=== PATIENT | male | born 1940 | race Caucasian/White ===

== ENCOUNTER 2017-08-05 11:45 | Outpatient (RCR) | payer OTHER, SELFPAY ==
[2017-08-05 13:05] LABS: International Normalized Ratio 2.6; Prothrombin Time (Protime)PT. 26.8 SECONDS (11.7-14.9)
== END 2017-08-05 12:00 | disposition home or self-care (01) ==
LOC: LAB 11:45
PROVIDERS: Family Provider Family Medicine; PCP Family Medicine; Visit Provider Internal Medicine Cardiovascular Disease
DX: I48.0 Paroxysmal atrial fibrillation (principal)
CPT/HCPCS: 36415; 85610

== ENCOUNTER → 2017-09-08 12:02 | Outpatient (CLI) | payer OTHER, SELFPAY ==
[2017-09-08 10:31] VITALS: BP 124/70; BMI 26.9
--- NOTE | 2017-09-08 12:26 | RAD_ITS ---
STUDY: X-RAY CHEST REASON FOR EXAM: Male, 76 years old. Shortness of breath. TECHNIQUE: PA and lateral views of the chest. COMPARISON: Comparison is made with prior examination dated February 10, 2013. FINDINGS: Hyperinflation. Blunting of both costophrenic angles. Increased linear markings at the lung bases suggest some bibasilar scarring. There is no demonstrated pleural abnormality. There is mild cardiac enlargement. Normal mediastinum and braden. Normal visualized pulmonary arteries. There is atherosclerotic tortuosity of the aortic arch and descending thoracic aorta. There are diffuse degenerative changes of the visualized thoracic spine. Normal visualized ribs, clavicles, and shoulders. There is no demonstrated abnormality of the visualized soft tissue structures of the upper abdomen. RAD/Chest PA and Lateral IMPRESSION: Hyperinflation. Blunting both cosmetic angles. Findings suggest a mild bibasilar scarring. Electronically Signed: Smith Grimm MD at 16:04 EST Tel [phone], Service support ,
[2017-09-08 12:40] LABS: Absolute Lymphocyte Count 2.76 X10^3/ul (0.83-4.51); Absolute Neutrophil Count 4.4 X10^3/uL (2.0-7.7); Basophil% 1.2 % (0-1); Eosinophil# 0.39 X10^3/uL; Eosinophils% 4.5 % (0-5); Hematocrit 44.5 % (40-54); Hemoglobin 14.5 g/dl (13.0-16.5); Lymphocyte # 2.76 X10^3/ul (4.0); Lymphocyte % 31.9 % (19-41); Mean Corp Hgb Conc 32.6 g/gl (32-36); Mean Corpuscular Hgb 29.5 pg (27.0-32.0); Mean Corpuscular Volume 90.6 fL (80-94); Mean Platelet Vol. 10.9 fl (6.2-12.0); Monocyte# 0.97 X10^3/uL; Monocyte% 11.2 % (0-10); Neutrophil # 4.42 X10^3/uL (2.7-7.7); Platelet Count 398 K/mm3 (150-450); RBC Distribution Width SD 51.9 fl (35.1-43.9); Red Blood Count 4.91 M/mm3 (4.6-6.2); White Blood Count 8.7 K/mm3 (4.4-11.0)
[2017-09-08 12:44] LABS: POSITIVE COUNT NO; POSITIVE DIFFERENTIAL NO; POSITIVE MORPHOLOGY NO
[2017-09-08 12:49] LABS: International Normalized Ratio 2.4; Prothrombin Time (Protime)PT. 25.2 SECONDS (11.7-14.9)
[2017-09-08 13:02] LABS: Anion Gap 6 (5-15); BUN 14 mg/dL (7-18); BUN/Creat Ratio 13.6 RATIO (10-20); Calcium,Total 8.5 mg/dL (8.5-10.1); Chloride 104 mmol/L (98-107); Creatinine, Serum 1.03 mg/dL (0.70-1.30); EST Glomerular Filtration Rate 74 mL/min (>60); Est Glom Filt Rate - Afr Amer 90 mL/min (>60); Glucose 105 mg/dL (74-106); Potassium 3.3 mmol/L (3.5-5.1); Sodium Level 140 mmol/L (136-145)
== END ==
PROVIDERS: Family Provider Family Medicine; PCP Family Medicine; Visit Provider Internal Medicine Cardiovascular Disease
DX: I48.0 Paroxysmal atrial fibrillation (principal); R06.02 Shortness of breath
CPT/HCPCS: 36415; 71046; 80048; 83880; 85025; 85610

== ENCOUNTER → 2017-09-09 08:41 | Outpatient (CLI) | payer OTHER, SELFPAY ==
[2017-09-08 10:31] VITALS: BP 124/70; BMI 26.9
--- NOTE | 2017-09-09 08:43 | ECHOD_ITS ---
Reason For Study: AFIB/FLUTTER Procedure This was a 2D Doppler, Color Flow transthoracic echocardiogram. The exam was of adequate technical quality. Exam performed in department. Left Ventricle Normal LV size. Moderate to severe concentric left ventricular hypertrophy. Mild global left ventricular systolic dysfunction. The estimated ejection fraction is 45 %. Right Ventricle Normal RV size. Normal systolic function. Atria The left atrium is severely enlarged. The right atrium is severely enlarged. No doppler evidence for ASD. Mitral Valve There is mild mitral annular calcification. The mitral valve chordae are thickened and/or calcified. Mild mitral valve prolapse. Moderate (2+) mitral valve insufficiency. Tricuspid Valve Normal tricuspid valve. Mild tricuspid valve insufficiency. Right ventricular systolic pressure estimated to be 36 mmHg. Aortic Valve Trisinus/trileaflet aortic valve. Mild focal aortic valve thickening. Moderate focal aortic valve calcification. Aortic sclerosis / mild aortic valve stenosis. Mild (1+) aortic valve insufficiency. Pulmonic Valve The pulmonic valve is not well visualized. Great Vessels Normal sized aortic root. Pericardium/Pleural No pericardial effusion. MMode/2D Measurements & Calculations LVIDd: 4.5 cm IVSd: 1.9 cm LVOT diam: 1.9 cm LVIDs: 3.6 cm LVPWd: 1.5 cm LVOT area: 2.7 cm2 RVDd: 2.9 cm FS: 21.0 % LA dimension: 5.6 cm LAV(MOD-bp): 110.7 ml LA A4 area: 31.9 cm2 LAV(MOD-bp) Indexed: 55.4 ml/m2 LAV(MOD-sp2): 95.0 ml LAV(MOD-sp4): 117.5 ml RA A4 area: 26.0 cm2 Doppler Measurements & Calculations MV E max gigi: 62.0 cm/sec Ao V2 max: 106.1 cm/sec AI max gigi: 282.3 cm/sec Ao max P.5 mmHg AI max P.9 mmHg ERICKA(V,D): 2.2 cm2 AI dec slope: 113.1 cm/sec2 AI P1/2t: 731.1 msec LV V1 max: 86.6 cm/sec MR max gigi: 449.5 cm/sec PA V2 max: 67.8 cm/sec LV V1 max P.0 mmHg MR max P.0 mmHg TR max gigi: 263.6 cm/sec TR max P.9 mmHg Interpretation Summary Mild global left ventricular systolic dysfunction. The estimated ejection fraction is 45 %. Moderate to severe concentric left ventricular hypertrophy. The left atrium is severely enlarged. The right atrium is severely enlarged. There is mild mitral annular calcification. The mitral valve chordae are thickened and/or calcified. Mild mitral valve prolapse. Moderate (2+) mitral valve insufficiency. Mild tricuspid valve insufficiency. Aortic sclerosis / mild aortic valve stenosis. Mild (1+) aortic valve insufficiency. Right ventricular systolic pressure estimated to be 36 mmHg. Ordering Physician: Sen Suazo Referring Physician: Dirk Castelan Performed By: Emelina Goodman, JESSE, RVT
== END ==
PROVIDERS: Family Provider Family Medicine; PCP Family Medicine; Visit Provider Internal Medicine Cardiovascular Disease
DX: I48.0 Paroxysmal atrial fibrillation (principal)
CPT/HCPCS: 93306

== ENCOUNTER → 2017-09-10 10:46 | Day surgery (SDC) | payer OTHER, SELFPAY ==
[2017-09-08 10:31] VITALS: BP 124/70; BMI 26.9
[2017-09-09 11:26] VITALS: BMI 26.9
[2017-09-10 11:06] LABS: Potassium 4.5 mmol/L (3.5-5.1)
[2017-09-10 11:08] LABS: International Normalized Ratio 2.2; Prothrombin Time (Protime)PT. 23.3 SECONDS (11.7-14.9)
--- NOTE | 2017-09-10 12:58 | PCM.OP.BLANK ---
Problem List (1) Atrial fibrillation Status: Acute Operative Report Date of Procedure: 09/10/17 Date: 09/10/2017 Procedure: Synchronized biphasic DC cardioversion Agents: Atrial fibrillation Consent: Per the patient Premedications: Per Dr. Edmond Soria pulmonology/critical care medicine with propofol 40 mg IV push ?1 Procedure: Synchronized biphasic DC cardioversion: 200 J ?1: Result: Sinus rhythm; PACs Complications: No apparent complications This note was generated with [facility] dictation software. It may contain incorrect words, spelling, and punctuation that were not noted in checking the note before signing.
--- NOTE | 2017-09-10 15:36 | PCM.OP.BLANK ---
Problem List (1) Atrial fibrillation Status: Acute (2) Cardiomyopathy Status: Acute Qualifiers: Cardiomyopathy type: unspecified Qualified Code(s): I42.9 - Cardiomyopathy, unspecified (3) Chronic systolic congestive heart failure Status: Chronic (4) snf current use of anticoagulant Status: Chronic Operative Report Date of Procedure: 09/10/17 - Conscious sedation CONSCIOUS SEDATION REPORT BRIEF HISTORY OF PRESENT ILLNESS: The patient is a 76-year-old Shadi male who presented to [facility] for an elective cardioversion secondary to atrial fibrillation. Patient is known to have systolic congestive heart failure with an EF of 45%. Patient does report having a previous cardioversion approximately 4 years ago without complication. The patient reports no prior anesthetic complications. Patient's INR was not therapeutic range. Patient does not report audible snoring in their home environment. Patient denies ever smoking. Patient has been n.p.o. since midnight. PHYSICAL EXAMINATION: VITAL SIGNS: Reviewed and were acceptable. GENERAL: The patient is a male, in no apparent distress, speaking in full sentences. HEENT: Normocephalic, atraumatic. Mucous membranes are moist and pink. Good mouth opening noted. Trachea is midline. Good neck mobility. CHEST: S1, S2 irregularly irregular. No murmurs, rubs or gallops were noted. LUNGS: Clear to auscultation bilaterally without appreciable wheezes, rales or rhonchi. ABDOMEN: Soft, nontender, nondistended. Positive bowel sounds. EXTREMITIES: There is no clubbing or cyanosis. Lower extremity edema present ASA Class: II DESCRIPTION OF PROCEDURE: After confirmation of informed consent, the patient's anesthesia plan was reviewed in detail. Propofol was chosen. Risks and benefits were reviewed and the patient agreed to proceed. At 12:42 PM, the patient was given 40 mg of propofol. The patient achieved an appropriate level of sedation and was given a 200 joule synchronized cardioversion by Dr. Suazo at the bedside. This was successful in achieving normal sinus rhythm. The patient was monitored until 12:51 PM, at which time he reached her baseline mental status and function. The patient tolerated the procedure well. COMPLICATIONS: None ESTIMATED BLOOD LOSS: None RECOMMENDATIONS: Okay to recover in usual fashion. Code Visit 9xxxx: Other Procedure See Report - [id number]
--- NOTE | 2017-09-10 15:41 | OP.PCM_ITS ---
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 Patient is known to have systolic congestive heart failure with an EF of 45%. Patient does report having a previous cardioversion approximately 4 years ago without complication. The patient reports no prior anesthetic complications. Patient's INR was not therapeutic range. Patient does not report audible snoring in their home environment. Patient denies ever smoking. Patient has been n.p.o. since midnight. PHYSICAL EXAMINATION: VITAL SIGNS: Reviewed and were acceptable. GENERAL: The patient is a male, in no apparent distress, speaking in full sentences. HEENT: Normocephalic, atraumatic. Mucous membranes are moist and pink. Good mouth opening noted. Trachea is midline. Good neck mobility. CHEST: S1, S2 irregularly irregular. No murmurs, rubs or gallops were noted. LUNGS: Clear to auscultation bilaterally without appreciable wheezes, rales or rhonchi. ABDOMEN: Soft, nontender, nondistended. Positive bowel sounds. EXTREMITIES: There is no clubbing or cyanosis. Lower extremity edema present ASA Class: II DESCRIPTION OF PROCEDURE: After confirmation of informed consent, the patient's anesthesia plan was reviewed in detail. Propofol was chosen. Risks and benefits were reviewed and the patient agreed to proceed. At 12:42 PM, the patient was given 40 mg of propofol. The patient achieved an appropriate level of sedation and was given a 200 joule synchronized cardioversion by Dr. Suazo at the bedside. This was successful in achieving normal sinus rhythm. The patient was monitored until 12:51 PM, at which time he reached her baseline mental status and function. The patient tolerated the procedure well. COMPLICATIONS: None ESTIMATED BLOOD LOSS: None RECOMMENDATIONS: Okay to recover in usual fashion. Code Visit 9xxxx: Other Procedure See Report - [id number]
== END ==
PROVIDERS: Family Provider Family Medicine; PCP Family Medicine; Visit Provider Internal Medicine Cardiovascular Disease
DX: I48.0 Paroxysmal atrial fibrillation (principal); I42.9 Cardiomyopathy, unspecified; I50.22 Chronic systolic (congestive) heart failure; R06.02 Shortness of breath; Z79.01 Long term (current) use of anticoagulants; Z79.899 Other long term (current) drug therapy
CPT/HCPCS: 36415; 84132; 85610; 92960; 93005; J7040

== ENCOUNTER 2017-09-12 05:02 | Inpatient (IN) | payer OTHER, SELFPAY ==
[2017-09-12] VITALS (22 sets, daily range): BP systolic 114–162; BP diastolic 67–111; PULSE 75–102; RESP 12–27; TEMP 35.7–37.4; O2SAT 80–97; BMI 26.6; BMI 25.9; BMI 26.0
--- NOTE | 2017-09-12 05:08 | EKG12_ITS ---
Test Reason : SOB Blood Pressure : / mmHG Vent. Rate : 097 BPM Atrial Rate : 097 BPM P-R Int : 238 ms QRS Dur : 098 ms QT Int : 364 ms P-R-T Axes : 047 -28 248 degrees QTc Int : 462 ms Sinus rhythm with 1st degree A-V block with occasional Premature ventricular complexes and Premature atrial complexes T wave abnormality, consider inferolateral ischemia Abnormal ECG Confirmed by ILIR MCDONALD, JAYY ([id number]), social media editor GLENN TURNER ([id number]) on 09/14/2017 1:02:52 PM Referred By: FER Confirmed By:JAYY HAZEL MD
--- NOTE | 2017-09-12 05:25 | RAD_ITS ---
STUDY: X-RAY CHEST REASON FOR EXAM: Male, 76 years old. Chest pain with shortness of breath TECHNIQUE: Single AP portable view of the chest. COMPARISON: 09/08/2017. FINDINGS: There are superimposed monitor leads. There is new opacification at both lung bases, small bilateral pleural effusion, continued areas of hyperinflation. There is no demonstrated pleural abnormality. Cardiomegaly has worsened. Normal mediastinum and braden. Normal visualized pulmonary arteries. There is atherosclerotic calcification of the aortic arch with tortuosity. Normal visualized thoracic spine. Normal visualized ribs, clavicles, and shoulders. There is no demonstrated abnormality of the visualized soft tissue structures of the upper abdomen. RAD/Chest 1 View (Portable) IMPRESSION: New bibasilar airspace disease with pleural effusion and increased cardiac enlargement likely superimposed on COPD. Suspect an inflammatory/infectious process rather than congestive heart failure. Electronically Signed: Nicky Hemphill MD at 5:54 EST , Service support ,
[2017-09-12] MEDS: Aspirin 81 MG TAB.CHEW 324 MG PO (05:27)
[2017-09-12 05:31] LABS: Absolute Lymphocyte Count 2.64 X10^3/ul (0.83-4.51); Absolute Neutrophil Count 6.7 X10^3/uL (2.0-7.7); Basophil# 0.06 X10^3/uL; Basophil% 0.6 % (0-1); Eosinophil# 0.25 X10^3/uL; Eosinophils% 2.3 % (0-5); Hematocrit 44.9 % (40-54); Hemoglobin 15.1 g/dl (13.0-16.5); Lymphocyte # 2.64 X10^3/ul (4.0); Lymphocyte % 24.7 % (19-41); Mean Corp Hgb Conc 33.6 g/gl (32-36); Mean Corpuscular Volume 89.3 fL (80-94); Mean Platelet Vol. 10.8 fl (6.2-12.0); Monocyte# 1.03 X10^3/uL; Monocyte% 9.7 % (0-10); Neutrophil # 6.66 X10^3/uL (2.7-7.7); Neutrophil % 62.4 % (47-70); Platelet Count 463 K/mm3 (150-450); RBC Distribution Width CV 15.8 % (11.6-14.6); RBC Distribution Width SD 51.4 fl (35.1-43.9); Red Blood Count 5.03 M/mm3 (4.6-6.2); White Blood Count 10.7 K/mm3 (4.4-11.0)
[2017-09-12] MEDS: Furosemide 40 MG/4 ML Vial IV ×3 (05:31→16:30)
[2017-09-12 05:32] LABS: POSITIVE COUNT NO; POSITIVE DIFFERENTIAL NO; POSITIVE MORPHOLOGY NO
[2017-09-12 05:44] LABS: Anion Gap 9 (5-15); BUN 18 mg/dL (7-18); BUN/Creat Ratio 17.6 RATIO (10-20); Calcium,Total 8.9 mg/dL (8.5-10.1); Chloride 103 mmol/L (98-107); Creatinine, Serum 1.02 mg/dL (0.70-1.30); EST Glomerular Filtration Rate 75 mL/min (>60); Est Glom Filt Rate - Afr Amer 91 mL/min (>60); Estimated Creatinine Clearance 62.62 ml/min; Glucose 100 mg/dL (74-106); Sodium Level 139 mmol/L (136-145)
[2017-09-12 05:45] LABS: International Normalized Ratio 2.3; Prothrombin Time (Protime)PT. 24.5 SECONDS (11.7-14.9)
[2017-09-12 06:09] LABS: BNP,B-Type NATRIURETIC PEPTIDE 620.4 pg/mL (0-100)
--- NOTE | 2017-09-12 06:14 | ED.VISSUMM ---
- ER Visit Summary Date of Service: 09/12/17 Chief Complaint: Shortness of breath History of Present Illness: The patient is a [address] Suazo and Dr. Castelan. He reports he has shortness of breath began 2 days ago and is gradually been worsening. States this is since being cardioverted from atrial fibrillation on September 10. States it is much worse if he walks around or lays flat. He reports that he has a cough sometimes. This is chronic and unchanged. It is nonproductive. No fever, chills, chest pain, or other complaints. He does have a history of CHF. He does not do daily weights. Physical Examination: Vitals: Stable. Afebrile. General: Well-nourished and well-developed. Head: Normocephalic atraumatic. Neck: Supple, no lymphadenopathy. No JVD. Nontender. Cardiovascular: Regular rate and rhythm. 2 out of 6 systolic murmur. Respiratory: Mild respiratory distress with crackles at the bases bilaterally. Abdominal: Soft, nontender, nondistended, normal bowel sounds. No guarding, rebound, or peritoneal signs. Back: Nontender. Extremities: Nontender, 2+ pitting edema of his lower extremity bilaterally. Skin: Normal color, no rash. Neurologic: Alert and oriented ?3. Cranial nerves II through XII are intact. Normal strength and sensation. Psych: Normal affect. Test Results: EKG is sinus with first-degree AV block rate of 97. He does have PVCs. CBC is marked for platelets of 463. Chem-7 is normal. INR is 2.3. Troponin 0 0.03. 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 Chest x-ray is read by me shows cardiomegaly and CHF. Emergency Department Course and Treatment: Patient was placed on BiPAP. His pulse ox is 91% on 4 L nasal cannula. His heart rate is decreased into the 80s. He feels much improved. He is given Lasix IV. Treatment Plan: Patient was discussed with Dr. Herrera. He will be admitted to the hospital for further evaluation and treatment. Disposition: Admitted in improved condition Impression: 1. CHF. 2. Coumadin coagulopathy. This note was generated with [employer] dictation software. It may contain incorrect words, spelling, and punctuation that were not noted in review of the chart prior to signing ED Disposition - Plan for ED Patient: Chief Complaint: Shortness of Breath Referrals: Dirk Castelan [Primary Care Provider] -
--- NOTE | 2017-09-12 06:16 | ED.RN ---
VOIDING CLEAR YELLOW URINE IN URINAL AND HAS DIURESED 600 CC
--- NOTE | 2017-09-12 06:49 | PCM.HP.STD ---
Problem List (1) Acute on chronic systolic heart failure Status: Acute (2) Cardiomyopathy Status: Acute Qualifiers: (3) Dyspnea Status: Acute Qualifiers: (4) Hypokalemia Status: Acute (5) Palpitations Status: Acute (6) Paroxysmal atrial tachycardia Status: Acute (7) Chronic systolic congestive heart failure Status: Chronic History of Present Illness Date of Admission: 09/12/17 Chief Complaint: Acute on chronic systolic heart failure The patient is a 76 year old male w/ h/o parosymal afib, HTN and chronic systolic heart failure admitted for acute on chronic systolic heart failure. He recently had an ablation and has worsening SOB after the ablation. Nothing appeared to make it better or worse. His SOB has been worsening over the past few weeks but in the past few days, SOB has gotten much worse. He has orthopnea. His SOB affected all part of the day and is so severe that it interfered with his ADLs. No change in diet or meds. No chest pain. He has minimal cough. No fever or chill. Past Medical History Past Medical History (Chronic Problems): Chronic Problems (Last Reviewed 09/08/17 @ 10:32 by Stella Mishra) [facility] current use of anticoagulant (Chronic) Paroxysmal atrial fibrillation (Chronic) Chronic systolic congestive heart failure (Chronic) Allergies No Known Allergies Allergy (Verified 09/12/17 05:10) Home Medications: Ambulatory Orders Medication Instructions Recorded metoprolol tartrate 100 mg tablet 100 mg PO BID #180 tab 07/12/17 lisinopril 10 mg tablet 10 mg PO QDAY 09/08/17 furosemide 20 mg tablet 20 mg PO BID #60 tab 09/09/17 Warfarin [Coumadin ([facility])] 2 mg PO 09/12/17 Warfarin [Coumadin ([facility])] 3 mg PO DAILY 09/12/17 Surgical History: no surgical history Smoking Status: Never smoker - *Family History Maternal History Items: No pertinent history Review of Systems Constitutional: Denies: Chills, Fever, Weight Change HEENT: Denies: Head Aches, Sinus Congestion, Sinus Drainage Cardiovascular: Denies: Chest Pain, Palpitations Respiratory: Reports: Cough, Wheezing. Denies: Shortness of breath at rest, Sputum production Gastrointestinal: Denies: Abdominal Pain, Nausea, Vomiting Genitourinary: Denies: Dysuria Musculoskeletal: Denies: Joint Pain, Joint Tenderness Skin: Denies: Rash, Wounds Neurological: Denies: Numbness, Tingling, Focal weakness Psychiatric: Denies: Anxiety, Depression, Homicidal Ideations, Suicidal Ideations Hematologic/ Lymphatic: Denies: Easy Bruising, Easy Bleeding VTE Information - Inpt Only VTE Present on Admission: No VTE Mechan Device Prophylaxis: SCD's VTE Pharm Prophylaxis ordered?: Yes Patient Problems: Active and Suspected Problems (Last Reviewed 09/08/17 @ 10:32 by Stella Mishra) Atrial fibrillation (Acute) Acute on chronic systolic heart failure (Acute) - Physical Exam General: Alert, Oriented x3, Cooperative HEENT: Atraumatic, PERRLA, EOMI, Normocephalic Neck: Supple, No JVD, Negative Carotid Bruits Lungs: Diminished, Rales, Wheezes Cardiovascular: Regular rate, No murmurs Abdomen: Bowel Sounds Present, Soft, Non Tender Extremities: Capillary Refill Less than 3 Seconds, Edema - 3+ edema Skin: No rashes, No breakdown Musculoskeletal: No Tenderness to Palpation of Joints or Extremities Neurological: Cranial nerves II-XII grossly intact Psych/Mental Status: Normal Affect, Appropriate Vital Signs Temp Pulse Resp BP Pulse Ox 99.4 F H 92 21 H 140/91 H 95 09/12/17 05:03 09/12/17 06:38 09/12/17 06:38 09/12/17 06:38 09/12/17 06:38 Oxygen Flow Rate 4 Oxygen Delivery Method Bi-pap Weight: 84.1 kg Body Mass Index (BMI) 26.6 Laboratory Tests Past 24 Hrs 09/12/17 09/12/17 09/12/17 05:15 05:15 05:15 WBC 10.7 RBC 5.03 Hgb 15.1 Hct 44.9 MCV 89.3 MCH 30.0 MCHC 33.6 RDW 15.8 H RDW Differential 51.4 H Plt Count 463 H MPV 10.8 Immature Gran % (Auto) 0.300 Neut % (Auto) 62.4 Lymph % (Auto) 24.7 [place] % (Auto) 9.7 Eos % (Auto) 2.3 Baso % (Auto) 0.6 Absolute Neuts (auto) 6.7 Absolute Lymphs (auto) 2.64 Total Counted Not Reportable PT 24.5 H INR 2.3 Sodium 139 Potassium 4.0 Chloride 103 Carbon Dioxide 27.0 Anion Gap 9 BUN 18 Creatinine 1.02 Estim Creat Clear Calc 62.62 Est GFR (MDRD) Af Amer 91 Est GFR (MDRD) Non-Af 75 BUN/Creatinine Ratio 17.6 Glucose 100 Calcium 8.9 Troponin I 0.03 B-Natriuretic Peptide 09/12/17 05:15 WBC RBC Hgb Hct MCV MCH MCHC RDW RDW Differential Plt Count MPV Immature Gran % (Auto) Neut % (Auto) Lymph % (Auto) [place] % (Auto) Eos % (Auto) Baso % (Auto) Absolute Neuts (auto) Absolute Lymphs (auto) Total Counted PT INR Sodium Potassium Chloride Carbon Dioxide Anion Gap BUN Creatinine Estim Creat Clear Calc Est GFR (MDRD) Af Amer Est GFR (MDRD) Non-Af BUN/Creatinine Ratio Glucose Calcium Troponin I B-Natriuretic Peptide 620.4 H Assessment/Plan Active and Suspected Problems (Last Reviewed 09/08/17 @ 10:32 by Stella Mishra) Atrial fibrillation (Acute) Acute on chronic systolic heart failure (Acute) 76 year old male w/ h/o parosymal afib, HTN and chronic systolic heart failure admitted for acute on chronic systolic heart failure. 1) Acute on chronic systolic heart failure: Clinical history c/w heart failure. Chest xray is not so convincing of heart failure. Will start lasix 40mg IV Q12H. Will get trops. Will also get ECHO. Monitor. 2) Acute respiratory failure: Will c/w bipap. Likely heart failure. However, will r/o infectious causes. Cultures pending. Will get D-dimer, although PE is unlikely given on anticoagulation. SOB appears to be out of proportion to chest xray. Monitor. 3) Afib: Resume home meds. Monitor. 4) Prophylaxis: Coumadin.
[2017-09-12 08:05] LABS: D-Dimer Quantitative (DVT/PE) 0.44 FEU/ug/m (0.27-0.49)
[2017-09-12 08:17] LABS: Magnesium 1.9 mg/dL (1.6-2.6); Thyroid Stim Hormone (TSH) 2.79 uIU/mL (0.358-3.74)
[2017-09-12 08:30] LABS: Color, Urine Straw (Yellow); Glucose, Dipstick Normal (Normal); Ketone-Dipstick Negative (Negative); Leukocyte Esterase-Dipstick 25 /ul (Negative); Nitrite-Dipstick Negative (Negative); Occult Blood-Urine Negative /ul (Negative); Protein-Dipstick Negative (Negative); Urine Bilirubin Dipstick Negative (Negative); Urine Clarity Clear (Clear); Urine Urobilinogen Normal (Normal)
[2017-09-12 08:52] LABS: BNP,B-Type NATRIURETIC PEPTIDE 705.5 pg/mL (0-100)
[2017-09-12] MEDS: Lisinopril 10 MG Tablet PO ×2 (09:23→21:33)
[2017-09-12] MEDS: Metoprolol Tartrate 100 MG Tablet PO ×2 (09:23→21:34)
--- NOTE | 2017-09-12 11:47 | PN_ITS ---
<Guille Duran - Last Filed: 09/12/17 11:37> Patient Problems: Active and Suspected Problems (Last Reviewed 09/08/17 @ 10:32 by Stella Mishra) Atrial fibrillation (Acute) Acute on chronic systolic heart failure (Acute) Subjective: Pt came in last night with increased SOB, PND, and orthopnea. He has a hx of AF and underwent a succesful cardioversion with Dr. Suazo 2 days ago and had an echo with EF 45% 3 days ago. He reports palpitations. He has had increased swelling of his BLE and was admitted for CHF and started on BiPAP and IV lasix. He does not use O2 at home. He feels that he is improving. He still has some BLE edema and abdominal distention. - Physical Exam General: Alert, Oriented x3, Cooperative HEENT: Atraumatic, PERRLA, EOMI, Normocephalic Neck: Supple, No JVD, Negative Carotid Bruits Lungs: Normal air movement, Rales - BL lower elaine posteriodly. Cardiovascular: Regular rate, No murmurs Abdomen: Bowel Sounds Present, Soft, Non Tender, - - mildly distended Extremities: No edema, Capillary Refill Less than 3 Seconds, Edema - 2+ pitting edema BLE mostly in ankles. Skin: No rashes, No breakdown Musculoskeletal: No Tenderness to Palpation of Joints or Extremities Neurological: Cranial nerves II-XII grossly intact Psych/Mental Status: Normal Affect, Appropriate, Alert and oriented to time, place, person, mood and affect Vital Signs Temp Pulse Resp BP Pulse Ox 96.2 F L 80 20 H 133/72 H 95 09/12/17 07:37 09/12/17 09:23 09/12/17 07:45 09/12/17 07:37 09/12/17 11:26 Oxygen Flow Rate 4.5 Oxygen Delivery Method Nasal Cannula Weight: 82.1 kg Body Mass Index (BMI) 25.9 Intake and Output for Last 24 Hours 09/10/17 09/11/17 09/12/17 23:59 23:59 23:59 Output Total 250 / 250 Balance -250 / -250 Microbiology Past 72 Hours 09/12/17 08:00 Streptococcus pneumoniae Antigen (M - Final Urine, Clean Catch 09/12/17 08:00 Legionella Antigen - Final Urine, Clean Catch 09/12/17 07:43 Influenza Types A,B Direct FA (CONNIE) - Final Mucosa - Nasopharyngeal Laboratory Tests Past 24 Hrs 09/12/17 09/12/17 09/12/17 07:30 07:30 07:30 D-Dimer Quant (PE/DVT) 0.44 Magnesium 1.9 Troponin I B-Natriuretic Peptide 705.5 H TSH 2.79 Urine Color Urine Clarity Urine pH Ur Specific [place] Urine Protein Urine Glucose (UA) Urine Ketones Urine Occult Blood Urine Nitrite Urine Bilirubin Urine Urobilinogen Ur Leukocyte Esterase 09/12/17 09/12/17 08:00 09:20 D-Dimer Quant (PE/DVT) Magnesium Troponin I 0.04 B-Natriuretic Peptide TSH Urine Color Straw Urine Clarity Clear Urine pH 7.0 Ur Specific [place] 1.010 Urine Protein Negative Urine Glucose (UA) Normal Urine Ketones Negative Urine Occult Blood Negative Urine Nitrite Negative Urine Bilirubin Negative Urine Urobilinogen Normal Ur Leukocyte Esterase 25 H Assessment/Plan Active and Suspected Problems (Last Reviewed 09/08/17 @ 10:32 by Stella Mishra) Atrial fibrillation (Acute) Acute on chronic systolic heart failure (Acute) 1. Acute hypoxic respiratory failure 2/2 acute systolic CHF exacerbation - pt tolerated BiPAP last night. Now stable on 4.5 lpm O2 - no home O2 at baseline. He is diuresing with IV lasix. BNP was elevated however CXR was read as more COPD vs CHF. His symptoms of BLE, abdominal distention, PND, and orthopnea are consistent with CHF. Will consult Dr. Suazo as the patient had a cardioversion 2 days ago. Defer Echo as echo done 3 days ago - EF 45 %. Troponin negative. 1 EKG and tele showing AFib, however on closer inspection I' m not convinced there was actually Afib, but sinus arrhythmia with a 1st degree AV block. Will wait for Dr. Suazo to eval. He is already on a beta rubin and STEPHANE inhibitor. 2. Afib - s/p cardioversion, as above. + palpitations. Rate controlled and warfarin - therapeutic. K and mag are normal. 3. HTN - improving DVT ppx: warfarin DC planning: pending cardiology evaluation, currently requiring significant amounts of O2. Does not have O2 at home. This patient was seen by Guille Duran PA-C under the supervision of Doctor Santos. <Paintsil,Rickreall - Last Filed: 09/12/17 12:12> - Physical Exam Vital Signs Temp Pulse Resp BP Pulse Ox 96.2 F L 80 20 H 133/72 H 95 09/12/17 07:37 09/12/17 09:23 09/12/17 07:45 09/12/17 07:37 09/12/17 11:26 Oxygen Flow Rate 4.5 Oxygen Delivery Method Nasal Cannula Weight: 82.1 kg Body Mass Index (BMI) 25.9 Intake and Output for Last 24 Hours 09/10/17 09/11/17 09/12/17 23:59 23:59 23:59 Intake Total 240 / 240 Output Total 1875 / 1875 Balance -1635 / -1635 Microbiology Past 72 Hours 09/12/17 08:00 Streptococcus pneumoniae Antigen (M - Final Urine, Clean Catch 09/12/17 08:00 Legionella Antigen - Final Urine, Clean Catch 09/12/17 07:43 Influenza Types A,B Direct FA (CONNIE) - Final Mucosa - Nasopharyngeal Laboratory Tests Past 24 Hrs 09/12/17 09/12/17 09/12/17 07:30 07:30 07:30 D-Dimer Quant (PE/DVT) 0.44 Magnesium 1.9 Troponin I B-Natriuretic Peptide 705.5 H TSH 2.79 Urine Color Urine Clarity Urine pH Ur Specific [place] Urine Protein Urine Glucose (UA) Urine Ketones Urine Occult Blood Urine Nitrite Urine Bilirubin Urine Urobilinogen Ur Leukocyte Esterase 09/12/17 09/12/17 08:00 09:20 D-Dimer Quant (PE/DVT) Magnesium Troponin I 0.04 B-Natriuretic Peptide TSH Urine Color Straw Urine Clarity Clear Urine pH 7.0 Ur Specific [place] 1.010 Urine Protein Negative Urine Glucose (UA) Normal Urine Ketones Negative Urine Occult Blood Negative Urine Nitrite Negative Urine Bilirubin Negative Urine Urobilinogen Normal Ur Leukocyte Esterase 25 H Assessment/Plan Patient was seen and examined independently. Managed on Bipap overnight, admitted with SOB and being managed as acute CHF. He denies chest pain, palpitations or SOB. On Lasix 40mg IV BID, normal renal function, telemetry is sinus rhythmn, will increase lasix to 40mg q8hrly, continue on home potassium, look out for electrolyte imbalances. Daily weights, strict I & Os
--- NOTE | 2017-09-12 13:39 | CON.PCM_ITS ---
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 The patient has been undergoing recent outpatient cardiovascular evaluation for recurrent shortness of breath/dyspnea recurrent atrial fibrillation. He has undergone noninvasive studies including a recent (09/09/2017) follow-up transthoracic echocardiogram. Has demonstrated mild global left ventricular systolic dysfunction with an estimated LVEF of 45%; moderate to severe concentric LVH; severe biatrial enlargement; mild mitral annular calcification; mild mitral valve prolapse; moderate MR; mild TR; aortic valve sclerosis/mild aortic valve stenosis; mild AI; and an estimated RV systolic pressure of 36 mmHg. Based upon his ongoing issues and concerns he underwent medication adjustment with increase in his outpatient diuretic therapy regimen. He also underwent subsequent synchronized biphasic DC cardioversion on 09/10/2017 with 200 J ?1 at which time he returned to sinus rhythm with PACs. He states that yesterday evening he had progressive shortness of breath and dyspnea and describes symptoms compatible with orthopnea and PND. He denied any chest discomfort. There was no obvious palpitations. There was no loss of consciousness. He was brought to the hospital for further evaluation and care. He was thought to be in acute on chronic systolic CHF. He required medical management with IV diuretics and temporary oxygen support with BiPAP. As he began to diurese his oxygenation improved and his BiPAP was able to be discontinued. He was then placed on O2 nasal cannula. He states at the present time he is doing better. However he still feels tired. He has had laboratory studies performed. His BNP was elevated which is not a new finding for him. His ECG demonstrated sinus rhythm with a first-degree AV block with occasional PACs and PVCs; leftward axis; poor R-wave progression; nonspecific T-wave abnormality. Of note, he has undergone previous diagnostic cardiac catheterization on 2010. This demonstrated his left ventricle to have borderline low LV systolic function with an estimated LVEF of 50% and angiographically normal-appearing coronary arteries and mild to moderate MR. [] Past Medical History Allergies/Adverse Reactions: Allergies No Known Allergies Allergy (Verified 09/12/17 05:10) Home Medications: Ambulatory Orders Medication Instructions Recorded metoprolol tartrate 100 mg tablet 100 mg PO BID #180 tab 07/12/17 lisinopril 10 mg tablet 10 mg PO QDAY 09/08/17 furosemide 20 mg tablet 20 mg PO BID #60 tab 09/09/17 Potassium Chloride [K-Dur] 20 meq PO DAILY 09/12/17 Warfarin [Coumadin ([facility])] 2 mg PO 09/12/17 Warfarin [Coumadin ([facility])] 3 mg PO DAILY 09/12/17 Past Medical History (Chronic Problems): Chronic Problems (Last Reviewed 09/08/17 @ 10:32 by Stella Mishra) Mitral valve regurgitation (Chronic) Aortic valve stenosis (Chronic) 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 Denies: Fever, Night Sweats Cardiovascular: Reports: Shortness of Breath, Shortness of Breath at Rest, Shortness of Breath with Exertion, Orthopnea, PND, Peripheral Edema. Denies: Chest Discomfort, Palpitations, Lightheadedness, Dizziness, Near Syncope, Syncope Respiratory: Reports: Shortness of Breath. Denies: Cough, Sputum Production, Hemoptysis Gastrointestinal: Denies: Hematemesis, Hematochezia, Melena Genitourinary: Denies: Dysuria, Hematuria Skin: Denies: Rash Subjectve: This is a 76-year-old white male who appears to be resting reasonably comfortably with O2 nasal cannula at this time in no acute distress. Objective: Vital Signs Temp Pulse Resp BP Pulse Ox 96.2 F L 80 20 H 133/72 H 95 09/12/17 07:37 09/12/17 09:23 09/12/17 07:45 09/12/17 07:37 09/12/17 11:26 Oxygen Flow Rate 4.5 Oxygen Delivery Method Nasal Cannula Weight: 180 lb 15.992 oz Body Mass Index (BMI) 25.9 Intake and Output for Last 24 Hours 09/10/17 09/11/17 09/12/17 23:59 23:59 23:59 Intake Total 240 / 240 Output Total 1875 / 1875 Balance -1635 / -1635 General: Awake, Alert, Oriented x 3, Cooperative, No Acute Distress Neck: No JVD Lungs: Diminished Ayaz Bases Cardiovascular: Regular Rhythm, Premature Ectopic Beats, Normal S1, Normal S2 Murmur Murmur: Grade 2/6, Mid Systolic, [place], Axilla, - - Grade 2/6: Soft: Diastolic murmur: Lower left sternal border Vascular: No Carotid Bruits Abdomen: Bowel Sounds Present, Soft, Non Tender Extremities: Mild RLE Edema, Mild LLE Edema 09/12/17 07:30: D-Dimer Quant (PE/DVT) 0.44 09/12/17 07:30: B-Natriuretic Peptide 705.5 H 09/12/17 07:30: Magnesium 1.9 09/12/17 08:00: Urine Color Straw, Urine Clarity Clear, Urine pH 7.0, Ur Specific [place] 1.010, Urine Protein Negative, Urine Glucose (UA) Normal, Urine Ketones Negative, Urine Occult Blood Negative, Urine Nitrite Negative, Urine Bilirubin Negative, Urine Urobilinogen Normal, Ur Leukocyte Esterase 25 H 09/12/17 09:20: Troponin I 0.04 Rhythm: As noted above EKG: As noted above ECHO: As noted above Cardiac Cath: As noted above CXR: Preliminary evaluation: Blunting of the costophrenic angles; please see official report Assessment/Plan 1. Acute on chronic systolic CHF The patient appears to have had recurrent acute on chronic systolic CHF. This may be compatible with the patient's history of underlying atrial dysrhythmia, valvular heart disease, and non-CAD related cardiomyopathy. At the present time he is being monitored. His laboratory studies will be followed. His cardiac rate and rhythm will be followed. He has undergone recent evaluation with a transthoracic echocardiogram. He will continue medical management. This does include IV diuresis. He appears to be responding appropriately thus far. Upon his clinical course he may eventually need additional noninvasive or invasive studies to assist with diagnosis and or care. 2. Cardiomyopathy The patient has a history of a non-CAD related cardiomyopathy. He has been treated medically in the past. He had been doing well until recently. There is concern that his recent return to atrial fibrillation prompted recurrent acute on chronic symptoms. This may also have impacted his overall LV systolic function/LVEF. At the present time he is being followed. He continues medical management. He has undergone recent noninvasive evaluation. He is also undergone recent DC cardioversion to regain sinus rhythm. The hope is that in sinus rhythm he will regain his atrial kick which may help his overall cardiovascular efficiency and subsequently help his overall cardiovascular status. 3. Atrial fibrillation The moment he remains in sinus rhythm with PACs and PVCs. His rate and rhythm will be followed. He continues on rate control therapy as well as anticoagulant therapy. Ideally it would be reasonable not to interrupt his anticoagulant therapy for any additional invasive evaluation and/or care for approximately 4-6 weeks to as the risk of post DC cardioversion thromboembolic events. In the interim depending upon his rate and rhythm he may need additional medical therapy. This could include antiarrhythmic therapy to help maintain his sinus rhythm. 4. MR She does have a history of mitral valve prolapse and mitral valve regurgitation. His prolapse appears mild and his MR appears to be moderate based on his recent echocardiographic studies. He will need to be followed. Depending on his future clinical course, if his mitral valve disease is thought to be more prominent and/or contributing to his ongoing cardiovascular issues he may need to be considered for a tertiary care center evaluation as to whether or not he is a candidate for any form of mitral valve repair/replacement. 5. Aortic valve sclerosis/stenosis His aortic valve appears to be sclerotic and/or mildly stenotic. It was not felt this was the culprit for his ongoing acute on chronic cardiovascular issues. This will need to be followed over time. 6. Long-term oral anticoagulant therapy At the present time, he should remain on anticoagulant therapy, especially noting he is undergone recent synchronized biphasic DC cardioversion, to minimize the risk of thromboembolic event secondary to his history of atrial dysrhythmias, etc. Comment: The above was discussed with the patient, his spouse, and multiple other family members present as well as the [facility] hospitalist team. This note was generated with [employer] Dictation software. Every effort was made to ensure accuracy, however, computerized office director mistakes may persist.
[2017-09-13] VITALS (32 sets, daily range): BP systolic 93–133; BP diastolic 57–97; PULSE 61–135; RESP 16–20; TEMP 36.6–37.4; O2SAT 93–97
[2017-09-13] MEDS: Furosemide 40 MG/4 ML Vial IV ×2 (05:48→17:07)
--- NOTE | 2017-09-13 06:01 | EKG12_ITS ---
Test Reason : ARRYTHMIA Blood Pressure : / mmHG Vent. Rate : 135 BPM Atrial Rate : 182 BPM P-R Int : 000 ms QRS Dur : 094 ms QT Int : 354 ms P-R-T Axes : 000 -72 174 degrees QTc Int : 531 ms Atrial fibrillation Left anterior fascicular block ST & T wave abnormality, consider lateral ischemia Abnormal ECG When compared with ECG of 12-SEP-2017 05:09, MANUAL COMPARISON REQUIRED, DATA IS UNCONFIRMED Confirmed by ILIR MCDONALD, JAYY ([id number]), medical editor GLENN TURNER ([id number]) on 09/14/2017 2:00:39 PM Referred By: RONEY Confirmed By:JAYY HAZEL MD
[2017-09-13] MEDS: Metoprolol Tartrate 100 MG Tablet PO ×2 (06:07→21:02)
[2017-09-13 06:18] LABS: International Normalized Ratio 2.6
[2017-09-13 06:22] LABS: Anion Gap 8 (5-15); BUN 21 mg/dL (7-18); BUN/Creat Ratio 17.6 RATIO (10-20); Calcium,Total 8.7 mg/dL (8.5-10.1); Chloride 102 mmol/L (98-107); Creatinine, Serum 1.19 mg/dL (0.70-1.30); EST Glomerular Filtration Rate 63 mL/min (>60); Est Glom Filt Rate - Afr Amer 76 mL/min (>60); Estimated Creatinine Clearance 53.68 ml/min; Glucose 90 mg/dL (74-106); Sodium Level 142 mmol/L (136-145)
[2017-09-13 06:41] LABS: Absolute Lymphocyte Count 2.64 X10^3/ul (0.83-4.51); Absolute Neutrophil Count 5.5 X10^3/uL (2.0-7.7); Basophil# 0.05 X10^3/uL; Basophil% 0.5 % (0-1); Eosinophil# 0.34 X10^3/uL; Eosinophils% 3.6 % (0-5); Hematocrit 46.4 % (40-54); Hemoglobin 15.1 g/dl (13.0-16.5); Lymphocyte # 2.64 X10^3/ul (4.0); Lymphocyte % 27.6 % (19-41); Mean Corp Hgb Conc 32.5 g/gl (32-36); Mean Corpuscular Hgb 29.5 pg (27.0-32.0); Mean Corpuscular Volume 90.6 fL (80-94); Mean Platelet Vol. 10.6 fl (6.2-12.0); Monocyte# 1.04 X10^3/uL; Monocyte% 10.9 % (0-10); Neutrophil # 5.48 X10^3/uL (2.7-7.7); Neutrophil % 57.3 % (47-70); Platelet Count 394 K/mm3 (150-450); RBC Distribution Width CV 15.6 % (11.6-14.6); RBC Distribution Width SD 51.6 fl (35.1-43.9); Red Blood Count 5.12 M/mm3 (4.6-6.2); White Blood Count 9.6 K/mm3 (4.4-11.0)
[2017-09-13 06:42] LABS: POSITIVE COUNT NO; POSITIVE DIFFERENTIAL NO; POSITIVE MORPHOLOGY NO
[2017-09-13] MEDS: 0.9% NaCl Peripheral Flush Adult/Peds IV ×2 (07:45→17:07)
--- NOTE | 2017-09-13 10:20 | CASEMGMT ---
This RN CM to bedside to complete assessment and pt is sleeping at this time. Will attempt again later. SStaten RN CM
--- NOTE | 2017-09-13 10:24 | PCM.PN.CARD ---
Subjectve: The patient is awake and alert. He states his breathing has improved. He notes his lower extremity edema has improved. He has had no complaints of chest discomfort or palpitations. He was noted to reenter atrial fibrillation with RVR earlier this day, however, he did not note the change himself. Objective: Vital Signs Temp Pulse Resp BP Pulse Ox 98.2 F 100 17 109/89 H 95 09/13/17 10:00 09/13/17 10:00 09/13/17 10:00 09/13/17 10:00 09/13/17 10:00 Oxygen Flow Rate 1 Oxygen Delivery Method Nasal Cannula Weight: 175 lb 4.28 oz Body Mass Index (BMI) 25.9 Intake and Output for Last 24 Hours 09/11/17 09/12/17 09/13/17 23:59 23:59 23:59 Intake Total 480 / 480 Output Total 4075 / 4075 250 / 250 Balance -3595 / -3595 -250 / -250 General: Awake, Alert, Oriented x 3, Cooperative, No Acute Distress Neck: No JVD Lungs: Diminished Ayaz Bases - Improved compared to the previous evaluation Cardiovascular: Irregular Rhythm, Normal S1, Normal S2 Murmur Murmur: Grade 2/6, Mid Systolic, [place], Axilla, - - Grade 2/6: Soft: Diastolic murmur: Lower left sternal border Abdomen: Bowel Sounds Present, Soft, Non Tender Extremities: Trace RLE Edema, Trace LLE Edema 09/12/17 09:20: Troponin I 0.04 09/12/17 13:20: Troponin I 0.04 09/12/17 19:15: Troponin I 0.03 09/13/17 05:20: WBC 9.6, RBC 5.12, Hgb 15.1, Hct 46.4, MCV 90.6, MCH 29.5, MCHC 32.5, RDW 15.6 H, RDW Differential 51.6 H, Plt Count 394, MPV 10.6, Immature Gran % (Auto) 0.100, Neut % (Auto) 57.3, Lymph % (Auto) 27.6, [place] % (Auto) 10.9 H, Eos % (Auto) 3.6, Baso % (Auto) 0.5, Absolute Neuts (auto) 5.5, Total Counted Not Reportable 09/13/17 05:20: Sodium 142, Potassium 4.0, Chloride 102, Carbon Dioxide 32.0, Anion Gap 8, BUN 21 H, Creatinine 1.19, Est GFR (MDRD) Af Amer 76, Est GFR (MDRD) Non-Af 63, BUN/Creatinine Ratio 17.6, Glucose 90, Calcium 8.7 09/13/17 05:20: PT 27.0 H, INR 2.6 Rhythm: Atrial fibrillation EKG: Atrial fibrillation; left axis deviation; poor R-wave progression; T-wave abnormality potentially compatible with myocardial ischemia; no acute ECG changes other than notation of the change to atrial fibrillation Assessment/Plan 1. Acute on chronic systolic CHF The patient appears to have had recurrent acute on chronic systolic CHF. This may be compatible with the patient's history of underlying atrial dysrhythmia, valvular heart disease, and non-CAD related cardiomyopathy. At the present time he is being monitored. His laboratory studies will be followed. He has undergone recent evaluation with a transthoracic echocardiogram. He will continue medical management. This does include IV diuresis. He appears to be responding appropriately thus far. Upon his clinical course he may eventually need additional noninvasive or invasive studies to assist with diagnosis and or care. 2. Cardiomyopathy The patient has a history of a non-CAD related cardiomyopathy. He has been treated medically in the past. He had been doing well until recently. There is concern that his recent return to atrial fibrillation prompted recurrent acute on chronic symptoms. This may also have impacted his overall LV systolic function/LVEF. At the present time he is being followed. He continues medical management. He has undergone recent noninvasive evaluation. He is also undergone recent DC cardioversion to regain sinus rhythm. However, now he has returned to atrial fibrillation. 3. Atrial fibrillation He has returned to atrial fibrillation. He will continue rate control therapy. He will initiate antiarrhythmic therapy with IV amiodarone and attempt to regain better rate control and hopefully sinus rhythm. He will continue anticoagulant therapy. 4. MR She does have a history of mitral valve prolapse and mitral valve regurgitation. His prolapse appears mild and his MR appears to be moderate based on his recent echocardiographic studies. He will need to be followed. Depending on his future clinical course, if his mitral valve disease is thought to be more prominent and/or contributing to his ongoing cardiovascular issues he may need to be considered for a tertiary care center evaluation as to whether or not he is a candidate for any form of mitral valve repair/replacement. 5. Aortic valve sclerosis/stenosis His aortic valve appears to be sclerotic and/or mildly stenotic. It was not felt this was the culprit for his ongoing acute on chronic cardiovascular issues. This will need to be followed over time. 6. Long-term oral anticoagulant therapy At the present time, he should remain on anticoagulant therapy, especially noting he is undergone recent synchronized biphasic DC cardioversion, to minimize the risk of thromboembolic event secondary to his history of atrial dysrhythmias, etc. Comment: The above was discussed with the patient, his spouse, and multiple other family members present. This note was generated with [employer] software. Every effort was made to ensure accuracy, however, computerized phlebotomist medical lab assistant mistakes may persist.
--- NOTE | 2017-09-13 11:07 | PCM.PROGNOTE ---
<Guille Duran - Last Filed: 09/13/17 11:07> Patient Problems: Active and Suspected Problems (Last Reviewed 09/08/17 @ 10:32 by Stella Mishra) Acute on chronic systolic heart failure (Acute) Subjective: Pt went into AFib with RVR last night and was started on Amio drip. He continues to feel better however, with improvement in SOB, less O2 requirement, no CP or palp, improvement in BLE edema and abdominal distention. He is resting comfortably in bed on 2 lpm O2. Rare dry cough. - Physical Exam General: Alert, Oriented x3, Cooperative HEENT: Atraumatic, PERRLA, EOMI, Normocephalic Neck: Supple, No JVD, Negative Carotid Bruits Lungs: Clear to auscultation, Normal air movement Cardiovascular: No murmurs, Irregular Rate, Tachycardic Abdomen: Bowel Sounds Present, Soft, Non Tender Extremities: No edema, Capillary Refill Less than 3 Seconds Skin: No rashes, No breakdown Musculoskeletal: No Tenderness to Palpation of Joints or Extremities Neurological: Cranial nerves II-XII grossly intact Psych/Mental Status: Normal Affect, Appropriate, Alert and oriented to time, place, person, mood and affect Vital Signs Temp Pulse Resp BP Pulse Ox 98.2 F 116 H 17 98/77 94 09/13/17 10:00 09/13/17 11:01 09/13/17 11:00 09/13/17 11:00 09/13/17 11:00 Oxygen Flow Rate 1 Oxygen Delivery Method Nasal Cannula Weight: 79.5 kg Body Mass Index (BMI) 25.9 Intake and Output for Last 24 Hours 09/11/17 09/12/17 09/13/17 23:59 23:59 23:59 Intake Total 480 / 480 Output Total 4075 / 4075 250 / 250 Balance -3595 / -3595 -250 / -250 Microbiology Past 72 Hours 09/12/17 08:00 Streptococcus pneumoniae Antigen (M - Final Urine, Clean Catch 09/12/17 08:00 Legionella Antigen - Final Urine, Clean Catch 09/12/17 07:43 Influenza Types A,B Direct FA (CONNIE) - Final Mucosa - Nasopharyngeal Laboratory Tests Past 24 Hrs 09/12/17 09/12/17 09/13/17 13:20 19:15 05:20 WBC 9.6 RBC 5.12 Hgb 15.1 Hct 46.4 MCV 90.6 MCH 29.5 MCHC 32.5 RDW 15.6 H RDW Differential 51.6 H Plt Count 394 MPV 10.6 Immature Gran % (Auto) 0.100 Neut % (Auto) 57.3 Lymph % (Auto) 27.6 [place] % (Auto) 10.9 H Eos % (Auto) 3.6 Baso % (Auto) 0.5 Absolute Neuts (auto) 5.5 Absolute Lymphs (auto) 2.64 Total Counted Not Reportable PT INR Sodium Potassium Chloride Carbon Dioxide Anion Gap BUN Creatinine Estim Creat Clear Calc Est GFR (MDRD) Af Amer Est GFR (MDRD) Non-Af BUN/Creatinine Ratio Glucose Calcium Troponin I 0.04 0.03 09/13/17 09/13/17 05:20 05:20 WBC RBC Hgb Hct MCV MCH MCHC RDW RDW Differential Plt Count MPV Immature Gran % (Auto) Neut % (Auto) Lymph % (Auto) [place] % (Auto) Eos % (Auto) Baso % (Auto) Absolute Neuts (auto) Absolute Lymphs (auto) Total Counted PT 27.0 H INR 2.6 Sodium 142 Potassium 4.0 Chloride 102 Carbon Dioxide 32.0 Anion Gap 8 BUN 21 H Creatinine 1.19 Estim Creat Clear Calc 53.68 Est GFR (MDRD) Af Amer 76 Est GFR (MDRD) Non-Af 63 BUN/Creatinine Ratio 17.6 Glucose 90 Calcium 8.7 Troponin I Assessment/Plan Active and Suspected Problems (Last Reviewed 09/08/17 @ 10:32 by Stella Mishra) Acute on chronic systolic heart failure (Acute) 1. Acute hypoxic respiratory failure 2/2 acute systolic CHF exacerbation and underlying cardiomyopathy - He continues to improve on Lasix q8 with good diuresis. STEPHANE will be held today 2/2 low BP. He is on a beta rubin as well. Last echo EF 45%, Mod/sev LVH, Mild gloabl LV sys dys, Severely enlarged LA/RA, 2+ MVI, RVSP 36 mmHg 2. Afib with RVR - s/p cardioversion last week. Started on Amio drip this AM. Continue warfarin. Cardiology is following. Continue BB. 3. HTN - now low, stephane held x 1 DVT ppx: warfarin DC planning: pt is improving, still requiring O2. This patient was seen by Guille Duran PA-C under the supervision of Doctor Hardeep <Kenny Meier - Last Filed: 09/13/17 14:34> Subjective: Seen and examined. Patient is on amiodarone drip. Heart rate is controlled. Patient had improvement in lower extremity swelling and breathing. - Physical Exam General: Alert, Oriented x3, Cooperative Neck: No JVD, Negative Carotid Bruits Lungs: No rhonchi, No wheeze, No rales, Diminished Cardiovascular: No murmurs, Irregular Rate Abdomen: Bowel Sounds Present, Non Tender Vital Signs Temp Pulse Resp BP Pulse Ox 98.2 F 103 H 16 104/85 H 94 09/13/17 10:00 09/13/17 14:00 09/13/17 14:00 09/13/17 14:00 09/13/17 14:00 Oxygen Flow Rate 1 Oxygen Delivery Method Room Air Weight: 175 lb 4.28 oz Body Mass Index (BMI) 25.9 Intake and Output for Last 24 Hours 09/11/17 09/12/17 09/13/17 23:59 23:59 23:59 Intake Total 480 / 480 671 / 671 Output Total 4075 / 4075 1470 / 1470 Balance -3595 / -3595 -799 / -799 Microbiology Past 72 Hours 09/12/17 08:00 Streptococcus pneumoniae Antigen (M - Final Urine, Clean Catch 09/12/17 08:00 Legionella Antigen - Final Urine, Clean Catch 09/12/17 07:43 Influenza Types A,B Direct FA (CONNEI) - Final Mucosa - Nasopharyngeal Laboratory Tests Past 24 Hrs 09/12/17 09/13/17 09/13/17 19:15 05:20 05:20 WBC 9.6 RBC 5.12 Hgb 15.1 Hct 46.4 MCV 90.6 MCH 29.5 MCHC 32.5 RDW 15.6 H RDW Differential 51.6 H Plt Count 394 MPV 10.6 Immature Gran % (Auto) 0.100 Neut % (Auto) 57.3 Lymph % (Auto) 27.6 [place] % (Auto) 10.9 H Eos % (Auto) 3.6 Baso % (Auto) 0.5 Absolute Neuts (auto) 5.5 Absolute Lymphs (auto) 2.64 Total Counted Not Reportable PT INR Sodium 142 Potassium 4.0 Chloride 102 Carbon Dioxide 32.0 Anion Gap 8 BUN 21 H Creatinine 1.19 Estim Creat Clear Calc 53.68 Est GFR (MDRD) Af Amer 76 Est GFR (MDRD) Non-Af 63 BUN/Creatinine Ratio 17.6 Glucose 90 Calcium 8.7 Troponin I 0.03 09/13/17 05:20 WBC RBC Hgb Hct MCV MCH MCHC RDW RDW Differential Plt Count MPV Immature Gran % (Auto) Neut % (Auto) Lymph % (Auto) [place] % (Auto) Eos % (Auto) Baso % (Auto) Absolute Neuts (auto) Absolute Lymphs (auto) Total Counted PT 27.0 H INR 2.6 Sodium Potassium Chloride Carbon Dioxide Anion Gap BUN Creatinine Estim Creat Clear Calc Est GFR (MDRD) Af Amer Est GFR (MDRD) Non-Af BUN/Creatinine Ratio Glucose Calcium Troponin I Assessment/Plan This patient was seen in conjunction with Guille ADKINS. I have independently interviewed and examined the patient and reviewed pertinent history, examination findings, laboratory and plan of management. I have reviewed the note and agree with the documented findings with the few additional points. In brief, patient is admitted for acute hypoxic respiratory failure secondary to acute systolic exacerbation and A. fib with RVR. I have discussed my assessment with Guille ADKINS and orders have been reviewed. Code Visit Inpatient E&M: 00813 Subs Hosp L3
[2017-09-13] MEDS: Doxycycline 100 MG CAPSULE PO ×2 (11:48→21:02)
--- NOTE | 2017-09-13 13:23 | CASEMGMT ---
Face to Face with patient for initial transition planning/care coordination assessment. RN DAKOTA introduced self and role at [facility], pt voices understanding and consents to assessment at this time. Pt sitting up in bed in no distress at this time. Pt A/O x4 at this time and answers all questions appropriately at this time. Care providers, pharmacy, and demographics verified. See attached link. Pt/ voice no further concerns/needs at this time. Advised pt/ to ask for CM if any further questions/concerns/needs arise, voice understanding. CM to follow for any further discharge planning/needs. PLAN: [place] [facility] [place]
[2017-09-13] MEDS: Lisinopril 10 MG Tablet PO (21:03)
[2017-09-14] VITALS (24 sets, daily range): BP systolic 91–130; BP diastolic 67–91; PULSE 93–132; RESP 12–23; TEMP 36.5–37.1; O2SAT 92–98
--- NOTE | 2017-09-14 05:55 | EKG12_ITS ---
Test Reason : AM Blood Pressure : / mmHG Vent. Rate : 097 BPM Atrial Rate : 340 BPM P-R Int : 000 ms QRS Dur : 096 ms QT Int : 416 ms P-R-T Axes : 000 -57 172 degrees QTc Int : 528 ms Atrial fibrillation /flutter Left anterior fascicular block Poor R wave progression ST & T wave abnormality, consider lateral ischemia Prolonged QT Abnormal ECG Confirmed by TAM MCDONALD, SHANI ([id number]), news editor GLENN TURNER ([id number]) on 09/15/2017 1:27:54 PM Referred By: ALETA Confirmed By:SHANI TURCIOS MD
[2017-09-14 05:58] LABS: International Normalized Ratio 2.8; Prothrombin Time (Protime)PT. 28.7 SECONDS (11.7-14.9)
[2017-09-14 06:09] LABS: Anion Gap 5 (5-15); BUN 23 mg/dL (7-18); Calcium,Total 8.8 mg/dL (8.5-10.1); Chloride 100 mmol/L (98-107); Creatinine, Serum 1.28 mg/dL (0.70-1.30); EST Glomerular Filtration Rate 58 mL/min (>60); Est Glom Filt Rate - Afr Amer 70 mL/min (>60); Glucose 109 mg/dL (74-106); Potassium 4.1 mmol/L (3.5-5.1); Sodium Level 139 mmol/L (136-145)
[2017-09-14 06:36] LABS: Magnesium 2.1 mg/dL (1.6-2.6)
[2017-09-14] MEDS: Doxycycline 100 MG CAPSULE PO ×2 (09:53→21:38)
[2017-09-14] MEDS: Metoprolol Tartrate 100 MG Tablet PO ×2 (09:55→21:38)
[2017-09-14] MEDS: Lisinopril 10 MG Tablet PO ×2 (09:56→21:38)
[2017-09-14] MEDS: Furosemide 40 MG/4 ML Vial IV ×2 (09:58→16:58)
[2017-09-14] MEDS: 0.9% NaCl Peripheral Flush Adult/Peds IV ×2 (09:58→16:57)
--- NOTE | 2017-09-14 09:59 | PN.CARD_ITS ---
Subjectve: The patient is awake and alert. He states his breathing continues to improve. He denies any ongoing chest discomfort or the sensation of palpitations or rapid heart rate. He has not been up out of bed to the chair or to ambulate. Objective: Vital Signs Temp Pulse Resp BP Pulse Ox 98.6 F 111 H 20 H 113/90 H 98 09/14/17 09:00 09/14/17 09:00 09/14/17 09:00 09/14/17 09:00 09/14/17 09:00 Oxygen Flow Rate 2 Oxygen Delivery Method Nasal Cannula Weight: 174 lb 9.698 oz Body Mass Index (BMI) 25.9 Intake and Output for Last 24 Hours 09/12/17 09/13/17 09/14/17 23:59 23:59 23:59 Intake Total 480 / 480 1254 / 1254 94.9 / 94.9 Output Total 4075 / 4075 1895 / 1895 Balance -3595 / -3595 -641 / -641 94.9 / 94.9 General: Awake, Alert, Oriented x 3, Cooperative Lungs: Rales - Ayaz Bases - Improved compared to previous evaluation Cardiovascular: Irregular Rhythm, Normal S1, Normal S2 Murmur Murmur: Grade 2/6, Mid Systolic, [place], Axilla, - - Grade 2/6: Soft: Diastolic murmur: Lower left sternal border Abdomen: Bowel Sounds Present, Soft, Non Tender Extremities: No edema 09/14/17 05:28: PT 28.7 H, INR 2.8 09/14/17 05:28: Sodium 139, Potassium 4.1, Chloride 100, Carbon Dioxide 34.0 H, Anion Gap 5, BUN 23 H, Creatinine 1.28, Est GFR (MDRD) Af Amer 70, Est GFR (MDRD ) Non-Af 58 L, BUN/Creatinine Ratio 18.0, Glucose 109 H, Calcium 8.8 09/14/17 05:28: Magnesium 2.1 Rhythm: Atrial fibrillation Assessment/Plan 1. Acute on chronic systolic CHF The patient appears to have had recurrent acute on chronic systolic CHF. This may be compatible with the patient's history of underlying atrial dysrhythmia, valvular heart disease, and non-CAD related cardiomyopathy. He will continue medical management. This does include IV diuresis. He appears to be responding appropriately thus far. Upon his clinical course he may eventually need additional noninvasive or invasive studies to assist with diagnosis and or care. 2. Cardiomyopathy The patient has a history of a non-CAD related cardiomyopathy. He has been treated medically in the past. He had been doing well until recently. There is concern that his recent return to atrial fibrillation prompted recurrent acute on chronic symptoms. This may also have impacted his overall LV systolic function/LVEF. At the present time he is being followed. He continues medical management. He has undergone recent noninvasive evaluation. He is also undergone recent DC cardioversion to regain sinus rhythm. However, now he has returned to atrial fibrillation. 3. Atrial fibrillation He has returned to atrial fibrillation. He will continue rate control therapy. He has been on IV amiodarone. He has remained in atrial fibrillation. He will be transitioned to oral amiodarone therapy. He will continue anticoagulant therapy. He will continue to be followed. If his overall clinical course improves with respect to concerns of his underlying CHF superimposed upon his cardiomyopathy that it may be reasonable to allow him to remain on rate control and antiarrhythmic therapy and anticoagulant therapy for period of time prior to attempting repeat synchronized biphasic DC cardioversion. The patient does know that he may need to be evaluated in the future by EP for consideration for nonmedical management with respect to the possibility of EPS/ RFA. 4. MR She does have a history of mitral valve prolapse and mitral valve regurgitation. His prolapse appears mild and his MR appears to be moderate based on his recent echocardiographic studies. He will need to be followed. Depending on his future clinical course, if his mitral valve disease is thought to be more prominent and/or contributing to his ongoing cardiovascular issues he may need to be considered for a tertiary care center evaluation as to whether or not he is a candidate for any form of mitral valve repair/replacement. 5. Aortic valve sclerosis/stenosis His aortic valve appears to be sclerotic and/or mildly stenotic. It was not felt this was the culprit for his ongoing acute on chronic cardiovascular issues. This will need to be followed over time. 6. Long-term oral anticoagulant therapy At the present time, he should remain on anticoagulant therapy, especially noting he is undergone recent synchronized biphasic DC cardioversion, to minimize the risk of thromboembolic event secondary to his history of atrial dysrhythmias, etc. Comment: The above was discussed with the patient, his spouse, and multiple other family members present. This note was generated with Dragon Dictation software. Every effort was made to ensure accuracy, however, computerized customer relations advisor mistakes may persist.
[2017-09-14] MEDS: Amiodarone 200 MG Tablet PO ×2 (10:43→21:38)
--- NOTE | 2017-09-14 13:12 | PCM.PROGNOTE ---
<Guille Duran - Last Filed: 09/14/17 13:12> Patient Problems: Active and Suspected Problems (Last Reviewed 09/08/17 @ 10:32 by Stella Mishra) Acute on chronic systolic heart failure (Acute) Subjective: Pts heart rate still in 90s and hundreds today. Transitioned from amio drip to PO amiodarone. Initially made NPO for possible cardioversion but this was not proceeded with. He has improvement in SOB and was successfully weaned off O2. His cough is rare and nonproductive. Swelling in his legs and abdomen much improved. - Physical Exam General: Alert, Oriented x3, Cooperative HEENT: Atraumatic, PERRLA, EOMI, Normocephalic Neck: Supple, No JVD, Negative Carotid Bruits Lungs: Clear to auscultation, Normal air movement Cardiovascular: Regular rate, No murmurs Abdomen: Bowel Sounds Present, Soft, Non Tender Extremities: No edema, Capillary Refill Less than 3 Seconds Skin: No rashes, No breakdown Musculoskeletal: No Tenderness to Palpation of Joints or Extremities Neurological: Cranial nerves II-XII grossly intact Psych/Mental Status: Normal Affect, Appropriate, Alert and oriented to time, place, person, mood and affect Vital Signs Temp Pulse Resp BP Pulse Ox 98.6 F 96 20 H 106/91 H 98 09/14/17 11:00 09/14/17 11:05 09/14/17 11:00 09/14/17 11:00 09/14/17 12:06 Oxygen Flow Rate 2 Oxygen Delivery Method Room Air Weight: 79.2 kg Body Mass Index (BMI) 25.9 Intake and Output for Last 24 Hours 09/12/17 09/13/17 09/14/17 23:59 23:59 23:59 Intake Total 480 / 480 1254 / 1254 569.9 / 569.9 Output Total 4075 / 4075 1895 / 1895 1700 / 1700 Balance -3595 / -3595 -641 / -641 -1130.1 / -1130.1 Microbiology Past 72 Hours 09/12/17 07:30 Blood Culture - Preliminary Blood Culture (Wb) - Left Hand No growth in 48 hours. 09/12/17 08:00 Streptococcus pneumoniae Antigen (M - Final Urine, Clean Catch 09/12/17 08:00 Legionella Antigen - Final Urine, Clean Catch 09/12/17 07:43 Influenza Types A,B Direct FA (CONNIE) - Final Mucosa - Nasopharyngeal Laboratory Tests Past 24 Hrs 09/14/17 09/14/17 09/14/17 05:28 05:28 05:28 PT 28.7 H INR 2.8 Sodium 139 Potassium 4.1 Chloride 100 Carbon Dioxide 34.0 H Anion Gap 5 BUN 23 H Creatinine 1.28 Estim Creat Clear Calc 49.90 Est GFR (MDRD) Af Amer 70 Est GFR (MDRD) Non-Af 58 L BUN/Creatinine Ratio 18.0 Glucose 109 H Calcium 8.8 Magnesium 2.1 Assessment/Plan Active and Suspected Problems (Last Reviewed 09/08/17 @ 10:32 by Stella Mishra) Acute on chronic systolic heart failure (Acute) 1. Acute hypoxic respiratory failure 2/2 acute systolic CHF exacerbation and underlying cardiomyopathy - He continues to improve on Lasix with good diuresis, lasix dose has been decreased to BID. STEPHANE inhibitor resumed. He is on a beta rubin as well. Last echo EF 45%, Mod/sev LVH, Mild gloabl LV sys dys, Severely enlarged LA/RA, 2+ MVI, RVSP 36 mmHg -Now off O2 -On Doxy empirically. No fever or leukocytosis. Occasional nonproductive cough. urine antigens negative. Flu negative. Blood cultures negative. -encourage activity/incentive spirometer 2. Afib with RVR - s/p cardioversion last week. Amio drip to PO amio today. Still in RVR. 3. HTN - STEPHANE/BB DVT ppx: warfarin DC planning: pt is improving, still requiring O2. This patient was seen by Guille Duran PA-C under the supervision of Doctor Hardeep <Kenny Meier - Last Filed: 09/14/17 15:18> Subjective: seen and examined. Patient respiratory status is much improved. Currently off oxygen. On oral amiodarone - Physical Exam General: Alert, Oriented x3, Cooperative HEENT: Atraumatic, PERRLA, EOMI, Normocephalic Neck: Supple, No JVD, Negative Carotid Bruits Lungs: Clear to auscultation, Normal air movement Cardiovascular: Regular rate, No murmurs, Irregular Rate Abdomen: Bowel Sounds Present, Soft, Non Tender, Non-Distended Extremities: No edema, Capillary Refill Less than 3 Seconds Skin: No rashes, No breakdown Musculoskeletal: No Tenderness to Palpation of Joints or Extremities Neurological: Cranial nerves II-XII grossly intact Psych/Mental Status: Normal Affect, Appropriate Vital Signs Temp Pulse Resp BP Pulse Ox 98.6 F 96 20 H 106/91 H 98 09/14/17 11:00 09/14/17 11:05 09/14/17 11:00 09/14/17 11:00 09/14/17 12:06 Oxygen Flow Rate 2 Oxygen Delivery Method Room Air Weight: 174 lb 9.698 oz Body Mass Index (BMI) 25.9 Intake and Output for Last 24 Hours 09/12/17 09/13/17 09/14/17 23:59 23:59 23:59 Intake Total 480 / 480 1254 / 1254 569.9 / 569.9 Output Total 4075 / 4075 1895 / 1895 1700 / 1700 Balance -3595 / -3595 -641 / -641 -1130.1 / -1130.1 Microbiology Past 72 Hours 09/12/17 07:30 Blood Culture - Preliminary Blood Culture (Wb) - Left Hand No growth in 48 hours. 09/12/17 08:00 Streptococcus pneumoniae Antigen (M - Final Urine, Clean Catch 09/12/17 08:00 Legionella Antigen - Final Urine, Clean Catch 09/12/17 07:43 Influenza Types A,B Direct FA (CONNIE) - Final Mucosa - Nasopharyngeal Laboratory Tests Past 24 Hrs 09/14/17 09/14/17 09/14/17 05:28 05:28 05:28 PT 28.7 H INR 2.8 Sodium 139 Potassium 4.1 Chloride 100 Carbon Dioxide 34.0 H Anion Gap 5 BUN 23 H Creatinine 1.28 Estim Creat Clear Calc 49.90 Est GFR (MDRD) Af Amer 70 Est GFR (MDRD) Non-Af 58 L BUN/Creatinine Ratio 18.0 Glucose 109 H Calcium 8.8 Magnesium 2.1 Assessment/Plan This patient was seen in conjunction with Guille ADKINS. I have independently interviewed and examined the patient and reviewed pertinent history, examination findings, laboratory and plan of management. I have reviewed the note and agree with the documented findings with the few additional points. In brief, patient is admitted for acute hypoxic respiratory failure secondary to acute systolic exacerbation and A. fib with RVR. IV amiodarone was transitioned to oral amiodarone. overall plan is continue anticoagulation for 3 weeks and then trial of outpatient cardioversion if patient stays in A. fib. Discussed with the consumer insights specialist. I have discussed my assessment with Guille ADKINS and orders have been reviewed. Code Visit Inpatient E&M: 78890 Subs Hosp L3
[2017-09-15 03:00] VITALS: PULSE 104
[2017-09-15 03:40] VITALS: BP 108/75; PULSE 99; RESP 18; TEMP 36.5; O2SAT 93
[2017-09-15] MEDS: Amiodarone 200 MG Tablet PO ×2 (05:44→13:09)
[2017-09-15 05:57] LABS: International Normalized Ratio 3.1; Prothrombin Time (Protime)PT. 30.5 SECONDS (11.7-14.9)
[2017-09-15 06:19] LABS: Anion Gap 11 (5-15); BUN 26 mg/dL (7-18); BUN/Creat Ratio 21.5 RATIO (10-20); Calcium,Total 9.1 mg/dL (8.5-10.1); Chloride 102 mmol/L (98-107); Creatinine, Serum 1.21 mg/dL (0.70-1.30); EST Glomerular Filtration Rate 62 mL/min (>60); Est Glom Filt Rate - Afr Amer 75 mL/min (>60); Estimated Creatinine Clearance 52.79 ml/min; Glucose 97 mg/dL (74-106); Potassium 3.9 mmol/L (3.5-5.1); Sodium Level 141 mmol/L (136-145)
[2017-09-15 07:17] VITALS: PULSE 102
--- NOTE | 2017-09-15 08:46 | PCM.PN.CARD ---
Subjectve: The patient looks better and feels better today. He has been up and ambulating without his oxygen without obvious worsening symptoms. He has been sleeping supine without his oxygen without any acute symptoms. Objective: Vital Signs Temp Pulse Resp BP Pulse Ox 97.7 F L 102 H 18 108/75 93 09/15/17 03:40 09/15/17 07:17 09/15/17 03:40 09/15/17 03:40 09/15/17 03:40 Oxygen Flow Rate 2 Oxygen Delivery Method Room Air Weight: 172 lb 6.424 oz Body Mass Index (BMI) 25.9 Intake and Output for Last 24 Hours 09/13/17 09/14/17 09/15/17 23:59 23:59 23:59 Intake Total 1254 / 1254 1109.9 / 1109.9 120 / 120 Output Total 1895 / 1895 2049 / 2049 Balance -641 / -641 -940.1 / -940.1 120 / 120 General: Awake, Alert, Oriented x 3, Cooperative, No Acute Distress Neck: No JVD Lungs: Clear to auscultation Cardiovascular: Irregular Rhythm, Normal S1, Normal S2 Murmur Murmur: Grade 2/6, Mid Systolic, [place], Axilla, - - Grade 2/6: Soft: Diastolic murmur: Lower left sternal border Abdomen: Bowel Sounds Present, Soft, Non Tender Extremities: No edema 09/15/17 05:35: Sodium 141, Potassium 3.9, Chloride 102, Carbon Dioxide 28.0, Anion Gap 11, BUN 26 H, Creatinine 1.21, Est GFR (MDRD) Af Amer 75, Est GFR (MDRD) Non-Af 62, BUN/Creatinine Ratio 21.5 H, Glucose 97, Calcium 9.1 09/15/17 05:35: PT 30.5 H, INR 3.1 Rhythm: Atrial fibrillation Assessment/Plan 1. Acute on chronic systolic CHF The patient appears to have had recurrent acute on chronic systolic CHF. This may be compatible with the patient's history of underlying atrial dysrhythmia, valvular heart disease, and non-CAD related cardiomyopathy. He will continue medical management. His IV diuretics will be discontinued. He will be started on oral diuretic therapy. 2. Cardiomyopathy The patient has a history of a non-CAD related cardiomyopathy. He has been treated medically in the past. He had been doing well until recently. There is concern that his recent return to atrial fibrillation prompted recurrent acute on chronic symptoms. This may also have impacted his overall LV systolic function/LVEF. At the present time he is being followed. He continues medical management. He has undergone recent noninvasive evaluation. He is also undergone recent DC cardioversion to regain sinus rhythm. However, now he has returned to atrial fibrillation. He will continue medical management. Depending upon his course on medical management consideration want to be given as to whether or not he requires additional evaluation care at a tertiary care center for his atrial dysrhythmia and/or his mitral valve regurgitation which may be contributing to his cardiovascular conditions with respect to his cardiomyopathy and his congestive heart failure. 3. Atrial fibrillation He has returned to atrial fibrillation. He will continue rate control therapy. He has been transitioned from IV amiodarone to oral amiodarone. He will continue anticoagulant therapy. He will continue to be followed. If his overall clinical course improves with respect to concerns of his underlying CHF superimposed upon his cardiomyopathy that it may be reasonable to allow him to remain on rate control and antiarrhythmic therapy and anticoagulant therapy for period of time prior to attempting repeat synchronized biphasic DC cardioversion. The patient does know that he may need to be evaluated in the future by EP for consideration for nonmedical management with respect to the possibility of EPS/RFA. 4. MR He does have a history of mitral valve prolapse and mitral valve regurgitation. His prolapse appears mild and his MR appears to be moderate based on his recent echocardiographic studies. He will need to be followed. Depending on his future clinical course, if his mitral valve disease is thought to be more prominent and/or contributing to his ongoing cardiovascular issues he may need to be considered for a tertiary care center evaluation as to whether or not he is a candidate for any form of mitral valve repair/replacement. 5. Aortic valve sclerosis/stenosis His aortic valve appears to be sclerotic and/or mildly stenotic. It was not felt this was the culprit for his ongoing acute on chronic cardiovascular issues. This will need to be followed over time. 6. Long-term oral anticoagulant therapy At the present time, he should remain on anticoagulant therapy, especially noting he is undergone recent synchronized biphasic DC cardioversion, to minimize the risk of thromboembolic event secondary to his history of atrial dysrhythmias, etc. Comment: The above was discussed with the patient, his spouse, and other family members present. This note was generated with [employer] Dictation software. Every effort was made to ensure accuracy, however, computerized honing machine operator semiautomatic mistakes may persist.
[2017-09-15 08:53] VITALS: BP 110/64; PULSE 88; RESP 18; TEMP 37.1; O2SAT 92
[2017-09-15 08:55] VITALS: PULSE 88
[2017-09-15] MEDS: Furosemide 40 MG Tablet PO (08:55)
[2017-09-15] MEDS: Metoprolol Tartrate 100 MG Tablet PO (08:55)
[2017-09-15] MEDS: Doxycycline 100 MG CAPSULE PO (08:55)
[2017-09-15] MEDS: Lisinopril 10 MG Tablet PO (08:56)
[2017-09-15 10:54] VITALS: PULSE 89
--- NOTE | 2017-09-15 11:26 | PCM.DC ---
- Discharge Diagnoses Current Active Problems: Current Active and Chronic Problems (Last Reviewed 09/08/17 @ 10:32 by Stella Mishra) Acute on chronic systolic heart failure (Acute) Mitral valve regurgitation (Chronic) Aortic valve stenosis (Chronic) You will use the following diet at home:: Cardiac Your food should be the consistency of: Regular Discharge Activity: May not drive while taking narcotic pain medications. Allergies/Adverse Reactions: Allergies No Known Allergies Allergy (Verified 09/12/17 05:10) Medications to take at Discharge metoprolol tartrate 100 mg tablet 100 mg PO BID #180 tab 07/12/17 lisinopril 10 mg tablet 10 mg PO QDAY 09/08/17 Potassium Chloride [K-Dur] 20 meq PO DAILY 09/12/17 Amiodarone HCl [Cordarone] 200 mg PO BID #90 tab 09/15/17 Amiodarone HCl [Cordarone] 200 mg PO DAILY tablet 09/15/17 Amiodarone HCl [Cordarone] 200 mg PO TID #0 tablet 09/15/17 Dextran 70/He-Cell [Tears Naturale, Artificial Tears] 2 drop EACH EYE Q6H PRN bottle 09/15/17 Doxycycline 100 mg PO BID #10 cap 09/15/17 Furosemide [Lasix] 40 mg PO BID@1000,1800 #60 tab 09/15/17 Warfarin [Coumadin] 2 mg PO DAILY #0 09/15/17 The following prescriptions were given: Furosemide [Lasix] 40 mg PO BID@1000,1800 #60 tab Amiodarone HCl [Cordarone] 200 mg PO BID #90 tab Doxycycline 100 mg PO BID #10 cap Primary Care Physician: Dirk Castelan [Primary Care Provider] - Please follow up with your Primary Care Physician in: in 1-2 weeks Please Follow Up With: Sen Suazo MD When: in 2-3 weeks for Afib to schedule for DC cardioversion
[2017-09-15] MEDS: Acetaminophen 325 MG Tablet 650 MG PO (11:55)
--- NOTE | 2017-09-15 14:24 | PCM.DC.SUM ---
<Guille Duran - Last Filed: 09/15/17 14:24> Discharge Date and Diagnosis Date of Admission: 09/12/17 Date of Discharge: 09/15/17 - Primary Discharge Diagnosis Active and Suspected Problems (Last Reviewed 09/08/17 @ 10:32 by Stella Mishra) Acute hypoxic respiratory failure 2/2 Acute on chronic systolic heart failure cardiomyopathy, subtype unspecified Afib with RVR HTN - Secondary Discharge Diagnosis Chronic Problems (Last Reviewed 09/08/17 @ 10:32 by Stella Mishra) Mitral valve regurgitation (Chronic) Aortic valve stenosis (Chronic) [employer] current use of anticoagulant (Chronic) Paroxysmal atrial fibrillation (Chronic) Chronic systolic congestive heart failure (Chronic) Hospital Course and Treatment Imaging Results: RAD/Chest 1 View (Portable) IMPRESSION: New bibasilar airspace disease with pleural effusion and increased cardiac enlargement likely superimposed on COPD. Suspect an inflammatory/infectious process rather than congestive heart failure. [facility] - cardiology Operations: None Procedures: None Summary of Care Provided: Physical exam on day of discharge: General: Resting comfortably NAD Psych: A/Ox3 normal affect HEENT: PEARRLA AT NC Neck: Supple NT CV: RRR no m/t/r/g/h Resp: CTA Abd: [id number] Soft NT no guarding or rigidity Ext: DP2+= no edema Skin: W/D normal turgor Lymph/Heme: No active bleeding or adenopathy Neuro: CN2-12 intact The patient is a 76year old M with a hx of CHF and Afib and an underlying cardiomyopathy who had undergone a cardioversion for afib 2 days prior to presentation who presented to the ER with increased SOB and hypoxia. He required up to 4 lpm O2 via NC and had an elevated BNP, a CXR with pleural effusions, increased cardiomegaly, and BLE edema and abdominal distention. Initially he was in sinus rhythm. He was admitted to PCU for acute on chronic CHF exacerbation and hypoxic respiratory failure. He was given IV Lasix. He was also started on doxycycline to cover for any possible underlying respiratory infection. He did not have a fever or white count. Cardiology was consulted. The following day he went into atrial fibrillation with rapid ventricular response. He was started on amiodarone. He had an echo several days prior to presentation so a repeat was deferred, his echo demonstrated an EF of 45%, 2+ MVI, and several other abnormalities. He was transitioned to p.o. amiodarone. His warfarin dose was adjusted. He was able to be weaned completely off oxygen at rest and with exertion. His edema and abdominal distention improved significantly. He was discharged home in stable condition on adjusted doses of amiodarone, warfarin, and Lasix. He will need to follow-up as an outpatient and is being considered for outpatient cardioversion again. Please follow-up with cardiology in 1-2 weeks and with your PCP in 1-2 weeks. This patient was seen by Guille Duran PA-C under the supervision of Doctor Meier. [] Discharge Diet: Low fat/ Low Cholesterol, 2000 mg Sodium Diet Discharge Activity: Return to Normal Activity Home Medications: Medications to take at Discharge metoprolol tartrate 100 mg tablet 100 mg PO BID #180 tab 07/12/17 lisinopril 10 mg tablet 10 mg PO QDAY 09/08/17 Potassium Chloride [K-Dur] 20 meq PO DAILY 09/12/17 Amiodarone HCl [Cordarone] 200 mg PO BID #90 tab 09/15/17 Amiodarone HCl [Cordarone] 200 mg PO DAILY tablet 09/15/17 Amiodarone HCl [Cordarone] 200 mg PO TID #0 tablet 09/15/17 Dextran 70/He-Cell [Tears Naturale, Artificial Tears] 2 drop EACH EYE Q6H PRN bottle 09/15/17 Doxycycline 100 mg PO BID #10 cap 09/15/17 Furosemide [Lasix] 40 mg PO BID@1000,1800 #60 tab 09/15/17 Warfarin [Coumadin] 2 mg PO DAILY #0 09/15/17 Following Prescrptions Were Given to Patient: Amiodarone HCl [Cordarone] 200 mg PO BID #90 tab Doxycycline 100 mg PO BID #10 cap Furosemide [Lasix] 40 mg PO BID@1000,1800 #60 tab Primary Care Physician: Dirk Castelan [Primary Care Provider] - Please follow up with your Primary Care Physician in: in 1-2 weeks Please Follow Up With: Sen Suazo MD When: in 2-3 weeks for Afib to schedule for DC cardioversion Please Follow Up With: Sen Suazo MD Please Follow Up With: Dirk Castelan When: within 1-2 weeks Disposition: Home Minutes spent on discharge:: 35 Patient Condition:: Stable Meaningful Use Info Meaningful Use Diagnoses (Choose all that apply): CHF - CHF STEPHANE/ARB ordered at discharge?: Yes Documented LVEF (%): 45 <Kenny Meier - Last Filed: 09/15/17 16:43> Discharge Date and Diagnosis - Primary Discharge Diagnosis Pulmonary edema - Secondary Discharge Diagnosis Chronic Problems (Last Reviewed 09/08/17 @ 10:32 by Stella Mishra) Mitral valve regurgitation (Chronic) Aortic valve stenosis (Chronic) [employer] current use of anticoagulant (Chronic) Paroxysmal atrial fibrillation (Chronic) Chronic systolic congestive heart failure (Chronic) Hospital Course and Treatment Summary of Care Provided: []This patient was seen in conjunction with Guille ADKINS. I have independently interviewed and examined the patient and reviewed pertinent history, examination findings, laboratory and plan of management. I have reviewed the note and agree with the documented findings with the few additional points. In brief, patient is admitted for acute hypoxic respiratory failure secondary to acute systolic exacerbation and A. fib with RVR. IV amiodarone was transitioned to oral amiodarone. The patient is on a scheduled taper off amiodarone. overall plan is continue anticoagulation for 3 weeks and then trial of outpatient cardioversion if patient stays in A. fib. Discussed with the thread reeler. Discharge medication reconciliation done. Follow-up discharge instructions completed. Discharge plan and medication discussed with the patient and his son present in the room. I have discussed my assessment with Guille ADKINS and orders have been reviewed. Code Visit Inpatient E&M: 31734 Disch Hosp
--- NOTE | 2017-09-15 14:34 | DS.PCM_ITS ---
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 Suspect an inflammatory/infectious process rather than congestive heart failure. [facility] - cardiology Operations: None Procedures: None Summary of Care Provided: Physical exam on day of discharge: General: Resting comfortably NAD Psych: A/Ox3 normal affect HEENT: PEARRLA AT NC Neck: Supple NT CV: RRR no m/t/r/g/h Resp: CTA Abd: [id number] Soft NT no guarding or rigidity Ext: DP2+= no edema Skin: W/D normal turgor Lymph/Heme: No active bleeding or adenopathy Neuro: CN2-12 intact The patient is a 76year old M with a hx of CHF and Afib and an underlying cardiomyopathy who had undergone a cardioversion for afib 2 days prior to presentation who presented to the ER with increased SOB and hypoxia. He required up to 4 lpm O2 via NC and had an elevated BNP, a CXR with pleural effusions, increased cardiomegaly, and BLE edema and abdominal distention. Initially he was in sinus rhythm. He was admitted to PCU for acute on chronic CHF exacerbation and hypoxic respiratory failure. He was given IV Lasix. He was also started on doxycycline to cover for any possible underlying respiratory infection. He did not have a fever or white count. Cardiology was consulted. The following day he went into atrial fibrillation with rapid ventricular response. He was started on amiodarone. He had an echo several days prior to presentation so a repeat was deferred, his echo demonstrated an EF of 45%, 2+ MVI, and several other abnormalities. He was transitioned to p.o. amiodarone. His warfarin dose was adjusted. He was able to be weaned completely off oxygen at rest and with exertion. His edema and abdominal distention improved significantly. He was discharged home in stable condition on adjusted doses of amiodarone, warfarin, and Lasix. He will need to follow- up as an outpatient and is being considered for outpatient cardioversion again. Please follow-up with cardiology in 1-2 weeks and with your PCP in 1-2 weeks. This patient was seen by Guille Duran PA-C under the supervision of Doctor Meier. [] Discharge Diet: Low fat/ Low Cholesterol, 2000 mg Sodium Diet Discharge Activity: Return to Normal Activity Home Medications: Medications to take at Discharge metoprolol tartrate 100 mg tablet 100 mg PO BID #180 tab 07/12/17 lisinopril 10 mg tablet 10 mg PO QDAY 09/08/17 Potassium Chloride [K-Dur] 20 meq PO DAILY 09/12/17 Amiodarone HCl [Cordarone] 200 mg PO BID #90 tab 09/15/17 Amiodarone HCl [Cordarone] 200 mg PO DAILY tablet 09/15/17 Amiodarone HCl [Cordarone] 200 mg PO TID #0 tablet 09/15/17 Dextran 70/He-Cell [Tears Naturale, Artificial Tears] 2 drop EACH EYE Q6H PRN bottle 09/15/17 Doxycycline 100 mg PO BID #10 cap 09/15/17 Furosemide [Lasix] 40 mg PO BID@1000,1800 #60 tab 09/15/17 Warfarin [Coumadin] 2 mg PO DAILY #0 09/15/17 Following Prescrptions Were Given to Patient: Amiodarone HCl [Cordarone] 200 mg PO BID #90 tab Doxycycline 100 mg PO BID #10 cap Furosemide [Lasix] 40 mg PO BID@1000,1800 #60 tab Primary Care Physician: Dirk Castelan [Primary Care Provider] - Please follow up with your Primary Care Physician in: in 1-2 weeks Please Follow Up With: Sen Suazo MD When: in 2-3 weeks for Afib to schedule for DC cardioversion Please Follow Up With: Sen Suazo MD Please Follow Up With: Dirk Castelan When: within 1-2 weeks Disposition: Home Minutes spent on discharge:: 35 Patient Condition:: Stable Meaningful Use Info Meaningful Use Diagnoses (Choose all that apply): CHF - CHF STEPHANE/ARB ordered at discharge?: Yes Documented LVEF (%): 45 <Kneny Meier - Last Filed: 09/15/17 16:43> Discharge Date and Diagnosis - Primary Discharge Diagnosis Pulmonary edema - Secondary Discharge Diagnosis Chronic Problems (Last Reviewed 09/08/17 @ 10:32 by Stella Mishra) Mitral valve regurgitation (Chronic) Aortic valve stenosis (Chronic) [facility] current use of anticoagulant (Chronic) Paroxysmal atrial fibrillation (Chronic) Chronic systolic congestive heart failure (Chronic) Hospital Course and Treatment Summary of Care Provided: []This patient was seen in conjunction with Guille ADKINS. I have independently interviewed and examined the patient and reviewed pertinent history, examination findings, laboratory and plan of management. I have reviewed the note and agree with the documented findings with the few additional points. In brief, patient is admitted for acute hypoxic respiratory failure secondary to acute systolic exacerbation and A. fib with RVR. IV amiodarone was transitioned to oral amiodarone. The patient is on a scheduled taper off amiodarone. overall plan is continue anticoagulation for 3 weeks and then trial of outpatient cardioversion if patient stays in A. fib. Discussed with the print binding worker. Discharge medication reconciliation done. Follow-up discharge instructions completed. Discharge plan and medication discussed with the patient and his son present in the room. I have discussed my assessment with Guille ADKINS and orders have been reviewed. Code Visit Inpatient E&M: [id number] Disch Hosp
== END 2017-09-15 15:20 | disposition home or self-care (01) | DRG 291 ==
LOC: ED 05:17 → PCU 07:17
PROVIDERS: Internal Medicine Cardiovascular Disease; Physician Assistant; Admitting Provider Internal Medicine; Emergency Provider Emergency Medicine; Family Provider Family Medicine; PCP Family Medicine; Visit Provider Internal Medicine
DX: I11.0 Hypertensive heart disease with heart failure (principal); J96.01 Acute respiratory failure with hypoxia; I50.23 Acute on chronic systolic (congestive) heart failure; I42.9 Cardiomyopathy, unspecified; Z79.01 Long term (current) use of anticoagulants; E87.6 Hypokalemia; I48.0 Paroxysmal atrial fibrillation; I10 Essential (primary) hypertension; Z79.899 Other long term (current) drug therapy; I34.0 Nonrheumatic mitral (valve) insufficiency; I35.0 Nonrheumatic aortic (valve) stenosis
CPT/HCPCS: 36415; 71045; 80048; 81002; 83735; 83880; 84443; 84484; 85025; 85379; 85610; 87040; 87449; 87804; 93005; 94002; 99285; J7030; A4216; J1940

== ENCOUNTER 2017-09-29 10:50 | Outpatient (RCR) | payer OTHER, SELFPAY ==
[2017-09-23 13:11] LABS: Prothrombin Time (Protime)PT. 45.2 SECONDS (11.7-14.9)
[2017-09-23 13:17] LABS: International Normalized Ratio 5.1
[2017-09-29 12:26] LABS: Prothrombin Time (Protime)PT. 38.4 SECONDS (11.7-14.9)
[2017-09-29 12:41] LABS: International Normalized Ratio 3.9
== END 2017-09-29 11:15 | disposition home or self-care (01) ==
LOC: LAB 10:50
PROVIDERS: Family Provider Family Medicine; PCP Family Medicine; Visit Provider Internal Medicine Cardiovascular Disease
DX: I48.0 Paroxysmal atrial fibrillation (principal)
CPT/HCPCS: 36415; 85610

== ENCOUNTER 2017-10-28 08:38 | Outpatient (RCR) | payer OTHER, SELFPAY ==
[2017-10-04 15:21] LABS: International Normalized Ratio 2.3; Prothrombin Time (Protime)PT. 25.8 SECONDS (11.7-14.9)
[2017-10-12 10:40] LABS: International Normalized Ratio 2.8; Prothrombin Time (Protime)PT. 29.5 SECONDS (11.7-14.9)
[2017-10-18 09:21] LABS: International Normalized Ratio 2.7; Prothrombin Time (Protime)PT. 29.2 SECONDS (11.7-14.9)
[2017-10-28 10:34] LABS: International Normalized Ratio 2.5; Prothrombin Time (Protime)PT. 27.4 SECONDS (11.7-14.9)
== END 2017-10-28 09:00 | disposition home or self-care (01) ==
LOC: LAB 08:38
PROVIDERS: Family Provider Family Medicine; PCP Family Medicine; Visit Provider Internal Medicine Cardiovascular Disease
DX: I48.0 Paroxysmal atrial fibrillation (principal)
CPT/HCPCS: 36415; 85610

== ENCOUNTER → 2017-11-16 10:56 | Day surgery (SDC) | payer OTHER, SELFPAY ==
[2017-11-15 12:40] VITALS: BMI 25.8
[2017-11-16 11:16] LABS: Prothrombin Time Fingerstick 30.3 SEC (11.9-14.4)
--- NOTE | 2017-11-16 12:55 | OP.PCM_ITS ---
Problem List (1) Atrial fibrillation Status: Acute Qualifiers: Atrial fibrillation type: persistent Qualified Code(s): I48.1 - Persistent atrial fibrillation Operative Report Date of Procedure: 11/16/17 Procedure: Synchronized biphasic DC cardioversion Indications: Atrial fibrillation Consent: Per the patient Premedications: Per Dr. Edmond Soria pulmonology and critical care medicine with propofol 40 mg IV push total Procedure: Synchronized biphasic DC cardioversion: 200 J ?1: Result: Sinus rhythm Complications: No apparent complications This note was generated with [employer] software. It may contain incorrect words, spelling, and punctuation that were not noted in checking the note before signing.
--- NOTE | 2017-11-16 14:04 | PCM.OP.BLANK ---
Problem List (1) Acute on chronic systolic heart failure Status: Acute (2) Atrial fibrillation Status: Acute Qualifiers: Atrial fibrillation type: persistent Qualified Code(s): I48.1 - Persistent atrial fibrillation (3) Cardiomyopathy Status: Acute Qualifiers: Operative Report Date of Procedure: 11/16/17 - Conscious sedation CONSCIOUS SEDATION REPORT BRIEF HISTORY OF PRESENT ILLNESS: The patient is a 77-year-old Shadi male who presented to [facility] for an elective cardioversion secondary to atrial fibrillation. Patient is known to have systolic congestive heart failure with an EF of 45%. Patient does report having a previous cardioversion approximately 2 months ago without complication. The patient reports no prior anesthetic complications. Patient's INR is currently in therapeutic range. Patient does not report audible snoring in their home environment. Patient denies ever smoking. Patient has been n.p.o. since midnight. PHYSICAL EXAMINATION: VITAL SIGNS: Reviewed and were acceptable. GENERAL: The patient is a male, in no apparent distress, speaking in full sentences. HEENT: Normocephalic, atraumatic. Mucous membranes are moist and pink. Good mouth opening noted. Trachea is midline. Good neck mobility. CHEST: S1, S2 irregularly irregular. No murmurs, rubs or gallops were noted. LUNGS: Clear to auscultation bilaterally without appreciable wheezes, rales or rhonchi. ABDOMEN: Soft, nontender, nondistended. Positive bowel sounds. EXTREMITIES: There is no clubbing or cyanosis. Lower extremity edema present ASA Class: II DESCRIPTION OF PROCEDURE: After confirmation of informed consent, the patient's anesthesia plan was reviewed in detail. Propofol was chosen. Risks and benefits were reviewed and the patient agreed to proceed. At 12:36 PM, the patient was given 40 mg of propofol. The patient achieved an appropriate level of sedation and was given a 200 joule synchronized cardioversion by Dr. Suazo at the bedside. This was successful in achieving normal sinus rhythm. The patient was monitored until 12:43 PM, at which time he reached his baseline mental status and function. The patient tolerated the procedure well. COMPLICATIONS: None ESTIMATED BLOOD LOSS: None RECOMMENDATIONS: Okay to recover in usual fashion.
== END ==
PROVIDERS: Family Provider Family Medicine; PCP Family Medicine; Visit Provider Internal Medicine Cardiovascular Disease
DX: I48.0 Paroxysmal atrial fibrillation (principal); I50.22 Chronic systolic (congestive) heart failure; I35.0 Nonrheumatic aortic (valve) stenosis; I34.0 Nonrheumatic mitral (valve) insufficiency; R06.09 Other forms of dyspnea; Z79.01 Long term (current) use of anticoagulants; Z79.899 Other long term (current) drug therapy
CPT/HCPCS: 36416; 85610; 92960; 93005; J7030

== ENCOUNTER 2017-11-23 08:51 | Outpatient (RCR) | payer OTHER, SELFPAY ==
[2017-11-03 10:20] LABS: Absolute Lymphocyte Count 2.31 X10^3/ul (0.83-4.51); Absolute Neutrophil Count 4.8 X10^3/uL (2.0-7.7); Basophil# 0.08 X10^3/uL; Basophil% 0.9 % (0-1); Eosinophils% 5.8 % (0-5); Hematocrit 46.8 % (40-54); Lymphocyte # 2.31 X10^3/ul (4.0); Mean Corp Hgb Conc 32.1 g/gl (32-36); Mean Corpuscular Hgb 29.1 pg (27.0-32.0); Mean Corpuscular Volume 90.9 fL (80-94); Monocyte# 0.81 X10^3/uL; Monocyte% 9.5 % (0-10); Neutrophil # 4.83 X10^3/uL (2.7-7.7); Neutrophil % 56.6 % (47-70); Platelet Count 434 K/mm3 (150-450); RBC Distribution Width CV 16.9 % (11.6-14.6); RBC Distribution Width SD 55.6 fl (35.1-43.9); Red Blood Count 5.15 M/mm3 (4.6-6.2); White Blood Count 8.6 K/mm3 (4.4-11.0)
[2017-11-03 10:21] LABS: POSITIVE COUNT NO; POSITIVE DIFFERENTIAL NO; POSITIVE MORPHOLOGY NO
[2017-11-03 10:29] LABS: International Normalized Ratio 2.7; Prothrombin Time (Protime)PT. 28.6 SECONDS (11.7-14.9)
[2017-11-03 11:08] LABS: Anion Gap 8 (5-15); BUN 20 mg/dL (7-18); BUN/Creat Ratio 14.8 RATIO (10-20); Calcium,Total 8.7 mg/dL (8.5-10.1); Chloride 102 mmol/L (98-107); Creatinine, Serum 1.35 mg/dL (0.70-1.30); EST Glomerular Filtration Rate 54 mL/min (>60); Est Glom Filt Rate - Afr Amer 66 mL/min (>60); Glucose 110 mg/dL (74-106); Sodium Level 140 mmol/L (136-145)
[2017-11-09 10:23] LABS: International Normalized Ratio 2.7; Prothrombin Time (Protime)PT. 28.4 SECONDS (11.7-14.9)
[2017-11-23 09:26] LABS: Prothrombin Time (Protime)PT. 31.6 SECONDS (11.7-14.9)
== END 2017-11-23 09:00 | disposition home or self-care (01) ==
LOC: LAB 08:51
PROVIDERS: Family Provider Family Medicine; PCP Family Medicine; Visit Provider Internal Medicine Cardiovascular Disease
DX: I48.0 Paroxysmal atrial fibrillation (principal); I47.1 Supraventricular tachycardia; I42.9 Cardiomyopathy, unspecified; Z79.01 Long term (current) use of anticoagulants
CPT/HCPCS: 36415; 80048; 85025; 85610

== ENCOUNTER 2017-12-13 11:50 | Outpatient (RCR) | payer OTHER, SELFPAY ==
[2017-12-13 13:07] LABS: International Normalized Ratio 2.9; Prothrombin Time (Protime)PT. 30.7 SECONDS (11.7-14.9)
== END 2017-12-13 12:00 | disposition home or self-care (01) ==
LOC: LAB 11:50
PROVIDERS: Family Provider Family Medicine; PCP Family Medicine; Visit Provider Internal Medicine Cardiovascular Disease
DX: I48.0 Paroxysmal atrial fibrillation (principal)
CPT/HCPCS: 36415; 85610

== ENCOUNTER 2018-01-07 09:38 | Outpatient (RCR) | payer OTHER, SELFPAY ==
--- NOTE | 2018-01-07 09:38 | DT_ITS ---
This patient was seen during an EMR downtime January 03, 2018 - January 10, 2018. This patient may have a combination of paper and electronic documentation or all paper documentation. All documentation is viewable within the e-chart portion of [employer] for each patient visit.
[2018-01-07 10:59] LABS: International Normalized Ratio 3.3; Prothrombin Time (Protime)PT. 33.6 SECONDS (11.7-14.9)
== END 2018-01-07 11:00 | disposition home or self-care (01) ==
LOC: LAB 09:38
PROVIDERS: Family Provider Family Medicine; PCP Family Medicine; Visit Provider Internal Medicine Cardiovascular Disease
DX: I48.0 Paroxysmal atrial fibrillation (principal)
CPT/HCPCS: 36415; 85610

== ENCOUNTER 2018-02-25 09:08 | Outpatient (RCR) | payer OTHER, SELFPAY ==
[2018-02-01 16:36] LABS: International Normalized Ratio 2.3; Prothrombin Time (Protime)PT. 25.4 SECONDS (11.7-14.9)
[2018-02-25 09:45] LABS: International Normalized Ratio 1.8; Prothrombin Time (Protime)PT. 21.2 SECONDS (11.7-14.9)
== END 2018-02-25 10:00 | disposition home or self-care (01) ==
LOC: LAB 09:08
PROVIDERS: Family Provider Family Medicine; PCP Family Medicine; Visit Provider Internal Medicine Cardiovascular Disease
DX: I48.0 Paroxysmal atrial fibrillation (principal)
CPT/HCPCS: 36415; 85610

== ENCOUNTER 2018-03-24 09:11 | Outpatient (RCR) | payer OTHER, SELFPAY ==
[2018-03-24 10:00] LABS: International Normalized Ratio 2.6; Prothrombin Time (Protime)PT. 27.6 SECONDS (11.7-14.9)
== END 2018-03-24 10:00 | disposition home or self-care (01) ==
LOC: LAB 09:11
PROVIDERS: Family Provider Family Medicine; PCP Family Medicine; Visit Provider Internal Medicine Cardiovascular Disease
DX: I48.0 Paroxysmal atrial fibrillation (principal)
CPT/HCPCS: 36415; 85610

== ENCOUNTER 2018-05-24 13:58 | Outpatient (RCR) | payer OTHER, SELFPAY ==
[2018-05-02 12:19] LABS: International Normalized Ratio 3.2; Prothrombin Time (Protime)PT. 33.1 SECONDS (11.7-14.9)
[2018-05-24 15:16] LABS: Prothrombin Time (Protime)PT. 31.1 SECONDS (11.7-14.9)
== END 2018-05-24 15:00 | disposition home or self-care (01) ==
LOC: LAB 13:58
PROVIDERS: Family Provider Family Medicine; PCP Family Medicine; Visit Provider Internal Medicine Cardiovascular Disease
DX: I48.0 Paroxysmal atrial fibrillation (principal)
CPT/HCPCS: 36415; 85610

== ENCOUNTER → 2018-06-28 06:17 | Outpatient (CLI) | payer OTHER, SELFPAY ==
[2018-06-15 14:25] VITALS: BMI 26.9
--- NOTE | 2018-06-28 11:22 | NEURO_ITS ---
NCS and/or EMG Patient Report Ordering Doctor: Bran Rausch DATE OF SERVICE: 06/28/18 Is a left upper extremity nerve conduction study performed on this 77-year-old male with a history of numbness and tingling in the left hand for 3 months. There is also a history of rotator cuff tear and the patient demonstrates limit ed movement of the left shoulder. He is healthy otherwise. Left upper extremity sensory motor nerve conduction studies performed demonstrating prolongation of the median motor and sensory distal latencies with preservation of amplitude and conduction velocities. The ulnar motor and sensory and radial sensory responses are normal. The median ulnar f wave latencies are preserved. Impression abnormal nerve conduction study of the left upper extremity consistent with mild to moderate carpal tunnel syndrome at the left wrist.
--- OUTSIDE RECORDS SUMMARY | 2018-08-09 19:29 | XMS RPT_ITS ---
:1940 Author Organization [place] Support Name Relationship Address Phone BARBY GEIGER Unavailable [address] + [place] [address] HERNÁN GEIGER Unavailable Unavailable + [place] [address] R Unavailable Unavailable Unavailable BARBY GEIGER Unavailable [address] + [place] [address] HERNÁN GEIGER Unavailable Unavailable + [place] [address] R Unavailable Unavailable Unavailable JUANJO BARBY Unavailable [address] + [place] [address] HERNÁN GEIGER Unavailable Unavailable + [place] [address] R Unavailable Unavailable Unavailable JUANJO, EMMA Unavailable [address] + [place] [address] HERNÁN GEIGER Unavailable Unavailable + [place] [address] R Unavailable Unavailable Unavailable JUANJOPHILA Unavailable [address] + [place] [address] HERNÁN GEIGER Unavailable Unavailable + [place] [address] R Unavailable Unavailable Unavailable CURLU Unavailable [address] + [place] [address] BARBY GEIGER Unavailable [address] + [place] [address] HERNÁN GEIGER Unavailable . + [place] [address] BARBY GEIGER Unavailable [address] + [place] [address] JUANJOARMONDNE Mayco Unavailable . + [place] [address] R Unavailable Unavailable Unavailable JUANJO, BARBY Unavailable [address] + [place] [address] JUANJOARMONDNE J Unavailable Unavailable + [place] [address] R Unavailable Unavailable Unavailable JUANJO, BARBY Unavailable [address] + [place] [address] JUANJOARMONDNE Mayco Unavailable Unavailable + [place] [address] R Unavailable Unavailable Unavailable JUANJO, BARBY Unavailable [address] + [place] [address] JUANJOHERNÁN GUIDRY Unavailable Unavailable + [place] [address] R Unavailable Unavailable Unavailable JUANJO, BARBY Unavailable [address] + [place] [address] JUANJOHERNÁN GUIDRY Unavailable . + [place] [address] R Unavailable Unavailable Unavailable JUANJO, BARBY Unavailable [address] + [place] [address] JUANJOHERNÁN GUIDRY Unavailable Unavailable + [place] [address] R Unavailable Unavailable Unavailable JUANJO, BARBY Unavailable [address] + [place] [address] JUANJOHERNÁN GUIDRY Unavailable Unavailable + [place] [address] R Unavailable Unavailable Unavailable JUANJO, BARBY Unavailable [address] + [place] [address] JUANJOHERNÁN GUIDRY Unavailable Unavailable + [place] [address] R Unavailable Unavailable Unavailable JUANJO, BARBY Unavailable [address] + [place] [address] JUANJO, HERNÁN Mayco Unavailable . + [place] [address] R Unavailable Unavailable Unavailable JUANJO, BARBY Unavailable [address] + [place] [address] JUANJO, HERNÁN J Unavailable Unavailable + [place] [address] R Unavailable Unavailable Unavailable CURLU Unavailable [address] + [place] [address] JUANJO, BARBY Unavailable [address] + [place] [address] JUANJO, HERNÁN J Unavailable . + [place] [address] CURLU Unavailable [address] + [place] [address] JUANJO, BARBY Unavailable [address] + [place] [address] JUANJO HERNÁN J Unavailable . + [place] [address] CURLU Unavailable [address] + [place] [address] JUANJO, BARBY Unavailable [address] + [place] [address] JUANJO, HERNÁN J Unavailable . + [place] [address] CURLU Unavailable [address] + [place] [address] JUANJO, BARBY Unavailable [address] + [place] [address] JUANJO HERNÁN J Unavailable Unavailable + CURLU Unavailable [address] + [place] [address] JUANJO, BARBY Unavailable [address] + [place] [address] JUANJO, HERNÁN J Unavailable . + [place] [address] CURLU Unavailable [address] + [place] [address] JUANJO, BARBY Unavailable [address] + [place] [address] JUANJO, HERNÁN J Unavailable . + [place] [address] CURLU Unavailable [address] + [place] [address] JUANJO, BARBY Unavailable [address] + [place] [address] JUANJO, HERNÁN J Unavailable Unavailable + CURLU Unavailable [address] + [place] [address] JUANJO, BARBY Unavailable [address] + [place] [address] JUANJO, HERNÁN J Unavailable . + [place] [address] CURLU Unavailable [address] + [place] [address] JUANJO, BARBY Unavailable [address] + [place] [address] JUANJO, HERNÁN J Unavailable Unavailable + CURLU Unavailable [address] + [place] [address] JUANJO, BARBY Unavailable [address] + [place] [address] JUANJO, HERNÁN J Unavailable Unavailable + CURLU Unavailable [address] + [place] [address] JUANJO, BARBY Unavailable [address] + [place] [address] JUANJO HERNÁN J Unavailable Unavailable + CURLU Unavailable [address] + [place] [address] JUANJO, BARBY Unavailable [address] + [place] [address] JUANJO, HERNÁN J Unavailable . + [place] [address] CURLU Unavailable [address] + [place] [address] JUANJO, BARBY Unavailable [address] + [place] [address] ARMOND GEIGERNE Mayco Unavailable Unavailable + CURLU Unavailable [address] + [place] [address] JUANJO, BARBY Unavailable [address] + [place] [address] ARMOND GEIGERNE J Unavailable . + [place] [address] CURLU Unavailable [address] + [place] [address] JUANJO, BARBY Unavailable [address] + [place] [address] ARMOND GEIGERNE J Unavailable Unavailable + CURLU Unavailable [address] + [place] [address] JUANJO, BARBY Unavailable [address] + [place] [address] ARMOND GEIGERNE J Unavailable . + [place] [address] CURLU Unavailable [address] + [place] [address] JUANJO, BARBY Unavailable [address] + [place] [address] ARMOND GEIGERNE Mayco Unavailable Unavailable + CURLU Unavailable [address] + [place] [address] JUANJO, BARBY Unavailable [address] + [place] [address] ARMOND GEIGERNE J Unavailable Unavailable + CURLU Unavailable [address] + [place] [address] JUANJO, BARBY Unavailable [address] + [place] [address] ARMOND GEIGERNE Mayco Unavailable Unavailable + CURLU Unavailable [address] + [place] [address] JUANJO, BARBY Unavailable [address] + [place] [address] HERNÁN GEIGER Unavailable Unavailable + CURLU Unavailable [address] + [place] [address] JUANJO, BARBY Unavailable [address] + [place] [address] HERNÁN GEIGER Unavailable . + [place] [address] CURLU Unavailable [address] + [place] [address] JUANJO, BARBY Unavailable [address] + [place] [address] HERNÁN GEIGER Unavailable Unavailable + CURLU Unavailable [address] + [place] [address] JUANJO, BARBY Unavailable [address] + [place] [address] JUANJOHERNÁN Unavailable NA + [place], [place] CURLU Unavailable [address] + [place] [address] JUANJO, BARBY Unavailable [address] + [place] [address] JUANJO HERNÁN Unavailable [address] + [place] [address] CURLU Unavailable [address] + [place] [address] JUANJO, BARBY Unavailable [address] + [place] [address] JUANJO HERNÁN Unavailable [address] + [place] [address] Care Team Providers Name Role Phone Kali Drew Attending Unavailable Sen Turcios Referring Unavailable Ace Michel Attending Unavailable DIRK CASTELAN Referring Unavailable Trang Suárez Attending Unavailable RANCHO, DIRK Referring Unavailable RANCHO, DIRK Primary Care Unavailable Sharon, Ramon Admitting Unavailable RANCHO, DIRK Primary Care Unavailable MoodisSen storm Consulting Unavailable Hardeep, Kenny Attending Unavailable Hardeep, Kenny Consulting Unavailable Enedinaisdotty, Sen Attending Unavailable MoodisSen storm Referring Unavailable RANCHO, DIRK Primary Care Unavailable Moodisdotty, Sen Attending Unavailable MoodisSen storm Referring Unavailable RANCHO, DIRK Primary Care Unavailable Moodisdotty, Sen Attending Unavailable RANCHO, DIRK Primary Care Unavailable MoodisSen storm Referring Unavailable DeFinTrang lima Attending Unavailable Sharon, Ramon Admitting Unavailable Moodisdotty, Sen Attending Unavailable RANCHO, DIRK Primary Care Unavailable MoodisSen storm Consulting Unavailable Paintsil, Quitaque Consulting Unavailable Moodjael, Sen Attending Unavailable MoodisSen storm Referring Unavailable RANCHO, DIRK Primary Care Unavailable Gabriele, Sen Attending Unavailable EnedinaisSen storm Referring Unavailable RANCHO, DIRK Primary Care Unavailable MoodSen elder Attending Unavailable RANCHO, DIRK Primary Care Unavailable MoodSen elder Referring Unavailable Sharon, Ramon Admitting Unavailable Moodjael, Sen Attending Unavailable RANCHO, DIRK Primary Care Unavailable Sen Turcios Consulting Unavailable Hardeep, Kenny Consulting Unavailable Sharon, Ramon Admitting Unavailable Moodisdotty, Sen Attending Unavailable RANCHO, DIRK Primary Care Unavailable MoodSen elder Consulting Unavailable Hardeep, Kenny Consulting Unavailable MoodisSen storm Attending Unavailable RANCHO, DIRK Referring Unavailable RANCHO, DIRK Primary Care Unavailable Stella Mishra Attending Unavailable Bran Turner Attending Unavailable Bran Turner Referring Unavailable RANCHO, DIRK Primary Care Unavailable MoodSen elder Attending Unavailable Sen Turcios Referring Unavailable RANCHO, DIRK Primary Care Unavailable Sen Turcios Attending Unavailable MoodisSen storm Referring Unavailable RANCHO, DIRK Primary Care Unavailable Ace Michel Attending Unavailable RANCHO, DIRK Referring Unavailable RANCHO, DIRK Primary Care Unavailable Sen Turcios Attending Unavailable MoodisSen storm Referring Unavailable RANCHO, DIRK Primary Care Unavailable Sen Turcios Attending Unavailable MoodisSen storm Referring Unavailable RANCHO, DIRK Primary Care Unavailable MoodispaSen corey Attending Unavailable MoodispawSen Referring Unavailable RANCHO, DIRK Primary Care Unavailable Edmond Soria Attending Unavailable MoodispawSen Referring Unavailable RoofAce Attending Unavailable RANCHO, DIRK Referring Unavailable Moodispaw, Sen Attending Unavailable Moodispaw, Sen Referring Unavailable RANCHO, DIRK Primary Care Unavailable MoodisSen storm Consulting Unavailable Moodispamadhav, Sen Attending Unavailable RANCHO, DIRK Referring Unavailable Moodispaw, Sen Attending Unavailable Moodispaw, Sen Referring Unavailable RANCHO, DRIK Primary Care Unavailable Moodisdotty, Sen Attending Unavailable MoodispaSen corey Referring Unavailable Moodispamadhav, Sen Attending Unavailable Moodispamadhav, Sen Referring Unavailable RANCHO, DIRK Primary Care Unavailable Anand, Ace Trinidad Attending Unavailable RANCHO, DIRK Referring Unavailable Moodispaw, Sen Attending Unavailable RANCHO, DIRK Referring Unavailable Sharon, Ramon Admitting Unavailable RANCHO, DIRK Primary Care Unavailable MoodisSen storm Consulting Unavailable Hardeep, Kenny Attending Unavailable Hardeep, Kenny Consulting Unavailable Sharon, Ramon Admitting Unavailable Moodispamadhav, Sen Attending Unavailable RANCHO, DIRK Primary Care Unavailable MoodispaSen corey Consulting Unavailable Hardeep, Kenny Consulting Unavailable Sharon, Ramon Admitting Unavailable RANCHO, DIRK Primary Care Unavailable MoodispaSen corey Consulting Unavailable Hardeep, Kenny Attending Unavailable Hardeep, Kenny Consulting Unavailable RANCHO, DIRK Primary Care Unavailable Deanna Billingsley Attending Unavailable RANCHO, DIRK Primary Care Unavailable Sharon, Ramon Admitting Unavailable MoodispaSen corey Consulting Unavailable Hardeep, Kenny Attending Unavailable Edmond Soria Attending Unavailable MoodispaSen corey Referring Unavailable RANCHO, DIRK Primary Care Unavailable MoodisSen storm Consulting Unavailable Moodisdotty, Sen Attending Unavailable MoodispaSen corey Referring Unavailable RANCHO, DIRK Primary Care Unavailable MoodisSen storm Consulting Unavailable Moodisdotty, Sen Attending Unavailable MoodispaSen corey Referring Unavailable RANCHO, DIRK Primary Care Unavailable Moodisdotty, Sen Attending Unavailable Moodispamadhav, Sen Referring Unavailable RANCHO, DIRK Primary Care Unavailable PROBLEMS PROBLEMS DATE TYPE CONDITION / CODE ATTENDING STATUS SOURCE 06/02/2018 Unknown I48.0 - Paroxysmal Moodispaw, Active [place] atrial fibrillation / [facility] I48.0(ICD-10) Hospital Repository 06/02/2018 Unknown I47.1 - Moodispaw, Active [place] Supraventricular [facility] tachycardia / Hospital I47.1(ICD-10) Repository 06/02/2018 Unknown Z79.01 - FPC Moodispaw, Active [facility] (current) use of [facility] anticoagulants / Hospital Z79.01(ICD-10) Repository 06/02/2018 Unknown I48.91 - Unspecified Moodispaw, Active [place] atrial fibrillation / [facility] I48.91(ICD-10) Hospital Repository 12/24/2017 Unknown I50.22 - Chronic Kali Drew Active [place] systolic (congestive) [facility] heart failure / Hospital I50.22(ICD-10) Repository 12/24/2017 Unknown R06.09 - Other forms Kali Drew Active [place] of dyspnea / [facility] R06.09(ICD-10) Hospital Repository 11/03/2017 Unknown I42.9 - Ace Michel Active [place] Cardiomyopathy, [facility] unspecified / Hospital I42.9(ICD-10) Repository 11/03/2017 Unknown Z01.810 - Encounter Ace Michel Active [facility] for preprocedural [facility] cardiovascular Hospital examination / Repository Z01.810(ICD-10) 11/03/2017 Unknown R94.31 - Abnormal RoofAce Active [place] electrocardiogram Community [ECG] [EKG] / Hospital R94.31(ICD-10) Repository 09/23/2017 Unknown R00.2 - Palpitations / DeFinis, Active [place] R00.2(ICD-10) [facility] Repository 09/13/2017 Unknown E87.6 - Hypokalemia / Moodispaw, Active [place] E87.6(ICD-10) [facility] Repository 09/09/2017 Unknown R06.02 - Shortness of Moodispaw, Active [place] breath / [facility] R06.02(ICD-10) Hospital Repository 09/08/2017 Unknown R06.00 - Dyspnea, Moodispaw, Active [place] unspecified / [facility] R06.00(ICD-10) Hospital Repository 09/08/2017 Unknown R06.01 - Orthopnea / Moodispaw, Active [place] R06.01(ICD-10) [facility] Repository PROCEDURES PROCEDURES No Procedure Records FoundRESULTS RESULTS NCS AND/OR EMG Observed: 06/29/2018 Status: F Source: [place] PATIENT 4:37 PM [facility] REPOSITORY [facility] Pulmonary Services/Neurology [address] [address] MR#: [id number] Acct: [id number] Name: ANNE MARIE GEIGER Rep #: [id number] : 1940 77 From: Enzo Hopson MD Referring Dr: Bran Turner MD Status: REG CLI Ordering Dr: Date: Location: N Sex: M C NCS and/or EMG Patient Report Ordering Doctor: Bran Turner DATE OF SERVICE: 06/28/18 Is a left upper extremity nerve conduction study performed on this 77-year-old male with a history of numbness and tingling in the left hand for 3 months. There is also a history of rotator cuff tear and the patient demonstrates limited movement of the left shoulder. He is healthy otherwise. Left upper extremity sensory motor nerve conduction studies performed demonstrating prolongation of the median motor and sensory distal latencies with preservation of amplitude and conduction velocities. The ulnar motor and sensory and radial sensory responses are normal. The median ulnar f wave latencies are preserved. Impression abnormal nerve conduction study of the left upper extremity consistent with mild to moderate carpal tunnel syndrome at the left wrist. 06/29/18 1637 <Electronically signed by Enzo Hopson MD> Date Enzo Hopson MD CC: Dirk Castelan DO; Enzo Hopson MD; Bran Turner MD Date Dictated: 06/28/181120 Date Transcribed: 06/28/18 112 Merchant Patroller: NF Signed PROTHROMBIN TIME W/INR Collected: 06/28/2018 Status: F Source: [place] 7:23 AM [facility] REPOSITORY TYPE CODE TESTS RESULT OUT OF REFERENCE UNITS RANGE LAB L300.4150 11.7-14.9 SECONDS High PROTIME 40.4 LAB L300.4200 High alert INR 4.1 Result Comment: CRITICAL VALUE VERIFIED. CALLED TO QUINTIN AT 'S OFFICE. 06/28/18 0936 Rich Wyatt. RESULTS READ BACK BY SAME. Performed By: #### L300.3900 #### [facility] [address] [place], [address] PROTHROMBIN TIME W/INR Collected: 05/24/2018 Status: F Source: [place] 2:21 PM [facility] REPOSITORY Order Comment: Comments: STANDING ORDER Comments: STANDING ORDER TYPE CODE TESTS RESULT OUT OF RANGE REFERENCE UNITS LAB L300.4150 11.7-14.9 SECONDS High PROTIME 31.1 LAB L300.4200 Normal INR 3.0 Performed By: #### L300.3900 #### [facility] [address] [place], [address] PROTHROMBIN TIME W/INR Collected: 05/02/2018 Status: F Source: [place] 11:44 AM [facility] REPOSITORY TYPE CODE TESTS RESULT OUT OF RANGE REFERENCE UNITS LAB L300.4150 11.7-14.9 SECONDS High PROTIME 33.1 LAB L300.4200 Normal INR 3.2 Performed By: #### L300.3900 #### [facility] [address] [place], [address] PROTHROMBIN TIME W/INR Collected: 03/24/2018 Status: F Source: [place] 9:27 AM [facility] REPOSITORY TYPE CODE TESTS RESULT OUT OF RANGE REFERENCE UNITS LAB L300.4150 11.7-14.9 SECONDS High PROTIME 27.6 LAB L300.4200 Normal INR 2.6 Performed By: #### L300.3900 #### [facility] [address] [place], [address] CARDIOLOGY VISIT Observed: 02/25/2018 Status: F Source: [place] REPORT 11:59 AM [facility] REPOSITORY [facility] [address] [place] [address] OFFICE VISIT Date of Service: 02/25/18 MR#: [id number] Acct: [id number] Name: ANNE MARIE GEIGER Rep #: [id number] : 1940 Provider: ROCIO Michel Age/Sex: 77/M Location: [facility] Status: Signed HPI HPI Details: ANNE MARIE GEIGER, is a 77 M who presents to the office today for a cardiovascular outpatient follow-up. He has history of nonischemic cardiomyopathy, paroxysmal atrial fibrillation status post cardioversion on September 10, 2017 and November 16, 2017, mitral valve insufficiency, and aortic valve sclerosis/stenosis. Pt denies chest, arm, jaw, or neck discomfort. His exercise tolerance is stable. Pt denies symptoms of CHF, palpitations, lightheadedness, dizziness, near syncopal or syncopal episodes. Pt denies edema or claudication issues. Pt. denies orthopnea, PND, fever, chills, blood in urine, blood in stool, myalgia, or unexplainable fatigue. Intake Vital Signs02/25/18 Height 5 ft 10 in 02/25/18 Weight: 178 lb 02/25/18 Body Mass Index (BMI) 25.5 02/25/18 Blood Pressure 138/76 02/25/18 Blood Pressure Location Lt brachial Intake Visit Reasons: 9 M FU Digital Experience Manager Required: No Accompanied by: None Is patient in pain?: No Allergies No Known Allergies Allergy (Verified 02/25/18 09:49) Medications metoprolol tartrate 100 mg tablet 100 mg PO BID #180 tab 07/12/17 [Rx Confirmed 02/25/18] amiodarone 200 mg tablet 200 mg PO DAILY #90 tab 11/16/17 [Rx Confirmed 02/25/18] lisinopril 10 mg tablet 10 mg PO QDAY #90 tab 11/16/17 [Rx Confirmed 02/25/18] potassium chloride ER 20 mEq tablet,extended release(part/cryst) 20 meq PO DAILY #90 tab 11/16/17 [Rx Confirmed 02/25/18] furosemide 40 mg tablet 20 mg PO QDAY tab 02/25/18 [History] warfarin 2 mg tablet 1 mg PO DAILY tab 02/25/18 [History] Ejection fraction %: 45 to 49 PFSH Medical History Atrial fibrillation (Acute) Acute on chronic systolic heart failure (Acute) Mitral valve regurgitation (Chronic) Aortic valve stenosis (Chronic) Hypokalemia (Acute) Palpitations (Acute) Dyspnea (Acute) Abnormal EKG (Acute) Paroxysmal atrial tachycardia (Acute) Cardiomyopathy (Chronic) rn long term care current use of anticoagulant (Chronic) Paroxysmal atrial fibrillation (Chronic) Chronic systolic congestive heart failure (Chronic) Family history of ischemic heart disease (Chronic) Surgical History History of inguinal hernia repair (Resolved) Family History Father Myocardial infarction Brother CAD (coronary artery disease) Hx of CABG Brother CAD (coronary artery disease) Hx of CABG Social History Smoking Status: Never smoker alcohol intake: never substance use type: does not use caffeine: Yes Type: tea what type of physical activity do you participate in: other details: trampoline frequency: daily duration: 15-30 minutes/day seatbelt use: always do you feel safe at home: Yes ROS Const Const: Negative for fatigue, weakness, body ache, fever(s) or chills ENT ENT: Negative for dizziness Cardio Chest Pain: No Palpitations: No Edema: None Muscle aches with walking: None Resp Respiratory: Negative for SOB with activity, SOB at rest, SOB orthopnea\SOB lying down or paroxysmal nocturnal dyspnea GI GI: Negative nausea, black,tarry stools, bright, red blood in stools or vomiting blood/hematemesis : Negative for hematuria or frequent nighttime urination/ nocturia Musc Musc: Negative for muscle aches/ myalgia Skin Skin: Negative non-healing lesions or rash Neuro Neuro: Negative for weakness, dizziness, lightheadedness, near syncope, syncope or orthostatic symptoms Endo Endo: Negative for fatigue Allergy Allergy/Immunology: Negative for rash Cardiology Exam Const Appearance: cooperative, healthy appearing, comfortable and no acute distress Orientation: alert, awake and oriented x3 Head Head: normal to inspection Mouth: oral mucosae normal Neck Neck: no JVD and normal visual inspection Carotids: normal carotid upstroke Chest Chest inspection: normal inspection of the chest and normal respiratory effort Auscultation: Bilateral: Clear to Auscultation Cardio Rate: regular rate Rhythm: regular rhythm Heart sounds: S2 normal and murmur; negative rub or gallop Murmur: Grade 2/6 and LLSB GI GI: normal to inspection Neuro General: alert, awake, oriented x3 and CN's II-XI intact bilaterally Skin Skin: no rashes or lesions noted Extremities Pulses: Normal: Right Posterior Tibial Pulse, Left Posterior Tibial Pulse, Right Radial Pulse, Left Radial Pulse Lower Extremity Edema: None: Bilateral Psych Psychological: normal affect Supplemental Info Echocardiogram from September 2017 showed mild global left ventricular systolic dysfunction with an estimated LVEF of 45%; moderate to severe concentric LVH; severe biatrial enlargement; mild mitral annular calcification; mild mitral valve prolapse; moderate MR; mild TR; aortic valve sclerosis/mild aortic valve stenosis; mild AI; and an estimated RV systolic pressure of 36 mmHg. Heart catheterization from May 2011 showed an ejection fraction 50%, angiographically normal-appearing coronary arteries, and mild to moderate mitral valve insufficiency. Assessment AND Plan 1. Paroxysmal atrial fibrillation I48.0 S/P DCVV 09/2017 AND 10/2017; Plan Echocardiogram from September 2017 showed severe biatrial enlargement. Patient states feeling much improved since his most recent cardioversion in October 2017. He appears to be maintaining regular rhythm. He will continue with current medications which include metoprolol, amiodarone, and warfarin. His heart rate is on the lower end of expected range. Due to being asymptomatic no adjustments will be made at this time. He was reminded of concerning symptoms to watch for and to contact our office if he notices any symptoms indicating bradycardia. 2. Palpitations R00.2 Plan He denies any recurrence. He will continue current medications and we will continue to monitor. 3. Other cardiomyopathy I42.8 Plan His echocardiogram in September 2017 showed an ejection fraction 45%. Patient denies any concerning symptoms for congestive heart failure. He has subsequently decreased his diuretic since her last office visit. He will continue with metoprolol, lisinopril, and Lasix. We will continue to monitor. 4. Nonrheumatic aortic valve stenosis I35.0 Plan Echocardiogram from September 2017 showed ejection fraction 45% with mild aortic valve stenosis and mild aortic valve insufficiency. Shortness of breath, chest pain, CP, or dizziness. He will continue current medications and we will continue to monitor. 5. Non-rheumatic mitral regurgitation I34.0 Plan Echocardiogram from September 2017 showed mild mitral valve prolapse with moderate mitral valve regurgitation. He will continue current medications and we will continue to monitor. 6. FPC current use of anticoagulant Z79.01 Plan He will continue with Coumadin therapy maintaining an INR of 2 3. Plan Detail Additional Comments Thank you for allowing us to participate in the patients plan of care, if you have any questions please do not hesitate to call. This note was generated using a voice recognition system and there may be incorrect words, spelling or punctuation that were not noted when reviewing the office note prior to saving. 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) 14 Months (PFM) Coding Level of Care Code Off vis,est,level 3 Diagnoses Paroxysmal atrial fibrillation I48.0 Palpitations R00.2 Other cardiomyopathy I42.8 Cardiomyopathy type: other Nonrheumatic aortic valve stenosis I35.0 Cardiac valve disease etiology: nonrheumatic Non-rheumatic mitral regurgitation I34.0 Cardiac valve disease etiology: nonrheumatic FPC current use of anticoagulant Z79.01 Coding Level of Care Code Off vis,est,level 3 Diagnoses Paroxysmal atrial fibrillation I48.0 Palpitations R00.2 Other cardiomyopathy I42.8 Cardiomyopathy type: other Nonrheumatic aortic valve stenosis I35.0 Cardiac valve disease etiology: nonrheumatic Non-rheumatic mitral regurgitation I34.0 Cardiac valve disease etiology: nonrheumatic FPC current use of anticoagulant Z79.01 02/25/18 1159 <Electronically signed by Ace MUELLER> Date Ace MUELLER Cosigner Signature: Date (if applicable) CC: Dirk Castelan DO PROTHROMBIN TIME W/INR Collected: 02/25/2018 Status: F Source: [place] 9:21 AM [facility] REPOSITORY TYPE CODE TESTS RESULT OUT OF RANGE REFERENCE UNITS LAB L300.4150 11.7-14.9 SECONDS High PROTIME 21.2 LAB L300.4200 Normal INR 1.8 Performed By: #### L300.3900 #### [facility] [address] [place], [address] PROTHROMBIN TIME W/INR Collected: 02/01/2018 Status: F Source: [place] 2:21 PM [facility] REPOSITORY TYPE CODE TESTS RESULT OUT OF RANGE REFERENCE UNITS LAB L300.4150 11.7-14.9 SECONDS High PROTIME 25.4 LAB L300.4200 Normal INR 2.3 Performed By: #### L300.3900 #### [facility] [address] [place], [address] DOWNTIME REPORT Observed: 01/20/2018 Status: F Source: [place] 12:22 PM [facility] REPOSITORY [facility] Medical Records Department [address] [place] [address] Downtime Report MR#: [id number] Acct: [id number] Name: ANNE MARIE GEIGER Rep #: [id number] : 1940 77 From: Ricky Turner PCP: Dirk Castelan DO Status: REG RCR This patient was seen during an EMR downtime January 03, 2018 - January 10, 2018. This patient may have a combination of paper and electronic documentation or all paper documentation. All documentation is viewable within the e-chart portion of [employer] for each patient visit. PROTHROMBIN TIME W/INR Collected: 01/07/2018 Status: F Source: [place] 9:40 AM [facility] REPOSITORY TYPE CODE TESTS RESULT OUT OF RANGE REFERENCE UNITS LAB L300.4150 11.7-14.9 SECONDS High PROTIME 33.6 LAB L300.4200 Normal INR 3.3 Performed By: #### L300.3900 #### [facility] [address] [place], [address] PROTHROMBIN TIME W/INR Collected: 12/13/2017 Status: F Source: [place] 11:57 AM [facility] REPOSITORY TYPE CODE TESTS RESULT OUT OF RANGE REFERENCE UNITS LAB L300.4150 11.7-14.9 SECONDS High PROTIME 30.7 LAB L300.4200 Normal INR 2.9 Performed By: #### L300.3900 #### [facility] [address] [place], [address] OFFICE VISIT REPORT Observed: 11/23/2017 Status: F Source: [place] 10:18 AM [facility] REPOSITORY [facility] [address] [place] [address] OFFICE VISIT Date of Service: 11/23/17 MR#: [id number] Acct: [id number] Patient: DOMINGUEZ GEIGER Rep #: [id number] : 1940 Provider: ROCIO Michel Age/Sex: 77/M Location: [facility] Status: Signed Intake Intake Visit Reasons: 1 week post CV Chief Complaint: sob Allergies No Known Allergies Allergy (Verified 11/15/17 12:42) Medications metoprolol tartrate 100 mg tablet 100 mg PO BID #180 tab 07/12/17 [Rx Confirmed 11/15/17] warfarin 2 mg tablet 2 mg PO DAILY #90 tab 10/12/17 [Rx Confirmed 11/15/17] furosemide 40 mg tablet 40 mg PO QDAY #90 tab 11/03/17 [Rx Confirmed 11/15/17] amiodarone 200 mg tablet 200 mg PO DAILY #90 tab 11/16/17 [Rx] lisinopril 10 mg tablet 10 mg PO QDAY #90 tab 11/16/17 [Rx] potassium chloride ER 20 mEq tablet,extended release(part/cryst) 20 meq PO DAILY #90 tab 11/16/17 [Rx] Assessment AND Plan Orders Orders: Nursing Note Patient here today for EKG. Patient had cardioversion on November 16, 2017. Patient states he feels well today. Per Ace Michel, EKG is a regular rhythm. He is to stay on current medication and call if any lightheadedness or dizzy. Patient to keep appointment in January if he feels he needs it, otherwise he may cancel and reschedule. Patient and notified of above and verbalized understanding. 11/23/17 1018 <Electronically signed by Ace MUELLER> Date Ace MUELLER Cosigner Signature: Date (if applicable) CC: 12 LEAD EKG PERFORMED Observed: 11/23/2017 Status: F Source: [place] BY [facility] 9:10 AM [facility] REPOSITORY [facility] [address] [place] [address] 12 Lead EKG performed by [facility] 11/23/17909 MR#: [id number] Acct: [id number] Name: DOMINGUEZ GEIGER Rep #: [id number] : 1940 77 From: Ace Michel BOWLING BALL PATCHER-C Attending Dr: Ace Michel, BOWLING BALL PATCHER Status: DEP AMB Ordering Dr: Ace Michel BOWLING BALL PATCHERPrasanthC Date: 11/23/17 Location: [place] Sex: M C Admitted: BMS/12 Lead EKG performed by [facility] ECG Report Interpretation Sinus Bradycardia -First degree A-V block Left axis deviationPoor R wave progressionPossible Left anterior fascicular blockNonspecific T wave abnormalityABNORMAL Electronically signed on 11/24/2017 at 17:14 by Sen Turcios 11/24/17 1716 Date Ace MUELLER CC: DIRK CASTELAN Date Dictated: 11/23/17909 Date Transcribed: 11/23/17909 Merchant Patroller: IRIS Signed PROTHROMBIN TIME W/INR Collected: 11/23/2017 Status: F Source: [place] 9:00 AM [facility] REPOSITORY TYPE CODE TESTS RESULT OUT OF RANGE REFERENCE UNITS LAB L300.4150 11.7-14.9 SECONDS High PROTIME 31.6 LAB L300.4200 Normal INR 3.0 Performed By: #### L300.3900 #### [facility] [address] [place], [address] OPERATIVE REPORT Observed: 11/17/2017 Status: F Source: [place] 5:28 AM [facility] REPOSITORY [facility] Medical Records Department [address] [place] [address] Operative Report 11/16/17 1404 MR#: [id number] Acct: [id number] Name: DOMINGUEZ GEIGER Rep #: [id number] : 1940 77 From: Edmond Soria MD PCP: DIRK CASTELAN Status: REG SDC Y Location: [facility] Problem List (1) Acute on chronic systolic heart failure Status: Acute (2) Atrial fibrillation Status: Acute Qualifiers: Atrial fibrillation type: persistent Qualified Code(s): I48.1 - Persistent atrial fibrillation (3) Cardiomyopathy Status: Acute Qualifiers: Operative Report Date of Procedure: 11/16/17 - Conscious sedation CONSCIOUS SEDATION REPORT BRIEF HISTORY OF PRESENT ILLNESS: The patient is a 77-year-old [facility] male who presented to [facility] for an elective cardioversion secondary to atrial fibrillation. Patient is known to have systolic congestive heart failure with an EF of 45%. Patient does report having a previous cardioversion approximately 2 months ago without complication. The patient reports no prior anesthetic complications. Patient's INR is currently in therapeutic range. Patient does not report audible snoring in their home environment. Patient denies ever smoking. Patient has been n.p.o. since midnight. PHYSICAL EXAMINATION: VITAL SIGNS: Reviewed and were acceptable. GENERAL: The patient is a male, in no apparent distress, speaking in full sentences. HEENT: Normocephalic, atraumatic. Mucous membranes are moist and pink. Good mouth opening noted. Trachea is midline. Good neck mobility. CHEST: S1, S2 irregularly irregular. No murmurs, rubs or gallops were noted. LUNGS: Clear to auscultation bilaterally without appreciable wheezes, rales or rhonchi. ABDOMEN: Soft, nontender, nondistended. Positive bowel sounds. EXTREMITIES: There is no clubbing or cyanosis. Lower extremity edema present ASA Class: II DESCRIPTION OF PROCEDURE: After confirmation of informed consent, the patient's anesthesia plan was reviewed in detail. Propofol was chosen. Risks and benefits were reviewed and the patient agreed to proceed. At 12:36 PM, the patient was given 40 mg of propofol. The patient achieved an appropriate level of sedation and was given a 200 joule synchronized cardioversion by Dr. Turcios at the bedside. This was successful in achieving normal sinus rhythm. The patient was monitored until 12:43 PM, at which time he reached his baseline mental status and function. The patient tolerated the procedure well. COMPLICATIONS: None ESTIMATED BLOOD LOSS: None RECOMMENDATIONS: Ianay to recover in usual fashion. 11/17/17 0528 <Electronically signed by Edmond Soria MD> Date Edmond Soria MD CC: DIRK CASTELAN; Edmond Soria MD; Sen Turcios MD Signed OPERATIVE REPORT Observed: 11/16/2017 Status: F Source: [place] 12:55 PM [facility] REPOSITORY [facility] Medical Records Department [address] [place] [address] Operative Report 11/16/17 1253 MR#: [id number] Acct: [id number] Name: DOMINGUEZ GEIGER Rep #: [id number] : 1940 77 From: Sen Turcios MD PCP: DIRK CASTELAN Status: REG [facility] Location: [facility] Problem List (1) Atrial fibrillation Status: Acute Qualifiers: Atrial fibrillation type: persistent Qualified Code(s): I48.1 - Persistent atrial fibrillation Operative Report Date of Procedure: 11/16/17 Procedure: Synchronized biphasic DC cardioversion Indications: Atrial fibrillation Consent: Per the patient Premedications: Per Dr. Edmond Soria pulmonology and critical care medicine with propofol 40 mg IV push total Procedure: Synchronized biphasic DC cardioversion: 200 J 1: Result: Sinus rhythm Complications: No apparent complications This note was generated with [employer] dictation software. It may contain incorrect words, spelling, and punctuation that were not noted in checking the note before signing. 11/16/17 1255 <Electronically signed by Sen Turcios MD> Date Sen Turcios MD CC: DIRK CASTELAN; Sen Turcios MD Signed PROTIME W/INR Collected: 11/16/2017 Status: F Source: [place] 11:08 AM [facility] REPOSITORY TYPE CODE TESTS RESULT OUT OF REFERENCE UNITS RANGE LAB L9200.1001 11.9-14.4 SEC High PROTIME ISTAT 30.3 Result Comment: Reference Range 11.9 - 14.4 LAB L9200.2000 Normal INR ISTAT 2.60 Result Comment: Critical Value > 3.5 Performed By: #### L9200.0000 #### [facility] Point of Care [address] [place] [address] PROTHROMBIN TIME W/INR Collected: 11/09/2017 Status: F Source: [place] 9:46 AM [facility] REPOSITORY TYPE CODE TESTS RESULT OUT OF RANGE REFERENCE UNITS LAB L300.4150 11.7-14.9 SECONDS High PROTIME 28.4 LAB L300.4200 Normal INR 2.7 Performed By: #### L300.3900 #### [facility] [address] [place], [address] CARDIOLOGY VISIT Observed: 11/04/2017 Status: F Source: [place] REPORT 11:14 AM [facility] REPOSITORY [facility] [address] [place] [address] OFFICE VISIT Date of Service: 11/03/17 MR#: [id number] Acct: [id number] Name: DOMINGUEZ GEIGER Rep #: [id number] : 1940 Provider: ROCIO Michel Age/Sex: 77/M Location: [facility] Status: Signed HPI HPI Details: DOMINGUEZ GEIGER, is a 77 M who presents to the office today for a cardiovascular outpatient follow-up. He has history of nonischemic cardiomyopathy, paroxysmal atrial fibrillation status post cardioversion on September 10, 2017, mitral valve insufficiency, and aortic valve sclerosis/stenosis. Patient presented to [facility] emergency department in September 2017 for 2 days of gradually worsening shortness of breath. His EKG revealed first-degree AV block at a rate of 97 bpm with PVCs. His troponin was 0.03 and BTNP was elevated at 620.4. He was placed on BiPAP, given IV Lasix, and admitted for further evaluation. While admitted he reverted back to atrial fibrillation and was started on IV amiodarone and ultimately transitioned to p.o. amiodarone. His IV Lasix were also transitioned to p.o. Patient was transitioned off of oxygen and was discharged home. Plan was to continue amiodarone and Coumadin therapy and consider repeat cardioversion in approximately 3 weeks if patient maintains atrial fibrillation. He had a follow-up appointment in cardiology office and was noted to remain in atrial fibrillation. He will be undergoing a cardioversion. Pt. denies chest, arm, jaw, or neck discomfort. His exercise tolerance is stable via jumping on a trampoline. Pt. denies symptoms of palpitations, lightheadedness, near syncope, or syncopal episodes. Pt. denies edema or claudication issues. Pt. denies orthopnea, PND, fever, chills, blood in urine, blood in stool, myalgia, or unexplainable fatigue. Pt. states he is slowly improving strength each day. He states continual shortness of breath when walking, but is improving. This resolves with rest. He states ones episode of dizziness prior to hospital admission and none since discharge. Intake Vital Signs11/03/17 Height 5 ft 10 in 11/03/17 Weight: 180 lb 11/03/17 Body Mass Index (BMI) 25.8 11/03/17 Blood Pressure 132/80 11/03/17 Blood Pressure Location Lt brachial Intake Visit Reasons: a- fib Digital Experience Manager Required: No Accompanied by: Family / Other Is patient in pain?: No Allergies No Known Allergies Allergy (Verified 11/03/17 09:43) Medications metoprolol tartrate 100 mg tablet 100 mg PO BID #180 tab 07/12/17 [Rx Confirmed 11/03/17] lisinopril 10 mg tablet 10 mg PO QDAY 09/08/17 [History Confirmed 11/03/17] Potassium Chloride [K-Dur] 20 meq PO DAILY 09/12/17 [History Confirmed 11/03/17] Amiodarone HCl [Cordarone] 200 mg PO DAILY tab 09/15/17 [Rx Confirmed 11/03/17] warfarin 2 mg tablet 2 mg PO DAILY #90 tab 10/12/17 [Rx Confirmed 11/03/17] furosemide 40 mg tablet 40 mg PO QDAY #90 tab 11/03/17 [Rx] Ejection fraction %: 45 to 49 PFSH Medical History Palpitations (Acute) Dyspnea (Acute) Abnormal EKG (Acute) Paroxysmal atrial tachycardia (Acute) Cardiomyopathy (Acute) FPC current use of anticoagulant (Chronic) Paroxysmal atrial fibrillation (Chronic) Chronic systolic congestive heart failure (Chronic) Family history of ischemic heart disease (Chronic) Family History Father Myocardial infarction Brother CAD (coronary artery disease) Hx of CABG Brother CAD (coronary artery disease) Hx of CABG Social History Smoking Status: Never smoker alcohol intake: never substance use type: does not use caffeine: Yes Type: tea what type of physical activity do you participate in: other details: trampoline frequency: daily duration: 15-30 minutes/day seatbelt use: always do you feel safe at home: Yes ROS Const Const: Positive for fatigue; negative for weakness, body ache, fever(s) or chills ENT ENT: Negative for dizziness Cardio Chest Pain: No Palpitations: No Edema: None Muscle aches with walking: None Resp Respiratory: Positive for SOB with activity; negative for SOB at rest, SOB orthopnea\SOB lying down or paroxysmal nocturnal dyspnea GI GI: Negative nausea, black,tarry stools, bright, red blood in stools or vomiting blood/hematemesis : Negative for hematuria or frequent nighttime urination/ nocturia Musc Musc: Negative for muscle aches/ myalgia Neuro Neuro: Negative for weakness, dizziness, lightheadedness, near syncope, syncope or orthostatic symptoms Endo Endo: Positive for fatigue Cardiology Exam Const Appearance: cooperative, healthy appearing, comfortable and no acute distress Orientation: alert, awake and oriented x3 Head Head: normal to inspection Mouth: oral mucosae normal Neck Neck: no JVD and normal visual inspection Carotids: normal carotid upstroke Chest Chest inspection: normal inspection of the chest and normal respiratory effort Auscultation: Bilateral: Clear to Auscultation Cardio Rate: regular rate Rhythm: irregular rhythm Heart sounds: S2 normal and murmur; negative rub or gallop Murmur: Grade 2/6 and LLSB GI GI: normal to inspection Neuro General: alert, awake, oriented x3 and CN's II-XI intact bilaterally Skin Skin: no rashes or lesions noted Extremities Pulses: Normal: Right Posterior Tibial Pulse, Left Posterior Tibial Pulse, Right Radial Pulse, Left Radial Pulse Lower Extremity Edema: None: Bilateral Psych Psychological: normal affect Supplemental Info Echocardiogram from September 2017 showed mild global left ventricular systolic dysfunction with an estimated LVEF of 45%; moderate to severe concentric LVH; severe biatrial enlargement; mild mitral annular calcification; mild mitral valve prolapse; moderate MR; mild TR; aortic valve sclerosis/mild aortic valve stenosis; mild AI; and an estimated RV systolic pressure of 36 mmHg. Heart catheterization from May 2011 showed an ejection fraction 50%, angiographically normal-appearing coronary arteries, and mild to moderate mitral valve insufficiency. Assessment AND Plan 1. Paroxysmal atrial fibrillation I48.0 Toro Michel NP-[place] Echocardiogram from September 2017 showed severe bilateral biatrial enlargement. EKG in office showed atrial fibrillation at a rate of 103 bpm. Patient will be undergoing a cardioversion for this. He will continue with amiodarone, metoprolol, and Coumadin. He will follow-up in our office approximately 1 week after cardioversion for EKG. If cardioversion is unsuccessful or patient reverts back to atrial fibrillation we consider further evaluation with electrophysiology for RFA. Of note patient takes his Coumadin in the morning and he is advised to continue his current regimen because his INR has been consistently above 2. In the future, after his cardioversion, he was advised that we change this to be taken in the evening so that adjustments can be made if needed after laboratory work is received. Orders Orders: 2. Chronic systolic congestive heart failure I50.22 Toro Michel NP-[place] Echocardiogram from September 2017 showed an ejection fraction of 45%. Heart catheterization from May 2011 showed angiographically normal-appearing coronary arteries. Patient does acknowledges shortness of breath with activity that improves with rest. He also mentioned that this is slowly improved since discharge from recent hospitalization. Hopefully patient's breathing improves after cardioversion. He will continue with beta-rubin and diuretic. We will continue to monitor this through history, exam, and repeat echocardiogram. 3. Nonrheumatic aortic valve stenosis I35.0 Toro Michel NP-C Echocardiogram from September 2017 showed aortic valve sclerosis with mild aortic valve stenosis. There is also noted to be mild aortic valve insufficiency. At this time we will not make any medication adjustments. We will continue to monitor the history, exam, and repeat echocardiogram. 4. Non-rheumatic mitral regurgitation I34.0 Toro Michel NP-[place] Echocardiogram from September 2017 showed mild mitral annular calcification, mild mitral valve prolapse, and moderate mitral valve insufficiency. Patient shortness of breath is slowly improving. We will continue to monitor this through history, exam, and repeat echocardiogram. We will not make a medication regimen changed. 5. Dyspnea on exertion R06.09 Plan - ERVIN Locke This has improved since his diuretic was adjusted during her most recent hospitalization. Patient will continue with Lasix 40 mg p.o. daily. He was asked to continue to monitor his weight, respiratory status, and lower extremity edema and contact our office if he notices any concerning changes. Plan Detail Other Orders Orders: Other Medications New: Additional Comments - ERVIN Locke Discussed the above patient with Dr. Jo in Dr. Turcios's absence, he agrees with the plan of care. Thank you for allowing us to participate in the patients plan of care, if you have any questions please do not hesitate to call. This note was generated using a voice recognition system and there may be incorrect words, spelling or punctuation that were not noted when reviewing the office note prior to saving. Coding Level of Care Code Off vis,est,level 3 Diagnoses Paroxysmal atrial fibrillation I48.0 Chronic systolic congestive heart failure I50.22 Nonrheumatic aortic valve stenosis I35.0 Cardiac valve disease etiology: nonrheumatic Non-rheumatic mitral regurgitation I34.0 Cardiac valve disease etiology: nonrheumatic Dyspnea on exertion R06.09 Dyspnea type: dyspnea on exertion Coding Level of Care Code Off vis,est,level 3 Diagnoses Paroxysmal atrial fibrillation I48.0 Chronic systolic congestive heart failure I50.22 Nonrheumatic aortic valve stenosis I35.0 Cardiac valve disease etiology: nonrheumatic Non-rheumatic mitral regurgitation I34.0 Cardiac valve disease etiology: nonrheumatic Dyspnea on exertion R06.09 Dyspnea type: dyspnea on exertion 11/04/17 0702 <Electronically signed by Ace MUELLER> Date Ace MUELLER 11/04/17 1114<Electronically signed by Eliceo Jo MD> Cosigner Signature: Date (if applicable) Eliceo Jo MD CC: DIRK CASTELAN 12 LEAD EKG PERFORMED Observed: 11/03/2017 Status: F Source: [place] BY [facility] 9:38 AM [facility] REPOSITORY [facility] [address] [place] [address] 12 Lead EKG performed by [facility] 11/03/1737 MR#: [id number] Acct: [id number] Name: DOMINGUEZ GEIGER Rep #: [id number] : 1940 77 From: Ace Michel BOWLING BALL PATCHER-C Attending Dr: Ace Michel, BOWLING BALL PATCHER Status: DEP AMB Ordering Dr: Ace Michel BOWLING BALL PATCHERPrasanthC Date: 11/03/17 Location: [place] Sex: M C Admitted: BMS/12 Lead EKG performed by [facility] ECG Report Interpretation Atrial fibrillation / flutterLeft axis deviationPossible Left anterior fascicular blockPoor R wave progressionNonspecific ST/T wave abnormalityABNORMAL Electronically signed on 11/11/2017 at 17:38 by Sen Turcios 11/11/17 1740 Date Ace MUELLER CC: DIKR CASTELAN Date Dictated: 11/03/17936 Date Transcribed: 11/03/17936 Merchant Patroller: IRIS Signed CBC W/DIFF, AUTOMATED Collected: 11/03/2017 Status: F Source: [place] 9:22 AM [facility] REPOSITORY TYPE CODE TESTS RESULT OUT OF RANGE REFERENCE UNITS LAB L100.1000 4.4-11.0 K/mm3 Normal WBC 8.6 LAB L100.1200 4.6-6.2 M/mm3 Normal RBC 5.15 LAB L100.1300 13.0-16.5 g/dl Normal HGB 15.0 LAB L100.1400 40-54 % Normal HCT 46.8 LAB L100.1500 80-94 fL Normal MCV 90.9 LAB L100.1600 27.0-32.0 pg Normal MCH 29.1 LAB L100.1700 32-36 g/gl Normal MCHC 32.1 LAB L100.1810 11.6-14.6 % High RDW CV 16.9 LAB L100.1820 35.1-43.9 fl High RDW SD 55.6 LAB L100.1900 150-450 K/mm3 Normal PLT 434 LAB L100.2000 6.2-12.0 fl Normal MPV 10.0 LAB L100.2100 47-70 % Normal NEUT% 56.6 LAB L100.2200 19-41 % Normal LY% 27.0 LAB L100.2300 0-10 % Normal MONO% 9.5 LAB L100.2400 0-5 % High EO% 5.8 LAB L100.2500 0-1 % Normal BASO% 0.9 LAB L100.2550 0.0-0.9 % Normal IM GRAN % 0.200 Result Comment: IG% - Immature Granulocytes (promyelocytes, myelocytes and metamyelocytes) > 1% indicates that a LEFT SHIFT is Present. LAB L100.2620 2.0-7.7 X10 3/uL Normal Absolute Neut 4.8 LAB L100.2720 0.83-4.51 X10 3/ul Normal Absolute Lymph 2.31 Performed By: #### L100.0100, L500.2500 #### [facility] [address] [place], [place], [id number] BASIC METABOLIC Collected: 11/03/2017 Status: F Source: [place] PROFILE (BMP) 9:22 AM [facility] REPOSITORY TYPE CODE TESTS RESULT OUT OF RANGE REFERENCE UNITS LAB L501.0100 74-106 mg/dL High GLU 110 Result Comment: Fasting Glucose result from 100 to 125 mg/dL suggests IMPAIRED HOMEOSTASIS per A.D.A. criteria. Please note revised GLUCOSE reference range effective 2017. LAB L501.1000 7-18 mg/dL High BUN 20 LAB L501.1100 0.70-1.30 mg/dL High CREAT,SERUM 1.35 Result Comment: The validity of the calculated GFR AND GFRAA in patients over 70 years has not been determined. Clinical correlation is essential. LAB L501.1110 >60 mL/min Low EST GFR 54 Result Comment: Non- GFR Calc LAB L501.1115 >60 mL/min Normal EST GFR - AA 66 Result Comment: GFR Calc LAB L501.1300 10-20 RATIO Normal BUN/CRE 14.8 LAB L501.2200 8.5-10.1 mg/dL CA Normal 8.7 LAB L501.5300 136-145 mmol/L NA Normal 140 LAB L501.5600 3.5-5.1 mmol/L K Normal 4.0 LAB L501.5900 98-107 mmol/L CL Normal 102 LAB L501.6100 21.0-32.0 mmol/L Normal CO2 30.0 LAB L501.6200 5-15 Normal GAP 8 Performed By: #### L100.0100, L500.2500 #### [facility] [address] [place], [address] PROTHROMBIN TIME W/INR Collected: 11/03/2017 Status: F Source: TEA 9:22 AM [facility] REPOSITORY TYPE CODE TESTS RESULT OUT OF RANGE REFERENCE UNITS LAB L300.4150 11.7-14.9 SECONDS High PROTIME 28.6 LAB L300.4200 Normal INR 2.7 Performed By: #### L300.3900 #### [facility] [address] [place], [address] PROTHROMBIN TIME W/INR Collected: 10/28/2017 Status: F Source: TEA 8:41 AM [facility] REPOSITORY TYPE CODE TESTS RESULT OUT OF RANGE REFERENCE UNITS LAB L300.4150 11.7-14.9 SECONDS High PROTIME 27.4 LAB L300.4200 Normal INR 2.5 Performed By: #### L300.3900 #### [facility] [address] [facility] [place] [place], [address] PROTHROMBIN TIME W/INR Collected: 10/18/2017 Status: F Source: TEA 8:02 AM [facility] REPOSITORY TYPE CODE TESTS RESULT OUT OF RANGE REFERENCE UNITS LAB L300.4150 11.7-14.9 SECONDS High PROTIME 29.2 LAB L300.4200 Normal INR 2.7 Performed By: #### L300.3900 #### [facility] [address] [place], [address] PROTHROMBIN TIME W/INR Collected: 10/12/2017 Status: F Source: GOLDY 10:04 AM [facility] REPOSITORY TYPE CODE TESTS RESULT OUT OF RANGE REFERENCE UNITS LAB L300.4150 11.7-14.9 SECONDS High PROTIME 29.5 LAB L300.4200 Normal INR 2.8 Performed By: #### L300.3900 #### [facility] [address] [place], [address] PROTHROMBIN TIME W/INR Collected: 10/04/2017 Status: F Source: GOLDY 2:29 PM [facility] REPOSITORY TYPE CODE TESTS RESULT OUT OF RANGE REFERENCE UNITS LAB L300.4150 11.7-14.9 SECONDS High PROTIME 25.8 LAB L300.4200 Normal INR 2.3 Performed By: #### L300.3900 #### [facility] [address] [place], [address] PROTHROMBIN TIME W/INR Collected: 09/29/2017 Status: F Source: GOLDY 10:54 AM [facility] REPOSITORY TYPE CODE TESTS RESULT OUT OF REFERENCE UNITS RANGE LAB L300.4150 11.7-14.9 SECONDS High PROTIME 38.4 LAB L300.4200 High alert INR 3.9 Result Comment: CRITICAL VALUE VERIFIED. CALLED TO RAINA AT 'S OFFICE. 09/29/17 1241 Rich Wyatt. RESULTS READ BACK BY SAME. Performed By: #### L300.3900 #### [facility] [address] [place], [address] OFFICE VISIT REPORT Observed: 2017 Status: F Source: GOLDY 8:13 AM [facility] REPOSITORY [facility] [address] [place] [address] OFFICE VISIT Date of Service: 09/23/17 MR#: [id number] Acct: [id number] Patient: DOMINGUEZ GEIGER Rep #: [id number] : 1940 Provider: Trang Suárez Age/Sex: 76/M Location: [facility] Status: Signed Intake Intake Visit Reasons: Chief Complaint: sob Allergies No Known Allergies Allergy (Verified 09/12/17 05:10) Medications metoprolol tartrate 100 mg tablet 100 mg PO BID #180 tab 07/12/17 [Rx Confirmed 09/12/17] lisinopril 10 mg tablet 10 mg PO QDAY 09/08/17 [History Confirmed 09/12/17] Potassium Chloride [K-Dur] 20 meq PO DAILY 09/12/17 [History Confirmed 09/12/17] Amiodarone HCl [Cordarone] 200 mg PO BID #90 tab 09/15/17 [Rx] Amiodarone HCl [Cordarone] 200 mg PO DAILY tab 09/15/17 [Rx] Dextran 70/He-Cell [Tears Naturale, Artificial Tears] 2 drp EACH EYE Q6H PRN bottle 09/15/17 [Rx] Doxycycline 100 mg PO BID #10 cap 09/15/17 [Rx] Furosemide [Lasix] 40 mg PO BID@1000,1800 #60 tab 09/15/17 [Rx] Warfarin [Coumadin] 2 mg PO DAILY #0 09/15/17 [Rx] Assessment AND Plan Orders Orders: Nursing Note Pt had a DCCV on 09/10/2017 and was admitted to [facility] on 09/12/2017 where he went back into atrial fibrillation. Amiodarone therapy was initiated, coumadin dose was changed to 2 mg po daily. As of 09/23/17 pt is currently taking Amiodarone 200 mg po three times a day and will decrease to 200 mg po twice daily on 2017. Pt denies SOB, chest discomfort, dizziness, and states I feel much better. Since pt was started on amiodarone an EKG was obtained. EKG shows Atrial fibrillation [address] Turcios reviewed EKG and pt is to 1.) Continue current medication therapy, 2.) Start weekly PT/INR draws today, 3.) Keep appointment on 10/29/2017 and at that time we will schedule a DCCV for October 2017. 09/24/17 0813 <Electronically signed by Sen Turcios MD> Date Sen Turcios MD Cosign Signature: Date (if applicable) CC: Trang Suárez PROTHROMBIN TIME W/INR Collected: 09/23/2017 Status: F Source: TEA 11:33 AM [facility] REPOSITORY TYPE CODE TESTS RESULT OUT OF REFERENCE UNITS RANGE LAB L300.4150 11.7-14.9 SECONDS High PROTIME 45.2 LAB L300.4200 High alert INR 5.1 Result Comment: CRITICAL VALUE VERIFIED. CALLED TO TRANG AT [facility] 09/23/17 1317 Janae Wilkinson. RESULTS READ BACK BY SAME . Performed By: #### L300.3900 #### [facility] [address] [place], [address] 12 LEAD EKG PERFORMED Observed: 09/23/2017 Status: F Source: GOLDY BY [facility] 10:59 AM [facility] REPOSITORY [facility] [address] [place] [address] 12 Lead EKG performed by [facility] 09/23/17 1058 MR#: [id number] Acct: [id number] Name: DOMINGUEZ GEIGER Rep #: [id number] : 1940 76 From: Sen Turcios MD Attending Dr: Trang Suárez Status: DEP AMB Ordering Dr: Sen Turcios MD Date: 09/23/17 Location: [place] Sex: M C Admitted: [facility]/12 Lead EKG performed by [facility] ECG Report Interpretation Atrial flutter-fibrillation Left axis deviationLeftanterior fascicular block. Poor R-wave progression -nonspecific -consider old anterior infarct. Diffuse nonspecific T-abnormality. ABNORMAL Electronically signed on 09/23/2017 at 15:00 by Sen Turcios 09/23/17 1504 Date Sen Turcios MD CC: DIRK CASTELAN Date Dictated: 09/23/17 1058 Date Transcribed: 09/23/171057 Merchant Patroller: PM Signed DISCHARGE SUMMARY Observed: 09/15/2017 Status: F Source: TEA 4:44 PM [facility] REPOSITORY [facility] Medical Records Department [address] [place] [address] Discharge Summary 09/15/17 1424 MR#: [id number] Acct: [id number] Name: DOMINGUEZ GEIGER Rep #: [id number] : 1940 76 From: Guille ADKINS PCP: DIRK CASTELAN Status: DIS IN Y [id number] <Guille Duran - Last Filed: 09/15/17 14:24> Discharge Date and Diagnosis Date of Admission: 09/12/17 Date of Discharge: 09/15/17 - Primary Discharge Diagnosis Active and Suspected Problems (Last Reviewed 09/08/17 @ 10:32 by Stella Mishra) Acute hypoxic respiratory failure 2/2 Acute on chronic systolic heart failure cardiomyopathy, subtype unspecified Afib with RVR HTN - Secondary Discharge Diagnosis Chronic Problems (Last Reviewed 09/08/17 @ 10:32 by Stella Mishra) Mitral valve regurgitation (Chronic) Aortic valve stenosis (Chronic) rn long term care current use of anticoagulant (Chronic) Paroxysmal atrial fibrillation (Chronic) Chronic systolic congestive heart failure (Chronic) Hospital Course and Treatment Imaging Results: RAD/Chest 1 View (Portable) IMPRESSION: New bibasilar airspace disease with pleural effusion and increased cardiac enlargement likely superimposed on COPD. Suspect an inflammatory/infectious process rather than congestive heart failure. Gabriele - cardiology Operations: None Procedures: None Summary of Care Provided: Physical exam on day of discharge: General: Resting comfortably NAD Psych: A/Ox3 normal affect HEENT: PEARRLA AT NC Neck: Supple NT CV: RRR no m/t/r/g/h Resp: CTA Abd: NABSX4 Soft NT no guarding or rigidity Ext: DP2+= no edema Skin: W/D normal turgor Lymph/Heme: No active bleeding or adenopathy Neuro: CN2-12 intact The patient is a 76year old M with a hx of CHF and Afib and an underlying cardiomyopathy who had undergone a cardioversion for afib 2 days prior to presentation who presented to the ER with increased SOB and hypoxia. He required up to 4 lpm O2 via NC and had an elevated BNP, a CXR with pleural effusions, increased cardiomegaly, and BLE edema and abdominal distention. Initially he was in sinus rhythm. He was admitted to PCU for acute on chronic CHF exacerbation and hypoxic respiratory failure. He was given IV Lasix. He was also started on doxycycline to cover for any possible underlying respiratory infection. He did not have a fever or white count. Cardiology was consulted. The following day he went into atrial fibrillation with rapid ventricular response. He was started on amiodarone. He had an echo several days prior to presentation so a repeat was deferred, his echo demonstrated an EF of 45%, 2+ MVI, and several other abnormalities. He was transitioned to p.o. amiodarone. His warfarin dose was adjusted. He was able to be weaned completely off oxygen at rest and with exertion. His edema and abdominal distention improved significantly. He was discharged home in stable condition on adjusted doses of amiodarone, warfarin, and Lasix. He will need to follow-up as an outpatient and is being considered for outpatient cardioversion again. Please follow-up with cardiology in 1-2 weeks and with your PCP in 1-2 weeks. This patient was seen by Guille Duran PA-C under the supervision of Doctor Meier. [] Discharge Diet: Low fat/ Low Cholesterol, 2000 mg Sodium Diet Discharge Activity: Return to Normal Activity Home Medications: Medications to take at Discharge metoprolol tartrate 100 mg tablet 100 mg PO BID #180 tab 07/12/17 lisinopril 10 mg tablet 10 mg PO QDAY 09/08/17 Potassium Chloride [K-Dur] 20 meq PO DAILY 09/12/17 Amiodarone HCl [Cordarone] 200 mg PO BID #90 tab 09/15/17 Amiodarone HCl [Cordarone] 200 mg PO DAILY tablet 09/15/17 Amiodarone HCl [Cordarone] 200 mg PO TID #0 tablet 09/15/17 Dextran 70/He-Cell [Tears Naturale, Artificial Tears] 2 drop EACH EYE Q6H PRN bottle 09/15/17 Doxycycline 100 mg PO BID #10 cap 09/15/17 Furosemide [Lasix] 40 mg PO BID@1000,1800 #60 tab 09/15/17 Warfarin [Coumadin] 2 mg PO DAILY #0 09/15/17 Following Prescrptions Were Given to Patient: Amiodarone HCl [Cordarone] 200 mg PO BID #90 tab Doxycycline 100 mg PO BID #10 cap Furosemide [Lasix] 40 mg PO BID@1000,1800 #60 tab Primary Care Physician: Dirk Castelan [Primary Care Provider] - Please follow up with your Primary Care Physician in: in 1- 2 weeks Please Follow Up With: Sen Turcios MD When: in 2-3 weeks for Afib to schedule for DC cardioversion Please Follow Up With: Sen Turcios MD Please Follow Up With: Dirk Castelan When: within 1-2 weeks Disposition: Home Minutes spent on discharge:: 35 Patient Condition:: Stable Meaningful Use Info Meaningful Use Diagnoses (Choose all that apply): CHF - CHF STEPHANE/ARB ordered at discharge?: Yes Documented LVEF (%): 45 <Kenny Meier - Last Filed: 09/15/17 16:43> Discharge Date and Diagnosis - Primary Discharge Diagnosis Pulmonary edema - Secondary Discharge Diagnosis Chronic Problems (Last Reviewed 09/08/17 @ 10:32 by Stella Mishra) Mitral valve regurgitation (Chronic) Aortic valve stenosis (Chronic) [facility] current use of anticoagulant (Chronic) Paroxysmal atrial fibrillation (Chronic) Chronic systolic congestive heart failure (Chronic) Hospital Course and Treatment Summary of Care Provided: []This patient was seen in conjunction with Guille ADKINS. I have independently interviewed and examined the patient and reviewed pertinent history, examination findings, laboratory and plan of management. I have reviewed the note and agree with the documented findings with the few additional points. In brief, patient is admitted for acute hypoxic respiratory failure secondary to acute systolic exacerbation and A. fib with RVR. IV amiodarone was transitioned to oral amiodarone. The patient is on a scheduled taper off amiodarone. overall plan is continue anticoagulation for 3 weeks and then trial of outpatient cardioversion if patient stays in A. fib. Discussed with the jewelry model maker. Discharge medication reconciliation done. Follow-up discharge instructions completed. Discharge plan and medication discussed with the patient and his son present in the room. I have discussed my assessment with Guille ADKINS and orders have been reviewed. Code Visit Inpatient RAJENDRA: [id number] Disch Hosp 09/15/17 1434 <Electronically signed by Guille ADKINS> Date Guille ADKINS 09/15/17 1644<Electronically signed by Kenny Meier MD> Cosigner Signature (if applicable): Date Kenny Meier MD CC: LUCILLE Duran; DIRK CASTELAN; Kenny Meier MD Signed 12 LEAD ELECTROCARDIOGRAM Observed: 09/15/2017 Status: F Source: TEA 1:27 PM [facility] REPOSITORY [facility] Cardiovascular Services [address] [place] [address] 12 Lead EKG 09/14/17 0517 MR#: [id number] Acct: [id number] Name: DOMINGUEZ GEIGER Rep #: [id number] : 1940 76 From: Sen Turcios MD Attending Dr: Kenny Meier MD Status: ADM IN Ordering Dr: Sen Turcios MD Date: 09/14/17 Location: [facility] Sex: M C Admitted: 09/12/17 Test Reason : AM Blood Pressure : / mmHG Vent. Rate : 097 BPM Atrial Rate : 340 BPM P-R Int : 000 ms QRS Dur : 096 ms QT Int : 416 ms P-R-T Axes : 000 -57 172 degrees QTc Int : 528 ms Atrial fibrillation /flutter Left anterior fascicular block Poor R wave progression ST AND T wave abnormality, consider lateral ischemia Prolonged QT Abnormal ECG Confirmed by GABRIELE MCDONALD, SEN ([id number]), editor sound GLENN TURNER ([id number]) on 09/15/2017 1:27:54 PM Referred By: ALETA Confirmed By:SEN TURCIOS MD 09/15/17 1327 Date Sen Turcios MD CC: DIRK CASTELAN; Sen Turcios MD Signed DISCHARGE INSTRUCTION Observed: 09/15/2017 Status: F Source: GOLDY 11:28 AM [facility] REPOSITORY [facility] Medical Records Department [address] [place] [address] Instructions for Home/Discharge Instructions 09/15/17 1126 MR#: [id number] Acct: [id number] Name: DOMINGUEZ GEIGER Rep #: [id number] : 1940 76 From: Kenny Meier MD PCP: DIRK CASTELAN Status: ADM IN - Discharge Diagnoses Current Active Problems: Current Active and Chronic Problems (Last Reviewed 09/08/17 @ 10:32 by Stella Mishra) Acute on chronic systolic heart failure (Acute) Mitral valve regurgitation (Chronic) Aortic valve stenosis (Chronic) You will use the following diet at home:: Cardiac Your food should be the consistency of: Regular Discharge Activity: May not drive while taking narcotic pain medications. Allergies/Adverse Reactions: Allergies No Known Allergies Allergy (Verified 09/12/17 05:10) Medications to take at Discharge metoprolol tartrate 100 mg tablet 100 mg PO BID #180 tab 07/12/17 lisinopril 10 mg tablet 10 mg PO QDAY 09/08/17 Potassium Chloride [K-Dur] 20 meq PO DAILY 09/12/17 Amiodarone HCl [Cordarone] 200 mg PO BID #90 tab 09/15/17 Amiodarone HCl [Cordarone] 200 mg PO DAILY tablet 09/15/17 Amiodarone HCl [Cordarone] 200 mg PO TID #0 tablet 09/15/17 Dextran 70/He-Cell [Tears Naturale, Artificial Tears] 2 drop EACH EYE Q6H PRN bottle 09/15/17 Doxycycline 100 mg PO BID #10 cap 09/15/17 Furosemide [Lasix] 40 mg PO BID@1000,1800 #60 tab 09/15/17 Warfarin [Coumadin] 2 mg PO DAILY #0 09/15/17 The following prescriptions were given: Furosemide [Lasix] 40 mg PO BID@1000,1800 #60 tab Amiodarone HCl [Cordarone] 200 mg PO BID #90 tab Doxycycline 100 mg PO BID #10 cap Primary Care Physician: Dirk Castelan [Primary Care Provider] - Please follow up with your Primary Care Physician in: in 1- 2 weeks Please Follow Up With: Sen Turcios MD When: in 2-3 weeks for Afib to schedule for DC cardioversion 09/15/17 1128 <Electronically signed by Kenny Meier MD> Date Kenny Meier MD CC: DIRK CASTELAN; Sen Turcios MD PROTHROMBIN TIME W/INR Collected: 09/15/2017 Status: F Source: TEA 5:35 AM [facility] REPOSITORY TYPE CODE TESTS RESULT OUT OF RANGE REFERENCE UNITS LAB L300.4150 11.7-14.9 SECONDS High PROTIME 30.5 LAB L300.4200 Normal INR 3.1 Performed By: #### L300.3900 #### [facility] [address] [place], [address] BASIC METABOLIC Collected: 09/15/2017 Status: F Source: TEA PROFILE (BMP) 5:35 AM [facility] REPOSITORY TYPE CODE TESTS RESULT OUT OF RANGE REFERENCE UNITS LAB L501.0100 74-106 mg/dL Normal GLU 97 Result Comment: Please note revised GLUCOSE reference range effective 2017. LAB L501.1000 7-18 mg/dL High BUN 26 LAB L501.1100 0.70-1.30 mg/dL Normal CREAT,SERUM 1.21 Result Comment: The validity of the calculated GFR AND GFRAA in patients over 70 years has not been determined. Clinical correlation is essential. LAB L501.1110 >60 mL/min Normal EST GFR 62 Result Comment: Non- GFR Calc LAB L501.1115 >60 mL/min Normal EST GFR - AA 75 Result Comment: GFR Calc LAB L501.1255 ml/min Normal Estimated CRCL 52.79 LAB L501.1300 10-20 RATIO High BUN/CRE 21.5 LAB L501.2200 8.5-10 mg/dL Normal .1 CA 9.1 LAB L501.5300 136-14 mmol/L Normal 5 NA 141 LAB L501.5600 3.5-5. mmol/L Normal 1 K 3.9 Result Comment: Slight Hemolysis, Result may be falsely increased. LAB L501.5900 98-107 mmol/L Normal CL 102 LAB L501.6100 21.0-32.0 mmol/L Normal CO2 28.0 LAB L501.6200 5-15 Normal GAP 11 Performed By: #### L500.2500 #### [facility] [address] [facility] [place], [address] 12 LEAD ELECTROCARDIOGRAM Observed: 09/14/2017 Status: F Source: TEA 2:01 PM [facility] REPOSITORY [facility] Cardiovascular Services [address] [place] [address] 12 Lead EKG 09/13/17 0639 MR#: [id number] Acct: [id number] Name: DOMINGUEZ GEIGER Rep #: [id number] : 1940 76 From: Eliceo Jo MD Attending Dr[facility]: ADM IN Ordering Dr: Ramon Herrera MD Date: 09/13/17 Location: [facility] Sex: M C Admitted: 09/12/17 Test Reason : ARRYTHMIA Blood Pressure : / mmHG Vent. Rate : 135 BPM Atrial Rate : 182 BPM P-R Int : 000 ms QRS Dur : 094 ms QT Int : 354 ms P-R-T Axes : 000 -72 174 degrees QTc Int : 531 ms Atrial fibrillation Left anterior fascicular block ST AND T wave abnormality, consider lateral ischemia Abnormal ECG When compared with ECG of 12-SEP-2017 05:09, MANUAL COMPARISON REQUIRED, DATA IS UNCONFIRMED Confirmed by ELICEO JO MD ([id number]), editor sound GLENN TURNER ([id number]) on 09/14/2017 2:00:39 PM Referred By: PAINT Confirmed By:ELICEO JO MD 09/14/17 1400 Date Eliceo Jo MD CC: DIRK CASTELAN; Ramon Herrera MD Signed 12 LEAD ELECTROCARDIOGRAM Observed: 09/14/2017 Status: F Source: GOLDY 1:03 PM [facility] REPOSITORY [facility] Cardi[facility] [address] [place] [address] 12 Lead EKG 09/12/17 0509 MR#: [id number] Acct: [id number] Name: DOMINGUEZ GEIGER Rep #: [id number] : 1940 76 From: Eliceo Jo MD Attending Dr: Kenny Meier MD Status: ADM IN Ordering Dr: Anne Marie Michel MD Date: 09/12/17 Location: [facility] Sex: M C Admitted: 09/12/17 Test Reason : SOB Blood Pressure : / mmHG Vent. Rate : 097 BPM Atrial Rate : 097 BPM P-R Int : 238 ms QRS Dur : 098 ms QT Int : 364 ms P-R-T Axes : 047 -28 248 degrees QTc Int : 462 ms Sinus rhythm with 1st degree A-V block with occasional Premature ventricular complexes and Premature atrial complexes T wave abnormality, consider inferolateral ischemia Abnormal ECG Confirmed by ELICEO JO MD ([id number]), editor sound GLENN TURNER ([id number]) on 09/14/2017 1:02:52 PM Referred By: SL Confirmed By:ELICEO JO MD 09/14/17 1302 Date Eliceo Jo MD CC: DIRK CASTELAN; Anne Marie Michel MD Signed PROTHROMBIN TIME W/INR Collected: 09/14/2017 Status: F Source: GOLDY 5:28 AM [facility] REPOSITORY TYPE CODE TESTS RESULT OUT OF RANGE REFERENCE UNITS LAB L300.4150 11.7-14.9 SECONDS High PROTIME 28.7 LAB L300.4200 Normal INR 2.8 Performed By: #### L300.3900 #### [facility] [address] [place], [address] BASIC METABOLIC Collected: 09/14/2017 Status: F Source: GOLDY PROFILE (BMP) 5:28 AM [facility] REPOSITORY TYPE CODE TESTS RESULT OUT OF RANGE REFERENCE UNITS LAB L501.0100 74-106 mg/dL High GLU 109 Result Comment: Fasting Glucose result from 100 to 125 mg/dL suggests IMPAIRED HOMEOSTASIS per A.D.A. criteria. Please note revised GLUCOSE reference range effective 2017. LAB L501.1000 7-18 mg/dL High BUN 23 LAB L501.1100 0.70-1.30 mg/dL Normal CREAT,SERUM 1.28 Result Comment: The validity of the calculated GFR AND GFRAA in patients over 70 years has not been determined. Clinical correlation is essential. LAB L501.1110 >60 mL/min Low EST GFR 58 Result Comment: Non- GFR Calc LAB L501.1115 >60 mL/min Normal EST GFR - AA 70 Result Comment: GFR Calc LAB L501.1255 ml/min Normal Estimated CRCL 49.90 LAB L501.1300 10-20 RATIO Normal BUN/CRE 18.0 LAB L501.2200 8.5-10 mg/dL Normal .1 CA 8.8 LAB L501.5300 136-14 mmol/L Normal 5 NA 139 LAB L501.5600 3.5-5. mmol/L Normal 1 K 4.1 LAB L501.5900 98-107 mmol/L Normal CL 100 LAB L501.6100 21.0-3 mmol/L High 2.0 CO2 34.0 LAB L501.6200 5-15 Normal GAP 5 Performed By: #### L500.2500 #### [facility] [address] [place], [address] MAGNESIUM Collected: 09/14/2017 Status: F Source: GOLDY 5:28 AM [facility] REPOSITORY Order Comment: ADD MG TO BMP FROM THIS MORNING TYPE CODE TESTS RESULT OUT OF RANGE REFERENCE UNITS LAB L501.5200 1.6-2.6 mg/dL Normal MG 2.1 Result Comment: Please note revised Magnesium reference range effective 2017. Performed By: #### L501.5200 #### [facility] [address] [place], [address] PROTHROMBIN TIME W/INR Collected: 09/13/2017 Status: F Source: GOLDY 5:20 AM [facility] REPOSITORY TYPE CODE TESTS RESULT OUT OF RANGE REFERENCE UNITS LAB L300.4150 11.7-14.9 SECONDS High PROTIME 27.0 LAB L300.4200 Normal INR 2.6 Performed By: #### L300.3900 #### [facility] [address] [facility] [address] [place], [address] BASIC METABOLIC Collected: 09/13/2017 Status: F Source: GOLDY PROFILE (BMP) 5:20 AM [facility] REPOSITORY TYPE CODE TESTS RESULT OUT OF RANGE REFERENCE UNITS LAB L501.0100 74-106 mg/dL Normal GLU 90 Result Comment: Please note revised GLUCOSE reference range effective 2017. LAB L501.1000 7-18 mg/dL High BUN 21 LAB L501.1100 0.70-1.30 mg/dL Normal CREAT,SERUM 1.19 Result Comment: The validity of the calculated GFR AND GFRAA in patients over 70 years has not been determined. Clinical correlation is essential. LAB L501.1110 >60 mL/min Normal EST GFR 63 Result Comment: Non- GFR Calc LAB L501.1115 >60 mL/min Normal EST GFR - AA 76 Result Comment: GFR Calc LAB L501.1255 ml/min Normal Estimated CRCL 53.68 LAB L501.1300 10-20 RATIO Normal BUN/CRE 17.6 LAB L501.2200 8.5-10 mg/dL Normal .1 CA 8.7 LAB L501.5300 136-14 mmol/L Normal 5 NA 142 LAB L501.5600 3.5-5. mmol/L Normal 1 K 4.0 LAB L501.5900 98-107 mmol/L Normal CL 102 LAB L501.6100 21.0-3 mmol/L Normal 2.0 CO2 32.0 LAB L501.6200 5-15 Normal GAP 8 Performed By: #### L500.2500 #### [facility] [address] [address] [place], [address] CBC W/DIFF, AUTOMATED Collected: 09/13/2017 Status: F Source: GOLDY 5:20 AM [facility] REPOSITORY TYPE CODE TESTS RESULT OUT OF RANGE REFERENCE UNITS LAB L100.1000 4.4-11.0 K/mm3 Normal WBC 9.6 LAB L100.1200 4.6-6.2 M/mm3 Normal RBC 5.12 LAB L100.1300 13.0-16.5 g/dl Normal HGB 15.1 LAB L100.1400 40-54 % Normal HCT 46.4 LAB L100.1500 80-94 fL Normal MCV 90.6 LAB L100.1600 27.0-32.0 pg Normal MCH 29.5 LAB L100.1700 32-36 g/gl Normal MCHC 32.5 LAB L100.1810 11.6-14.6 % High RDW CV 15.6 LAB L100.1820 35.1-43.9 fl High RDW SD 51.6 LAB L100.1900 150-450 K/mm3 Normal PLT 394 LAB L100.2000 6.2-12.0 fl Normal MPV 10.6 LAB L100.2100 47-70 % Normal NEUT% 57.3 LAB L100.2200 19-41 % Normal LY% 27.6 LAB L100.2300 0-10 % High MONO% 10.9 LAB L100.2400 0-5 % Normal EO% 3.6 LAB L100.2500 0-1 % Normal BASO% 0.5 LAB L100.2550 0.0-0.9 % Normal IM GRAN % 0.100 Result Comment: IG% - Immature Granulocytes (promyelocytes, myelocytes and metamyelocytes) > 1% indicates that a LEFT SHIFT is Present. LAB L100.2620 2.0-7.7 X10 3/uL Normal Absolute Neut 5.5 LAB L100.2720 0.83-4.51 X10 3/ul Normal Absolute Lymph 2.64 Performed By: #### L100.0100 #### [facility] [place], [address] EMERGENCY DEPARTMENT Observed: 09/13/2017 Status: F Source: [place] SUMMARY 1:11 AM [facility] REPOSITORY [facility] Medical Records Department [address] [place] [address] Emergency Department Summary 09/12/17 0614 MR#: [id number] Acct: [id number] Name: DOMINGUEZ GEIGER Rep #: [id number] : 1940 76 From: Anne Marie Michel MD PCP: DIRK CASTELAN Status: ADM IN - ER Visit Summary Date of Service: 09/12/17 Chief Complaint: Shortness of breath History of Present Illness: The patient is a [address] Turcios and Dr. Casetlan. He reports he has shortness of breath began 2 days ago and is gradually been worsening. States this is since being cardioverted from atrial fibrillation on September 10. States it is much worse if he walks around or lays flat. He reports that he has a cough sometimes. This is chronic and unchanged. It is nonproductive. No fever, chills, chest pain, or other complaints. He does have a history of CHF. He does not do daily weights. Physical Examination: Vitals: Stable. Afebrile. General: Well-nourished and well-developed. Head: Normocephalic atraumatic. Neck: Supple, no lymphadenopathy. No JVD. Nontender. Cardiovascular: Regular rate and rhythm. 2 out of 6 systolic murmur. Respiratory: Mild respiratory distress with crackles at the bases bilaterally. Abdominal: Soft, nontender, nondistended, normal bowel sounds. No guarding, rebound, or peritoneal signs. Back: Nontender. Extremities: Nontender, 2+ pitting edema of his lower extremity bilaterally. Skin: Normal color, no rash. Neurologic: Alert and oriented 3. Cranial nerves II through XII are intact. Normal strength and sensation. Psych: Normal affect. Test Results: EKG is sinus with first-degree AV block rate of 97. He does have PVCs. CBC is marked for platelets of 463. Chem-7 is normal. INR is 2.3. Troponin 0 0.03. PT BOWLING BALL PATCHER is 620.4. Chest x-ray is read by me shows cardiomegaly and CHF. Emergency Department Course and Treatment: Patient was placed on BiPAP. His pulse ox is 91% on 4 L nasal cannula. His heart rate is decreased into the 80s. He feels much improved. He is given Lasix IV. Treatment Plan: Patient was discussed with Dr. Herrera. He will be admitted to the hospital for further evaluation and treatment. Disposition: Admitted in improved condition Impression: 1. CHF. 2. Coumadin coagulopathy. This note was generated with [employer] software. It may contain incorrect words, spelling, and punctuation that were not noted in review of the chart prior to signing ED Disposition - Plan for ED Patient: Chief Complaint: Shortness of Breath Referrals: Dirk Castelan [Primary Care Provider] - What to do if you have Problems For any increased pain, shortness of breath, bleeding, nausea or vomiting, chest pain, or any unexpected problems, contact your Primary Care Provider. Call [facility] ([phone]) or report to the closest Emergency Room. Call 911 if necessary. 09/13/17 0111 <Electronically signed by Anne Marie Michel MD> Date Anne Marie Michel MD Cosigner Signature (If Indicated): Date CC: DIRK CASTELAN TROPONIN-I Collected: 09/12/2017 Status: F Source: TEA 7:15 PM [facility] REPOSITORY Order Comment: 'TROP' Serial specimen #1, #2, #3, or #4: 4 TYPE CODE TESTS RESULT OUT OF RANGE REFERENCE UNITS LAB L501.4010 <0.06 ng/mL Normal 0.03 TROPONIN-I Result Comment: TROPONIN-I EXPECTED VALUES <0.05 NEGATIVE 0.06 - 0.59 AT RISK OF [place] > OR = 0.60 SUGGEST [place] Performed By: #### L501.4010 #### [facility] [address] [place], [address] CONSULTATION Observed: 09/12/2017 Status: F Source: TEA 2:24 PM [facility] REPOSITORY [facility] Medical Records Department [address] [place] [address] Consultation 09/12/17 1329 MR#: [id number] Acct: [id number] Name: DOMINGUEZ GEIGER Rep #: [id number] : 1940 76 From: Sen Turcios MD PCP: DIRK CASTELAN Status: ADM IN Y Location: [place] [address] Problem List (1) Acute on chronic systolic heart failure Status: Acute (2) Cardiomyopathy Status: Acute Qualifiers: (3) Paroxysmal atrial fibrillation Status: Chronic (4) Mitral valve regurgitation Status: Chronic Qualifiers: Cardiac valve disease etiology: nonrheumatic Qualified Code(s): I34.0 - Nonrheumatic mitral (valve) insufficiency (5) Aortic valve stenosis Status: Chronic (6) FPC current use of anticoagulant Status: Chronic Reason for Consult Date of Consultation: 09/12/17 History of Present Illness: The patient is a 76 year old white male with a past medical history of underlying chronic systolic CHF, cardiomyopathy, atrial fibrillation-paroxysmal, MR, aortic valve sclerosis/stenosis, long-term anticoagulant therapy, who presents for concerns of recurrent acute on chronic systolic CHF. The patient has been undergoing recent outpatient cardiovascular evaluation for recurrent shortness of breath/dyspnea recurrent atrial fibrillation. He has undergone noninvasive studies including a recent (09/09/2017) follow-up transthoracic echocardiogram. Has demonstrated mild global left ventricular systolic dysfunction with an estimated LVEF of 45%; moderate to severe concentric LVH; severe biatrial enlargement; mild mitral annular calcification; mild mitral valve prolapse; moderate MR; mild TR; aortic valve sclerosis/mild aortic valve stenosis; mild AI; and an estimated RV systolic pressure of 36 mmHg. Based upon his ongoing issues and concerns he underwent medication adjustment with increase in his outpatient diuretic therapy regimen. He also underwent subsequent synchronized biphasic DC cardioversion on 09/10/2017 with 200 J 1 at which time he returned to sinus rhythm with PACs. He states that yesterday evening he had progressive shortness of breath and dyspnea and describes symptoms compatible with orthopnea and PND. He denied any chest discomfort. There was no obvious palpitations. There was no loss of consciousness. He was brought to the hospital for further evaluation and care. He was thought to be in acute on chronic systolic CHF. He required medical management with IV diuretics and temporary oxygen support with BiPAP. As he began to diurese his oxygenation improved and his BiPAP was able to be discontinued. He was then placed on O2 nasal cannula. He states at the present time he is doing better. However he still feels tired. He has had laboratory studies performed. His BNP was elevated which is not a new finding for him. His ECG demonstrated sinus rhythm with a first-degree AV block with occasional PACs and PVCs; leftward axis; poor R-wave progression; nonspecific T-wave abnormality. Of note, he has undergone previous diagnostic cardiac catheterization on 05/26/2011. This demonstrated his left ventricle to have borderline low LV systolic function with an estimated LVEF of 50% and angiographically normal-appearing coronary arteries and mild to moderate MR. [] Past Medical History Allergies/Adverse Reactions: Allergies No Known Allergies Allergy (Verified 09/12/17 05:10) Home Medications: Ambulatory Orders Medication Instructions Recorded metoprolol tartrate 100 mg tablet 100 mg PO BID #180 tab 07/12/17 lisinopril 10 mg tablet 10 mg PO QDAY 09/08/17 furosemide 20 mg tablet 20 mg PO BID #60 tab 09/09/17 Past Medical History (Chronic Problems): Chronic Problems (Last Reviewed 09/08/17 @ 10:32 by Stella Mishra) Mitral valve regurgitation (Chronic) Aortic valve stenosis (Chronic) rn long term care current use of anticoagulant (Chronic) Paroxysmal atrial fibrillation (Chronic) Chronic systolic congestive heart failure (Chronic) Surgical History: no surgical history - *Family History Maternal Family History: Family History (Last Reviewed 09/08/17 @ 10:32 by Stella Mishra) Father Myocardial infarction Brother CAD (coronary artery disease) Hx of CABG Brother CAD (coronary artery disease) Hx of CABG History Items: No pertinent history Lives: Spouse/ Significant Other Smoking Status: Never smoker Alcohol: None Drugs: None Review of Systems - Review of Systems General: Reports: Fatigue, Weakness. Denies: Fever, Night Sweats Cardiovascular: Reports: Shortness of Breath, Shortness of Breath at Rest, Shortness of Breath with Exertion, Orthopnea, PND, Peripheral Edema. Denies: Chest Discomfort, Palpitations, Lightheadedness, Dizziness, Near Syncope, Syncope Respiratory: Reports: Shortness of Breath. Denies: Cough, Sputum Production, Hemoptysis Gastrointestinal: Denies: Hematemesis, Hematochezia, Melena Genitourinary: Denies: Dysuria, Hematuria Skin: Denies: Rash Subjectve: This is a 76-year-old white male who appears to be resting reasonably comfortably with O2 nasal cannula at this time in no acute distress. Objective: Vital Signs Temp Pulse Resp BP Pulse Ox 96.2 F L 80 20 H 133/72 H 95 09/12/17 07:37 09/12/17 09:23 09/12/17 07:45 09/12/17 07:37 09/12/17 11:26 Oxygen Flow Rate 4.5 Oxygen Delivery Method Nasal Cannula Weight: 180 lb 15.992 oz Body Mass Index (BMI) 25.9 Intake and Output for Last 24 Hours Intake Total 240 / 240 Output Total 1875 / 1875 Balance -1635 / -1635 General: Awake, Alert, Oriented x 3, Cooperative, No Acute Distress Neck: No JVD Lungs: Diminished Ayaz Bases Cardiovascular: Regular Rhythm, Premature Ectopic Beats, Normal S1, Normal S2 Murmur Murmur: Grade 2/6, Mid Systolic, [place], Axilla, - - Grade 2/6: Soft: Diastolic murmur: Lower left sternal border Vascular: No Carotid Bruits Abdomen: Bowel Sounds Present, Soft, Non Tender Extremities: Mild RLE Edema, Mild LLE Edema 09/12/17 07:30: D-Dimer Quant (PE/DVT) 0.44 09/12/17 07:30: B-Natriuretic Peptide 705.5 H 09/12/17 07:30: Magnesium 1.9 09/12/17 08:00: Urine Color Straw, Urine Clarity Clear, Urine pH 7.0, Ur Specific Colon 1.010, Urine Protein Negative, Urine Glucose (UA) Normal, Urine Ketones Negative, Urine Occult Blood Negative, Urine Nitrite Negative, Urine Bilirubin Negative, Urine Urobilinogen Normal, Ur Leukocyte Esterase 25 H 09/12/17 09:20: Troponin I 0.04 Rhythm: As noted above EKG: As noted above ECHO: As noted above Cardiac Cath: As noted above CXR: Preliminary evaluation: Blunting of the costophrenic angles; please see official report Assessment/Plan 1. Acute on chronic systolic CHF The patient appears to have had recurrent acute on chronic systolic CHF. This may be compatible with the patient's history of underlying atrial dysrhythmia, valvular heart disease, and non-CAD related cardiomyopathy. At the present time he is being monitored. His laboratory studies will be followed. His cardiac rate and rhythm will be followed. He has undergone recent evaluation with a transthoracic echocardiogram. He will continue medical management. This does include IV diuresis. He appears to be responding appropriately thus far. Upon his clinical course he may eventually need additional noninvasive or invasive studies to assist with diagnosis and or care. 2. Cardiomyopathy The patient has a history of a non-CAD related cardiomyopathy. He has been treated medically in the past. He had been doing well until recently. There is concern that his recent return to atrial fibrillation prompted recurrent acute on chronic symptoms. This may also have impacted his overall LV systolic function/LVEF. At the present time he is being followed. He continues medical management. He has undergone recent noninvasive evaluation. He is also undergone recent DC cardioversion to regain sinus rhythm. The hope is that in sinus rhythm he will regain his atrial kick which may help his overall cardiovascular efficiency and subsequently help his overall cardiovascular status. 3. Atrial fibrillation The moment he remains in sinus rhythm with PACs and PVCs. His rate and rhythm will be followed. He continues on rate control therapy as well as anticoagulant therapy. Ideally it would be reasonable not to interrupt his anticoagulant therapy for any additional invasive evaluation and/or care for approximately 4-6 weeks to as the risk of post DC cardioversion thromboembolic events. In the interim depending upon his rate and rhythm he may need additional medical therapy. This could include antiarrhythmic therapy to help maintain his sinus rhythm. 4. MR She does have a history of mitral valve prolapse and mitral valve regurgitation. His prolapse appears mild and his MR appears to be moderate based on his recent echocardiographic studies. He will need to be followed. Depending on his future clinical course, if his mitral valve disease is thought to be more prominent and/or contributing to his ongoing cardiovascular issues he may need to be considered for a tertiary care center evaluation as to whether or not he is a candidate for any form of mitral valve repair/replacement. 5. Aortic valve sclerosis/stenosis His aortic valve appears to be sclerotic and/or mildly stenotic. It was not felt this was the culprit for his ongoing acute on chronic cardiovascular issues. This will need to be followed over time. 6. Long-term oral anticoagulant therapy At the present time, he should remain on anticoagulant therapy, especially noting he is undergone recent synchronized biphasic DC cardioversion, to minimize the risk of thromboembolic event secondary to his history of atrial dysrhythmias, etc. Comment: The above was discussed with the patient, his spouse, and multiple other family members present as well as the [facility] hospitalist team. This note was generated with [employer] software. Every effort was made to ensure accuracy, however, computerized leg man mistakes may persist. 09/12/17 1356 <Electronically signed by Sen Turcios MD> Date Sen Turcios MD Cosigner Signature (if applicable): Date CC: DIRK CASTELAN; Sen Turcios MD Signed Observed: 09/12/2017 Status: F Source: TEA LEGIONELLA ANTIGEN 8:00 AM [facility] URINE REPOSITORY Legionella, UR Legionella Antigen result interpretation: Negative Presumptive negative for Legionella pneumophila serogroup 1 antigen in urine, suggesting no recent or current infection. Legionella Ag, Urine Negative (See interpretation below) Performed By: #### M101.0101, M300.4500 #### [facility] [address] [facility] [place], [place], [address] STREP Observed: 09/12/2017 Status: F Source: TEA PNEUMONIAE ANTIG(UR,CSF) 8:00 AM [facility] REPOSITORY S pneumo Ag URINE INTERPRETATION Negative Urine Presumptive negative for pneumococcal pneumonia, suggesting no current or recent pneumococcal infection. Infection due to S pneumoniae cannot be ruled out since the antigen present in the sample may be below the detection limit of the test. Strep pneumo Test Negative URINE (See interpretation below) Performed By: #### M300.4600, L400.2010 #### [facility] [address] [facility] [place] [place], [address] URINALYSIS, ROUTINE Collected: 09/12/2017 Status: F Source: TEA (DIPSTICK) 8:00 AM [facility] REPOSITORY Order Comment: How was Urine Obtained? BLACKSMITH ASSISTANT TO SPECIFY TYPE CODE TESTS RESULT OUT OF RANGE REFERENCE UNITS LAB L400.3000 Yellow COLOR Normal Straw LAB L400.3050 Clear Normal CLARITY Clear LAB L400.3200 Normal mg/dl Normal GLUCOSE, UR Normal LAB L400.3300 Negative mg/dL Normal BILIRUBIN URINE Negative LAB L400.3400 Negative mg/dl Normal KETONE UR Negative LAB L400.3465 1.002-1.030 Normal SP.GR. DIPSTX 1.010 LAB L400.3550 5.0 - 8.0 pH UR Normal 7.0 LAB L400.3600 Negative mg/dl PROT Normal DIPSTX Negative LAB L400.3700 Normal mg/dl Normal UROBILI Normal LAB L400.3750 Negative Normal NITRITE UR Negative LAB L400.3780 Negative /ul Normal OCCULT BLOOD-UR Negative LAB L400.3800 Negative /ul High LEUK 25 ESTERASE Performed By: #### M300.4600, L400.2010 #### [facility] [address] [place], [address] Observed: 09/12/2017 Status: F Source: TEA INFLUENZA A+B (RAPID 7:43 AM [facility] CORNELIUS) REPOSITORY FLU A/B Rapid Negative test results should be confirmed by culture. Order Rapid Viral Culture for Influenzae A+B ([id number]) if clinically indicated. Influenza Ag, Direct Presumptive NEGATIVE for Influenza A/B Antigen (See Note) Performed By: #### M101.0101, M300.4500 #### [facility] [address] [place], [address] D-DIMER QUANTITATIVE Collected: 09/12/2017 Status: F Source: GODLY (DVT/PE) 7:30 AM [facility] REPOSITORY TYPE CODE TESTS RESULT OUT OF RANGE REFERENCE UNITS LAB L300.8000 0.27-0.49 FEU/ug/m Normal D-DIMER 0.44 QUANT Result Comment: NORMAL D-Dimer level (<0.50) indicates no DVT or PE. Performed By: #### L300.8000 #### [facility] [address] [place], [address] MAGNESIUM Collected: 09/12/2017 Status: F Source: GOLDY 7:30 AM [facility] REPOSITORY TYPE CODE TESTS RESULT OUT OF RANGE REFERENCE UNITS LAB L501.5200 1.6-2.6 mg/dL Normal MG 1.9 Result Comment: Please note revised Magnesium reference range effective 2017. Performed By: #### L501.5200, L501.9520, L503.6620 #### [facility] [address] [place], [address] THYROID STIM HORMONE Collected: 09/12/2017 Status: F Source: GOLDY (TSH) 7:30 AM [facility] REPOSITORY TYPE CODE TESTS RESULT OUT OF RANGE REFERENCE UNITS LAB L501.9520 0.358-3.74 uIU/mL Normal TSH 2.79 Performed By: #### L501.5200, L501.9520, L503.6620 #### [facility] [address] [place], [address] BNP,B-TYPE NATRIURETIC Collected: 09/12/2017 Status: F Source: GOLDY PEPTIDE 7:30 AM [facility] REPOSITORY TYPE CODE TESTS RESULT OUT OF RANGE REFERENCE UNITS LAB L503.6620 0-100 pg/mL High B-TYPE 705.5 RICHA PEP Performed By: #### L501.5200, L501.9520, L503.6620 #### [facility] [address] [place], [address] Observed: 09/12/2017 Status: F Source: [place]OLD[place] CULTURE, BLOOD (WB) 7:30 AM [facility] REPOSITORY Has pt arrived? Y BC No growth in 5 days. Performed By: #### M200.1000 #### [facility] [address] [place], [address] HISTORY AND PHYSICAL Observed: 09/12/2017 Status: F Source: [place]OLD[place] EXAM 7:01 AM [facility] REPOSITORY [facility] Medical Records Department [facility] [facility] [place] [address] History and Physical 09/12/17 0649 MR#: [id number] Acct: [id number] Name: DOMINGUEZ GEIGER Rep #: [id number] : 1940 76 From: Ramon Herrera MD PCP: DIRK CASTELAN Status: REG ER Y Location: ED Problem List (1) Acute on chronic systolic heart failure Status: Acute (2) Cardiomyopathy Status: Acute Qualifiers: (3) Dyspnea Status: Acute Qualifiers: (4) Hypokalemia Status: Acute (5) Palpitations Status: Acute (6) Paroxysmal atrial tachycardia Status: Acute (7) Chronic systolic congestive heart failure Status: Chronic History of Present Illness Date of Admission: 09/12/17 Chief Complaint: Acute on chronic systolic heart failure The patient is a 76 year old male w/ h/o parosymal afib, HTN and chronic systolic heart failure admitted for acute on chronic systolic heart failure. He recently had an ablation and has worsening SOB after the ablation. Nothing appeared to make it better or worse. His SOB has been worsening over the past few weeks but in the past few days, SOB has gotten much worse. He has orthopnea. His SOB affected all part of the day and is so severe that it interfered with his ADLs. No change in diet or meds. No chest pain. He has minimal cough. No fever or chill. Past Medical History Past Medical History (Chronic Problems): Chronic Problems (Last Reviewed 09/08/17 @ 10:32 by Stella Mishra) FPC current use of anticoagulant (Chronic) Paroxysmal atrial fibrillation (Chronic) Chronic systolic congestive heart failure (Chronic) Allergies No Known Allergies Allergy (Verified 09/12/17 05:10) Home Medications: Ambulatory Orders Medication Instructions Recorded metoprolol tartrate 100 mg tablet 100 mg PO BID #180 tab 07/12/17 lisinopril 10 mg tablet 10 mg PO QDAY 09/08/17 Surgical History: no surgical history Smoking Status: Never smoker - *Family History Maternal History Items: No pertinent history Review of Systems Constitutional: Denies: Chills, Fever, Weight Change HEENT: Denies: Head Aches, Sinus Congestion, Sinus Drainage Cardiovascular: Denies: Chest Pain, Palpitations Respiratory: Reports: Cough, Wheezing. Denies: Shortness of breath at rest, Sputum production Gastrointestinal: Denies: Abdominal Pain, Nausea, Vomiting Genitourinary: Denies: Dysuria Musculoskeletal: Denies: Joint Pain, Joint Tenderness Skin: Denies: Rash, Wounds Neurological: Denies: Numbness, Tingling, Focal weakness Psychiatric: Denies: Anxiety, Depression, Homicidal Ideations, Suicidal Ideations Hematologic/ Lymphatic: Denies: Easy Bruising, Easy Bleeding VTE Information - Inpt Only VTE Present on Admission: No VTE Mechan Device Prophylaxis: SCD's VTE Pharm Prophylaxis ordered?: Yes Patient Problems: Active and Suspected Problems (Last Reviewed 09/08/17 @ 10:32 by Stella Mishra) Atrial fibrillation (Acute) Acute on chronic systolic heart failure (Acute) - Physical Exam General: Alert, Oriented x3, Cooperative HEENT: Atraumatic, PERRLA, EOMI, Normocephalic Neck: Supple, No JVD, Negative Carotid Bruits Lungs: Diminished, Rales, Wheezes Cardiovascular: Regular rate, No murmurs Abdomen: Bowel Sounds Present, Soft, Non Tender Extremities: Capillary Refill Less than 3 Seconds, Edema - 3+ edema Skin: No rashes, No breakdown Musculoskeletal: No Tenderness to Palpation of Joints or Extremities Neurological: Cranial nerves II-XII grossly intact Psych/Mental Status: Normal Affect, Appropriate Vital Signs Temp Pulse Resp BP Pulse Ox 99.4 F H 92 21 H 140/91 H 95 09/12/17 05:03 09/12/17 06:38 09/12/17 06:38 09/12/17 06:38 09/12/17 06:38 Oxygen Flow Rate 4 Oxygen Delivery Method Bi-pap Weight: 84.1 kg Body Mass Index (BMI) 26.6 Laboratory Tests Past 24 Hrs WBC RBC Hgb Hct MCV MCH MCHC RDW RDW Differential Plt Count MPV Immature Gran % (Auto) Neut % (Auto) Lymph % (Auto) Assessment/Plan Active and Suspected Problems (Last Reviewed 09/08/17 @ 10:32 by Stella Mishra) Atrial fibrillation (Acute) Acute on chronic systolic heart failure (Acute) 76 year old male w/ h/o parosymal afib, HTN and chronic systolic heart failure admitted for acute on chronic systolic heart failure. 1) Acute on chronic systolic heart failure: Clinical history c/w heart failure. Chest xray is not so convincing of heart failure. Will start lasix 40mg IV Q12H. Will get trops. Will also get ECHO. Monitor. 2) Acute respiratory failure: Will c/w bipap. Likely heart failure. However, will r/o infectious causes. Cultures pending. Will get D-dimer, although PE is unlikely given on anticoagulation. SOB appears to be out of proportion to chest xray. Monitor. 3) Afib: Resume home meds. Monitor. 4) Prophylaxis: Coumadin. 09/12/17 0701 <Electronically signed by Ramon Herrera MD> Date Ramon Herrera MD Cosigner Signature: Date (if applicable) CC: DIRK CASTELAN; Ramon Herrera MD Signed CBC W/DIFF, AUTOMATED Collected: 09/12/2017 Status: F Source: [place] 5:15 AM [facility] REPOSITORY TYPE CODE TESTS RESULT OUT OF RANGE REFERENCE UNITS LAB L100.1000 4.4-11.0 K/mm3 Normal WBC 10.7 LAB L100.1200 4.6-6.2 M/mm3 Normal RBC 5.03 LAB L100.1300 13.0-16.5 g/dl Normal HGB 15.1 LAB L100.1400 40-54 % Normal HCT 44.9 LAB L100.1500 80-94 fL Normal MCV 89.3 LAB L100.1600 27.0-32.0 pg Normal MCH 30.0 LAB L100.1700 32-36 g/gl Normal MCHC 33.6 LAB L100.1810 11.6-14.6 % High RDW CV 15.8 LAB L100.1820 35.1-43.9 fl High RDW SD 51.4 LAB L100.1900 150-450 K/mm3 High PLT 463 LAB L100.2000 6.2-12.0 fl Normal MPV 10.8 LAB L100.2100 47-70 % Normal NEUT% 62.4 LAB L100.2200 19-41 % Normal LY% 24.7 LAB L100.2300 0-10 % Normal MONO% 9.7 LAB L100.2400 0-5 % Normal EO% 2.3 LAB L100.2500 0-1 % Normal BASO% 0.6 LAB L100.2550 0.0-0.9 % Normal IM GRAN % 0.300 Result Comment: IG% - Immature Granulocytes (promyelocytes, myelocytes and metamyelocytes) > 1% indicates that a LEFT SHIFT is Present. LAB L100.2620 2.0-7.7 X10 3/uL Normal Absolute Neut 6.7 LAB L100.2720 0.83-4.51 X10 3/ul Normal Absolute Lymph 2.64 Performed By: #### L100.0100 #### [facility] [address] [place], [place], [address] BASIC METABOLIC Collected: 09/12/2017 Status: F Source: TEA PROFILE (BMP) 5:15 AM [facility] REPOSITORY Order Comment: 'TROP' Serial specimen #1, #2, #3, or #4: 1 TYPE CODE TESTS RESULT OUT OF RANGE REFERENCE UNITS LAB L501.0100 74-106 mg/dL Normal GLU 100 Result Comment: Fasting Glucose result from 100 to 125 mg/dL suggests IMPAIRED HOMEOSTASIS per A.D.A. criteria. Please note revised GLUCOSE reference range effective 2017. LAB L501.1000 7-18 mg/dL Normal BUN 18 LAB L501.1100 0.70-1.30 mg/dL Normal CREAT,SERUM 1.02 Result Comment: The validity of the calculated GFR AND GFRAA in patients over 70 years has not been determined. Clinical correlation is essential. LAB L501.1110 >60 mL/min Normal EST GFR 75 Result Comment: Non- GFR Calc LAB L501.1115 >60 mL/min Normal EST GFR - AA 91 Result Comment: GFR Calc LAB L501.1255 ml/min Normal Estimated CRCL 62.62 LAB L501.1300 10-20 RATIO Normal BUN/CRE 17.6 LAB L501.2200 8.5-10 mg/dL Normal .1 CA 8.9 LAB L501.5300 136-14 mmol/L Normal 5 NA 139 LAB L501.5600 3.5-5. mmol/L Normal 1 K 4.0 LAB L501.5900 98-107 mmol/L Normal CL 103 LAB L501.6100 21.0-3 mmol/L Normal 2.0 CO2 27.0 LAB L501.6200 5-15 Normal GAP 9 Performed By: #### L500.2500, L501.4010 #### [facility] [address] [place], [address] TROPONIN-I Collected: 09/12/2017 Status: F Source: [place] 5:15 AM [facility] REPOSITORY Order Comment: 'TROP' Serial specimen #1, #2, #3, or #4: 1 TYPE CODE TESTS RESULT OUT OF RANGE REFERENCE UNITS LAB L501.4010 <0.06 ng/mL Normal 0.03 TROPONIN-I Result Comment: TROPONIN-I EXPECTED VALUES <0.05 NEGATIVE 0.06 - 0.59 AT RISK OF [place] > OR = 0.60 SUGGEST [place] Performed By: #### L500.2500, L501.4010 #### [facility] [address] [facility] [place], [address] PROTHROMBIN TIME W/INR Collected: 09/12/2017 Status: F Source: [place] 5:15 AM [facility] REPOSITORY TYPE CODE TESTS RESULT OUT OF RANGE REFERENCE UNITS LAB L300.4150 11.7-14.9 SECONDS High PROTIME 24.5 LAB L300.4200 Normal INR 2.3 Performed By: #### L300.3900 #### [facility] [address] [facility] [place], [place], [address] BNP,B-TYPE NATRIURETIC Collected: 09/12/2017 Status: F Source: [place] PEPTIDE 5:15 AM [facility] REPOSITORY TYPE CODE TESTS RESULT OUT OF RANGE REFERENCE UNITS LAB L503.6620 0-100 pg/mL High B-TYPE 620.4 RICHA PEP Performed By: #### L503.6620 #### [facility] [address] [place], [address] CHEST 1 VIEW Observed: 09/12/2017 Status: F Source: [place] (PORTABLE) 5:09 AM [facility] REPOSITORY [facility] Imaging Services [address] [place] [address] Chest 1 View (Portable) MR#: [id number] Acct: [id number] Name: DOMINGUEZ GEIGER Rep #: [id number] : 1940 M 76 From: Nicky Hemphill MD PCP: DIRK CASTELAN Status: REG ER Study: Chest 1 View (Portable) Date of Exam: 09/12/17 Exam# [id number] Ordering Dr: Anne Marie Michel MD STUDY: X-RAY CHEST REASON FOR EXAM: Male, 76 years old. Chest pain with shortness of breath TECHNIQUE: Single AP portable view of the chest. COMPARISON: 09/08/2017. FINDINGS: There are superimposed monitor leads. There is new opacification at both lung bases, small bilateral pleural effusion, continued areas of hyperinflation. There is no demonstrated pleural abnormality. Cardiomegaly has worsened. Normal mediastinum and braden. Normal visualized pulmonary arteries. There is atherosclerotic calcification of the aortic arch with tortuosity. Normal visualized thoracic spine. Normal visualized ribs, clavicles, and shoulders. There is no demonstrated abnormality of the visualized soft tissue structures of the upper abdomen. RAD/Chest 1 View (Portable) IMPRESSION: New bibasilar airspace disease with pleural effusion and increased cardiac enlargement likely superimposed on COPD. Suspect an inflammatory/infectious process rather than congestive heart failure. Electronically Signed: Nicky Hemphill MD at 5:54 EST , Service support , CC: DIRK CASTELAN; Anne Marie Michel MD Merchant Patroller: Signed OPERATIVE REPORT Observed: 09/10/2017 Status: F Source: TEA 3:41 PM [facility] REPOSITORY [facility] Medical Records Department [address] [place] [address] Operative Report 09/10/17 1536 MR#: [id number] Acct: [id number] Name: DOMINGUEZ GEIGER Rep #: [id number] : 1940 76 From: Edmond Soria MD PCP: DIRK CASTELAN Status: REG SD Y Location: [facility] Problem List (1) Atrial fibrillation Status: Acute (2) Cardiomyopathy Status: Acute Qualifiers: Cardiomyopathy type: unspecified Qualified Code(s): I42.9 - Cardiomyopathy, unspecified (3) Chronic systolic congestive heart failure Status: Chronic (4) rn long term care current use of anticoagulant Status: Chronic Operative Report Date of Procedure: 09/10/17 - Conscious sedation CONSCIOUS SEDATION REPORT BRIEF HISTORY OF PRESENT ILLNESS: The patient is a 76-year-old [facility] male who presented to [facility] for an elective cardioversion secondary to atrial fibrillation. Patient is known to have systolic congestive heart failure with an EF of 45%. Patient does report having a previous cardioversion approximately 4 years ago without complication. The patient reports no prior anesthetic complications. Patient's INR was not therapeutic range. Patient does not report audible snoring in their home environment. Patient denies ever smoking. Patient has been n.p.o. since midnight. PHYSICAL EXAMINATION: VITAL SIGNS: Reviewed and were acceptable. GENERAL: The patient is a male, in no apparent distress, speaking in full sentences. HEENT: Normocephalic, atraumatic. Mucous membranes are moist and pink. Good mouth opening noted. Trachea is midline. Good neck mobility. CHEST: S1, S2 irregularly irregular. No murmurs, rubs or gallops were noted. LUNGS: Clear to auscultation bilaterally without appreciable wheezes, rales or rhonchi. ABDOMEN: Soft, nontender, nondistended. Positive bowel sounds. EXTREMITIES: There is no clubbing or cyanosis. Lower extremity edema present ASA Class: II DESCRIPTION OF PROCEDURE: After confirmation of informed consent, the patient's anesthesia plan was reviewed in detail. Propofol was chosen. Risks and benefits were reviewed and the patient agreed to proceed. At 12:42 PM, the patient was given 40 mg of propofol. The patient achieved an appropriate level of sedation and was given a 200 joule synchronized cardioversion by Dr. Turcios at the bedside. This was successful in achieving normal sinus rhythm. The patient was monitored until 12:51 PM, at which time he reached her baseline mental status and function. The patient tolerated the procedure well. COMPLICATIONS: None ESTIMATED BLOOD LOSS: None RECOMMENDATIONS: Okay to recover in usual fashion. Code Visit 9xxxx: Other Procedure See Report - [id number] 09/10/17 1541 <Electronically signed by Edmond Soria MD> Date Edmond Soria MD CC: DIRK Soria MD Signed OPERATIVE REPORT Observed: 09/10/2017 Status: F Source: GOLDY 1:00 PM [facility] REPOSITORY [facility] Medical Records Department [address] [place] [address] Operative Report 09/10/17 1258 MR#: [id number] Acct: [id number] Name: DOMINGUEZ GEIGER Rep #: [id number] : 1940 76 From: Sen Turcios MD PCP: DIRK CASTELAN Status: REG [facility] Location: [facility] Problem List (1) Atrial fibrillation Status: Acute Operative Report Date of Procedure: 09/10/17 Date: 09/10/2017 Procedure: Synchronized biphasic DC cardioversion Agents: Atrial fibrillation Consent: Per the patient Premedications: Per Dr. Edmond Soria pulmonology/critical care medicine with propofol 40 mg IV push 1 Procedure: Synchronized biphasic DC cardioversion: 200 J 1: Result: Sinus rhythm; PACs Complications: No apparent complications This note was generated with [employer] dictation software. It may contain incorrect words, spelling, and punctuation that were not noted in checking the note before signing. 09/10/17 1300 <Electronically signed by Sen Turcios MD> Date Sen Turcios MD CC: DIRK CASTELAN; Sen Turcios MD Signed POTASSIUM Collected: 09/10/2017 Status: F Source: [place] 10:52 AM [facility] REPOSITORY TYPE CODE TESTS RESULT OUT OF RANGE REFERENCE UNITS LAB L501.5600 3.5-5.1 mmol/L Normal K 4.5 Performed By: #### L501.5600 #### [facility] [address] [place], [address] PROTHROMBIN TIME W/INR Collected: 09/10/2017 Status: F Source: [place] 10:52 AM [facility] REPOSITORY Order Comment: Comments: for DCCV 09/10/17 Comments: for DCCV 09/10/17 TYPE CODE TESTS RESULT OUT OF RANGE REFERENCE UNITS LAB L300.4150 11.7-14.9 SECONDS High PROTIME 23.3 LAB L300.4200 Normal INR 2.2 Performed By: #### L300.3900 #### [facility] [address] [place], [address] ECHOCARDIOGRAM COMPLETE Observed: 09/09/2017 Status: F Source: [place] 1:31 PM [facility] REPOSITORY [facility] Cardiovascular Services [address] [facility] [place] [address] Echo Complete 09/09/17 0853 MR#: [id number] Acct: [id number] Name: DOMINGUEZ GEIGER Rep #: [id number] : 1940 76 From: Sen Turcios MD Attending Dr: Sen Turcios MD Status: REG CLI Ordering Dr: Sen Turcios MD Date: 09/09/17 Location: [facility] Sex: M C Admitted: Reason For Study: AFIB/FLUTTER Procedure This was a 2D Doppler, Color Flow transthoracic echocardiogram. The exam was of adequate technical quality. Exam performed in department. Left Ventricle Normal LV size. Moderate to severe concentric left ventricular hypertrophy. Mild global left ventricular systolic dysfunction. The estimated ejection fraction is 45 %. Right Ventricle Normal RV size. Normal systolic function. Atria The left atrium is severely enlarged. The right atrium is severely enlarged. No doppler evidence for ASD. Mitral Valve There is mild mitral annular calcification. The mitral valve chordae are thickened and/or calcified. Mild mitral valve prolapse. Moderate (2+) mitral valve insufficiency. Tricuspid Valve Normal tricuspid valve. Mild tricuspid valve insufficiency. Right ventricular systolic pressure estimated to be 36 mmHg. Aortic Valve Trisinus/trileaflet aortic valve. Mild focal aortic valve thickening. Moderate focal aortic valve calcification. Aortic sclerosis / mild aortic valve stenosis. Mild (1+) aortic valve insufficiency. Pulmonic Valve The pulmonic valve is not well visualized. Great Vessels Normal sized aortic root. Pericardium/Pleural No pericardial effusion. MMode/2D Measurements AND Calculations LVIDd: 4.5 cm IVSd: 1.9 cm LVOT diam: 1.9 cm LVIDs: 3.6 cm LVPWd: 1.5 cm LVOT area: 2.7 cm2 RVDd: 2.9 cm FS: 21.0 % LA dimension: 5.6 cm LAV(MOD-bp): 110.7 ml LA A4 area: 31.9 cm2 LAV(MOD-bp) Indexed: 55.4 ml/m2 LAV(MOD-sp2): 95.0 ml LAV(MOD-sp4): 117.5 ml RA A4 area: 26.0 cm2 Doppler Measurements AND Calculations MV E max gigi: 62.0 cm/sec Ao V2 max: 106.1 cm/sec AI max gigi: 282.3 cm/sec Ao max P.5 mmHg AI max P.9 mmHg ERICKA(V,D): 2.2 cm2 AI dec slope: 113.1 cm/sec2 AI P1/2t: 731.1 msec LV V1 max: 86.6 cm/sec MR max gigi: 449.5 cm/sec PA V2 max: 67.8 cm/sec LV V1 max P.0 mmHg MR max P.0 mmHg TR max gigi: 263.6 cm/sec TR max P.9 mmHg Interpretation Summary Mild global left ventricular systolic dysfunction. The estimated ejection fraction is 45 %. Moderate to severe concentric left ventricular hypertrophy. The left atrium is severely enlarged. The right atrium is severely enlarged. There is mild mitral annular calcification. The mitral valve chordae are thickened and/or calcified. Mild mitral valve prolapse. Moderate (2+) mitral valve insufficiency. Mild tricuspid valve insufficiency. Aortic sclerosis / mild aortic valve stenosis. Mild (1+) aortic valve insufficiency. Right ventricular systolic pressure estimated to be 36 mmHg. Ordering Physician: Sen Turcios Referring Physician: Dirk Castelan Performed By: Emelina Goodman, JESSE, RVT 09/09/17 1331 Date Sen Turcios MD CC: DIRK CASTELAN; Sen Turcios MD Date Dictated: 09/09/17 0853 Date Transcribed: 09/09/17 1331 Merchant Patroller: Signed CHEST PA AND LATERAL Observed: 09/08/2017 Status: F Source: TEA 12:18 PM [facility] REPOSITORY [facility] Imaging Services [address] [place] [address] Chest PA and Lateral MR#: [id number] Acct: [id number] Name: DOMINGUEZ GEIGER Rep #: [id number] : 1940 M 76 From: Smith Grimm MD PCP: DIRK CASTELAN Status: REG CLI Study: Chest PA and Lateral Date of Exam: 09/08/17 Exam# [id number] Ordering Dr: Sen Turcios MD STUDY: X-RAY CHEST REASON FOR EXAM: Male, 76 years old. Shortness of breath. TECHNIQUE: PA and lateral views of the chest. COMPARISON: Comparison is made with prior examination dated February 10, 2013. FINDINGS: Hyperinflation. Blunting of both costophrenic angles. Increased linear markings at the lung bases suggest some bibasilar scarring. There is no demonstrated pleural abnormality. There is mild cardiac enlargement. Normal mediastinum and braden. Normal visualized pulmonary arteries. There is atherosclerotic tortuosity of the aortic arch and descending thoracic aorta. There are diffuse degenerative changes of the visualized thoracic spine. Normal visualized ribs, clavicles, and shoulders. There is no demonstrated abnormality of the visualized soft tissue structures of the upper abdomen. RAD/Chest PA and Lateral IMPRESSION: Hyperinflation. Blunting both cosmetic angles. Findings suggest a mild bibasilar scarring. Electronically Signed: Smith Grimm MD at 16:04 EST Tel [phone], Service support , CC: DIRK CASTELAN; Sen Turcios MD Merchant Patroller: Signed CBC W/DIFF, AUTOMATED Collected: 09/08/2017 Status: F Source: [place] 12:11 PM [facility] REPOSITORY TYPE CODE TESTS RESULT OUT OF RANGE REFERENCE UNITS LAB L100.1000 4.4-11.0 K/mm3 Normal WBC 8.7 LAB L100.1200 4.6-6.2 M/mm3 Normal RBC 4.91 LAB L100.1300 13.0-16.5 g/dl Normal HGB 14.5 LAB L100.1400 40-54 % Normal HCT 44.5 LAB L100.1500 80-94 fL Normal MCV 90.6 LAB L100.1600 27.0-32.0 pg Normal MCH 29.5 LAB L100.1700 32-36 g/gl Normal MCHC 32.6 LAB L100.1810 11.6-14.6 % High RDW CV 16.0 LAB L100.1820 35.1-43.9 fl High RDW SD 51.9 LAB L100.1900 150-450 K/mm3 Normal PLT 398 LAB L100.2000 6.2-12.0 fl Normal MPV 10.9 LAB L100.2100 47-70 % Normal NEUT% 51.0 LAB L100.2200 19-41 % Normal LY% 31.9 LAB L100.2300 0-10 % High MONO% 11.2 LAB L100.2400 0-5 % Normal EO% 4.5 LAB L100.2500 0-1 % High BASO% 1.2 LAB L100.2550 0.0-0.9 % Normal IM GRAN % 0.200 Result Comment: IG% - Immature Granulocytes (promyelocytes, myelocytes and metamyelocytes) > 1% indicates that a LEFT SHIFT is Present. LAB L100.2620 2.0-7.7 X10 3/uL Normal Absolute Neut 4.4 LAB L100.2720 0.83-4.51 X10 3/ul Normal Absolute Lymph 2.76 Performed By: #### L100.0100, L500.2500, L503.6620 #### [facility] [address] [place], [address] BASIC METABOLIC Collected: 09/08/2017 Status: F Source: [place] PROFILE (BMP) 12:11 PM [facility] REPOSITORY TYPE CODE TESTS RESULT OUT OF RANGE REFERENCE UNITS LAB L501.0100 74-106 mg/dL Normal GLU 105 LAB L501.1000 7-18 mg/dL Normal BUN 14 LAB L501.1100 0.70-1.30 mg/dL Normal 1.03 CREAT,SERUM Result Comment: The validity of the calculated GFR AND GFRAA in patients over 70 years has not been determined. Clinical correlation is essential. LAB L501.1110 >60 mL/min Normal EST GFR 74 Result Comment: Non- GFR Calc LAB L501.1115 >60 mL/min Normal EST GFR - AA 90 Result Comment: GFR Calc LAB L501.1300 10-20 RATIO Normal BUN/CRE 13.6 LAB L501.2200 8.5-10.1 mg/dL CA Normal 8.5 LAB L501.5300 136-145 mmol/L NA Normal 140 LAB L501.5600 3.5-5.1 mmol/L Low K 3.3 LAB L501.5900 98-107 mmol/L CL Normal 104 LAB L501.6100 21.0-32.0 mmol/L Normal CO2 30.0 LAB L501.6200 5-15 Normal GAP 6 Performed By: #### L100.0100, L500.2500, L503.6620 #### [facility] [address] [facility] [place], [place], [address] BNP,B-TYPE NATRIURETIC Collected: 09/08/2017 Status: F Source: TEA PEPTIDE 12:11 PM [facility] REPOSITORY TYPE CODE TESTS RESULT OUT OF RANGE REFERENCE UNITS LAB L503.6620 0-100 pg/mL High B-TYPE 780.0 RICHA PEP Performed By: #### L100.0100, L500.2500, L503.6620 #### [facility] [address] [place], [place], [address] PROTHROMBIN TIME W/INR Collected: 09/08/2017 Status: F Source: [place] 12:11 PM [facility] REPOSITORY TYPE CODE TESTS RESULT OUT OF RANGE REFERENCE UNITS LAB L300.4150 11.7-14.9 SECONDS High PROTIME 25.2 LAB L300.4200 Normal INR 2.4 Performed By: #### L300.3900 #### [facility] [address] [place], [address] CARDIOLOGY VISIT Observed: 09/08/2017 Status: F Source: [place] REPORT 11:34 AM [facility] REPOSITORY [facility] [address] [place] [address] OFFICE VISIT Date of Service: 09/08/17 MR#: [id number] Acct: [id number] Name: DOMINGUEZ GEIGER Rep #: [id number] : 1940 Provider: Sen Turcios MD Age/Sex: 76/M Location: [place] Status: Signed HPI HPI Details: DOMINGUEZ GEIGER, is a 76 M who presents to the office today for for outpatient cardiovascular follow-up based on concerns of recent shortness of breath/dyspnea at rest, with exertion, at night (being compatible with orthopnea), without ongoing chest discomfort, obvious palpitations, near syncope or syncope. He states he attributed these findings to an upper respiratory tract related infection. He was evaluated by his primary care physician with similar concerns. He was started on antibiotic therapy. He did not recall the name of the antibiotic that was initiated. He was also asked to have outpatient cardiovascular follow-up. He notes his symptoms have been going on over the last 1-2 weeks but it become more prominent recently. He has not sought any additional evaluation or care. He states he did have his INR checked and his primary care physician's office yesterday. He was told it was therapeutic. He had an ECG today. He was in atrial fibrillation with left axis deviation and poor R-wave progression compatible with anterior [place] of indeterminate age- cannot be excluded, and T-wave abnormality potentially compatible with anterolateral myocardial ischemia. His ECG was compared to a previous ECG from 05/13/2015. At that time he was in sinus rhythm with similar type left axis deviation, poor R-wave progression, and T-wave abnormality although somewhat less prominent than present. His most recent transthoracic echocardiogram was performed on 12/22/2016. He had borderline low LV systolic function with an estimated LVEF of 50%, moderate concentric LVH, severe left atrial enlargement with moderate right atrial enlargement, mild MVP, moderate MR/TR, mild aortic valve stenosis, trivial AI/UT, a calcified aortic root, and estimated RV systolic pressure 30 mmHg, and decreased diastolic compliance. His previous diagnostic cardiac catheterization was performed on 05/26/2011. At that time the left ventricle was thought to demonstrate similar borderline low LV systolic function with an estimated LVEF of 50%, the coronary arteries appear to be angiographically normal. He had mild to moderate MR. Intake Vital Signs09/08/17 Height 5 ft 10 in 09/08/17 Weight: 188 lb 2 oz 09/08/17 Body Mass Index (BMI) 26.9 09/08/17 Blood Pressure 124/70 Intake Visit Reasons: per [place] Allergies No Known Allergies Allergy (Verified 09/08/17 10:31) Medications Warfarin [Coumadin] 2 mg PO SUTUFRSA 02/06/15 [History Confirmed 09/08/17] Warfarin [Coumadin] 3 mg PO MOWETH 02/06/15 [History Confirmed 09/08/17] metoprolol tartrate 100 mg tablet 100 mg PO BID #180 tab 07/12/17 [Rx Confirmed 09/08/17] furosemide 20 mg tablet 20 mg PO BID tab 09/08/17 [History Confirmed 09/08/17] lisinopril 10 mg tablet 10 mg PO QDAY 09/08/17 [History Confirmed 09/08/17] [facility] Medical History Palpitations (Acute) Dyspnea (Acute) Abnormal EKG (Acute) Paroxysmal atrial tachycardia (Acute) Cardiomyopathy (Acute) FPC current use of anticoagulant (Chronic) Paroxysmal atrial fibrillation (Chronic) Chronic systolic congestive heart failure (Chronic) Family history of ischemic heart disease (Chronic) Family History Father Myocardial infarction Brother CAD (coronary artery disease) Hx of CABG Brother CAD (coronary artery disease) Hx of CABG Social History Smoking Status: Never smoker alcohol intake: never substance use type: does not use ROS Const Const: Negative for fatigue, weakness, weight gain, weight loss, frequent falls or excessive sweating Eyes Eyes: Negative for change in vision, blurry vision or transient loss of vision ENT ENT: Negative for dizziness, Positive for balance problems Cardio Chest Pain: No Palpitations: Positive for Yes Palpitations: irregular Edema: None Muscle aches with walking: Left (sciattica, unable to move lt LE, locked) Additional Details: Patient in to see Dr. Castelan yesterday for URI. Patient was noted to have irregular heart rhythm. Resp Respiratory: Positive for SOB with activity (increased); negative for SOB at rest GI GI: Negative vomiting or vomiting blood/hematemesis : Negative for hematuria Musc Musc: Positive for balance problems; negative for muscle aches/ myalgia, muscle weakness or joint pain Skin Skin: Negative non-healing lesions or rash Neuro Neuro: Negative for weakness, Negative for blurry vision, Negative for dizziness, Negative for lightheadedness, Negative for frequent falls, Negative for orthostatic symptoms Azael Hematologic/Lymphatic: Negative for easy bleeding Endo Endo: Negative for fatigue or excessive sweating Psych Psych: Negative for anxiety or depression Allergy Allergy/Immunology: Negative for hives, Negative for rash Cardiology Exam Const Appearance: cooperative, healthy appearing, comfortable, no acute distress, well developed and well groomed Nutritional Appearance: average body habitus Orientation: alert, awake and oriented x3 Head Head: normal to inspection, normocephalic and atraumatic Ears: hearing grossly normal bilaterally Nose: external nose normal Face and Sinus: face symmetric Mouth: oral mucosae normal Teeth and gingiva: dentition normal Eyes General: appearance normal, both eyes and all related structures Eyelids: eyelids normal Conjunctivae: conjunctivae normal Pupils: PERRL EOM: EOM intact bilaterally Neck Neck: normal visual inspection Carotids: normal carotid upstroke Chest Chest inspection: normal inspection of the chest and symmetric chest movement Auscultation: Bilateral: Diminished Base (R>L) Cardio Rate: tachycardic Rhythm: irregular rhythm Heart sounds: S1 normal and S2 normal Murmur: Grade 2/6, soft, mid diastolic and LLSB GI GI: normal to inspection, soft, no hepatosplenomegaly and bowel sounds present Neuro General: alert, awake and oriented x3 Skin Skin: no rashes or lesions noted Extremities Pulses: Normal: Right Femoral Pulse, Left Femoral Pulse, Right Radial Pulse, Left Radial Pulse Lower Extremity Edema: Trace: Bilateral Psych Psychological: normal affect Assessment AND Plan 1. Paroxysmal atrial fibrillation I48.0 Plan At the present time he has returned to atrial fibrillation. It is unclear whether this is secondary to ongoing respiratory related illness or whether this is a primary return atrial fibrillation that may then be contributing to his symptoms, etc. At the moment he has rate appears to be reasonably well-controlled. He continues on anticoagulant therapy. It would be reasonable to consider an attempt at re-eating sinus rhythm with synchronized biphasic DC cardioversion. This may help with respect to regaining his atrial kick which may be beneficial for his LV systolic function and associated symptoms, etc. Orders Orders: 2. 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 It is unclear as to whether or not there is been a change in his overall LV systolic function either secondary to other issues including his atrial dysrhythmia or as a primary change contributing to his other issues, that would also be contributing to his symptoms, etc. DOS she will continue medical management. He will also have a follow-up echocardiogram to reassess his left ventricular wall motion and systolic function. 3. Chronic systolic CHF (congestive heart failure) I50.22 Plan He does appear to have findings that may be compatible with acute on chronic systolic mediated CHF. Again he will continue his medical management. However he will increase his furosemide therapy to 20 mg twice a day. Hopefully this will assist with volume control and his symptoms. He will continue evaluation care as noted above. 4. Shortness of breath R06.02; R06.00; R06.01 Plan His shortness of breath is at rest, with exertion such as going up an incline, as well as at night being compatible with orthopnea. He will continue evaluation and care as noted above. 5. FPC current use of anticoagulant Z79.01 Plan His laboratory studies will be checked. This will include his INR. Plan Detail Other Orders Orders: Other Medications Changed: Additional Comments The above was discussed with the patient and his spouse. They were both agreeable to this approach. In the interim if he has worsening symptoms or events he was asked to notify his physicians or present to the nearest emergency department for further evaluation and care. Follow Up 6 Months (PFM: As previously scheduled) Coding Level of Care Code Off vis,est,level 4 Diagnoses Paroxysmal atrial fibrillation I48.0 Cardiomyopathy, unspecified type I42.9 Cardiomyopathy type: unspecified Chronic systolic CHF (congestive heart failure) I50.22 Shortness of breath R06.02; R06.00; R06.01 Dyspnea type: shortness of breath FPC current use of anticoagulant Z79.01 Coding Level of Care Code Off vis,est,level 4 Diagnoses Paroxysmal atrial fibrillation I48.0 Cardiomyopathy, unspecified type I42.9 Cardiomyopathy type: unspecified Chronic systolic CHF (congestive heart failure) I50.22 Shortness of breath R06.02; R06.00; R06.01 Dyspnea type: shortness of breath FPC current use of anticoagulant Z79.01 09/08/17 1134 <Electronically signed by Sen Turcios MD> Date Sen Turcios MD Cosigner Signature: Date (if applicable) CC: DIRK CASTELAN 12 LEAD EKG PERFORMED Observed: 09/08/2017 Status: F Source: TEA BY [facility] 10:37 AM [facility] [address] [place] [address] 12 Lead EKG performed by [facility] 09/08/17 1036 MR#: [id number] Acct: [id number] Name: DOMINGUEZ GEIGER Rep #: [id number] : 1940 76 From: Sen Turcios MD Attending Dr: Sen Turcios MD Status: DEP [facility] Ordering Dr: Sen Turcios MD Date: 09/08/17 Location: [place] Sex: M C Admitted: [facility]/12 Lead EKG performed by [facility] ECG Report Interpretation Atrial fibrillation Left axis deviationPoor R wave progression Anterior infarct -age undetermined - cannot be excluded T-abnormality - Consider anterolateral ischemia. ABNORMAL Electronically signed on 09/08/2017 at 11:49 by Sen Turcios 09/08/17 1152 Date Sen Turcios MD CC: DIRK CASTELAN Date Dictated: 09/08/171035 Date Transcribed: 09/08/171035 Merchant Patroller: PM Signed PROTHROMBIN TIME W/INR Collected: 08/05/2017 Status: F Source: [place] 11:52 AM [facility] REPOSITORY TYPE CODE TESTS RESULT OUT OF RANGE REFERENCE UNITS LAB L300.4150 11.7-14.9 SECONDS High PROTIME 26.8 LAB L300.4200 Normal INR 2.6 Performed By: #### L300.3900 #### [facility] [address] [place] [address] ALLERGIES ALLERGIES DATE TYPE / CODE NAME / CODE REACTION SEVERITY SOURCE 02/25/2018 Drug No Known Unknown [facility] Allergy/4160 Allergies/F00 Hospital 13148(SNOMED 3741904(RXNOR Repository CT) M) ENCOUNTERS ENCOUNTERS ADMIT/DISCHARGE ACCOUNT ADMITTING ENCOUNTER LOCATION SOURCE NUMBER CLASS 07/14/2018 [id number] Ambulatory [place] 8 [facility] ing:LAB Repository 06/28/2018/ [id number] Ambulatory [place] 8 2 [facility] ing:LAB Repository 06/28/2018 [id number] Ambulatory [place] 0 [facility] ing:PSN Repository 05/24/2018/ [id number] Ambulatory [place] 8 5 [facility] ing:LAB Repository 03/24/2018/ [id number] Ambulatory [place] 8 6 [facility] ing:LAB Repository 03/07/2018 [id number] Ambulatory [facility] [place] 0 [facility] Repository 02/25/2018/ [id number] Ambulatory BMSBuilding:B [place] 8 0 [facility] Repository 02/25/2018/ [id number] Ambulatory [place] 8 5 [facility] ing:LAB Repository 01/07/2018/ [id number] Ambulatory [place] 8 8 [facility] ing:LAB Repository 12/13/2017/ [id number] Ambulatory [place] 8 3 [facility] Hospital ing:LAB Repository 11/23/2017/ [id number] Ambulatory BMSBuilding:B [place] 8 6 [facility] Repository 11/23/2017/ [id number] Ambulatory [place] 8 7 [facility] Hospital ing:LAB Repository 11/16/2017 [id number] Ambulatory BMSBuilding:W [place] 4 [facility] Repository 11/16/2017 [id number] Ambulatory [place] 7 [facility] ing:CLSP Repository 11/16/2017 [id number] Ambulatory BMSBuilding:W [place] 5 [facility] Repository 11/16/2017 [id number] Ambulatory BMSBuilding:B [place] 0 [facility] Repository 11/03/2017/ [id number] Ambulatory BMSBuilding:B [place] 8 7 [facility] Repository 11/03/2017 [id number] Ambulatory BMSBuilding:B [place] 5 [facility] Repository 10/28/2017/ [id number] Ambulatory [place] 8 6 [facility] Hospital ing:LAB Repository 09/30/2017 [id number] Ambulatory BMSBuilding:B [place] 9 [facility] Repository 09/29/2017/ [id number] Ambulatory [place] 8 8 [facility] ing:LAB Repository 09/23/2017/ [id number] Ambulatory BMSBuilding:B [place] 8 5 [facility] Repository 09/17/2017 [id number] Ambulatory BMSBuilding:B [place] 0 [facility] Repository 09/12/2017 [id number] Ramon Herrera Ambulatory BMSBuilding:B [place] 5 [facility] Repository 09/12/2017 [id number] Ramon Herrera Ambulatory BMSBuilding:B [place] 0 [facility] Repository 09/12/2017 [id number] Ramon Herrera Ambulatory BMSBuilding:B [place] 9 [facility] Repository 09/12/2017 [id number] Sharon, Ramon Ambulatory BMSBuilding:B [place] 9 [facility] Repository 09/12/2017 [id number] Sharon, Ramon Ambulatory BMSBuilding:B [place] 7 [facility] Repository 09/12/2017 [id number] Sharon, Ramon Ambulatory BMSBuilding:B [place] 9 [facility] Repository 09/12/2017 [id number] Sharon, Ramon Ambulatory BMSBuilding:B [place] 8 [facility] Repository 09/12/2017/ [id number] Sharon, Ramon Inpatient [place] 8 9 Encounter [facility] ing:PCURoom: Repository GUR550Kue: 1 09/12/2017 [id number] Ambulatory BMSBuilding:B [place] 3 [facility] Repository 09/10/2017 [id number] Ambulatory BMSBuilding:B [place] 8 [facility] Repository 09/10/2017 [id number] Ambulatory BMSBuilding:B [place] 6 [facility] Repository 09/10/2017 [id number] Ambulatory [place] 2 [facility] Hospital ing:CLSP Repository 09/09/2017 [id number] Ambulatory [place] 9 [facility] Hospital ing:CVS Repository 09/09/2017 [id number] Ambulatory BMSBuilding:W [place] 2 [facility] Repository 09/08/2017 [id number] Ambulatory [place] 1 [facility] Hospital ing:LAB Repository 09/08/2017/ [id number] Ambulatory BMSBuilding:B [place] 8 3 [facility] Repository 09/08/2017 [id number] Ambulatory BMSBuilding:B [place] 0 [facility] Repository 08/05/2017/ [id number] Ambulatory [place] 8 0 [facility] Hospital ing:LAB Repository PAYERS PAYERS ENCOUNTER GUARANTOR PAYER SUBSCRIBER SOURCE 07/14/2018 ANNE MARIE KENNEY W [place] [id number] Insurance:TENRIISM HOSTETLERDOB: [facility] [id number] [facility] Number[facility] Repository , [place] [address]Alw: [id number] Date: () [facility] [address] [place] [address] 55[address]WL: 07/14/2018 Secondary NOT GIVENUNK [place] Insurance:SELF PAY [facility] Number: Effective Repository Date:2018-07-04 06/28/2018 [facility] [place] [id number] Insurance:TENRIISM HOSTETLERDOB: [facility] [id number] [facility] Number: Repository , [place] [address]Ohb: [id number] Date: () [address] [address]QO: 06/28/2018 Secondary NOT GIVENUNK [place] Insurance:SELF PAY [facility] Number: Effective Repository Date:2018-06-02 06/28/2018 [facility] [place] [id number] Insurance:TENRIISM HOSTETLERDOB: [facility] [id number] [facility] Number: Repository , [place] [address]Wal: [id number] Date: () [address] [address]OJ: 06/28/2018 Secondary NOT GIVENUNK [place] Insurance:SELF PAY [facility] Number: Effective Repository Date:2018-06-15 05/24/2018 [facility] [place] [id number] Insurance:TENRIISM HOSTETLERDOB: [facility] [id number] [facility] Number: Repository , [place] [address]Qlo: [id number] Date: () [address] [address]KJ: 05/24/2018 Secondary NOT GIVENUNK [place] Insurance:SELF PAY [facility] Number: Effective Repository Date:2018-04-05 03/24/2018 ANNE MARIE Primary ANNE MARIE [place] [id number] Insurance:TENRIISM HOSTETLERDOB: [facility] [id number] Hospitalicy Number: [place]ository , [place] [address]Gwq: [id number] Date: () [address] [address]LC: 03/24/2018 Secondary NOT GIVENUNK [place] Insurance:SELF PAY [facility] Number: Effective Repository Date:2018-03-03 03/07/2018 [place] Primary NOT GIVENUNK [place] [id number] Insurance:[facility] Number: [facility] [id number] [place] , [place] [address]Crn: Date:2017-07-20 () 03/07/2018 Secondary NOT GIVENUNK [place] Insurance:SELF PAY [facility] Number: Effective Repository Date:2017-07-20 02/25/2018 ANNE MARIE Primary ANNE MARIE [place] [id number] Insurance:TENRIISM HOSTETLERDOB: [facility] [id number] Hospitalicy Number: Repository , [place] [address]Xjm: [id number] Date: () [address] [address]EN: 02/25/2018 Secondary NOT GIVENUNK [place] Insurance:SELF PAY [facility] Number: Effective Repository Date:2018-02-25 02/25/2018 ANNE MARIE Primary ANNE MARIE [place] [id number] Insurance:TENRIISM HOSTETLERDOB: [facility] [id number] Hospitalicy Number: Repository , [place] [address]Qut: [id number] Date: () [facility] [address] [place] [address] 25[address]DB: 02/25/2018 Secondary NOT GIVENUNK [place] Insurance:SELF PAY [facility] Number: Effective Repository Date:2018-01-28 01/07/2018 [facility] [place] [id number] Insurance:TENRIISM HOSTETLERDOB: [facility] [id number] [facility] Number: Repository , [place] [address]Jtn: [id number] Date: () [address] [address]TZ: 01/07/2018 Secondary NOT GIVENUNK [place] Insurance:SELF PAY [facility] Number: Effective Repository Date:2017-12-30 12/13/2017 [facility] [place] [id number] Insurance:TENRIISM HOSTETLERDOB: [facility] [id number] [facility] Number: [facility] , [place] [address]Zag: [id number] Date: () [address] [address]FF: 12/13/2017 Secondary NOT GIVENUNK [place] Insurance:SELF PAY [facility] Number: Effective Repository Date:2017-11-30 11/23/2017 [facility] [place] [id number] Insurance:TENRIISM HOSTETLERDOB: [facility] [id number] [facility] Number: Repository , [place] [address]Rqx: [id number] Date: () [facility] [address] [place] [address] 24[address]SI: 11/23/2017 Secondary NOT GIVENUNK [place] Insurance:SELF PAY [facility]: Effective Repository Date:2017-11-23 11/23/2017 DOMINGUEZ [place] Primary DOMINGUEZ Corey [place] [id number] Insurance:TENRIISM HOSTETLERDOB: [facility] [id number] [facility] Number: [place]ository , [place] [address]Haf: [id number] Date: () [facility] [address] [place] [address] 511[address]AT: 11/23/2017 Secondary NOT GIVENUNK [place] Insurance:SELF PAY [facility] Number: Effective Repository Date:2017-11-01 11/16/2017 ANNE MARIE [place] Primary ANNE MARIE [place] [id number] Insurance:TENRIISM HOSTETLERDOB: [facility] [id number] Recovery [facility] Number: Repository , [place] [address]Lyd: [id number] Date: () [address] [address]BE: 11/16/2017 Secondary NOT GIVENUNK [place] Insurance:SELF PAY [facility] Number: Effective Repository Date:2017-11-16 11/16/2017 ANNE MARIE [place]y Primary ANNE MARIE [place]y [place] [id number] Insurance:TENRIISM HOSTETLERDOB: [facility] [id number] [facility] Number: [place] , [place] [address]Zmc: [id number] Date: ) [address] [address]XS: 11/16/2017 Secondary NOT GIVENUNK [place] Insurance:SELF PAY [facility] Number: Effective Repository Date:2017-11-03 11/16/2017 DOMINGUEZ Corey Primary DOMINGUEZ Corye [place] [id number] Insurance:TENRIISM HOSTETLERDOB: [facility] [id number] [facility] Number: [place] , [place] [address]Ybz: [id number] Date: (HP) TW RD [address] [place] [address]HR: 11/16/2017 Secondary NOT GIVENUNK [place] Insurance:SELF PAY [facility] Number: Effective Repository Date:2017-11-16 11/16/2017 [facility] Primary [facility] [place] [id number] Insurance:TENRIISM HOSTETLERDOB: Community [facility] [id number] Hospitalicy Number: Repository , [place] [address]Egr: [id number] Date: () TW [address] [place] [address] 237[address]NF: 11/16/2017 Secondary NOT GIVENUNK [place] Insurance:SELF PAY [facility] Number: Effective Repository Date:2017-11-16 11/03/2017 [facility] Primary [facility] [place] [id number] Insurance:TENRIISM HOSTETLERDOB: [facility] [id number] Hospitalicy Number: [facility] , [place] [address]Rxu: [id number] Date: () [facility] [address] [place] [address] 113[address]YX: 11/03/2017 Secondary NOT GIVENUNK [place] Insurance:SELF PAY [facility] Number: Effective Repository Date:2017-11-03 11/03/2017 [facility] Primary [facility] [place] [id number] Insurance:TENRIISM HOSTETLERDOB: [facility] [id number] Hospitalicy Number: Repository , [place] [address]Ybz: [id number] Date: () [facility] [address] [place] [address]FE: 11/03/2017 Secondary NOT GIVENUNK [place] Insurance:SELF PAY Community [facility] Number: Effective Repository Date:2017-11-03 10/28/2017 [facility] Primary DOMING[place] Madhav [place] [id number] Insurance:TENRIISM HOSTETLERDOB: [facility] [id number] Recovery [facility] Number: [place] , [place] [address]Mhl: [id number] Date: () TW RD [address] [place] [address] 14[address]VN: 10/28/2017 Secondary NOT GIVENUNK [place] Insurance:SELF PAY [facility] Number: Effective Repository Date:2017-09-30 09/30/2017 [facility] Primary [place] Madhav [place] [id number] Insurance:TENRIISM HOSTETLERDOB: [facility] [id number] [facility] Number: [place] , [place] [address]Mvy: [id number] Date: () TW RD [address] [place] [address] 06[address]EJ: 09/30/2017 Secondary NOT GIVENUNK [place] Insurance:SELF PAY [facility] Number: Effective Repository Date:2017-09-15 09/29/2017 [facility] Primary [place] Madhav [place] [id number] Insurance:TENRIISM HOSTETLERDOB: [facility] [id number] Recovery Center [facility] Number: [place] , [place] [address]Ldz: [id number] Date: () TW [address] [place] [address] 22[address]MH: 09/29/2017 Secondary NOT GIVENUNK [place] Insurance:SELF PAY [facility] Number: Effective Repository Date:2017-09-03 09/23/2017 [facility] Primary [place] Madhav [place] [id number] Insurance:TENRIISM HOSTETLERDOB: [facility] [id number] [facility] Number: [place] , [place] [address]Lud: [id number] Date: (HP) TW RD [address] [place] [address] 343[address]KW: 09/23/2017 Secondary NOT GIVENUNK [place] Insurance:SELF PAY [facility] Effective Repository Date:2017-09-16 09/17/2017 [facility] Primary [facility] [place] [id number] Insurance:TENRIISM HOSTETLERDOB: Community [facility] [id number] Recovery [facility] Number: Repository , [place] [address]Uig: [id number] Date: () TW [address] [place] [address]59[address]HS: 09/17/2017 Secondary NOT GIVENUNK [place] Insurance:SELF PAY [facility] Number: Effective Repository Date:2017-09-08 09/12/2017 [facility] Primary [facility] [place] [id number] Insurance:TENRIISM HOSTETLERDOB: [facility] [id number] Hospitalicy Number: Repository , [place] [address]Btf: [id number] Date: () [facility] [address] [place] [address] 788[address]ZK: 09/12/2017 Secondary NOT GIVENUNK [place] Insurance:SELF PAY [facility] Number: Effective Repository Date:2017-09-12 09/12/2017 [facility] Primary [facility] [place] [id number] Insurance:TENRIISM HOSTETLERDOB: [facility] [id number] [facility] GROUPSummit [facility] Centericy Number: Rep[place] , [place] [address]Rbd: [id number] Date: () P RD [address] [place] [address] 966[address]CU: 09/12/2017 Secondary NOT GIVENUNK [place] Insurance:SELF PAY [facility] Number: Effective Repository Date:2017-09-12 09/12/2017 [facility] Primary DOMINGUEZ Corey [place] [id number] Insurance:TENRIISM HOSTETLERDOB: [facility] [id number] Recovery Center [facility] Number: Repository , [place] [address]Ujk: [id number] Date: () [address], [place] [address]NT: 09/12/2017 Secondary NOT GIVENUNK [place] Insurance:SELF PAY [facility] Number: Effective Repository Date:2017-09-12 09/12/2017 [facility] Primary DOMING[place] Madhav [place] [id number] Insurance:TENRIISM HOSTETLERDOB: [facility] [id number] Number: [place] , [place] [address]Uvm: [id number] Date: () [address] [place] [address] 787[address]SH: 09/12/2017 Secondary NOT GIVENUNK [place] Insurance:SELF PAY [facility] Number: Effective Repository Date:2017-09-12 09/12/2017 [facility] Primary DOMINGUEZ Madhav [place] [id number] Insurance:TENRIISM HOSTETLERDOB: [facility] [id number] [facility] Number: Repository , [place] [address]Sje: [id number] Date: () [address], [place] [address]LQ: 09/12/2017 Secondary NOT GIVENUNK [place] Insurance:SELF PAY [facility] Number: Effective Repository Date:2017-09-12 09/12/2017 [facility] Primary DOMING[place]y [place] [id number] Insurance:TENRIISM HOSTETLERDOB: [facility] [id number] [facility] Number: [place]ository , [place] [address]Bmq: [id number] Date: () [address], [place] [address]YI: 09/12/2017 Secondary NOT GIVENUNK [place] Insurance:SELF PAY [facility] Number: Effective Repository Date:2017-09-12 09/12/2017 [facility] Primary [place] [id number] Insurance:TENRIISM HOSTETLERDOB: [facility] [id number] [facility] Number: Repository , [place] [address]Xbb: [id number] Date: () [facility] [address] [place] [address] 239[address]JI: 09/12/2017 Secondary NOT GIVENUNK [place] Insurance:SELF PAY [facility] Number: Effective Repository Date:2017-09-12 09/12/2017 [facility] Primary [facility] [place] [id number] Insurance:TENRIISM HOSTETLERDOB: [facility] [id number] Hospitalicy Number: Repository , [place] [address]Vfc: [id number] Date: () [address] [address]IS: 09/12/2017 Secondary NOT GIVENUNK [place] Insurance:SELF PAY [facility] Number: Effective Repository Date:2017-09-12 09/12/2017 [facility] Primary [facility] [place] [id number] Insurance:TENRIISM HOSTETLERDOB: [facility] [id number] Hospitalicy Number: Repository , [place] [address]Mdw: [id number] Date: () [facility] [address] [place] [address] 473[address]DT: 09/12/2017 Secondary NOT GIVENUNK [place] Insurance:SELF PAY [facility] Number: Effective Repository Date:2017-09-12 09/10/2017 DOMINGUEZ W Primary [place] W [place] [id number] Insurance:TENRIISM HOSTETLERDOB: [facility] [id number] Hospitalicy Number: Repository , [place] [address]Zxq: [id number] Date: () [address] [address]DB: 09/10/2017 Secondary NOT GIVENUNK Goldy Insurance:SELF PAY [facility] Number: Effective Repository Date:2017-09-10 09/10/2017 DOMINGUEZ W Primary DOMINGUEZ W Goldy [id number] Insurance:TENRIISM HOSTETLERDOB: [facility] [id number] Hospitalicy Number: Repository , [place] [address]Zov: [id number] Date: () [address] [address]CS: 09/10/2017 Secondary NOT GIVENUNK [place] Insurance:SELF PAY [facility] Number: Effective Repository Date:2017-09-10 09/10/2017 DOMINGUEZ W Primary DOMINGUEZ W Patterson [id number] Insurance:TENRIISM HOSTETLERDOB: [facility] [id number] Hospitalicy Number: Repository , [place] [address]Zrl: [id number] Date: () [address] [address]AS: 09/10/2017 Secondary NOT GIVENUNK Goldy Insurance:SELF PAY [facility] Number: Effective Repository Date:2017-09-08 09/09/2017 DOMINGUEZ W Primary DOMINGUEZ W Goldy [id number] Insurance:TENRIISM HOSTETLERDOB: [facility] [id number] Hospitalicy Number: Repository , [place] [address]Hli: [id number] Date: () [facility] [address] [place] [address]IC: 09/09/2017 Secondary NOT GIVENUNK [place] Insurance:SELF PAY [facility] Effective Repository Date:2017-09-08 09/09/2017 [facility] Primary [facility] Goldy [id number] Insurance:TENRIISM HOSTETLERDOB: [facility] [id number] Hospitalicy Number: Repository , [place] [address]Grr: [id number] Date: () [facility] [address] [place] [address]NU: 09/09/2017 Secondary NOT GIVENUNK Goldy Insurance:SELF PAY [facility] Number: Effective Repository Date:2017-09-09 09/08/2017 [facility] Primary [facility] Goldy [id number] Insurance:TENRIISM HOSTETLERDOB: [facility] [id number] Hospitalicy Number: Repository , [place] [address]Rlw: [id number] Date: () [facility] [address] [place] [address]BF: 09/08/2017 Secondary NOT GIVENUNK Goldy Insurance:SELF PAY [facility] Number: Effective Repository Date:2017-09-08 09/08/2017 [facility] Primary [facility] Goldy [id number] Insurance:TENRIISM HOSTETLERDOB: [facility] [id number] [facility]: Repository , [place] [address]War: [id number] Date: () [facility] [address] [place] [address]UM: 09/08/2017 Secondary NOT GIVENUNK [place] Insurance:SELF PAY [facility] Number: Effective Repository Date:2017-09-07 09/08/2017 [facility] Primary [facility] Goldy [id number] Insurance:TENRIISM HOSTETLERDOB: Community JERMAINE AIDPolicy Number: [id number] [facility] [id number] [place] , [place] [address]Svy: Date:2017-09-08 () 09/08/2017 Secondary NOT GIVENUNK [place] Insurance:SELF PAY [facility] Number: Effective Repository Date:2017-09-08 08/05/2017 [facility] Primary [facility] Goldy [id number] Insurance:TENRIISM HOSTETLERDOB: Community JERMAINE AIDPolicy Number: [id number] [facility] Hospital [id number] Repository , [place] [address]Abo: Date:2017-06-02 () 08/05/2017 Secondary NOT GIVENUNK Goldy Insurance:SELF PAY [facility] Number: Effective Repository Date:2017-06-02
== END ==
PROVIDERS: Family Provider Family Medicine; PCP Family Medicine; Referring Provider Orthopaedic Surgery; Visit Provider Orthopaedic Surgery
DX: M75.42 Impingement syndrome of left shoulder (principal); M19.012 Primary osteoarthritis, left shoulder; M75.52 Bursitis of left shoulder
CPT/HCPCS: 95909

== ENCOUNTER 2018-06-28 07:20 | Outpatient (RCR) | payer OTHER, SELFPAY ==
[2018-06-15 14:25] VITALS: BMI 26.9
[2018-06-28 09:24] LABS: Prothrombin Time (Protime)PT. 40.4 SECONDS (11.7-14.9)
[2018-06-28 09:36] LABS: International Normalized Ratio 4.1
--- OUTSIDE RECORDS SUMMARY | 2018-08-09 19:56 | XMS RPT_ITS ---
:1940 Author Organization [place] Support Name Relationship Address Phone BARBY GEIGER Unavailable [address] + [place] [address] HERNÁN GEIGER Unavailable Unavailable + [place] [address] R Unavailable Unavailable Unavailable BARBY GEIGER Unavailable [address] + [place] [address] HERNÁN GEIGER Unavailable Unavailable + [place] [address] R Unavailable Unavailable Unavailable JUANJO BARBY Unavailable [address] + [place] [address] HERNÁN GEIGER Unavailable Unavailable + [place] [address] R Unavailable Unavailable Unavailable JUANJO, EMMA Unavailable [address] + [place] [address] HERNÁN GEIGER Unavailable Unavailable + [place] [address] R Unavailable Unavailable Unavailable JUANJOPHILA Unavailable [address] + [place] [address] HERNÁN GEIGER Unavailable Unavailable + [place] [address] R Unavailable Unavailable Unavailable CURLU Unavailable [address] + [place] [address] BARBY GEIGER Unavailable [address] + [place] [address] HERNÁN GEIGER Unavailable . + [place] [address] BARBY GEIGER Unavailable [address] + [place] [address] JUANJOARMONDNE Mayco Unavailable . + [place] [address] R Unavailable Unavailable Unavailable JUANJO, BARBY Unavailable [address] + [facility] [place] [address] JUANJOARMONDNE J Unavailable Unavailable + [place] [address] R Unavailable Unavailable Unavailable JUANJO, BARBY Unavailable [address] + [place] [address] JUANJOARMONDNE Mayco Unavailable Unavailable + [place] [address] R Unavailable Unavailable Unavailable JUANJO, BARBY Unavailable [address] + [place] [address] JUANJOHERNÁN GUIDRY Unavailable Unavailable + [place] [address] R Unavailable Unavailable Unavailable JUANJO, BARBY Unavailable [address] + [place] [address] JUANJOHERNÁN GUIDRY Unavailable . + [place] [address] R Unavailable Unavailable Unavailable JUANJO, BARBY Unavailable [address] + [place] [address] JUANJOHERNÁN GUIDRY Unavailable Unavailable + [place] [address] R Unavailable Unavailable Unavailable JUANJO, BARBY Unavailable [address] + [place] [address] JUANJOHERNÁN GUIDRY Unavailable Unavailable + [place] [address] R Unavailable Unavailable Unavailable JUANJO, BARBY Unavailable [address] + [place] [address] JUANJOHERNÁN GUIDRY Unavailable Unavailable + [place] [address] R Unavailable Unavailable Unavailable JUANJO, BARBY Unavailable [address] + [facility] [place] [address] JUANJO, HERNÁN Mayco Unavailable . + [place] [address] R Unavailable Unavailable Unavailable JUANJO, BARBY Unavailable [address] + [place] [address] JUANJO, HERNÁN J Unavailable Unavailable + [place] [address] R Unavailable Unavailable Unavailable CURLU Unavailable [address] + [place] [address] JUANJO, BARBY Unavailable [address] + [place] [address] JUANJO, HERNÁN J Unavailable . + [place] [address] CURLU Unavailable [address] + [place] [address] JUANJO, BARBY Unavailable [address] + [place] [address] JUANJO HERNÁN J Unavailable . + [place] [address] CURLU Unavailable [address] + [place] [address] JUANJO, BARBY Unavailable [address] + [place] [address] JUANJO, HERNÁN J Unavailable . + [place] [address] CURLU Unavailable [address] + [place] [address] JUANJO, BARBY Unavailable [address] + [place] [address] JUANJO HERNÁN J Unavailable Unavailable + CURLU Unavailable [address] + [place] [address] JUANJO, BARBY Unavailable [address] + [place] [address] JUANJO, HERNÁN J Unavailable . + [place] [address] CURLU Unavailable [address] + [place] [address] JUANJO, BARBY Unavailable [address] + [place] [address] JUANJO, HERNÁN J Unavailable . + [place] [address] CURLU Unavailable [address] + [place] [address] JUANJO, BARBY Unavailable [address] + [place] [address] JUANJO, HERNÁN J Unavailable Unavailable + CURLU Unavailable [address] + [place] [address] JUANJO, BARBY Unavailable [address] + [place] [address] JUANJO, HERNÁN J Unavailable Unavailable + CURLU Unavailable [address] + [place] [address] JUANJO, BARBY Unavailable [address] + [place] [address] JUANJO HERNÁN J Unavailable Unavailable + CURLU Unavailable [address] + [place] [address] JUANJO, BABRY Unavailable [address] + [place] [address] JUANJO, HERNÁN J Unavailable Unavailable + CURLU Unavailable [address] + [place] [address] JUANJO, BARBY Unavailable [address] + [place] [address] JUANJO, HERNÁN J Unavailable . + [place] [address] CURLU Unavailable [address] + [place] [address] JUANJO, BARBY Unavailable [address] + [place] [address] JUANJO, HERNÁN J Unavailable Unavailable + CURLU Unavailable [address] + [place] [address] JUANJO, BARBY Unavailable [address] + [place] [address] JUANJO, HERNÁN J Unavailable . + [place] [address] CURLU Unavailable [address] + [place] [address] JUANJO, BARBY Unavailable [address] + [place] [address] JUANJO, HERNÁN J Unavailable Unavailable + CURLU Unavailable [address] + [place] [address] JUANJO, BARBY Unavailable [address] + [place] [address] JUANJO HERNÁN J Unavailable . + [place] [address] CURLU Unavailable [address] + [place] [address] JUANJO, BARBY Unavailable [address] + [place] [address] JUANJO HERNÁN J Unavailable . + [place] [address] CURLU Unavailable [address] + [place] [address] JUANJO, BARBY Unavailable [address] + [place] [address] JUANJO HERNÁN J Unavailable Unavailable + CURLU Unavailable [address] + [place] [address] JUANJO, BARBY Unavailable [address] + [place] [address] JUANJO HERNÁN J Unavailable Unavailable + CURLU Unavailable [address] + [place] [address] JUANJO, BARBY Unavailable [address] + [place] [address] JUANJO, HERNÁN J Unavailable Unavailable + CURLU Unavailable [address] + [place] [address] JUANJO, BARBY Unavailable [address] + [place] [address] JUANJOHERNÁN GUIDRY Unavailable Unavailable + CURLU Unavailable [address] + [place] [address] JUANJO, BARBY Unavailable [address] + [place] [address] HERNÁN GEIGER Unavailable . + [place] [address] CURLU Unavailable [address] + [place] [address] JUANJO, BARBY Unavailable [address] + [place] [address] JUANJOHERNÁN Unavailable Unavailable + CURLU Unavailable [address] + [place] [address] JUANJO, BARBY Unavailable [address] + [place] [address] JUANJOHERNÁN Unavailable NA + [place], [place] CURLU Unavailable [address] + [place] [address] JUANJO, BARBY Unavailable [address] + [place] [address] JUANJO HERNÁN Unavailable [address] + [place] [address] CURLU Unavailable [address] + [place] [address] JUANJO, BARBY Unavailable [address] + [place] [address] JUANJO HERNÁN Unavailable [address] + [place] [address] Care Team Providers Name Role Phone Sen Turcios Attending Unavailable DIRK CASTELAN Primary Care Unavailable Sen Turcios Referring Unavailable Sen Turcios Attending Unavailable MoodispaSen corey Referring Unavailable RANCHO, DIRK Primary Care Unavailable Stella Mishra Attending Unavailable Moodispaw, Sen Attending Unavailable RANCHO, DIRK Referring Unavailable RANCHO, DIRK Primary Care Unavailable Moodispaw, Sen Attending Unavailable Moodispaw, Sen Referring Unavailable RANCHO, DIRK Primary Care Unavailable Moodispamadhav, Sen Attending Unavailable Moodispaw, Sen Referring Unavailable RANCHO, DIRK Primary Care Unavailable Moodispamadhav, Sen Attending Unavailable Moodispaw, Sen Referring Unavailable RANCHO, DIRK Primary Care Unavailable Moodispamadhav, Sen Attending Unavailable Moodispamadhav, Sen Referring Unavailable RANCHO, DIRK Primary Care Unavailable MoodisSen storm Consulting Unavailable Edmond Soria Attending Unavailable Moodispamadhav, Sen Referring Unavailable RANCHO, DIRK Primary Care Unavailable MoodisSen storm Consulting Unavailable RANCHO, DIRK Primary Care Unavailable Sharon, Ramon Admitting Unavailable MoodisSen storm Consulting Unavailable Hardeep, Kenny Attending Unavailable RANCHO, DIRK Primary Care Unavailable Deanna Billingsley Attending Unavailable Sharon, Ramon Admitting Unavailable Moodispamadhav, Sen Attending Unavailable RANCHO, DIRK Primary Care Unavailable MoodisSen storm Consulting Unavailable Paintsil, [place] Consulting Unavailable Sharon, Ramon Admitting Unavailable Moodispamadhav, Sen Attending Unavailable RANCHO, DIRK Primary Care Unavailable MoodispaSen corey Consulting Unavailable Hardeep, Kenny Consulting Unavailable Sharon, Ramon Admitting Unavailable RANCHO, DIRK Primary Care Unavailable MoodisSen storm Consulting Unavailable Hardeep, Kenny Attending Unavailable Hardeep, Kenny Consulting Unavailable Sharon, Ramon Admitting Unavailable Moodispaw, Sen Attending Unavailable RANCHO, DIRK Primary Care Unavailable MoodispaSen corey Consulting Unavailable Hardeep, Kenny Consulting Unavailable Sharon, Ramon Admitting Unavailable RANCHO, DIRK Primary Care Unavailable MoodisSen storm Consulting Unavailable Hardeep, Kenny Attending Unavailable Hardeep, Kenny Consulting Unavailable Sharon, Ramon Admitting Unavailable Moodispamadhav, Sen Attending Unavailable RANCHO, DIRK Primary Care Unavailable MoodisSen storm Consulting Unavailable Hardeep, Kenny Consulting Unavailable MoodisSen storm Attending Unavailable RANCHO, DIRK Referring Unavailable Hardeep, Kenny Attending Unavailable Sharon, Ramon Admitting Unavailable RANCHO, DIRK Primary Care Unavailable MoodispawSen Consulting Unavailable Hardeep, Kenny Consulting Unavailable RoofAce Attending Unavailable RANCHO, DIRK Referring Unavailable DeFinisTrang Attending Unavailable RANCHO, DIRK Referring Unavailable RANCHO, DIRK Primary Care Unavailable Moodispaw, Sen Attending Unavailable Moodispaw, Sen Referring Unavailable RANCHO, DIRK Primary Care Unavailable Moodispaw, Sen Attending Unavailable Moodispaw, Sen Referring Unavailable Moodispaw, Sen Attending Unavailable Moodispaw, Sen Referring Unavailable RANCHO, DIRK Primary Care Unavailable Trang Suárez Attending Unavailable Ace Michel Attending Unavailable RANCHO, DIRK Referring Unavailable Moodispaw, Sen Attending Unavailable RANCHO, DIRK Referring Unavailable Moodispaw, Sen Attending Unavailable RANCHO, DIRK Primary Care Unavailable Moodispaw, Sen Referring Unavailable Moodispaw, Sen Attending Unavailable Moodispamadhav, Sen Referring Unavailable RANCHO, DIRK Primary Care Unavailable MoodisSen storm Consulting Unavailable Ace Michel Attending Unavailable RANCHO, DIRK Referring Unavailable YangEdmond Attending Unavailable Moodispaw, Sen Referring Unavailable Moodispaw, Sen Attending Unavailable Moodispaw, Sen Referring Unavailable RANCHO, DIRK Primary Care Unavailable Kali Drew Attending Unavailable Moodispaw, Sen Referring Unavailable Moodispaw, Sen Attending Unavailable Moodispaw, Sen Referring Unavailable RANCHO, DIRK Primary Care Unavailable Moodispamadhav, Sen Attending Unavailable Moodispamadhav, Sen Referring Unavailable RANCHO, DIRK Primary Care Unavailable Ace Michel Attending Unavailable RANCHO, DIRK Referring Unavailable RANCHO, DIRK Primary Care Unavailable Moodispaw, Sen Attending Unavailable MoodispawSen Referring Unavailable RANCHO, DIRK Primary Care Unavailable Moodispaw, Sen Attending Unavailable Moodispaw, Sen Referring Unavailable RANCHO, DIRK Primary Care Unavailable Moodispaw, Sen Attending Unavailable Moodispaw, Sen Referring Unavailable RANCHO, DIRK Primary Care Unavailable Bran Turner Attending Unavailable Bran Turner Referring Unavailable RANCHO, DIRK Primary Care Unavailable Moodispamadhav, Sen Attending Unavailable Moodispaw, Sen Referring Unavailable RANCHO, DIRK Primary Care Unavailable PROBLEMS PROBLEMS DATE TYPE CONDITION / CODE ATTENDING STATUS SOURCE 06/02/2018 Unknown I48.0 - Paroxysmal Moodispaw, Active [place] atrial fibrillation / [facility] I48.0(ICD-10) Hospital Repository 06/02/2018 Unknown I47.1 - Moodispaw, Active [place] Supraventricular [facility] tachycardia / Hospital I47.1(ICD-10) Repository 06/02/2018 Unknown Z79.01 - senior care Moodispaw, Active [place] (current) use of [facility] anticoagulants / Hospital Z79.01(ICD-10) Repository 06/02/2018 Unknown I48.91 - Unspecified Moodispaw, Active [place] atrial fibrillation / [facility] I48.91(ICD-10) Hospital Repository 12/24/2017 Unknown I50.22 - Chronic Kali Drew Active [place] systolic (congestive) [facility] heart failure / Hospital I50.22(ICD-10) Repository 12/24/2017 Unknown R06.09 - Other forms Kali Drew Active [place] of dyspnea / [facility] R06.09(ICD-10) Hospital Repository 11/03/2017 Unknown I42.9 - Ace Michel Active [place] Cardiomyopathy, [facility] unspecified / Hospital I42.9(ICD-10) Repository 11/03/2017 Unknown R94.31 - Abnormal RoofAce Active [place] electrocardiogram Community [ECG] [EKG] / Hospital R94.31(ICD-10) Repository 11/03/2017 Unknown Z01.810 - Encounter Ace Michel Active [place] for preprocedural [facility] cardiovascular Hospital examination / Repository Z01.810(ICD-10) 09/23/2017 Unknown R00.2 - Palpitations / DeFinis, Active [place] R00.2(ICD-10) [facility] Repository 09/13/2017 Unknown E87.6 - Hypokalemia / Moodispaw, Active [place] E87.6(ICD-10) [facility] Repository 09/09/2017 Unknown R06.02 - Shortness of Moodispaw, Active [place] breath / [facility] R06.02(ICD-10) Hospital Repository 09/08/2017 Unknown R06.00 - Dyspnea, Moodispaw, Active [place] unspecified / [facility] R06.00(ICD-10) Hospital Repository 09/08/2017 Unknown R06.01 - Orthopnea / Moodispaw, Active [place] R06.01(ICD-10) [facility] Repository PROCEDURES PROCEDURES No Procedure Records FoundRESULTS RESULTS NCS AND/OR EMG Observed: 06/29/2018 Status: F Source: [place] PATIENT 4:37 PM [facility] REPOSITORY [facility] Pulmonary Services/Neurology [address] [address] MR#: [id number] Acct: [id number] Name: ANNE MARIE GEIGER Rep #: [id number] : 1940 77 From: Enzo Hopson MD [...] Date Dictated: 06/28/181120 Date Transcribed: 06/28/18 112 Coal Grader: NF Signed PROTHROMBIN TIME W/INR Collected: 06/28/2018 Status: F Source: [place] 7:23 AM [facility] REPOSITORY TYPE CODE TESTS RESULT OUT OF REFERENCE UNITS RANGE LAB L300.4150 11.7-14.9 SECONDS High PROTIME 40.4 LAB L300.4200 High alert INR 4.1 Result Comment: CRITICAL VALUE VERIFIED. CALLED TO QUINTIN AT 'S OFFICE. 06/28/18 0936 Rich Wyatt. RESULTS READ BACK BY SAME. Performed By: #### L300.3900 #### [facility] [address] [place], [address] PROTHROMBIN TIME W/INR Collected: 05/24/2018 Status: F Source: [place] 2:21 PM [facility] REPOSITORY Order Comment: Comments: STANDING ORDER Comments: STANDING ORDER TYPE CODE TESTS RESULT OUT OF RANGE REFERENCE UNITS LAB L300.4150 11.7-14.9 SECONDS High PROTIME 31.1 LAB L300.4200 Normal INR 3.0 Performed By: #### L300.3900 #### [facility] [address] [place], [address] PROTHROMBIN TIME W/INR Collected: 05/02/2018 Status: F Source: [place] 11:44 AM [facility] REPOSITORY TYPE CODE TESTS RESULT OUT OF RANGE REFERENCE UNITS LAB L300.4150 11.7-14.9 SECONDS High PROTIME 33.1 LAB L300.4200 Normal INR 3.2 Performed By: #### L300.3900 #### [facility] [address] [place], [address] PROTHROMBIN TIME W/INR Collected: 03/24/2018 Status: F Source: [place] 9:27 AM [facility] REPOSITORY TYPE CODE TESTS RESULT OUT OF RANGE REFERENCE UNITS LAB L300.4150 11.7-14.9 SECONDS High PROTIME 27.6 LAB L300.4200 Normal INR 2.6 Performed By: #### L300.3900 #### [facility] [address] [place], [address] CARDIOLOGY VISIT Observed: 02/25/2018 Status: F Source: [place] REPORT 11:59 AM [facility] REPOSITORY [facility] 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 6. senior care current use of anticoagulant Z79.01 Plan He [...] prior to saving. Follow Up 6 Months (ECG TECHNICIAN/PA) 14 Months (PFM) Coding Level of Care Code Off vis,est,level 3 Diagnoses Paroxysmal atrial fibrillation I48.0 Palpitations R00.2 Other cardiomyopathy I42.8 Cardiomyopathy type: other Nonrheumatic aortic valve stenosis I35.0 Cardiac valve disease etiology: nonrheumatic Non-rheumatic mitral regurgitation I34.0 Cardiac valve disease etiology: nonrheumatic senior care current use of anticoagulant Z79.01 Coding Level of Care Code Off vis,est,level 3 Diagnoses Paroxysmal atrial fibrillation I48.0 Palpitations R00.2 Other cardiomyopathy I42.8 Cardiomyopathy type: other Nonrheumatic aortic valve stenosis I35.0 Cardiac valve disease etiology: nonrheumatic Non-rheumatic mitral regurgitation I34.0 Cardiac valve disease etiology: nonrheumatic senior care current use of anticoagulant Z79.01 02/25/18 1159 <Electronically signed by Ace MUELLER> Date Ace MUELLER Cosigner Signature: Date (if applicable) CC: Dirk Castelan DO PROTHROMBIN TIME W/INR Collected: 02/25/2018 Status: F Source: [place] 9:21 AM [facility] REPOSITORY TYPE CODE TESTS RESULT OUT OF RANGE REFERENCE UNITS LAB L300.4150 11.7-14.9 SECONDS High PROTIME 21.2 LAB L300.4200 Normal INR 1.8 Performed By: #### L300.3900 #### [facility] [address] [place], [address] PROTHROMBIN TIME W/INR Collected: 02/01/2018 Status: F Source: [place] 2:21 PM [facility] REPOSITORY TYPE CODE TESTS RESULT OUT OF RANGE REFERENCE UNITS LAB L300.4150 11.7-14.9 SECONDS High PROTIME 25.4 LAB L300.4200 Normal INR 2.3 Performed By: #### L300.3900 #### [facility] [address] [place], [address] DOWNTIME REPORT Observed: 01/20/2018 Status: F Source: [place] 12:22 PM [facility] REPOSITORY [facility] Medical Records Department [address] [place] [address] Downtime Report MR#: [id number] Acct: [id number] Name: ANNE MARIE GEIGER Rep #: [id number] : 1940 77 From: Ricky Turner PCP: Dirk Castelan DO Status: REG RCR This patient was seen during an EMR downtime January 03, 2018 - January 10, 2018. This patient may have a combination of paper and electronic documentation or all paper documentation. All documentation is viewable within the e-chart portion of [employer] for each patient visit. PROTHROMBIN TIME W/INR Collected: 01/07/2018 Status: F Source: [place] 9:40 AM [facility] REPOSITORY TYPE CODE TESTS RESULT OUT OF RANGE REFERENCE UNITS LAB L300.4150 11.7-14.9 SECONDS High PROTIME 33.6 LAB L300.4200 Normal INR 3.3 Performed By: #### L300.3900 #### [facility] [address] [place], [address] PROTHROMBIN TIME W/INR Collected: 12/13/2017 Status: F Source: [place] 11:57 AM [facility] REPOSITORY TYPE CODE TESTS RESULT OUT OF RANGE REFERENCE UNITS LAB L300.4150 11.7-14.9 SECONDS High PROTIME 30.7 LAB L300.4200 Normal INR 2.9 Performed By: #### L300.3900 #### [facility] [address] [place], [address] OFFICE VISIT REPORT Observed: 11/23/2017 Status: F Source: [place] 10:18 AM [facility] REPOSITORY [facility] [address] [place] [address] OFFICE VISIT Date of Service: 11/23/17 MR#: [id number] Acct: [id number] Patient: DOMINGUEZ GEIGER Rep #: [id number] : 1940 Provider: ROCIO Michel Age/Sex: 77/M Location: [facility] Status: Signed Intake Intake Visit Reasons: 1 [...] Observed: 11/23/2017 Status: F Source: [place] BY [facility] 9:10 AM [facility] REPOSITORY [facility] [address] [place] [address] 12 Lead EKG performed by [facility] 11/23/17909 MR#: [id number] Acct: [id number] Name: DOMINGUEZ GEIGER Rep #: [id number] : 1940 77 From: Ace Michel ECG TECHNICIAN-C Attending Dr: Ace Michel, ECG TECHNICIAN Status: DEP AMB Ordering Dr: Ace Michel ECG TECHNICIANPrasanthC Date: 11/23/17 Location: [facility] Sex: M C Admitted: BMS/12 Lead EKG performed by [facility] ECG Report Interpretation Sinus Bradycardia -First degree A-V block Left axis deviationPoor R wave progressionPossible Left anterior fascicular blockNonspecific T wave abnormalityABNORMAL Electronically signed on 11/24/2017 at 17:14 by Sen Turcios 11/24/17 1716 Date Ace MUELLER CC: DIRK CASTELAN Date Dictated: 11/23/17909 Date Transcribed: 11/23/17909 Coal Grader: IRIS Signed PROTHROMBIN TIME W/INR Collected: 11/23/2017 Status: F Source: [place] 9:00 AM [facility] REPOSITORY TYPE CODE TESTS RESULT OUT OF RANGE REFERENCE UNITS LAB L300.4150 11.7-14.9 SECONDS High PROTIME 31.6 LAB L300.4200 Normal INR 3.0 Performed By: #### L300.3900 #### [facility] [address] [place], [address] OPERATIVE REPORT Observed: 11/17/2017 Status: F Source: [place] 5:28 AM [facility] REPOSITORY [facility] Medical Records Department [address] [place] [address] Operative Report 11/16/17 1404 MR#: [id number] Acct: [id number] Name: DOMINGUEZ GEIGER Rep #: [id number] : 1940 77 From: Edmond Soria MD PCP: DIRK CASTELAN Status: REG SDC Y Location: [facility] Problem List (1) Acute on chronic systolic heart failure Status: Acute (2) Atrial fibrillation Status: Acute Qualifiers: Atrial fibrillation type: persistent Qualified Code(s): I48.1 - Persistent atrial fibrillation (3) Cardiomyopathy Status: Acute Qualifiers: Operative Report Date of Procedure: 11/16/17 - Conscious sedation CONSCIOUS SEDATION REPORT BRIEF HISTORY OF PRESENT ILLNESS: The patient is a 77-year-old [facility] male who presented to [facility] for an elective cardioversion secondary to [...] 11/16/2017 Status: F Source: [place] 12:55 PM [facility] REPOSITORY [facility] Medical Records Department [address] [place] [address] Operative Report 11/16/17 1253 MR#: [id number] Acct: [id number] Name: DOMINGUEZ GEIGER Rep #: [id number] : 1940 77 From: Sen Turcios MD PCP: DIRK CASTELAN Status: REG [facility] [place] Location: [facility] Problem List (1) Atrial fibrillation Status: Acute [...] apparent complications This note was generated with [employer] dictation software. It may contain incorrect words, spelling, and punctuation that were not noted in checking the note before signing. 11/16/17 1255 <Electronically signed by Sen Turcios MD> Date Sen Turcios MD CC: DIRK CASTELAN; Sen Turcios MD Signed PROTIME W/INR Collected: 11/16/2017 Status: F Source: [place] 11:08 AM [facility] REPOSITORY TYPE CODE TESTS RESULT OUT OF REFERENCE UNITS RANGE LAB L9200.1001 11.9-14.4 SEC High PROTIME ISTAT 30.3 Result Comment: Reference Range 11.9 - 14.4 LAB L9200.2000 Normal INR ISTAT 2.60 Result Comment: Critical Value > 3.5 Performed By: #### L9200.0000 #### [facility] Point of Care [address] [place] [address] PROTHROMBIN TIME W/INR Collected: 11/09/2017 Status: F Source: [place] 9:46 AM [facility] REPOSITORY TYPE CODE TESTS RESULT OUT OF RANGE REFERENCE UNITS LAB L300.4150 11.7-14.9 SECONDS High PROTIME 28.4 LAB L300.4200 Normal INR 2.7 Performed By: #### L300.3900 #### [facility] [address] [place], [address] CARDIOLOGY VISIT Observed: 11/04/2017 Status: F Source: [place] REPORT 11:14 AM [facility] REPOSITORY [facility] [address] [place] [address] OFFICE VISIT Date of Service: 11/03/17 MR#: [id number] Acct: [id number] Name: DOMINGUEZ GEIGER Rep #: [id number] : 1940 Provider: ROCIO Michel Age/Sex: 77/M Location: [facility] Status: Signed HPI HPI Details: DOMINGUEZ GEIGER, is a 77 M who presents to the office today for a cardiovascular outpatient follow-up. He has history of nonischemic cardiomyopathy, paroxysmal atrial fibrillation status post cardioversion on September 10, 2017, mitral valve insufficiency, and aortic valve sclerosis/stenosis. Patient presented to [facility] emergency department in September 2017 for [...] Lt brachial Intake Visit Reasons: a- fib Obstetrician Gynecologist Required: No Accompanied by: Family / Other [...] (Acute) Paroxysmal atrial tachycardia (Acute) Cardiomyopathy (Acute) senior care current use of anticoagulant (Chronic) Paroxysmal [...] Observed: 11/03/2017 Status: F Source: [place] BY [facility] 9:38 AM [facility] REPOSITORY [facility] [address] [place] [address] 12 Lead EKG performed by [facility] 11/03/1737 MR#: [id number] Acct: [id number] Name: DOMINGUEZ GEIGER Rep #: [id number] : 1940 77 From: Ace Michel ECG TECHNICIAN-C Attending Dr: Ace Michel, ECG TECHNICIAN Status: DEP AMB Ordering Dr: Ace Michel ECG TECHNICIANPrasanthC Date: 11/03/17 Location: [facility] Sex: M C Admitted: BMS/12 Lead EKG performed by [facility] ECG Report Interpretation Atrial fibrillation / flutterLeft axis deviationPossible Left anterior fascicular blockPoor R wave progressionNonspecific ST/T wave abnormalityABNORMAL Electronically signed on 11/11/2017 at 17:38 by Sen Turcios 11/11/17 1740 Date Ace MUELLER CC: DIRK CASTELAN Date Dictated: 11/03/17936 Date Transcribed: 11/03/17936 Coal Grader: IRIS Signed CBC W/DIFF, AUTOMATED Collected: 11/03/2017 Status: F Source: [place] 9:22 AM [facility] REPOSITORY TYPE CODE TESTS RESULT OUT OF [...] 2.31 Performed By: #### L100.0100, L500.2500 #### [facility] [address] [place], [place], [address] BASIC METABOLIC Collected: 11/03/2017 Status: F Source: [place] PROFILE (BMP) 9:22 AM [facility] REPOSITORY TYPE CODE TESTS RESULT OUT OF [...] 8 Performed By: #### L100.0100, L500.2500 #### [facility] [address] [place], [address] PROTHROMBIN TIME W/INR Collected: 11/03/2017 Status: F Source: [place] 9:22 AM [facility] REPOSITORY TYPE CODE TESTS RESULT OUT OF RANGE REFERENCE UNITS LAB L300.4150 11.7-14.9 SECONDS High PROTIME 28.6 LAB L300.4200 Normal INR 2.7 Performed By: #### L300.3900 #### [facility] [address] [place], [address] PROTHROMBIN TIME W/INR Collected: 10/28/2017 Status: F Source: [place] 8:41 AM [facility] REPOSITORY TYPE CODE TESTS RESULT OUT OF RANGE REFERENCE UNITS LAB L300.4150 11.7-14.9 SECONDS High PROTIME 27.4 LAB L300.4200 Normal INR 2.5 Performed By: #### L300.3900 #### [facility] [address] [facility] [place], [address] PROTHROMBIN TIME W/INR Collected: 10/18/2017 Status: F Source: [place] 8:02 AM [facility] REPOSITORY TYPE CODE TESTS RESULT OUT OF RANGE REFERENCE UNITS LAB L300.4150 11.7-14.9 SECONDS High PROTIME 29.2 LAB L300.4200 Normal INR 2.7 Performed By: #### L300.3900 #### [facility] [address] [place], [address] PROTHROMBIN TIME W/INR Collected: 10/12/2017 Status: F Source: [place] 10:04 AM [facility] REPOSITORY TYPE CODE TESTS RESULT OUT OF RANGE REFERENCE UNITS LAB L300.4150 11.7-14.9 SECONDS High PROTIME 29.5 LAB L300.4200 Normal INR 2.8 Performed By: #### L300.3900 #### [facility] [address] [place], [address] PROTHROMBIN TIME W/INR Collected: 10/04/2017 Status: F Source: [place] 2:29 PM [facility] REPOSITORY TYPE CODE TESTS RESULT OUT OF RANGE REFERENCE UNITS LAB L300.4150 11.7-14.9 SECONDS High PROTIME 25.8 LAB L300.4200 Normal INR 2.3 Performed By: #### L300.3900 #### [facility] [address] [place], [address] PROTHROMBIN TIME W/INR Collected: 09/29/2017 Status: F Source: [place] 10:54 AM [facility] REPOSITORY TYPE CODE TESTS RESULT OUT OF REFERENCE UNITS RANGE LAB L300.4150 11.7-14.9 SECONDS High PROTIME 38.4 LAB L300.4200 High alert INR 3.9 Result Comment: CRITICAL VALUE VERIFIED. CALLED TO RAINA AT 'S OFFICE. 09/29/17 1241 Rich Wyatt. RESULTS READ BACK BY SAME. Performed By: #### L300.3900 #### [facility] [address] [place], [address] OFFICE VISIT REPORT Observed: 2017 Status: F Source: [place] 8:13 AM [facility] REPOSITORY [facility] [address] [place] [address] OFFICE VISIT Date of Service: 09/23/17 MR#: [id number] Acct: [id number] Patient: DOMINGUEZ GEIGER Rep #: [id number] : 1940 Provider: Trang Suárez Age/Sex: 76/M Location: [facility] Status: Signed Intake Intake Visit Reasons: Chief [...] DCCV on 09/10/2017 and was admitted to [facility] on 09/12/2017 where he went back into [...] TIME W/INR Collected: 09/23/2017 Status: F Source: [place] 11:33 AM [facility] REPOSITORY TYPE CODE TESTS RESULT OUT OF REFERENCE UNITS RANGE LAB L300.4150 11.7-14.9 SECONDS High PROTIME 45.2 LAB L300.4200 High alert INR 5.1 Result Comment: CRITICAL VALUE VERIFIED. CALLED TO TRANG AT [facility] 09/23/17 1317 Janae Wilkinson. RESULTS READ BACK BY SAME . Performed By: #### L300.3900 #### [facility] [address] [place], [address] 12 LEAD EKG PERFORMED Observed: 09/23/2017 Status: F Source: [place] BY [facility] 10:59 AM [facility] REPOSITORY [facility] [address] [place] [address] 12 Lead EKG performed by [facility] 09/23/17 1058 MR#: [id number] Acct: [id number] Name: DOMINGUEZ GEIGER Rep #: [id number] : 1940 76 From: Sen Turcios MD Attending Dr: Trang Suárez Status: DEP AMB Ordering Dr: Sen Turcios MD Date: 09/23/17 Location: [facility] Sex: M C Admitted: [facility]/12 Lead EKG performed by [facility] ECG Report Interpretation Atrial flutter-fibrillation Left axis deviationLeftanterior fascicular block. Poor R-wave progression -nonspecific -consider old anterior infarct. Diffuse nonspecific T-abnormality. ABNORMAL Electronically signed on 09/23/2017 at 15:00 by Sen Turcios 09/23/17 1504 Date Sen Turcios MD CC: DIRK CASTELAN Date Dictated: 09/23/17 1058 Date Transcribed: 09/23/171057 Coal Grader: PM Signed DISCHARGE SUMMARY Observed: 09/15/2017 Status: F Source: [place] 4:44 PM [facility] REPOSITORY [facility] Medical Records Department [address] [place] [address] Discharge Summary 09/15/17 1424 MR#: [id number] Acct: [id number] Name: DOMINGUEZ GEIGER Rep #: [id number] : 1940 76 From: Guille ADKINS PCP: DIRK CASTELAN Status: DIS IN Y [id number] <Guille Duran - Last Filed: 09/15/17 14:24> [...] valve regurgitation (Chronic) Aortic valve stenosis (Chronic) 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 (Chronic) Paroxysmal atrial [...] valve regurgitation (Chronic) Aortic valve stenosis (Chronic) senior care current use of anticoagulant (Chronic) Paroxysmal [...] stays in A. fib. Discussed with the spread cutter. Discharge medication reconciliation done. Follow-up discharge instructions completed. Discharge plan and medication discussed with the patient and his son present in the room. I have discussed my assessment with Guille ADKINS and orders have been reviewed. Code Visit Inpatient RAJENDRA: [id number] Disch Hosp 09/15/17 1434 <Electronically signed by Guille ADKINS> Date Guille ADKINS 09/15/17 1644<Electronically signed by Kenny Meier MD> Cosigner Signature (if applicable): Date Kenny Meier MD CC: LUCILLE Duran; DIRK CASTELAN; Kenny Meier MD Signed 12 LEAD ELECTROCARDIOGRAM Observed: 09/15/2017 Status: F Source: [place] 1:27 PM [facility] REPOSITORY [facility] Cardiovascular Services [address] [place] [address] 12 Lead EKG 09/14/17 0517 MR#: [id number] Acct: [id number] Name: DOMINGUEZ GEIGER Rep #: [id number] : 1940 76 From: Sen Turcios MD Attending Dr: Kenny Meier MD Status: ADM IN Ordering Dr: Sen Turcios MD Date: 09/14/17 Location: [facility] Sex: M C Admitted: 09/12/17 Test Reason [...] Abnormal ECG Confirmed by GABRIELE MCDONALD, SEN ([id number]), state editor GLENN TURNER ([id number]) on 09/15/2017 1:27:54 PM Referred By: ALETA Confirmed By:SEN TURCIOS MD 09/15/17 1327 Date Sen Turcios MD CC: DIRK CASTELAN; Sen Turcios MD Signed DISCHARGE INSTRUCTION Observed: 09/15/2017 Status: F Source: [place] 11:28 AM [facility] REPOSITORY [facility] Medical Records Department [address] [place] [address] Instructions for Home/Discharge Instructions 09/15/17 1126 MR#: [id number] Acct: [id number] Name: DOMINGUEZ GEIGER Rep #: [id number] : 1940 76 From: Kenny Meier MD [...] TIME W/INR Collected: 09/15/2017 Status: F Source: [place] 5:35 AM [facility] REPOSITORY TYPE CODE TESTS RESULT OUT OF RANGE REFERENCE UNITS LAB L300.4150 11.7-14.9 SECONDS High PROTIME 30.5 LAB L300.4200 Normal INR 3.1 Performed By: #### L300.3900 #### [facility] [address] [place], [address] BASIC METABOLIC Collected: 09/15/2017 Status: F Source: [place] PROFILE (BMP) 5:35 AM [facility] REPOSITORY TYPE CODE TESTS RESULT OUT OF [...] GAP 11 Performed By: #### L500.2500 #### [facility] [address] [facility] [place], [address] 12 LEAD ELECTROCARDIOGRAM Observed: 09/14/2017 Status: F Source: [place] 2:01 PM [facility] REPOSITORY [facility] Cardiovascular Services [address] [place] [address] 12 Lead EKG 09/13/17 0639 MR#: [id number] Acct: [id number] Name: DOMINGUEZ GEIGER Rep #: [id number] : 1940 76 From: Eliceo Jo MD [facility]ending [facility] Status: ADM IN Ordering Dr: Ramon Herrera MD Date: 09/13/17 Location: [facility] Sex: M C Admitted: 09/12/17 Test Reason [...] UNCONFIRMED Confirmed by ELICEO JO MD ([id number]), state editor GLENN TURNER ([id number]) on 09/14/2017 2:00:39 PM Referred By: PAINT Confirmed By:ELICEO JO MD 09/14/17 1400 Date Eliceo Jo MD CC: DIRK CASTELAN; Ramon Herrera MD Signed 12 LEAD ELECTROCARDIOGRAM Observed: 09/14/2017 Status: F Source: [place] 1:03 PM [facility] REPOSITORY [facility] Cardiovascular Services [address] [place] [address] 12 Lead EKG 09/12/17 0509 MR#: [id number] Acct: [id number] Name: DOMINGUEZ GEIGER Rep #: [id number] : 1940 76 From: Eliceo Jo MD Attending Dr: Kenny Meier MD Status: ADM IN Ordering Dr: Anne Marie Michel MD Date: 09/12/17 Location: [facility] Sex: M C Admitted: 09/12/17 Test Reason [...] ECG Confirmed by ELICEO JO MD ([id number]), state editor GLENN TURNER ([id number]) on 09/14/2017 1:02:52 PM Referred By: SL Confirmed By:ELICEO JO MD 09/14/17 1302 Date Eliceo Jo MD CC: DIRK CASTELAN; Anne Marie Michel MD Signed PROTHROMBIN TIME W/INR Collected: 09/14/2017 Status: F Source: [place] 5:28 AM [facility] REPOSITORY TYPE CODE TESTS RESULT OUT OF RANGE REFERENCE UNITS LAB L300.4150 11.7-14.9 SECONDS High PROTIME 28.7 LAB L300.4200 Normal INR 2.8 Performed By: #### L300.3900 #### [facility] [address] [place], [address] BASIC METABOLIC Collected: 09/14/2017 Status: F Source: [place] PROFILE (BMP) 5:28 AM [facility] REPOSITORY TYPE CODE TESTS RESULT OUT OF [...] GAP 5 Performed By: #### L500.2500 #### [facility] [address] [place], [address] MAGNESIUM Collected: 09/14/2017 Status: F Source: [place] 5:28 AM [facility] REPOSITORY Order Comment: ADD MG TO BMP FROM THIS MORNING TYPE CODE TESTS RESULT OUT OF RANGE REFERENCE UNITS LAB L501.5200 1.6-2.6 mg/dL Normal MG 2.1 Result Comment: Please note revised Magnesium reference range effective 2017. Performed By: #### L501.5200 #### [facility] [address] [place], [address] PROTHROMBIN TIME W/INR Collected: 09/13/2017 Status: F Source: [place] 5:20 AM [facility] REPOSITORY TYPE CODE TESTS RESULT OUT OF RANGE REFERENCE UNITS LAB L300.4150 11.7-14.9 SECONDS High PROTIME 27.0 LAB L300.4200 Normal INR 2.6 Performed By: #### L300.3900 #### [facility] [address] [facility] [place], [address] BASIC METABOLIC Collected: 09/13/2017 Status: F Source: [place] PROFILE (BMP) 5:20 AM [facility] REPOSITORY TYPE CODE TESTS RESULT OUT OF [...] GAP 8 Performed By: #### L500.2500 #### [facility] [address] [facility] [place], [address] CBC W/DIFF, AUTOMATED Collected: 09/13/2017 Status: F Source: [place] 5:20 AM [facility] REPOSITORY TYPE CODE TESTS RESULT OUT OF [...] Lymph 2.64 Performed By: #### L100.0100 #### [facility] [place], [address] EMERGENCY DEPARTMENT Observed: 09/13/2017 Status: F Source: [place] SUMMARY 1:11 AM [facility] REPOSITORY [facility] Medical Records Department [address] [place] [address] Emergency Department Summary 09/12/17 0614 MR#: [id number] Acct: [id number] Name: DOMINGUEZ GEIGER Rep #: [id number] : 1940 76 From: Anne Marie Michel MD PCP: DIRK CASTELAN Status: ADM IN - ER Visit Summary Date of Service: 09/12/17 Chief Complaint: Shortness of breath History of Present Illness: The patient is a [address] Turcios and Dr. Castelan. He reports he has shortness of breath [...] INR is 2.3. Troponin 0 0.03. PT ECG TECHNICIAN is 620.4. Chest x-ray is read by [...] Coumadin coagulopathy. This note was generated with [employer] Igniteation software. It may contain incorrect words, spelling, [...] your Primary Care Provider. Call [facility] ([phone]) or report to the closest Emergency Room. Call 911 if necessary. 09/13/17 0111 <Electronically signed by Anne Marie Michel MD> Date Anne Marie Michel MD Cosigner Signature (If Indicated): Date CC: DIRK CASTELAN TROPONIN-I Collected: 09/12/2017 Status: F Source: [place] 7:15 PM [facility] REPOSITORY Order Comment: 'TROP' Serial specimen #1, #2, #3, or #4: 4 TYPE CODE TESTS RESULT OUT OF RANGE REFERENCE UNITS LAB L501.4010 <0.06 ng/mL Normal 0.03 TROPONIN-I Result Comment: TROPONIN-I EXPECTED VALUES <0.05 NEGATIVE 0.06 - 0.59 AT RISK OF [place] > OR = 0.60 SUGGEST [place] Performed By: #### L501.4010 #### [facility] [address] [place], [address] CONSULTATION Observed: 09/12/2017 Status: F Source: [place] 2:24 PM [facility] REPOSITORY [facility] Medical Records Department [address] [place] [address] Consultation 09/12/17 1329 MR#: [id number] Acct: [id number] Name: DOMINGUEZ GEIGER Rep #: [id number] : 1940 76 From: Sen Turcios MD PCP: DIRK CASTELAN Status: ADM IN Y Location: [place] [address] Problem List (1) Acute on chronic systolic heart failure Status: Acute (2) Cardiomyopathy Status: Acute Qualifiers: (3) Paroxysmal atrial fibrillation Status: Chronic (4) Mitral valve regurgitation Status: Chronic Qualifiers: Cardiac valve disease etiology: nonrheumatic Qualified Code(s): I34.0 - Nonrheumatic mitral (valve) insufficiency (5) Aortic valve stenosis Status: Chronic (6) senior care current use of anticoagulant Status: Chronic Reason [...] valve regurgitation (Chronic) Aortic valve stenosis (Chronic) 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 (Chronic) Paroxysmal atrial [...] S2 Murmur Murmur: Grade 2/6, Mid Systolic, [place], [place], - - Grade 2/6: Soft: Diastolic murmur: Lower left sternal border Vascular: No Carotid Bruits Abdomen: Bowel Sounds Present, Soft, Non Tender Extremities: Mild RLE Edema, Mild LLE Edema 09/12/17 07:30: D-Dimer Quant (PE/DVT) 0.44 09/12/17 07:30: B-Natriuretic Peptide 705.5 H 09/12/17 07:30: Magnesium 1.9 09/12/17 08:00: Urine Color Straw, Urine Clarity Clear, Urine pH 7.0, Ur Specific [place] 1.010, Urine Protein Negative, Urine Glucose (UA) [...] family members present as well as the [facility] hospitalist team. This note was generated with OneDocation software. Every effort was made to ensure accuracy, however, computerized medical imaging tech mistakes may persist. 09/12/17 1356 <Electronically signed by Sen Turcios MD> Date Sen Turcios MD Cosigner Signature (if applicable): Date CC: DIRK CASTELAN; Sen Turcios MD Signed Observed: 09/12/2017 Status: F Source: [place] LEGIONELLA ANTIGEN 8:00 AM [facility] URINE REPOSITORY Legionella, UR Legionella Antigen result interpretation: Negative Presumptive negative for Legionella pneumophila serogroup 1 antigen in urine, suggesting no recent or current infection. Legionella Ag, Urine Negative (See interpretation below) Performed By: #### M101.0101, M300.4500 #### [facility] [address] [facility] [place], [place], [address] STREP Observed: 09/12/2017 Status: F Source: [place] PNEUMONIAE ANTIG(UR,CSF) 8:00 AM [facility] REPOSITORY S pneumo Ag URINE INTERPRETATION Negative Urine Presumptive negative for pneumococcal pneumonia, suggesting no current or recent pneumococcal infection. Infection due to S pneumoniae cannot be ruled out since the antigen present in the sample may be below the detection limit of the test. Strep pneumo Test Negative URINE (See interpretation below) Performed By: #### M300.4600, L400.2010 #### [facility] [address] [facility] [place], [address] URINALYSIS, ROUTINE Collected: 09/12/2017 Status: F Source: [place] (DIPSTICK) 8:00 AM [facility] REPOSITORY Order Comment: How was Urine Obtained? COPPER FLOTATION OPERATOR TO SPECIFY TYPE CODE TESTS RESULT OUT [...] ESTERASE Performed By: #### M300.4600, L400.2010 #### [facility] [address] [facility] [place], [address] Observed: 09/12/2017 Status: F Source: [place] INFLUENZA A+B (RAPID 7:43 AM [facility] CORNELIUS) REPOSITORY FLU A/B Rapid Negative test results should be confirmed by culture. Order Rapid Viral Culture for Influenzae A+B (701377) if clinically indicated. Influenza Ag, Direct Presumptive NEGATIVE for Influenza A/B Antigen (See Note) Performed By: #### M101.0101, M300.4500 #### [facility] [address] [place], [address] D-DIMER QUANTITATIVE Collected: 09/12/2017 Status: F Source: [place] (DVT/PE) 7:30 AM [facility] REPOSITORY TYPE CODE TESTS RESULT OUT OF RANGE REFERENCE UNITS LAB L300.8000 0.27-0.49 FEU/ug/m Normal D-DIMER 0.44 QUANT Result Comment: NORMAL D-Dimer level (<0.50) indicates no DVT or PE. Performed By: #### L300.8000 #### [facility] [address] [place], [address] MAGNESIUM Collected: 09/12/2017 Status: F Source: [place] 7:30 AM [facility] REPOSITORY TYPE CODE TESTS RESULT OUT OF RANGE REFERENCE UNITS LAB L501.5200 1.6-2.6 mg/dL Normal MG 1.9 Result Comment: Please note revised Magnesium reference range effective 2017. Performed By: #### L501.5200, L501.9520, L503.6620 #### [facility] [address] [place], [address] THYROID STIM HORMONE Collected: 09/12/2017 Status: F Source: [place] (TSH) 7:30 AM [facility] REPOSITORY TYPE CODE TESTS RESULT OUT OF RANGE REFERENCE UNITS LAB L501.9520 0.358-3.74 uIU/mL Normal TSH 2.79 Performed By: #### L501.5200, L501.9520, L503.6620 #### [facility] [address] [place], [address] BNP,B-TYPE NATRIURETIC Collected: 09/12/2017 Status: F Source: [place] PEPTIDE 7:30 AM [facility] REPOSITORY TYPE CODE TESTS RESULT OUT OF RANGE REFERENCE UNITS LAB L503.6620 0-100 pg/mL High B-TYPE 705.5 RICHA PEP Performed By: #### L501.5200, L501.9520, L503.6620 #### [facility] [address] [place], [address] Observed: 09/12/2017 Status: F Source: [place] CULTURE, BLOOD (WB) 7:30 AM [facility] REPOSITORY Has pt arrived? Y BC No growth in 5 days. Performed By: #### M200.1000 #### [facility] [address] [place], [address] HISTORY AND PHYSICAL Observed: 09/12/2017 Status: F Source: [place] EXAM 7:01 AM [facility] REPOSITORY [facility] Medical Records Department [facility] [place] [address] History and Physical 09/12/17 0649 MR#: [id number] Acct: [id number] Name: DOMINGUEZ GEIGER Rep #: [id number] : 1940 76 From: Ramon Herrera MD [...] Reviewed 09/08/17 @ 10:32 by Stella Mishra) senior care current use of anticoagulant (Chronic) Paroxysmal [...] 09/12/2017 Status: F Source: [place] 5:15 AM [facility] REPOSITORY TYPE CODE TESTS RESULT OUT OF [...] Lymph 2.64 Performed By: #### L100.0100 #### [facility] [address] [place], [place], [address] BASIC METABOLIC Collected: 09/12/2017 Status: F Source: [place] PROFILE (BMP) 5:15 AM [facility] REPOSITORY Order Comment: 'TROP' Serial specimen #1, [...] 9 Performed By: #### L500.2500, L501.4010 #### [facility] [address] [place], [address] TROPONIN-I Collected: 09/12/2017 Status: F Source: [place] 5:15 AM [facility] REPOSITORY Order Comment: 'TROP' Serial specimen #1, #2, #3, or #4: 1 TYPE CODE TESTS RESULT OUT OF RANGE REFERENCE UNITS LAB L501.4010 <0.06 ng/mL Normal 0.03 TROPONIN-I Result Comment: TROPONIN-I EXPECTED VALUES <0.05 NEGATIVE 0.06 - 0.59 AT RISK OF [place] > OR = 0.60 SUGGEST [place] Performed By: #### L500.2500, L501.4010 #### [facility] [address] [facility] [place], [address] PROTHROMBIN TIME W/INR Collected: 09/12/2017 Status: F Source: [place] 5:15 AM [facility] REPOSITORY TYPE CODE TESTS RESULT OUT OF RANGE REFERENCE UNITS LAB L300.4150 11.7-14.9 SECONDS High PROTIME 24.5 LAB L300.4200 Normal INR 2.3 Performed By: #### L300.3900 #### [facility] [address] [facility] [place], [place], [address] BNP,B-TYPE NATRIURETIC Collected: 09/12/2017 Status: F Source: [place] 5:15 AM [facility] REPOSITORY TYPE CODE TESTS RESULT OUT OF RANGE REFERENCE UNITS LAB L503.6620 0-100 pg/mL High B-TYPE 620.4 RICHA PEP Performed By: #### L503.6620 #### [facility] [address] [place], [address] CHEST 1 VIEW Observed: 09/12/2017 Status: F Source: [place] (PORTABLE) 5:09 AM [facility] REPOSITORY [facility] Imaging Services [address] [place] [address] Chest 1 View (Portable) MR#: [id number] Acct: [id number] Name: DOMINGUEZ [place] Rep #: [id number] : 1940 M 76 From: Nicky Hemphill MD PCP: DIRK CASTELAN Status: REG ER Study: Chest 1 View (Portable) Date of Exam: 09/12/17 Exam# [id number] Ordering Dr: Anne Marie Michel MD STUDY: [...] CC: DIRK CASTELAN; Anne Marie Michel MD Coal Grader: Signed OPERATIVE REPORT Observed: 09/10/2017 Status: F Source: [place] 3:41 PM [facility] REPOSITORY [facility] Medical Records Department [address] [place] [address] Operative Report 09/10/17 1536 MR#: [id number] Acct: [id number] Name: DOMINGUEZ GEIGER Rep #: [id number] : 1940 76 From: Edmond Soria MD PCP: DIRK CASTELAN Status: REG SD Y Location: [facility] Problem List (1) Atrial fibrillation Status: Acute (2) Cardiomyopathy Status: Acute Qualifiers: Cardiomyopathy type: unspecified Qualified Code(s): I42.9 - Cardiomyopathy, unspecified (3) Chronic systolic congestive heart failure Status: Chronic (4) 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 Status: Chronic Operative Report Date of Procedure: 09/10/17 - Conscious sedation CONSCIOUS SEDATION REPORT BRIEF HISTORY OF PRESENT ILLNESS: The patient is a 76-year-old [facility] male who presented to [facility] for an elective cardioversion secondary to [...] Visit 9xxxx: Other Procedure See Report - [id number] 09/10/17 1541 <Electronically signed by Edmond Soria MD> Date Edmond Soria MD CC: DIRK Soria MD Signed OPERATIVE REPORT Observed: 09/10/2017 Status: F Source: [place] 1:00 PM [facility] REPOSITORY [facility] Medical Records Department [address] [place] [address] Operative Report 09/10/17 1258 MR#: [id number] Acct: [id number] Name: DOMINGUEZ GEIGER Rep #: [id number] : 1940 76 From: Sen Turcios MD PCP: DIRK CASTELAN Status: REG [facility] [place] Location: [facility] Problem List (1) Atrial fibrillation Status: Acute Operative Report Date of Procedure: 09/10/17 Date: 09/10/2017 Procedure: Synchronized biphasic DC cardioversion Agents: Atrial fibrillation Consent: Per the patient Premedications: Per Dr. Edmond Soria pulmonology/critical care medicine with propofol 40 mg IV push 1 Procedure: Synchronized biphasic DC cardioversion: 200 J 1: Result: Sinus rhythm; PACs Complications: No apparent complications This note was generated with [employer] dictation software. It may contain incorrect words, spelling, and punctuation that were not noted in checking the note before signing. 09/10/17 1300 <Electronically signed by Sen Turcios MD> Date Sen Turcios MD CC: DIRK CASTELAN; Sen Turcios MD Signed POTASSIUM Collected: 09/10/2017 Status: F Source: [place] 10:52 AM [facility] REPOSITORY TYPE CODE TESTS RESULT OUT OF RANGE REFERENCE UNITS LAB L501.5600 3.5-5.1 mmol/L Normal K 4.5 Performed By: #### L501.5600 #### [facility] [address] [place], [address] PROTHROMBIN TIME W/INR Collected: 09/10/2017 Status: F Source: [place] 10:52 AM [facility] REPOSITORY Order Comment: Comments: for DCCV 09/10/17 Comments: for DCCV 09/10/17 TYPE CODE TESTS RESULT OUT OF RANGE REFERENCE UNITS LAB L300.4150 11.7-14.9 SECONDS High PROTIME 23.3 LAB L300.4200 Normal INR 2.2 Performed By: #### L300.3900 #### [facility] [address] [place], [address] ECHOCARDIOGRAM COMPLETE Observed: 09/09/2017 Status: F Source: [place] 1:31 PM [facility] REPOSITORY [facility] Cardiovascular Services [address] [facility] [place] [address] Echo Complete 09/09/17 0853 MR#: [id number] Acct: [id number] Name: DOMINGUEZ GEIGER Rep #: [id number] : 1940 76 From: Sen Turcios MD Attending Dr: Sen Turcios MD Status: REG CLI Ordering Dr: Sen Turcios MD Date: 09/09/17 Location: [facility] Sex: M C Admitted: Reason For Study: [...] Dictated: 09/09/17 0853 Date Transcribed: 09/09/17 1331 Coal Grader: Signed CHEST PA AND LATERAL Observed: 09/08/2017 Status: F Source: [place] 12:18 PM [facility] REPOSITORY [facility] Imaging Services [address] [place] [address] Chest PA and Lateral MR#: [id number] Acct: [id number] Name: DOMINGUEZ GEIGER Rep #: [id number] : 1940 M 76 From: Smith Grimm MD PCP: DIRK CASTELAN Status: REG CLI Study: Chest PA and Lateral Date of Exam: 09/08/17 Exam# [id number] Ordering Dr: Sen Turcios MD STUDY: X-RAY [...] Smith Grimm MD at 16:04 EST Tel [phone], Service support , CC: DIRK CASTELAN; Sen Turcios MD Coal Grader: Signed CBC W/DIFF, AUTOMATED Collected: 09/08/2017 Status: F Source: [place] 12:11 PM [facility] REPOSITORY TYPE CODE TESTS RESULT OUT OF [...] Performed By: #### L100.0100, L500.2500, L503.6620 #### [facility] [address] [place], [address] BASIC METABOLIC Collected: 09/08/2017 Status: F Source: [place] PROFILE (BMP) 12:11 PM [facility] REPOSITORY TYPE CODE TESTS RESULT OUT OF [...] Performed By: #### L100.0100, L500.2500, L503.6620 #### [facility] [address] [facility] [place], [place], [address] BNP,B-TYPE NATRIURETIC Collected: 09/08/2017 Status: F Source: [place] PEPTIDE 12:11 PM [facility] REPOSITORY TYPE CODE TESTS RESULT OUT OF RANGE REFERENCE UNITS LAB L503.6620 0-100 pg/mL High B-TYPE 780.0 RICHA PEP Performed By: #### L100.0100, L500.2500, L503.6620 #### [facility] [address] [place], [place], [address] PROTHROMBIN TIME W/INR Collected: 09/08/2017 Status: F Source: [place] 12:11 PM [facility] REPOSITORY TYPE CODE TESTS RESULT OUT OF RANGE REFERENCE UNITS LAB L300.4150 11.7-14.9 SECONDS High PROTIME 25.2 LAB L300.4200 Normal INR 2.4 Performed By: #### L300.3900 #### [facility] [address] [place], [address] CARDIOLOGY VISIT Observed: 09/08/2017 Status: F Source: [place] REPORT 11:34 AM [facility] REPOSITORY [facility] [address] [place] [address] OFFICE VISIT Date of Service: 09/08/17 MR#: [id number] Acct: [id number] Name: DOMINGUEZ GEIGER Rep #: [id number] : 1940 Provider: Sen Turcios MD Age/Sex: 76/M Location: [facility] Status: Signed HPI HPI Details: DOMINGUEZ GEIGER, [...] and poor R-wave progression compatible with anterior IL of indeterminate age- cannot be excluded, and [...] moderate MR/TR, mild aortic valve stenosis, trivial AI/HI, a calcified aortic root, and estimated RV [...] mg PO QDAY 09/08/17 [History Confirmed 09/08/17] [facility] Medical History Palpitations (Acute) Dyspnea (Acute) Abnormal EKG (Acute) Paroxysmal atrial tachycardia (Acute) Cardiomyopathy (Acute) senior care current use of anticoagulant (Chronic) Paroxysmal [...] evaluation and care as noted above. 5. senior care current use of anticoagulant Z79.01 Plan His [...] R06.00; R06.01 Dyspnea type: shortness of breath senior care current use of anticoagulant Z79.01 Coding Level of Care Code Off vis,est,level 4 Diagnoses Paroxysmal atrial fibrillation I48.0 Cardiomyopathy, unspecified type I42.9 Cardiomyopathy type: unspecified Chronic systolic CHF (congestive heart failure) I50.22 Shortness of breath R06.02; R06.00; R06.01 Dyspnea type: shortness of breath senior care current use of anticoagulant Z79.01 09/08/17 1134 <Electronically signed by Sen Turcios MD> Date Sen Turcios MD Cosigner Signature: Date (if applicable) CC: DIRK CASTELAN 12 LEAD EKG PERFORMED Observed: 09/08/2017 Status: F Source: [place] BY [facility] 10:37 AM [facility] [address] [place] [address] 12 Lead EKG performed by [facility] 09/08/17 1036 MR#: [id number] Acct: [id number] Name: DOMINGUEZ GEIGER Rep #: [id number] : 1940 76 From: Sen Turcios MD Attending Dr: Sen Turcios MD Status: DEP [facility] Ordering Dr: Sen Turcios MD Date: 09/08/17 Location: [facility] Sex: M C Admitted: [facility]/12 Lead EKG performed by [facility] ECG Report Interpretation Atrial fibrillation Left axis deviationPoor R wave progression Anterior infarct -age undetermined - cannot be excluded T-abnormality - Consider anterolateral ischemia. 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, [address] ALLERGIES ALLERGIES DATE TYPE / CODE NAME / CODE REACTION SEVERITY SOURCE 02/25/2018 Drug No Known Unknown [facility] Allergy/4160 Allergies/F00 Hospital 47498(SNOMED 9594055(RXNOR Repository CT) M) ENCOUNTERS ENCOUNTERS ADMIT/DISCHARGE ACCOUNT ADMITTING ENCOUNTER LOCATION SOURCE NUMBER CLASS 07/14/2018 [id number] Ambulatory [place] 8 [facility] ing:LAB Repository 06/28/2018/ [id number] Ambulatory [place] 2 [facility] ing:LAB Repository 06/28/2018 [id number] Ambulatory [place] 0 [facility] ing:PSN Repository 05/24/2018/ [id number] Ambulatory [place] 8 5 [facility] ing:LAB Repository 03/24/2018/ [id number] Ambulatory [place] 8 6 [facility] ing:LAB Repository 03/07/2018 [id number] Ambulatory [facility]:B [place] 0 [facility] Repository 02/25/2018/ [id number] Ambulatory BMSBuilding:B [place] 8 0 [facility] Repository 02/25/2018/ [id number] Ambulatory [place] 8 5 [facility] ing:LAB Repository 01/07/2018/ [id number] Ambulatory [place] 8 8 [facility] ing:LAB Repository 12/13/2017/ [id number] Ambulatory [place] 8 3 [facility] ing:LAB Repository 11/23/2017/ [id number] Ambulatory BMSBuilding:B [place] 8 6 [facility] Repository 11/23/2017/ [id number] Ambulatory [place] 7 [facility] ing:LAB Repository 11/16/2017 [id number] Ambulatory [place] 7 [facility] ing:CLSP Repository 11/16/2017 [id number] Ambulatory BMSBuilding:B [place] 0 [facility] Repository 11/16/2017 [id number] Ambulatory [facility]Building:W [place] 5 [facility] Repository 11/16/2017 [id number] Ambulatory B[facility]Building:W [place] 4 [facility] Repository 11/03/2017/ [id number] Ambulatory BMSBuilding:B [place] 8 7 [facility] Repository 11/03/2017 [id number] Ambulatory [facility]Building:B [place] 5 [facility] Repository 10/28/2017/ [id number] Ambulatory [place] 6 [facility] ing:LAB Repository 09/30/2017 [id number] Ambulatory BMSBuilding:B [place] 9 [facility] Repository 09/29/2017/ [id number] Ambulatory [place] 8 8 [facility] ing:LAB Repository 09/23/2017/ [id number] Ambulatory BMSBuilding:B [place] 8 5 [facility] Repository 09/17/2017 [id number] Ambulatory [facility]Building:B [place] 0 [facility] Repository 09/12/2017/ [id number] Ramon Herrera Inpatient [place] 8 9 [facility] ing:PCURoom: Repository PHK718Flf: 1 09/12/2017 [id number] Ramon Herrera Ambulatory BMSBuilding:B [place] 0 [facility] Repository 09/12/2017 [id number] Ramon Herrera Ambulatory BMSBuilding:B [place] 9 [facility] Hospital Repository 09/12/2017 [id number] [place], [facility] Ambulatory BMSBuilding:B [place] 8 [facility] Hospital Repository 09/12/2017 [id number] [place], [facility] Ambulatory BMSBuilding:B [place] 9 [facility] Hospital Repository 09/12/2017 [id number] [place], [facility] Ambulatory BMSBuilding:B [place] 7 [facility] Hospital Repository 09/12/2017 [id number] [place], [facility] Ambulatory BMSBuilding:B [place] 9 [facility] Hospital Repository 09/12/2017 [id number] [place], [facility] Ambulatory BMSBuilding:B [place] 5 [facility] Hospital Repository 09/12/2017 [id number] Ambulatory BMSBuilding:B [place] 3 [facility] Repository 09/10/2017 [id number] Ambulatory [place] 2 [facility] Repository 09/10/2017 [id number] Ambulatory BMSBuilding:B [place] 6 [facility] Repository 09/10/2017 [id number] Ambulatory BMSBuilding:B [place] 8 [facility] Repository 09/09/2017 [id number] Ambulatory [place] 9 [facility] ing:CVS Repository 09/09/2017 [id number] Ambulatory BMSBuilding:W [place] 2 [facility] Hospital Repository 09/08/2017 [id number] Ambulatory [place] 1 [facility] ing:LAB Repository 09/08/2017/ [id number] Ambulatory BMSBuilding:B [place] 8 3 [facility] Hospital Repository 09/08/2017 [id number] Ambulatory BMSBuilding:B [place] 0 [facility] Repository 08/05/2017/ [id number] Ambulatory [place] 8 0 [facility] ing[facility]LAB Repository PAYERS PAYERS ENCOUNTER GUARANTOR PAYER SUBSCRIBER SOURCE 07/14/2018 ANNE MARIE [id number] Insurance:TAOIST HOSTETLERDOB: [facility] [id number] Number: Repository , [place] [address]Jdl: [id number] Date: () [facility] [address] [place] [address]WR: 07/14/2018 Secondary NOT GIVENUNK [place] Insurance:SELF PAY [facility] Number: Effective Repository Date:2018-07-04 06/28/2018 [facility] [place] [id number] Insurance:TAOIST HOSTETLERDOB: [facility] [id number] County Memorial Hospitaly Number: Repository , [place] [address]Pwb: [id number] Date: () [address] [address]VQ: 06/28/2018 Secondary NOT GIVENUNK [place] Insurance:SELF PAY [facility] Number: Effective Repository Date:2018-06-02 06/28/2018 [facility] [place] [id number] Insurance:TAOIST HOSTETLERDOB: [facility] [id number] Regional Medical Center Number: Repository , [place] [address]Wry: [id number] Date: () [address] [address]GP: 06/28/2018 Secondary NOT GIVENUNK [place] Insurance:SELF PAY [facility] Number: Effective Repository Date:2018-06-15 05/24/2018 [facility] [place] [id number] Insurance:TAOIST HOSTETLERDOB: [facility] [id number] Regional Medical Center Number: Repository , [place] [address]Vog: [id number] Date: () [address] [address]YW: 05/24/2018 Secondary NOT GIVENUNK [place] Insurance:SELF PAY [facility] Number: Effective Repository Date:2018-04-05 03/24/2018 ANNE MARIE Primary ANNE MARIE [place] [id number] Insurance:TAOIST HOSTETLERDOB: [facility] [id number] Health Centericy Number: Repository , [place] [address]Ebq: [id number] Date: () [address] [address]KP: 03/24/2018 Secondary NOT GIVENUNK [place] Insurance:SELF PAY [facility] Number: Effective Repository Date:2018-03-03 03/07/2018 [place] Primary NOT GIVENUNK [place] [id number] Insurance:[facility] Number: [facility] [id number] Repository , [place] [address]Usq: Date:2017-07-20 () 03/07/2018 Secondary NOT GIVENUNK [place] Insurance:SELF PAY [facility] Number: Effective Repository Date:2017-07-20 02/25/2018 ANNE MARIE Primary ANNE MARIE [place] [id number] Insurance:TAOIST HOSTETLERDOB: [facility] [id number] Health Centericy Number: Repository , [place] [address]Iji: [id number] Date: () [address] [address]IQ: 02/25/2018 Secondary NOT GIVENUNK [place] Insurance:SELF PAY [facility] Number: Effective Repository Date:2018-02-25 02/25/2018 ANNE MARIE Primary ANNE MARIE [place] [id number] Insurance:TAOIST HOSTETLERDOB: [facility] [id number] Health Centericy Number: Repository , [place] [address]Ohl: [id number] Date: () [facility] [address] [place] [address]CH: 02/25/2018 Secondary NOT GIVENUNK [place] Insurance:SELF PAY [facility] Number: Effective Repository Date:2018-01-28 01/07/2018 [facility] [place] [id number] Insurance:TAOIST HOSTETLERDOB: [facility] [id number] Regional Medical Center Number: Repository , [place] [address]Ikn: [id number] Date: () [address] [address]RX: 01/07/2018 Secondary NOT GIVENUNK [place] Insurance:SELF PAY [facility] Number: Effective Repository Date:2017-12-30 12/13/2017 [facility] [place] [id number] Insurance:TAOIST HOSTETLERDOB: [facility] [id number] County Memorial Hospitaly Number: [facility] [place] [address]Wbt: [id number] Date: () [address] [address]XI: 12/13/2017 Secondary NOT GIVENUNK [place] Insurance:SELF PAY [facility] Number: Effective Repository Date:2017-11-30 11/23/2017 [facility] [place] [id number] Insurance:TAOIST HOSTETLERDOB: [facility] [id number] County Memorial Hospitaly Number: Repository , [place] [address]Xkt: [id number] Date: () [facility] [address] [place] [address]LC: 11/23/2017 Secondary NOT GIVENUNK [place] Insurance:SELF PAY [facility] Number: Effective Repository Date:2017-11-23 11/23/2017 [place] Madhav Primary [place] W [place] [id number] Insurance:TAOIST HOSTETLERDOB: [facility] [id number] Regional Medical Center Number: Repository , [place] [address]Ctf: [id number] Date: () [facility] [address] [place] [address]TV: 11/23/2017 Secondary NOT GIVENUNK [place] Insurance:SELF PAY [facility] Number: Effective Repository Date:2017-11-01 11/16/2017 ANNE MARIE W Primary ANNE MARIE W [place] [id number] Insurance:TAOIST HOSTETLERDOB: [facility] [id number] Health Centericy Number: Repository , [place] [address]Qnl: [id number] Date: () [facility] [address] [place] [address] 24[address]UB: 11/16/2017 Secondary NOT GIVENUNK [place] Insurance:SELF PAY [facility] Number: Effective Repository Date:2017-11-03 11/16/2017 [place] W Primary DOMINGUEZ W [place] [id number] Insurance:TAOIST HOSTETLERDOB: [facility] [id number] County Memorial Hospitaly Number: Repository , [place] [address]Hld: [id number] Date: () [facility] [address] [place] [address]QO: 11/16/2017 Secondary NOT GIVENUNK [place] Insurance:SELF PAY [facility] Number: Effective Repository Date:2017-11-16 11/16/2017 [place] W Primary DOM[place]Z W [place] [id number] Insurance:TAOIST HOSTETLERDOB: [facility] [id number] County Memorial Hospitaly Number: Rep[place] , [place] [address]Cku: [id number] Date: (HP) TW RD [address] [place] [address]XE: 11/16/2017 Secondary NOT GIVENUNK [place] Insurance:SELF PAY [facility] Number: Effective Repository Date:2017-11-16 11/16/2017 [facility] Primary ANNE MARIE [place] [id number] Insurance:TAOIST HOSTETLERDOB: [facility] [id number] Regional Medical Center Number: Repository , [place] [address]Zna: [id number] Date: () [facility] [address] [place] [address]28[address]NB: 11/16/2017 Secondary NOT GIVENUNK [place] Insurance:SELF PAY [facility] Number: Effective Repository Date:2017-11-16 11/03/[address] [facility] [address] [facility] [place] [id number] Insurance:TAOIST HOSTETLERDOB: [facility] [id number] Regional Medical Center Number: [facility] , [place] [address]Sql: [id number] Date: () [facility] [address] [place] [address] 18[address]TF: 11/03/2017 Secondary NOT GIVENUNK [place] Insurance:SELF PAY [facility] Number: Effective Repository Date:2017-11-03 11/03/[address] [facility] [address] [facility] [place] [id number] Insurance:TAOIST HOSTETLERDOB: [facility] [id number] Regional Medical Center Number: Repository , [place] [address]Dfk: [id number] Date: () [facility] [address] [place] [address]27[address]WC: 11/03/2017 Secondary NOT GIVENUNK [place] Insurance:SELF PAY [facility] Number: Effective Repository Date:2017-11-03 10/28/[address] [facility] Primary [place] Madhav [place] [id number] Insurance:TAOIST HOSTETLERDOB: [facility] [id number] County Memorial Hospitaly Number: Repository , [place] [address]Xbt: [id number] Date: () TW RD [address] [place] [address]13[address]FN: 10/28/2017 Secondary NOT GIVENUNK [place] Insurance:SELF PAY [facility] Number: Effective Repository Date:2017-09-30 09/30/[address] [facility] Primary [place] Madhav [place] [id number] Insurance:TAOIST HOSTETLERDOB: [facility] [id number] County Memorial Hospitaly Number: Rep[place] , [place] [address]Dch: [id number] Date: () TW RD [address] [place] [address] 565[address]MH: 09/30/2017 Secondary NOT GIVENUNK [place] Insurance:SELF PAY [facility] Number: Effective Repository Date:2017-09-15 09/29/[address] [facility] Primary [place] Madhav [place] [id number] Insurance:TAOIST HOSTETLERDOB: [facility] [id number] County Memorial Hospitaly Number: [place]ository , [place] [address]Oop: [id number] Date: () TW RD [address] [place] [address]WR: 09/29/2017 Secondary NOT GIVENUNK [place] Insurance:SELF PAY [facility] Number: Effective Repository Date:2017-09-03 09/23/[address] [facility] Primary [place] Madhav [place] [id number] Insurance:TAOIST HOSTETLERDOB: [facility] [id number] County Memorial Hospitaly Number: Repository , [place] [address]Oke: [id number] Date: (HP) TW RD [address] [place] [address] 217[address]RK: 09/23/2017 Secondary NOT GIVENUNK [place] Insurance:SELF PAY [facility] Number: Effective Repository Date:2017-09-16 09/17/[address] [facility] [address] [facility] Goldy [id number] Insurance:TAOIST HOSTETLERDOB: Community [facility] [id number] [facility] Hospitaly Number: Repository , [place] [address]Esl: [id number] Date: () TW [address] [place] [address]85[address]MJ: 09/17/2017 Secondary NOT GIVENUNK [place] Insurance:SELF PAY [facility] Number: Effective Repository Date:2017-09-08 09/12/[address] [facility] [address] [facility] [place] [id number] Insurance:TAOIST HOSTETLERDOB: [facility] [id number] Health Centericy Number: Repository , [place] [address]Mhi: [id number] Date: () [facility] [address] [place] [address] [id number]: 09/12/2017 Secondary NOT GIVENUNK [place] Insurance:SELF PAY [facility] Number: Effective Repository Date:2017-09-12 09/12/[address] [facility] [address] [facility] [place] [id number] Insurance:TAOIST HOSTETLERDOB: [facility] [id number] [facility] GROUPQuail Run Behavioral Healthicy Number: Repository , [place] [address]Qru: [id number] Date: () P [address] [place] [address] [id number]: 09/12/2017 Secondary NOT GIVENUNK [place] Insurance:SELF PAY [facility] Number: Effective Repository Date:2017-09-12 09/12/[address] [facility] Primary [place] Corey Goldy [id number] Insurance:TAOIST HOSTETLERDOB: [facility] [id number] County Memorial Hospitaly Number: Repository , [place] [address]Ecr: [id number] Date: () [address], [place] [address]LL: 09/12/2017 Secondary NOT GIVENUNK [place] Insurance:SELF PAY [facility] Number: Effective Repository Date:2017-09-12 09/12/[address] [facility] Primary [place] Madhav Goldy [id number] Insurance:TAOIST HOSTETLERDOB: [facility] [id number] Regional Medical Center Number: Repository , [place] [address]Oat: [id number] Date: () [address] [place] [address] 4[address]JH: 09/12/2017 Secondary NOT GIVENUNK [place] Insurance:SELF PAY [facility] Number: Effective Repository Date:2017-09-12 09/12/[address] [facility] Primary [place] Madhav [place] [id number] Insurance:TAOIST HOSTETLERDOB: [facility] [id number] Regional Medical Center Number: Repository , [place] [address]Trc: [id number] Date: () [address], [place] [address]CG: 09/12/2017 Secondary NOT GIVENUNK [place] Insurance:SELF PAY [facility] Number: Effective Repository Date:2017-09-12 09/12/[address] [facility] Primary [place] Corey Goldy [id number] Insurance:TAOIST HOSTETLERDOB: [facility] [id number] Regional Medical Center Number: Repository , [place] [address]Zvg: [id number] Date: () [address], [place] [address]EY: 09/12/2017 Secondary NOT GIVENUNK [place] Insurance:SELF PAY [facility] Number: Effective Repository Date:2017-09-12 09/12/[address] [facility] Primary [place] Madhav [place] [id number] Insurance:TAOIST HOSTETLERDOB: [facility] [id number] County Memorial Hospitaly Number: Repository , [place] [address]Ozf: [id number] Date: () [facility] [address] [place] [address] 537[address]KL: 09/12/2017 Secondary NOT GIVENUNK [place] Insurance:SELF PAY [facility] Number: Effective Repository Date:2017-09-12 09/12/[address] [facility] [address] [facility] [place] [id number] Insurance:TAOIST HOSTETLERDOB: [facility] [id number] Health Centericy Number: Repository , [place] [address]Bmg: [id number] Date: () [address] [address]GL: 09/12/2017 Secondary NOT GIVENUNK [place] Insurance:SELF PAY [facility] Number: Effective Repository Date:2017-09-12 09/12/[address] [facility] [address] [facility] Goldy [id number] Insurance:TAOIST HOSTETLERDOB: [facility] [id number] Health Centericy Number: Repository , [place] [address]Zli: [id number] Date: () [facility] [address] [place] [address]CQ: 09/12/2017 Secondary NOT GIVENUNK [place] Insurance:SELF PAY [facility] Number: Effective Repository Date:2017-09-12 09/10/2017 [place] W Primary [place] W Goldy [id number] Insurance:TAOIST HOSTETLERDOB: [facility] [id number] Health Centericy Number: Repository , [place] [address]Eal: [id number] Date: () [address] [address]SG: 09/10/2017 Secondary NOT GIVENUNK [place] Insurance:SELF PAY [facility] Number: Effective Repository Date:2017-09-08 09/10/2017 [place] W Primary [place] W Goldy [id number] Insurance:TAOIST HOSTETLERDOB: [facility] [id number] Health Centericy Number: Repository , [place] [address]Slo: [id number] Date: () [address] [address]LZ: 09/10/2017 Secondary NOT GIVENUNK [place] Insurance:SELF PAY [facility] Number: Effective Repository Date:2017-09-10 09/10/2017 [place] W Primary [place] W [place] [id number] Insurance:TAOIST HOSTETLERDOB: [facility] [id number] Health Centericy Number: Repository , [place] [address]Pna: [id number] Date: () [address] [address]TB: 09/10/2017 Secondary NOT GIVENUNK [place] Insurance:SELF PAY [facility] Number: Effective Repository Date:2017-09-10 09/09/2017 [place] W Primary [place] W Goldy [id number] Insurance:TAOIST HOSTETLERDOB: [facility] [id number] Health Centericy Number: Repository , [place] [address]Hsp: [id number] Date: () [facility] [address] [place] [address] 32[address]DB: 09/09/2017 Secondary NOT GIVENUNK [place] Insurance:SELF PAY [facility] Number: Effective Repository Date:2017-09-08 09/09/[address] [facility] [address] [facility] [place] [id number] Insurance:TAOIST HOSTETLERDOB: [facility] [id number] Health Centericy Number: Repository , [place] [address]Qlm: [id number] Date: () [facility] [address] [place] [address] 18[address]HC: 09/09/2017 Secondary NOT GIVENUNK [place] Insurance:SELF PAY [facility] Number: Effective Repository Date:2017-09-09 09/08/[address] [facility] [address] [facility] [place] [id number] Insurance:TAOIST HOSTETLERDOB: [facility] [id number] Health Centericy Number: Repository , [place] [address]Itr: [id number] Date: () [facility] [address] [place] [address] 84[address]GM: 09/08/2017 Secondary NOT GIVENUNK [place] Insurance:SELF PAY [facility] Number: Effective Repository Date:2017-09-08 09/08/[address] [facility] [address] [facility] Goldy [id number] Insurance:TAOIST HOSTETLERDOB: [facility] [id number] [facility] Hospital GROUPQuail Run Behavioral Healthicy Number: Repository , [place] [address]Kfd: [id number] Date: () [facility] [address] [place] [address] 29119TB: 09/08/2017 Secondary NOT GIVENUNK [place] Insurance:SELF PAY [facility] Number: Effective Repository Date:2017-09-07 09/08/2017 [facility] Primary [facility] Goldy [id number] Insurance:TAOIST HOSTETLERDOB: Community JERMAINE AIDPolicy Number: [id number] [facility]burg Hospital [id number] Repository , [place] [address]Gsx: Date:2017-09-08 () 09/08/2017 Secondary NOT GIVENUNK [place] Insurance:SELF PAY [facility] Number: Effective Repository Date:2017-09-08 08/05/2017 [facility] Primary [facility] Goldy [id number] Insurance:TAOIST HOSTETLERDOB: Community JERMAINE AIDPolicy Number: [id number] Chambersburg Hospital [id number] Repository , [place] [address]Utz: Date:2017-06-02 () 08/05/2017 Secondary NOT GIVENUNK [place] Insurance:SELF PAY [facility] Number: Effective Repository Date:2017-06-02
== END 2018-07-01 09:52 | disposition home or self-care (01) ==
LOC: LAB 07:20
PROVIDERS: Family Provider Family Medicine; PCP Family Medicine; Referring Provider Internal Medicine Cardiovascular Disease; Visit Provider Internal Medicine Cardiovascular Disease
DX: I48.91 Unspecified atrial fibrillation (principal); I48.0 Paroxysmal atrial fibrillation; Z79.01 Long term (current) use of anticoagulants
CPT/HCPCS: 36415; 85610

== ENCOUNTER 2018-08-24 09:36 | Outpatient (RCR) | payer OTHER, SELFPAY ==
[2018-06-15 14:25] VITALS: BMI 26.9
[2018-08-24 09:10] VITALS: BMI 25.7
[2018-08-24 11:13] LABS: International Normalized Ratio 3.3; Prothrombin Time (Protime)PT. 33.9 SECONDS (11.7-14.9)
[2018-08-24 11:58] LABS: AST(SGOT) 28 U/L (15-37); Alanine Aminotransfer ALT/SGPT 49 U/L (16-61); Albumin, Serum 3.7 g/dL (3.2-5.0); Alkaline Phosphatase 79 U/L (45-117); Bilirubin, Direct 0.17 mg/dL (0.00-0.30); Protein, Total 7.7 g/dL (6.4-8.2); T4 Free Direct 0.52 ng/dL (0.76-1.46)
--- OUTSIDE RECORDS SUMMARY | 2018-10-26 06:18 | XMS RPT_ITS ---
:1940 Author Organization [place] Support Name Relationship Address Phone BARBY GEIGER Unavailable [address] + [place] [address] HERNÁN GEIGER Unavailable Unavailable + [place] [address] R Unavailable Unavailable Unavailable BARBY GEIGER Unavailable [address] + [place] [address] HERNÁN GEIGER Unavailable UNKNOWN + [place] [address] R Unavailable Unavailable Unavailable BARBY GEIGER Unavailable [address] + [place] [address] HERNÁN GEIGER Unavailable Unavailable + [place] [address] R Unavailable Unavailable Unavailable BARBY GEIGER Unavailable [address] + [place] [address] HERNÁN GEIGER Unavailable Unavailable + [place] [address] R Unavailable Unavailable Unavailable BARBY GEIGER Unavailable [address] + [place] [address] HERNÁN GEIGER Unavailable Unavailable + [place] [address] R Unavailable Unavailable Unavailable BARBY GEIGER Unavailable [address] + [place] [address] HERNÁN GEIGER Unavailable Unavailable + [place] [address] R Unavailable Unavailable Unavailable CURLU Unavailable [address] + [place] [address] JUANJO, EMMA Unavailable [address] + [facility] [place] [address] JUANJOARMONDNE Mayco Unavailable . + [place] [address] JUANJO, BARBY Unavailable [address] + [place] [address] JUANJOARMONDNE J Unavailable . + [place] [address] R Unavailable Unavailable Unavailable JUANJO, BARBY Unavailable [address] + [place] [address] JUANJOARMONDNE J Unavailable Unavailable + [place] [address] R Unavailable Unavailable Unavailable JUANJO, BARBY Unavailable [address] + [place] [address] JUANJOARMONDNE Mayco Unavailable Unavailable + [place] [address] R Unavailable Unavailable Unavailable JUANJO, BARBY Unavailable [address] + [place] [address] JUANJO, HERNÁN Mayco Unavailable Unavailable + [place] [address] R Unavailable Unavailable Unavailable JUANJO, BARBY Unavailable [address] + [place] [address] JUANJOHERNÁN GUIDRY Unavailable . + [place] [address] R Unavailable Unavailable Unavailable JUANJO, BARBY Unavailable [address] + [place] [address] JUANJO, HERNÁN Mayco Unavailable Unavailable + [place] [address] R Unavailable Unavailable Unavailable JUANJO, BARBY Unavailable [address] + [place] [address] JUANJO, HERNÁN Mayco Unavailable Unavailable + [place] [address] R Unavailable Unavailable Unavailable JUANJO, BARBY Unavailable [address] + [place] [address] JUANJOARMONDNE Mayco Unavailable Unavailable + [place] [address] R Unavailable Unavailable Unavailable JUANJO, BARBY Unavailable [address] + [place] [address] HERNÁN GEIGER Unavailable . + [place] [address] R Unavailable Unavailable Unavailable JUANJO, BARBY Unavailable [address] + [place] [address] JUANJOARMOND NAVARRONE J Unavailable Unavailable + [place] [address] R Unavailable Unavailable Unavailable CURLU Unavailable [address] + [place] [address] JUANJO, ABRBY Unavailable [address] + [place] [address] ARMOND GEIGERNE J Unavailable . + [place] [address] CURLU Unavailable [address] + [place] [address] JUANJO, BARBY Unavailable [address] + [place] [address] ARMOND GEIGERNE J Unavailable . + [place] [address] CURLU Unavailable [address] + [place] [address] JUANJO, BARBY Unavailable [address] + [place] [address] ARMOND GEIGERNE J Unavailable . + [place] [address] CURLU Unavailable [address] + [place] [address] JUANJO, BARBY Unavailable [address] + [place] [address] HERNÁN GEIGER J Unavailable Unavailable + CURL[facility] Unavailable [address] + [place] [address] JUANJO, BARBY Unavailable [address] + [place] [address] JUANJO, HERNÁN J Unavailable . + [place] [address] CURLU Unavailable [address] + [place] [address] JUANJO, BARBY Unavailable [address] + [place] [address] JUANJO HERNÁN J Unavailable . + [place] [address] CURLU Unavailable [address] + [place] [address] JUANJO, BARBY Unavailable [address] + [place] [address] JUANJO, HERNÁN J Unavailable Unavailable + CURLU Unavailable [address] + [place] [address] JUANJO, BARBY Unavailable [address] + [place] [address] ARMOND GEIGERNE J Unavailable Unavailable + [facility] Unavailable [address] + [place] [address] JUANJO, BARBY Unavailable [address] + [place] [address] HERNÁN GEIGER Unavailable Unavailable + CURLU Unavailable [address] + [place] [address] JUANJO, BARBY Unavailable [address] + [place] [address] JUANJO HERNÁN J Unavailable Unavailable + CURLU Unavailable [address] + [place] [address] JUANJO, BARBY Unavailable [address] + [place] [address] JUANJO HERNÁN J Unavailable . + [place] [address] CURLU Unavailable [address] + [place] [address] JUANJO, BARBY Unavailable [address] + [place] [address] JUANJO, HERNÁN J Unavailable Unavailable + CURLU Unavailable [address] + [place] [address] JUANJO, BARBY Unavailable [address] + [facility] [place] [address] JUANJO, HERNÁN J Unavailable . + [place] [address] CURLU Unavailable [address] + [place] [address] JUANJO, BARBY Unavailable [address] + [place] [address] JUANJO, HERNÁN J Unavailable Unavailable + CURLU Unavailable [address] + [place] [address] JUANJO, BARBY Unavailable [address] + [place] [address] JUANJO, HERNÁN J Unavailable . + [place] [address] CURLU Unavailable [address] + [place] [address] JUANJO, BARBY Unavailable [address] + [place] [address] JUANJO, EHRNÁN J Unavailable . + [place] [address] CURLU Unavailable [address] + [place] [address] JUANJO, BARBY Unavailable [address] + [place] [address] JUANJO, HERNÁN J Unavailable Unavailable + CURLU Unavailable [address] + [place] [address] JUANJO, BARBY Unavailable [address] + [place] [address] JUANJO, HERNÁN J Unavailable Unavailable + CURLU Unavailable [address] + [place] [address] PHIL GEIGERA Unavailable [address] + [place] [address] HERNÁN GEIGER Unavailable Unavailable + CURLU Unavailable [address] + [place] [address] JUANJO BARBY Unavailable [address] + [place] [address] HERNÁN GEIGER Unavailable Unavailable + CURLU Unavailable [address] + [place] [address] PHIL GEIGERA Unavailable [address] + [place] [address] HERNÁN GEIGER Unavailable . + [place] [address] CURLU Unavailable [address] + [place] [address] BARBY GEIGER Unavailable [address] + [place] [address] HERNÁN GEIGER Unavailable Unavailable + CURLU Unavailable [address] + [place] [address] JUANJO BARBY Unavailable [address] + [place] [address] HERNÁN GEIGER Unavailable NA + [place], [place] CURLU Unavailable [address] + [place] [address] JUANJO BARBY Unavailable [address] + [place] [address] ARMOND GEIGERNE Unavailable [address] + [place] [address] Care Team Providers Name Role Ace Gonzalez Attending Unavailable DIRK CASTELAN Referring Unavailable Sen Turcios Attending Unavailable Sen Turcios Referring Unavailable DIRK CASTELAN Primary Care Unavailable Stella Mishra Attending Unavailable Sen Turcios Attending Unavailable RANCHO, DIRK Referring Unavailable RANCHO, [...] Primary Care Unavailable MoodispaSen corey Consulting Unavailable Edmond Soria Attending Unavailable Moodispaw, Sen Referring Unavailable RANCHO, DIRK Primary Care Unavailable MoodisSen storm Consulting Unavailable RANCHO, DIRK Primary Care Unavailable Sharon, Ramon Admitting Unavailable Moodispamadhav, Sen Consulting Unavailable Hardeep, Kenny Attending Unavailable RANCHO, DIRK Primary Care Unavailable Deanna Billingsley Attending Unavailable Sharon, Ramon Admitting Unavailable Moodispamadhav, Sen Attending Unavailable RANCHO, DIKR Primary Care Unavailable MoodisSen storm Consulting Unavailable Paintsil, [place] Consulting Unavailable Sharon, Ramon Admitting Unavailable Moodispamadhav, Sen Attending Unavailable RANCHO, DIRK Primary Care Unavailable MoodisSen storm Consulting Unavailable Hardeep, Kenny Consulting Unavailable Sharon, Ramon Admitting Unavailable RANCHO, DIRK Primary Care Unavailable MoodispaSen corey Consulting Unavailable Hardeep, Kenny Attending Unavailable Hardeep, Kenny Consulting Unavailable Sharon, Ramon Admitting Unavailable Moodispamadhav, Sen Attending Unavailable RANCHO, DIRK Primary Care Unavailable MoodisSen storm Consulting Unavailable Hardeep, Kenny Consulting Unavailable Sharon, Ramon Admitting Unavailable RANCHO, DIRK Primary Care Unavailable MoodispaSen corey Consulting Unavailable Hardeep, Kenny Attending Unavailable Hardeep, Kenny Consulting Unavailable Sharon, Ramon Admitting Unavailable Moodispamadhav, Sen Attending Unavailable RANCHO, DIRK Primary Care Unavailable MoodisSen storm Consulting Unavailable Hardeep, Kenny Consulting Unavailable Moodisdotty, Sen Attending Unavailable RANCHO, DIRK Referring Unavailable Hardeep, Kenny Attending Unavailable Sharon, Ramon Admitting Unavailable RANCHO, DIRK Primary Care Unavailable MoodisSen storm Consulting Unavailable Hardeep, Kenny Consulting Unavailable Ace Michel Attending Unavailable RANCHO, DIRK Referring Unavailable DeFinisTrang [...] RANCHO, DIRK Primary Care Unavailable Moodispaw, Sen Consulting Unavailable Ace Michel Attending Unavailable RANCHO, DIRK Referring Unavailable YangEdmond tovar Attending Unavailable Moodispaw, Sen Referring Unavailable Moodispaw, [...] TYPE CONDITION / CODE ATTENDING STATUS SOURCE 08/24/2018 Unknown Z79.01 - group home Ace Michel Active [place] (current) use of [facility] anticoagulants / Hospital Z79.01(ICD-10) Repository 08/24/2018 Unknown I48.0 - Paroxysmal Ace Michel Active [place] atrial fibrillation / [facility] I48.0(ICD-10) Hospital Repository 08/24/2018 Unknown Z79.899 - Other long Ace Michel Active [place] term (current) drug [facility] therapy / Hospital Z79.899(ICD-10) Repository 06/02/2018 Unknown I47.1 - Moodispaw, Active [place] Supraventricular [facility] tachycardia / Hospital I47.1(ICD-10) Repository 06/02/2018 Unknown I48.91 - Unspecified Moodispaw, Active [place] atrial fibrillation / [facility] I48.91(ICD-10) Hospital Repository 12/24/2017 Unknown I50.22 - Chronic Kali Drew Active [place] systolic (congestive) [facility] heart failure / Hospital I50.22(ICD-10) Repository 12/24/2017 Unknown R06.09 - Other forms Kali Drew Active [place] of dyspnea / [facility] R06.09(ICD-10) Hospital Repository 11/03/2017 Unknown I42.9 - Ace Michel Active [place] Cardiomyopathy, [facility] unspecified / Hospital I42.9(ICD-10) Repository 11/03/2017 Unknown R94.31 - Abnormal Ace Michel Active [place] electrocardiogram [facility] [ECG] [EKG] / Hospital R94.31(ICD-10) Repository 11/03/2017 Unknown Z01.810 - Encounter Ace Michel Active [place] for preprocedural [facility] cardiovascular Hospital examination / Repository Z01.810(ICD-10) 09/23/2017 Unknown R00.2 - Palpitations / DeFinis, Active [place] R00.2(ICD-10) [facility] Repository 09/13/2017 Unknown E87.6 - Hypokalemia / Moodispaw, Active [place] E87.6(ICD-10) [facility] Repository 09/09/2017 Unknown R06.02 - Shortness of Mood[place], Active [place] breath / [facility] R06.02(ICD-10) Hospital Repository 09/08/2017 Unknown R06.00 - Dyspnea, Moodispaw, Active [place] unspecified / [facility] R06.00(ICD-10) Hospital Repository 09/08/2017 Unknown R06.01 - Orthopnea / [place], Active [place] R06.01(ICD-10) [facility] Repository PROCEDURES PROCEDURES No Procedure Records FoundRESULTS RESULTS CARDIOLOGY VISIT Observed: 08/24/2018 Status: F Source: [place] REPORT 10:06 AM [facility] [place] [facility] [address] [place] [address] OFFICE VISIT Date of Service: 08/24/18 MR#: [id number] Acct: [id number] Name: ANNE MARIE GEIGER Rep #: [id number] : 1940 Provider: ROCIO Michel Age/Sex: 77/M Location: [facility] Status: Signed HPI HPI Details: [...] tolerance is stable. Pt denies symptoms of palpitations, lightheadedness, dizziness, near syncopal or syncopal episodes. Pt denies claudication issues. Pt. denies PND, blood in urine, blood in stool, myalgia, or unexplainable fatigue. He states recently his rotator cuff was evaluated d/t pain. This pain improved with exercise/PT. He states intermittent exertional SOB that he regulates his Lasix to improve. He states noting orthopnea when he feels up with fluid. He also acknowledges intermittent episodes of bilateral lower edema. Intake Vital Signs08/24/18 Height 5 ft 10 in 08/24/18 Weight: 179 lb 08/24/18 Body Mass Index (BMI) 25.7 08/24/18 Blood Pressure 132/84 H Intake Visit Reasons: 6 M FU Allergies No Known Allergies Allergy (Verified 02/25/18 09:49) Medications potassium chloride ER 20 mEq tablet,extended release(part/cryst) 20 meq PO DAILY #90 tab 11/16/17 [Rx Confirmed 02/25/18] warfarin 2 mg tablet 1 mg PO DAILY tab 02/25/18 [History Confirmed 06/28/18] amiodarone 200 mg tablet 200 mg PO DAILY #90 tab 08/24/18 [Rx Confirmed 08/24/18] furosemide 20 mg tablet 20 mg PO QDAY #90 tab 08/24/18 [Rx Confirmed 08/24/18] lisinopril 10 mg tablet 10 mg PO QDAY #90 tab 08/24/18 [Rx Confirmed 08/24/18] metoprolol tartrate 100 mg tablet 100 mg PO BID #180 tab 08/24/18 [Rx Confirmed 08/24/18] PFSH Medical History Atrial fibrillation (Acute) Acute on chronic systolic heart failure (Acute) Mitral valve regurgitation (Chronic) Aortic valve stenosis (Chronic) Hypokalemia (Acute) Palpitations (Resolved) Dyspnea (Acute) Abnormal EKG (Acute) Paroxysmal atrial tachycardia (Acute) Cardiomyopathy (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) Paroxysmal atrial [...] Cardio Chest Pain: No Palpitations: No Edema: Bilateral Muscle aches with walking: None Resp Respiratory: Positive for SOB with activity and SOB orthopnea\SOB lying down; negative for SOB at rest or paroxysmal nocturnal dyspnea GI GI: Negative nausea, black,tarry stools, bright, red blood in stools or vomiting blood/hematemesis : Negative for hematuria or frequent nighttime urination/ nocturia Musc Musc: Negative for muscle aches/ myalgia Skin Skin: Negative non-healing lesions or rash Neuro Neuro: Negative for weakness or dizziness Endo Endo: Negative for fatigue Allergy Allergy/Immunology: Negative for rash Cardiology Exam Const Appearance: cooperative, healthy appearing, comfortable and no acute distress Nutritional Appearance: average body habitus and well nourished Orientation: alert, awake and oriented x3 Head Head: normal to inspection Ears: hearing grossly normal bilaterally Nose: external nose normal Face and Sinus: face symmetric Mouth: oral mucosae normal Eyes EOM: EOM intact bilaterally Neck Neck: no JVD and normal visual inspection Carotids: normal carotid upstroke Chest Chest inspection: normal inspection of the chest, normal respiratory effort and symmetric chest movement Auscultation: Bilateral: Clear to Auscultation Cardio Rate: regular rate Rhythm: regular rhythm Heart sounds: S2 normal and murmur; negative rub or gallop Murmur: Grade 2/6, LLSB and RLSB GI GI: normal to inspection Neuro General: alert, awake, oriented x3 and CN's II-XI intact bilaterally Skin Skin: no rashes or lesions noted Extremities Pulses: Normal: Right Posterior Tibial Pulse, Left Posterior Tibial Pulse, Right Radial Pulse, Left Radial Pulse Lower Extremity Edema: None: Bilateral Psych Psychological: normal affect Assessment AND Plan 1. Paroxysmal atrial fibrillation I48.0 S/P DCVV 09/2017 AND 10/2017; Plan Echocardiogram from September 2017 showed severe biatrial enlargement. Patient states feeling much improved since his most recent cardioversion in October 2017. He appears to be maintaining regular rhythm. He will continue with current medications which include metoprolol, amiodarone, and warfarin. Orders Orders: 2. Palpitations R00.2 Plan He denies any recurrence. He will continue current medications and we will continue to monitor. 3. Other cardiomyopathy I42.8 Plan His echocardiogram in September 2017 showed an ejection fraction 45%. Patient describes symptoms consistent with fluid volume overload, however he adjusts his medication appropriately for the symptoms. He was reminded of symptoms to monitor and to continue current treatment plan with adjustment of Lasix as needed. He states he consistently takes 20 mg p.o. daily and occasionally will take 40 mg or none at all. 4. Nonrheumatic aortic valve stenosis I35.0 Plan [...] and we will continue to monitor. 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 He has not had his INR checked since June. He will undergo laboratory evaluation today. Further recommendation will be made based on results. Orders Orders: 7. group home current use of amiodarone Z79.899 Plan Since patient is having INR checked today, he will undergo laboratory evaluation to assess liver function and thyroid function in the setting of long- term amiodarone therapy. We will wait for results for further recommendation. Orders Orders: Plan Detail Other Medications Changed: Refilled: Additional Comments Thank you for allowing us to participate in the patients plan of care, if you have any questions please do not hesitate to call. This note was generated using a voice recognition system and there may be incorrect words, spelling or punctuation that were not noted when reviewing the office note prior to saving. 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 Coding Level of Care Code Off vis,est,level 2 Diagnoses Paroxysmal atrial fibrillation I48.0 Palpitations R00.2 Other cardiomyopathy I42.8 Cardiomyopathy type: other Nonrheumatic aortic valve stenosis I35.0 Cardiac valve disease etiology: nonrheumatic Non-rheumatic mitral regurgitation I34.0 Cardiac valve disease etiology: nonrheumatic 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 Labs LDL Cholesterol 21 mg/dL (0-130) 02/05/15 HDL Cholesterol 45 mg/dL (40-) 02/05/15 Triglycerides 34 mg/dL (0-199) 02/05/15 VLDL Cholesterol 7 mg/dL (5-40) 02/05/15 Diagnostics Electrocardiogram 11/23/17 Echocardiogram 09/09/17 Chest X-Ray 09/12/17 08/24/18 1006 <Electronically signed by Ace MUELLER> Date Ace MUELLER Cosigner Signature: Date (if applicable) CC: Dirk Castelan DO PROTHROMBIN TIME W/INR Collected: 08/24/2018 Status: F Source: [facility] 9:41 AM [facility] [place] Order Comment: Comments: STANDING ORDER Comments: STANDING ORDER TYPE CODE TESTS RESULT OUT OF RANGE REFERENCE UNITS LAB L300.4150 11.7-14.9 SECONDS High PROTIME 33.9 LAB L300.4200 Normal INR 3.3 Performed By: #### L300.3900 #### [place] [facility] [address] [place], [place], [address] LIVER PROFILE Collected: 08/24/2018 Status: F Source: [facility] 9:41 AM [facility] [place] [facility] TYPE CODE TESTS RESULT OUT OF RANGE REFERENCE UNITS LAB L501.1500 6.4-8.2 g/dL Normal T PROT 7.7 LAB L501.1800 3.2-5.0 g/dL Normal ALB 3.7 LAB L501.1950 2.2-4.2 g/dL Normal GLOB 4.0 LAB L501.4100 15-37 U/L Normal AST 28 LAB L501.4305 45-117 U/L Normal ALK P 79 LAB L501.4405 16-61 U/L Normal ALT 49 LAB L501.4600 0.20-1.00 mg/dL Normal T BILI 0.60 LAB L501.4700 0.00-0.30 mg/dL Normal D BILI 0.17 Performed By: #### L500.3400, L501.9520, L506.0400 #### [facility] [address] [place], [address] THYROID STIM HORMONE Collected: 08/24/2018 Status: F Source: [place] ([facility]) 9:41 AM [facility] [place] TYPE CODE TESTS RESULT OUT OF RANGE REFERENCE UNITS LAB L501.9520 0.358-3.74 uIU/mL High TSH 31.20 Performed By: #### L500.3400, L501.9520, L506.0400 #### [facility] [address] [place], [address] T4 FREE DIRECT Collected: 08/24/2018 Status: F Source: [place] 9:41 AM [facility] [place] TYPE CODE TESTS RESULT OUT OF REFERENCE UNITS RANGE LAB L506.0400 0.76-1.46 ng/dL Low T4 FREE 0.52 DIRECT Performed By: #### L500.3400, L501.9520, L506.0400 #### [facility] [address] [place], [address] NCS AND/OR EMG Observed: 06/29/2018 Status: F Source: [place] PATIENT 4:37 PM [facility] [place] [facility] [facility] Pulmonary Services/Neurology [address] [place] [id number] MR#: [id number] Acct: [id number] Name: ANNE MARIE GEIGER Rep #: [id number] : 1940 77 From: Enzo Hopson MD Referring Dr: Bran Turner MD Status: REG CLI Ordering Dr: Date: Location: [facility] Sex: M C NCS and/or EMG Patient [...] Turner MD Date Dictated: 06/28/181120 Date Transcribed: 06/28/181120 Banking Representative: NF Signed PROTHROMBIN TIME W/INR Collected: 06/28/2018 Status: F Source: [place] 7:23 AM [facility] [place] TYPE CODE TESTS RESULT OUT OF REFERENCE UNITS RANGE LAB L300.4150 11.7-14.9 SECONDS High PROTIME 40.4 LAB L300.4200 High alert INR 4.1 Result Comment: CRITICAL VALUE VERIFIED. CALLED TO QUINTIN AT 'S OFFICE. 06/28/18 0936 Rich Wyatt. RESULTS READ BACK BY SAME. Performed By: #### L300.3900 #### [facility] [address] [place], [place], [address] PROTHROMBIN TIME W/INR Collected: 05/24/2018 Status: F Source: [place] 2:21 PM [facility] [place] Order Comment: Comments: STANDING ORDER Comments: STANDING ORDER TYPE CODE TESTS RESULT OUT OF RANGE REFERENCE UNITS LAB L300.4150 11.7-14.9 SECONDS High PROTIME 31.1 LAB L300.4200 Normal INR 3.0 Performed By: #### L300.3900 #### [facility] [address] [place], [address] PROTHROMBIN TIME W/INR Collected: 05/02/2018 Status: F Source: [place] 11:44 AM [facility] [place] TYPE CODE TESTS RESULT OUT OF RANGE REFERENCE UNITS LAB L300.4150 11.7-14.9 SECONDS High PROTIME 33.1 LAB L300.4200 Normal INR 3.2 Performed By: #### L300.3900 #### [facility] [address] [place], [address] PROTHROMBIN TIME W/INR Collected: 03/24/2018 Status: F Source: [place] 9:27 AM [facility] [place] TYPE CODE TESTS RESULT OUT OF RANGE REFERENCE UNITS LAB L300.4150 11.7-14.9 SECONDS High PROTIME 27.6 LAB L300.4200 Normal INR 2.6 Performed By: #### L300.3900 #### [facility] [address] [place], [address] CARDIOLOGY VISIT Observed: 02/25/2018 Status: F Source: [place] REPORT 11:59 AM [facility] [place] [facility] [facility] 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 6. 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 Follow Up 6 Months (MOLD CLAMPER/PA) 14 Months (PFM) Coding Level of Care Code Off vis,est,level 3 Diagnoses Paroxysmal atrial fibrillation I48.0 Palpitations R00.2 Other cardiomyopathy I42.8 Cardiomyopathy type: other Nonrheumatic aortic valve stenosis I35.0 Cardiac valve disease etiology: nonrheumatic Non-rheumatic mitral regurgitation I34.0 Cardiac valve disease etiology: nonrheumatic group home current use of anticoagulant Z79.01 Coding Level of Care Code Off vis,est,level 3 Diagnoses Paroxysmal atrial fibrillation I48.0 Palpitations R00.2 Other cardiomyopathy I42.8 Cardiomyopathy type: other Nonrheumatic aortic valve stenosis I35.0 Cardiac valve disease etiology: nonrheumatic Non-rheumatic mitral regurgitation I34.0 Cardiac valve disease etiology: nonrheumatic 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, [address] PROTHROMBIN TIME W/INR Collected: 02/01/2018 Status: F Source: [place] 2:21 PM [facility] [place] TYPE CODE TESTS RESULT OUT OF RANGE REFERENCE UNITS LAB L300.4150 11.7-14.9 SECONDS High PROTIME 25.4 LAB L300.4200 Normal INR 2.3 Performed By: #### L300.3900 #### [facility] [address] [place], [address] DOWNTIME REPORT Observed: 01/20/2018 Status: F Source: [place]OLD[place] 12:22 PM [facility] Medical Records Department [address] [place] [address] Downtime Report MR#: [id number] Acct: [id number] Name: ANNE MARIE GEIGER Rep #: [id number] : 1940 77 From: Ricky Turner PCP: Dirk Castelan DO Status: REG RCR This patient was seen during an EMR downtime January 03, 2018 - January 10, 2018. This patient may have a combination of paper and electronic documentation or all paper documentation. All documentation is viewable within the e-chart portion of [facility] for each patient visit. PROTHROMBIN TIME W/INR Collected: 01/07/2018 Status: F Source: [place] 9:40 AM [facility] [place] TYPE CODE TESTS RESULT OUT OF RANGE REFERENCE UNITS LAB L300.4150 11.7-14.9 SECONDS High PROTIME 33.6 LAB L300.4200 Normal INR 3.3 Performed By: #### L300.3900 #### [facility] [address] [place], [address] PROTHROMBIN TIME W/INR Collected: 12/13/2017 Status: F Source: [place] 11:57 AM [facility] [place] TYPE CODE TESTS RESULT OUT OF RANGE REFERENCE UNITS LAB L300.4150 11.7-14.9 SECONDS High PROTIME 30.7 LAB L300.4200 Normal INR 2.9 Performed By: #### L300.3900 #### [facility] [address] [place], [address] OFFICE VISIT REPORT Observed: 11/23/2017 Status: F Source: [place] 10:18 AM [facility] [place] [facility] [address] [place] [address] [place] [address] OFFICE VISIT Date of Service: 11/23/17 MR#: [id number] Acct: [id number] Patient: DOMINGUEZ GEIGER Rep #: [id number] : 1940 Provider: ROCIO Michel Age/Sex: 77/M [place] [facility]: Signed Intake Intake Visit Reasons: 1 [...] understanding. 11/23/17 1018 <Electronically signed by Ace Michel MOLD CLAMPER-C> Date Ace Michel MOLD CLAMPER-C Cosigner Signature: Date (if applicable) CC: 12 LEAD EKG PERFORMED Observed: 11/23/2017 Status: F Source[place] [facility] [place]:10 AM [facility] [place] [facility] [address] [place] [address] 12 Lead EKG performed by [facility] 11/23/17 0910 MR#: [id number] Acct: [id number] Name: DOMINGUEZ GEIGER Rep #: [id number] : 1940 77 From: Ace Michel MOLD CLAMPERPrasanthC Attending Dr: Ace Michel NP Status: DEP AMB Ordering Dr: Ace MichelC Date: 11/23/17 [place] [facility] Sex: M C Admitted: BMS/12 Lead EKG performed by [facility] ECG Report Interpretation Sinus Bradycardia -First degree A-V block Left axis deviationPoor R wave progressionPossible Left anterior fascicular blockNonspecific T wave abnormalityABNORMAL Electronically signed on 11/24/2017 at 17:14 by Sen Turcios 11/24/17 1716 Date Ace Michel MOLD CLAMPER-C CC: DIRK CASTELAN Date Dictated: 11/23/17909 Date Transcribed: 11/23/17909 Banking Representative: IRIS Signed PROTHROMBIN TIME W/INR Collected: 11/23/2017 Status: F Source: [facility] 9:00 AM [facility] [place] TYPE CODE TESTS RESULT OUT OF RANGE REFERENCE UNITS LAB L300.4150 11.7-14.9 SECONDS High PROTIME 31.6 LAB L300.4200 Normal INR 3.0 Performed By: #### L300.3900 #### [facility] [address] [place], [address] OPERATIVE REPORT Observed: 11/17/2017 Status: F Source: [facility] 5:28 AM [facility] [place] [facility] Medical Records Department [address] [place] [address] Operative Report 11/16/17 1404 MR#: [id number] Acct: [id number] Name: DOMINGUEZ GEIGER Rep #: [id number] : 1940 77 From: Edmond Soria MD PCP: DIRK CASTELAN Status: REG [facility] Location: [facility] Problem List (1) Acute on chronic systolic heart failure Status: Acute (2) Atrial fibrillation Status: Acute Qualifiers: Atrial fibrillation type: persistent Qualified Code(s): I48.1 - Persistent atrial fibrillation (3) Cardiomyopathy Status: Acute Qualifiers: Operative Report Date of Procedure: 11/16/17 - Conscious sedation CONSCIOUS SEDATION REPORT BRIEF HISTORY OF PRESENT ILLNESS: The patient is a 77-year-old [place] male who presented to [facility] for an elective cardioversion secondary to [...] RECOMMENDATIONS: Okay to recover in usual fashion. 11/17/17 0528 <Electronically signed by Edmond Soria MD> Date Edmond Soria MD CC: DIRK CASTELAN; Edmond Soria MD; Sen Turcios MD Signed OPERATIVE REPORT Observed: 11/16/2017 Status: F Source: [facility] 12:55 PM [facility] [place] [facility] Medical Records Department [address] [place] [address] Operative Report 11/16/17 1253 MR#: [id number] Acct: [id number] Name: DOMINGUEZ GEIGER Rep #: [id number] : 1940 77 From: Sen Turcios MD PCP: DIRK CASTELAN Status: REG SD[facility] Y Location: [facility] Problem List (1) Atrial fibrillation Status: [...] apparent complications This note was generated with Apicaation software. It may contain incorrect words, spelling, and punctuation that were not noted in checking the note before signing. 11/16/17 1255 <Electronically signed by Sen Turcios MD> Date Sen Turcios MD CC: DIRK CASTELAN; Sen Turcios MD Signed PROTIME W/INR Collected: 11/16/2017 Status: F Source: [facility] [place] 11:08 AM [facility] [place] TYPE CODE TESTS RESULT OUT OF REFERENCE UNITS RANGE LAB L9200.1001 11.9-14.4 SEC High PROTIME ISTAT 30.3 Result Comment: Reference Range 11.9 - 14.4 LAB L9200.2000 Normal INR ISTAT 2.60 Result Comment: Critical Value > 3.5 Performed By: #### L9200.0000 #### [facility] Point of Care [address] [place] [address] PROTHROMBIN TIME W/INR Collected: 11/09/2017 Status: F Source: [place] 9:46 AM [facility] [place] TYPE CODE TESTS RESULT OUT OF RANGE REFERENCE UNITS LAB L300.4150 11.7-14.9 SECONDS High PROTIME 28.4 LAB L300.4200 Normal INR 2.7 Performed By: #### L300.3900 #### [facility] [place], [address] CARDIOLOGY VISIT Observed: 11/04/2017 Status: F Source: [place] REPORT 11:14 AM [facility] [place] [facility] [address] [place] [address] OFFICE VISIT Date of Service: 11/03/17 MR#: [id number] Acct: [id number] Name: DOMINGUEZ GEIGER Rep #: [id number] : 1940 Provider: ROCIO Michel Age/Sex: 77/M [place] [facility] Status: Signed HPI HPI Details: DOMINGUEZ GEIGER, is a 77 M who presents to the office today for a cardiovascular outpatient follow-up. He has history of nonischemic cardiomyopathy, paroxysmal atrial fibrillation status post cardioversion on September 10, 2017, mitral valve insufficiency, and aortic valve sclerosis/stenosis. Patient presented to [facility] emergency department in September 2017 for [...] Lt brachial Intake Visit Reasons: a- fib Home Care Provider Required: No Accompanied by: Family / Other [...] (Acute) Paroxysmal atrial tachycardia (Acute) Cardiomyopathy (Acute) group home current use of anticoagulant (Chronic) Paroxysmal atrial [...] Plan 1. Paroxysmal atrial fibrillation I48.0 Plan - ERVIN Locke Echocardiogram from September 2017 showed severe bilateral [...] 2. Chronic systolic congestive heart failure I50.22 ERVIN Gonzalez Echocardiogram from September 2017 showed an ejection [...] echocardiogram. 3. Nonrheumatic aortic valve stenosis I35.0 ERVIN Gonzalez Echocardiogram from September 2017 showed aortic valve sclerosis with mild aortic valve stenosis. There is also noted to be mild aortic valve insufficiency. At this time we will not make any medication adjustments. We will continue to monitor the history, exam, and repeat echocardiogram. 4. Non-rheumatic mitral regurgitation I34.0 ERVIN Gonzalez Echocardiogram from September 2017 showed mild mitral [...] exertion 11/04/17 0702 <Electronically signed by Ace Michel MOLD CLAMPER-C> Date Ace Michel MOLD CLAMPER-C 11/04/17 1114<Electronically signed by Eliceo Jo MD> Cosigner Signature: Date (if applicable) Eliceo Jo MD CC: DIRK CASTELAN 12 LEAD EKG PERFORMED Observed: 11/03/2017 Status: F Source: [facility] 9:38 AM [facility] [place] [facility] [address] [place] [address] 12 Lead EKG performed by [facility] 11/03/17 0937 MR#: [id number] Acct: [id number] Name: DOMINGUEZ GEIGER Rep #: [id number] : 1940 77 From: Ace Michel NP-C Attending Dr: Aec Michel NP Status: DEP AMB Ordering Dr: Ace Michel Date: 11/03/17 [place] [facility] Sex: M C Admitted: [facility]/12 Lead EKG performed by [facility] ECG Report Interpretation Atrial fibrillation / flutterLeft axis deviationPossible Left anterior fascicular blockPoor R wave progressionNonspecific ST/T wave abnormalityABNORMAL Electronically signed on 11/11/2017 at 17:38 by Sen Turcios 11/11/17 1740 Date Ace Michel MOLD CLAMPER-C CC: DIRK CASTELAN Date Dictated: 11/03/17936 Date Transcribed: 11/03/17936 Banking Representative: IRIS Signed CBC W/DIFF, AUTOMATED Collected: 11/03/2017 Status: F Source: [place] 9:22 AM [facility] [place] TYPE CODE TESTS RESULT OUT OF [...] 2.31 Performed By: #### L100.0100, L500.2500 #### [facility] [address] [facility]. [place], [place], [address] BASIC METABOLIC Collected: 11/03/2017 Status: F Source: [place] PROFILE (BMP) 9:22 AM [facility] [place] TYPE CODE TESTS RESULT OUT OF [...] 8 Performed By: #### L100.0100, L500.2500 #### [facility] [address] [place], [place], [address] PROTHROMBIN TIME W/INR Collected: 11/03/2017 Status: F Source: [place] 9:22 AM [facility] [place] TYPE CODE TESTS RESULT OUT OF RANGE REFERENCE UNITS LAB L300.4150 11.7-14.9 SECONDS High PROTIME 28.6 LAB L300.4200 Normal INR 2.7 Performed By: #### L300.3900 #### [facility] [address] [place], [place], [address] PROTHROMBIN TIME W/INR Collected: 10/28/2017 Status: F Source: [place] 8:41 AM [facility] [place] TYPE CODE TESTS RESULT OUT OF RANGE REFERENCE UNITS LAB L300.4150 11.7-14.9 SECONDS High PROTIME 27.4 LAB L300.4200 Normal INR 2.5 Performed By: #### L300.3900 #### [facility] [place], [place], [address] PROTHROMBIN TIME W/INR Collected: 10/18/2017 Status: F Source: [place] 8:02 AM [facility] [place] TYPE CODE TESTS RESULT OUT OF RANGE REFERENCE UNITS LAB L300.4150 11.7-14.9 SECONDS High PROTIME 29.2 LAB L300.4200 Normal INR 2.7 Performed By: #### L300.3900 #### [facility] [place], [address] PROTHROMBIN TIME W/INR Collected: 10/12/2017 Status: F Source: [place] 10:04 AM [facility] [place] TYPE CODE TESTS RESULT OUT OF RANGE REFERENCE UNITS LAB L300.4150 11.7-14.9 SECONDS High PROTIME 29.5 LAB L300.4200 Normal INR 2.8 Performed By: #### L300.3900 #### [facility] [place], [address] PROTHROMBIN TIME W/INR Collected: 10/04/2017 Status: F Source: [place] 2:29 PM [facility] [place] TYPE CODE TESTS RESULT OUT OF RANGE REFERENCE UNITS LAB L300.4150 11.7-14.9 SECONDS High PROTIME 25.8 LAB L300.4200 Normal INR 2.3 Performed By: #### L300.3900 #### [facility] [address] [place], [address] PROTHROMBIN TIME W/INR Collected: 09/29/2017 Status: F Source: [place] 10:54 AM [facility] [place] TYPE CODE TESTS RESULT OUT OF REFERENCE UNITS RANGE LAB L300.4150 11.7-14.9 SECONDS High PROTIME 38.4 LAB L300.4200 High alert INR 3.9 Result Comment: CRITICAL VALUE VERIFIED. CALLED TO RAINA AT 'S OFFICE. 09/29/17 1241 Rich Estes RESULTS READ BACK BY SAME. Performed By: #### L300.3900 #### [facility] [address] [place], [place], [address] OFFICE VISIT REPORT Observed: 2017 Status: F Source: [place] 8:13 AM [facility] [place] [facility] [address] [place] [address] OFFICE VISIT Date of Service: 09/23/17 MR#: [id number] Acct: [id number] Patient: DOMINGUEZ GEIGER Rep #: [id number] : 1940 Provider: Trang Suárez Age/Sex: 76/M [place] [facility] [place]: Signed Intake Intake Visit Reasons: Chief [...] DCCV on 09/10/2017 and was admitted to [facility] on 09/12/2017 where he went back [...] MD Cosigner Signature: Date (if applicable) CC: Trang Suárez PROTHROMBIN TIME W/INR Collected: 09/23/2017 Status: F Source: [facility] 11:33 AM [facility] [place] TYPE CODE TESTS RESULT OUT OF REFERENCE UNITS RANGE LAB L300.4150 11.7-14.9 SECONDS High PROTIME 45.2 LAB L300.4200 High alert INR 5.1 Result Comment: CRITICAL VALUE VERIFIED. CALLED TO TRANG AT [facility] 09/23/17 1317 Janae Wilkinson. RESULTS READ BACK BY SAME . Performed By: #### L300.3900 #### [facility] [address] [place], [address] 12 LEAD EKG PERFORMED Observed: 09/23/2017 Status: F Source: [facility] 10:59 AM [facility] [place] [facility] [address] [place] [address] 12 Lead EKG performed by [facility] 09/23/178 MR#: [id number] Acct: [id number] Name: DOMINGUEZ GEIGER Rep #: [id number] : 1940 76 From: Sen Turcios MD Attending Dr: Trang Suárez Status: DEP AMB Ordering Dr: Sen Turcios MD Date: 09/23/17 [place] [facility] Sex: M C Admitted: BMS/12 Lead EKG performed by [facility] ECG Report Interpretation Atrial flutter-fibrillation Left axis deviationLeftanterior fascicular block. Poor R-wave progression -nonspecific -consider old anterior infarct. Diffuse nonspecific T-abnormality. ABNORMAL Electronically signed on 09/23/2017 at 15:00 by Sen Turcios 09/23/17 1504 Date Sen Turcios MD CC: DIRK CASTELAN Date Dictated: 09/23/17 1058 Date Transcribed: 09/23/17 105 Banking Representative: PM Signed DISCHARGE SUMMARY Observed: 09/15/2017 Status: F Source: [facility] 4:44 PM [facility] [place] [facility] Medical Records Department [address] [place] [address] Discharge Summary 09/15/17 1424 MR#: [id number] Acct: [id number] Name: DOMINGUEZ GEIGER Rep #: [id number] : 1940 76 From: Guille ADKINS PCP: DIRK CASTELAN Status: DIS IN Y Location: [facility] [id number] <Guille Duran - Last Filed: 09/15/17 14:24> [...] valve regurgitation (Chronic) 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 Suspect an inflammatory/infectious process rather than congestive heart failure. [place] - cardiology Operations: None Procedures: None Summary [...] Duran PA-C under the supervision of Doctor Hardeep. 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 fib. Discussed with the ag equipment field service technician. Discharge medication reconciliation done. Follow-up discharge instructions completed. Discharge plan and medication discussed with the patient and his son present in the room. I have discussed my assessment with Guille ADKINS and orders have been reviewed. Code Visit Inpatient E AND M: [id number] Disch Hosp 09/15/17 1434 <Electronically signed by Guille ADKINS> Date Guille ADKINS 09/15/17 1644<Electronically signed by Kenny Meier MD> Cosigner Signature (if applicable): Date Kenny Meier MD CC: LUCILLE Duran; DIRK CASTELAN; Kenny Meier MD Signed 12 LEAD ELECTROCARDIOGRAM Observed: 09/15/2017 Status: F Source: [facility] 1:27 PM [facility] [place] [facility] Cardiovascular Services [address] [place] [address] 12 Lead EKG 09/14/17 0517 MR#: [id number] Acct: [id number] Name: DOMINGUEZ GEIGER Rep #: [id number] : 1940 76 From: Sen Turcios MD Attending Dr: Kenny Meier MD Status: ADM IN Ordering Dr: Sen Turcios MD Date: 09/14/17 Location: [facility] Sex: M C Admitted: 09/12/17 [...] ischemia Prolonged QT Abnormal ECG Confirmed by SEN TURCIOS MD ([id number]), features editor GLENN TURNER ([id number]) on 09/15/2017 1:27:54 PM Referred By: ALETA Confirmed By:SEN TURCIOS MD 09/15/17 1327 Date Sen Turcios MD CC: DIRK CASTELAN; Sen Turcios MD Signed DISCHARGE INSTRUCTION Observed: 09/15/2017 Status: F Source: [facility] 11:28 AM [facility] [place] [facility] Medical Records Department [address] [place] [address] Instructions for Home/Discharge Instructions 09/15/17 1126 MR#: [id number] Acct: [id number] Name: DOMINGUEZ GEIGER Rep #: [id number] : 1940 76 From: Kenny Meier MD [...] TIME W/INR Collected: 09/15/2017 Status: F Source: [facility] 5:35 AM [facility] REPOSITORY TYPE CODE TESTS RESULT OUT OF RANGE REFERENCE UNITS LAB L300.4150 11.7-14.9 SECONDS High PROTIME 30.5 LAB L300.4200 Normal INR 3.1 Performed By: #### L300.3900 #### [facility] [address] [place], [address] BASIC METABOLIC Collected: 09/15/2017 Status: F Source: [place] PROFILE (BMP) 5:35 AM [facility] [place] TYPE CODE TESTS RESULT OUT OF [...] GAP 11 Performed By: #### L500.2500 #### [facility] [address] [place], [address] 12 LEAD ELECTROCARDIOGRAM Observed: 09/14/2017 Status: F Source: [place] 2:01 PM [facility] [place] [facility] Cardiovascular Services [address] [place] [address] 12 Lead EKG 09/13/17 0639 MR#: [id number] Acct: [id number] Name: DOMINGUEZ GEIGER Rep #: [id number] : 1940 76 From: Eliceo Jo MD Attending Dr: Kenny Meier MD Status: ADM IN Ordering Dr: Ramon Herrera MD Date: 09/13/17 Location: [facility] Sex: M C Admitted: 09/12/17 [...] COMPARISON REQUIRED, DATA IS UNCONFIRMED Confirmed by LEICEO JO MD ([id number]), features editor GLENN TURNER ([id number]) on 09/14/2017 2:00:39 PM Referred By: IVETTET Confirmed By:ELICEO JO MD 09/14/17 1400 Date Eliceo Jo MD CC: DIRK CASTELAN; Ramon Herrera MD Signed 12 LEAD ELECTROCARDIOGRAM Observed: 09/14/2017 Status: F Source: [facility] 1:03 PM [facility] [place] [facility] Cardiovascular Services [address] [place] [address] 12 Lead EKG 09/12/17 0509 MR#: [id number] Acct: [id number] Name: DOMINGUEZ GEIGER Rep #: [id number] : 1940 76 From: Eliceo Jo MD Attending Dr: Kenny Meier MD Status: ADM IN Ordering Dr: Anne Marie Michel MD Date: 09/12/17 Location: [facility] Sex: M C Admitted: 09/12/17 [...] ECG Confirmed by ELICEO JO MD ([id number]), features editor GLENN TURNER ([id number]) on 09/14/2017 1:02:52 PM Referred By: SL Confirmed By:ELICEO JO MD 09/14/17 1302 Date Eliceo Jo MD CC: DIRK CASTELAN; Anne Marie Michel MD Signed PROTHROMBIN TIME W/INR Collected: 09/14/2017 Status: F Source: [place] 5:28 AM [facility] [place] TYPE CODE TESTS RESULT OUT OF RANGE REFERENCE UNITS LAB L300.4150 11.7-14.9 SECONDS High PROTIME 28.7 LAB L300.4200 Normal INR 2.8 Performed By: #### L300.3900 #### [facility] [address] [place], [place], [address] BASIC METABOLIC Collected: 09/14/2017 Status: F Source: [facility] PROFILE (BMP) 5:28 AM [facility] TYPE CODE TESTS RESULT OUT OF [...] GAP 5 Performed By: #### L500.2500 #### [facility] [address] [place], [address] MAGNESIUM Collected: 09/14/2017 Status: F Source: [facility] 5:28 AM [facility] [facility] Order Comment: ADD MG TO [facility] FROM THIS MORNING TYPE CODE TESTS RESULT OUT OF RANGE REFERENCE UNITS LAB L501.5200 1.6-2.6 mg/dL Normal MG 2.1 Result Comment: Please note revised Magnesium reference range effective 2017. Performed By: #### L501.5200 #### [facility] [address] [place], [address] PROTHROMBIN TIME W/INR Collected: 09/13/2017 Status: F Source: [facility] 5:20 AM [facility] REPOSITORY TYPE CODE TESTS RESULT OUT OF RANGE REFERENCE UNITS LAB L300.4150 11.7-14.9 SECONDS High PROTIME 27.0 LAB L300.4200 Normal INR 2.6 Performed By: #### L300.3900 #### [facility] [address] [place], [address] BASIC METABOLIC Collected: 09/13/2017 Status: F Source: [place] PROFILE (BMP) 5:20 AM [facility] [place] TYPE CODE TESTS RESULT OUT OF [...] GAP 8 Performed By: #### L500.2500 #### [facility] [address] [place], [address] CBC W/DIFF, AUTOMATED Collected: 09/13/2017 Status: F Source: [facility] 5:20 AM [facility] [place] TYPE CODE TESTS RESULT OUT OF [...] Lymph 2.64 Performed By: #### L100.0100 #### [facility] [address] [place], [address] EMERGENCY DEPARTMENT Observed: 09/13/2017 Status: F Source: [facility] SUMMARY 1:11 AM [facility] [place] [facility] Medical Records Department [address] [place] [address] Emergency Department Summary 09/12/17 0614 MR#: [id number] Acct: [id number] Name: DOMINGUEZ GEIGER Rep #: [id number] : 1940 76 From: Anne Marie Michel [...] INR is 2.3. Troponin 0 0.03. PT MOLD CLAMPER is 620.4. Chest x-ray is read by [...] Coumadin coagulopathy. This note was generated with compropago dictation software. It may contain incorrect words, [...] problems, contact your Primary Care Provider. Call [facility] ([phone]) or report to the closest Emergency Room. Call 911 if necessary. 09/13/17 0111 <Electronically signed by Anne Marie Michel MD> Date Anne Marie Michel MD Cosigner Signature (If Indicated): Date CC: DIRK CASTELAN TROPONIN-I Collected: 09/12/2017 Status: F Source: [facility] 7:15 PM [facility] [place] Order Comment: 'TROP' Serial specimen #1, #2, #3, or #4: 4 TYPE CODE TESTS RESULT OUT OF RANGE REFERENCE UNITS LAB L501.4010 <0.06 ng/mL Normal 0.03 TROPONIN-I Result Comment: TROPONIN-I EXPECTED VALUES <0.05 NEGATIVE 0.06 - 0.59 AT RISK OF [place] > OR = 0.60 SUGGEST [place] Performed By: #### L501.4010 #### [facility] [address] [place], [address] CONSULTATION Observed: 09/12/2017 Status: F Source: [facility] 2:24 PM [facility] [place] [facility] Medical Records Department [address] [place] [address] Consultation 09/12/17 1329 MR#: [id number] Acct: [id number] Name: DOMINGUEZ GEIGER Rep #: [id number] : 1940 76 From: Sen Turcios MD PCP: DIRK CASTELAN Status: ADM IN Location: [place] [address] Problem List (1) Acute on chronic systolic heart failure Status: Acute (2) Cardiomyopathy Status: Acute Qualifiers: (3) Paroxysmal atrial fibrillation Status: Chronic (4) Mitral valve regurgitation Status: Chronic Qualifiers: Cardiac valve disease etiology: nonrheumatic Qualified Code(s): I34.0 - Nonrheumatic mitral (valve) insufficiency (5) Aortic valve stenosis Status: Chronic (6) group home current use of anticoagulant Status: Chronic Reason [...] valve regurgitation (Chronic) 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) Paroxysmal atrial [...] S2 Murmur Murmur: Grade 2/6, Mid Systolic, [place], Axilla, - - Grade 2/6: Soft: Diastolic murmur: Lower left sternal border Vascular: No Carotid Bruits Abdomen: Bowel Sounds Present, Soft, Non Tender Extremities: Mild RLE Edema, Mild LLE Edema 09/12/17 07:30: D-Dimer Quant (PE/DVT) 0.44 09/12/17 07:30: B-Natriuretic Peptide 705.5 H 09/12/17 07:30: Magnesium 1.9 09/12/17 08:00: Urine Color Straw, Urine Clarity Clear, Urine pH 7.0, Ur Specific [place] 1.010, Urine Protein Negative, Urine Glucose (UA) [...] family members present as well as the [facility] hospitalist team. This note was generated with compropago Dictation software. Every effort was made to ensure accuracy, however, computerized truck service technician mistakes may persist. 09/12/17 1356 <Electronically signed by Sen Turcios MD> Date Sen Turcios MD Cosigner Signature (if applicable): Date CC: DIRK CASTELAN; Sen Turcios MD Signed Observed: 09/12/2017 Status: F Source: [facility] LEGIONELLA ANTIGEN 8:00 AM [facility] [place] REPOSITORY Legionella, UR Legionella Antigen result interpretation: Negative Presumptive negative for Legionella pneumophila serogroup 1 antigen in urine, suggesting no recent or current infection. Legionella Ag, Urine Negative (See interpretation below) Performed By: #### M101.0101, M300.4500 #### [facility] [address] [place], [address] STREP Observed: 09/12/2017 Status: F Source: [facility] PNEUMONIAE ANTIG(UR,CSF) 8:00 AM [facility] [place] S pneumo Ag URINE INTERPRETATION Negative Urine Presumptive negative for pneumococcal pneumonia, suggesting no current or recent pneumococcal infection. Infection due to S pneumoniae cannot be ruled out since the antigen present in the sample may be below the detection limit of the test. Strep pneumo Test Negative URINE (See interpretation below) Performed By: #### M300.4600, L400.2010 #### [facility] [address] [place], [place], [address] URINALYSIS, ROUTINE Collected: 09/12/2017 Status: F Source: [facility] (DIPSTICK) 8:00 AM [facility] [place] Order Comment: How was Urine Obtained? REED REPAIRER TO SPECIFY TYPE CODE TESTS RESULT OUT [...] ESTERASE Performed By: #### M300.4600, L400.2010 #### [facility] [address] [place], [address] Observed: 09/12/2017 Status: F Source: [facility] INFLUENZA A+B (RAPID 7:43 AM [facility] [place] CORNELIUS) REPOSITORY FLU A/B Rapid Negative test results should be confirmed by culture. Order Rapid Viral Culture for Influenzae A+B ([id number]) if clinically indicated. Influenza Ag, Direct Presumptive NEGATIVE for Influenza A/B Antigen (See Note) Performed By: #### M101.0101, M300.4500 #### [facility] [address] [place], [place], [address] D-DIMER QUANTITATIVE Collected: 09/12/2017 Status: F Source: [facility] (DVT/PE) 7:30 AM [facility] [place] TYPE CODE TESTS RESULT OUT OF RANGE REFERENCE UNITS LAB L300.8000 0.27-0.49 FEU/ug/m Normal D-DIMER 0.44 QUANT Result Comment: NORMAL D-Dimer level (<0.50) indicates no DVT or PE. Performed By: #### L300.8000 #### [facility] [address] [place], [place], [address] MAGNESIUM Collected: 09/12/2017 Status: F Source: [place] 7:30 AM [facility] [place] TYPE CODE TESTS RESULT OUT OF RANGE REFERENCE UNITS LAB L501.5200 1.6-2.6 mg/dL Normal MG 1.9 Result Comment: Please note revised Magnesium reference range effective 2017. Performed By: #### L501.5200, L501.9520, L503.6620 #### [facility] [address] [place], [address] THYROID STIM HORMONE Collected: 09/12/2017 Status: F Source: [place] (TSH) 7:30 AM [facility] [place] TYPE CODE TESTS RESULT OUT OF RANGE REFERENCE UNITS LAB L501.9520 0.358-3.74 uIU/mL Normal TSH 2.79 Performed By: #### L501.5200, L501.9520, L503.6620 #### [facility] [address] [place], [address] BNP,B-TYPE NATRIURETIC Collected: 09/12/2017 Status: F Source: [place] PEPTIDE 7:30 AM [facility] [place] TYPE CODE TESTS RESULT OUT OF RANGE REFERENCE UNITS LAB L503.6620 0-100 pg/mL High B-TYPE 705.5 RICHA PEP Performed By: #### L501.5200, L501.9520, L503.6620 #### [facility] [address] [place], [address] Observed: 09/12/2017 Status: F Source: [place] CULTURE, BLOOD (WB) 7:30 AM [facility] [place] Has pt arrived? Y BC No growth in 5 days. Performed By: #### M200.1000 #### [facility] [address] [place], [address] HISTORY AND PHYSICAL Observed: 09/12/2017 Status: F Source: [place] EXAM 7:01 AM [facility] [place] [facility] Medical Records Department [address] [place] [address] History and Physical 09/12/17 0649 MR#: [id number] Acct: [id number] Name: DOMINGUEZ GEIGER Rep #: [id number] : 1940 76 From: Ramon Herrera MD [...] Reviewed 09/08/17 @ 10:32 by Stella Mishra) group home current use of anticoagulant (Chronic) Paroxysmal atrial [...] 09/12/2017 Status: F Source: [place] 5:15 AM [facility] [place] TYPE CODE TESTS RESULT OUT OF [...] Lymph 2.64 Performed By: #### L100.0100 #### [facility] [address] [place], [place], [address] BASIC METABOLIC Collected: 09/12/2017 Status: F Source: [place] PROFILE (BMP) 5:15 AM [facility] [place] Order Comment: 'TROP' Serial specimen #1, [...] 9 Performed By: #### L500.2500, L501.4010 #### [facility] [address] [place], [place], [address] TROPONIN-I Collected: 09/12/2017 Status: F Source: [facility] 5:15 AM [facility] [place] Order Comment: 'TROP' Serial specimen #1, #2, #3, or #4: 1 TYPE CODE TESTS RESULT OUT OF RANGE REFERENCE UNITS LAB L501.4010 <0.06 ng/mL Normal 0.03 TROPONIN-I Result Comment: TROPONIN-I EXPECTED VALUES <0.05 NEGATIVE 0.06 - 0.59 AT RISK OF [place] > OR = 0.60 SUGGEST [place] Performed By: #### L500.2500, L501.4010 #### [facility] [address] [place], [place], [address] PROTHROMBIN TIME W/INR Collected: 09/12/2017 Status: F Source: [place] 5:15 AM [facility] [place] TYPE CODE TESTS RESULT OUT OF RANGE REFERENCE UNITS LAB L300.4150 11.7-14.9 SECONDS High PROTIME 24.5 LAB L300.4200 Normal INR 2.3 Performed By: #### L300.3900 #### [facility] [address] [place], [address] BNP,B-TYPE NATRIURETIC Collected: 09/12/2017 Status: F Source: [place] PEPTIDE 5:15 AM [facility] [place] TYPE CODE TESTS RESULT OUT OF RANGE REFERENCE UNITS LAB L503.6620 0-100 pg/mL High B-TYPE 620.4 RICHA PEP Performed By: #### L503.6620 #### [facility] [address] [place], [address] CHEST 1 VIEW Observed: 09/12/2017 Status: F Source: [facility] (PORTABLE) 5:09 AM [facility] [place] [facility] Imaging Services [address] [place] [address] Chest 1 View (Portable) MR#: [id number] Acct: [id number] Name: DOMINGUEZ GEIGER Rep #: [id number] : 1940 76 From: Nicky Hemphill MD PCP: DIRK CASTELAN Status: REG ER Study: Chest 1 View (Portable) Date of Exam: 09/12/17 Exam# [id number] Ordering Dr: Anne Marie Michel MD STUDY: [...] CC: DIRK CASTELAN; Anne Marie Michel MD Banking Representative: Signed OPERATIVE REPORT Observed: 09/10/2017 Status: F Source: [facility] 3:41 PM [facility] [place] [facility] Medical Records Department [address] [place] [address] Operative Report 09/10/17 1536 MR#: [id number] Acct: [id number] Name: DOMINGUEZ GEIGER Rep #: [id number] : 1940 76 From: Edmond Soria MD PCP: DIRK CASTELAN Status: REG [facility] Location: [facility] Problem List (1) Atrial fibrillation Status: Acute (2) Cardiomyopathy Status: Acute Qualifiers: Cardiomyopathy type: unspecified Qualified Code(s): I42.9 - Cardiomyopathy, unspecified (3) Chronic systolic congestive heart failure Status: Chronic (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 Operative Report Date of Procedure: 09/10/17 - Conscious sedation CONSCIOUS SEDATION REPORT BRIEF HISTORY OF PRESENT ILLNESS: The patient is a 76-year-old [place] [place] male who presented to [facility] for an elective cardioversion secondary to [...] Visit 9xxxx: Other Procedure See Report - [id number] 09/10/17 1541 <Electronically signed by Edmond Soria MD> Date Edmond Soria MD CC: DIRK CASTELAN; Edmond Soria MD Signed OPERATIVE REPORT Observed: 09/10/2017 Status: F Source: [facility] 1:00 PM [facility] [place] [facility] Medical Records Department [address] [place] [address] Operative Report 09/10/17 1258 MR#: [id number] Acct: [id number] Name: DOMINGUEZ GEIGER Rep #: [id number] : 1940 76 From: Sen Turcios MD PCP: DIRK CASTELAN Status: REG [facility] Location: [facility] Problem List (1) Atrial fibrillation Status: [...] apparent complications This note was generated with Apicaation software. It may contain incorrect words, spelling, and punctuation that were not noted in checking the note before signing. 09/10/17 1300 <Electronically signed by Sen Turcios MD> Date Sen Turcios MD CC: DIRK CASTELAN; Sen Turcios MD Signed POTASSIUM Collected: 09/10/2017 Status: F Source: [facility] 10:52 AM [facility] [place] TYPE CODE TESTS RESULT OUT OF RANGE REFERENCE UNITS LAB L501.5600 3.5-5.1 mmol/L Normal K 4.5 Performed By: #### L501.5600 #### [facility] [address] [place], [address] PROTHROMBIN TIME W/INR Collected: 09/10/2017 Status: F Source: [place] 10:52 AM [facility] [place] Order Comment: Comments[facility] 09[facility] Comments: for [facility] 09/10/17 TYPE CODE TESTS RESULT OUT OF RANGE REFERENCE UNITS LAB L300.4150 11.7-14.9 SECONDS High PROTIME 23.3 LAB L300.4200 Normal INR 2.2 Performed By: #### L300.3900 #### [facility] [address] [place], [address] ECHOCARDIOGRAM COMPLETE Observed: 09/09/2017 Status: F Source: [place] 1:31 PM [facility] [place] [facility] Cardiovascular Services [address] [place] [address] Echo Complete 09/09/17 0853 MR#: [id number] Acct: [id number] Name: DOMINGUEZ GEIGER Rep #: [id number] : 1940 76 From: Sen Turcios MD Attending Dr: Sen Turcios MD Status: REG CLI Ordering Dr: Sen Turcios MD Date: 09/09/17 Location: [facility] Sex: M C Admitted: Reason For Study: [...] Physician: Dirk Castelan Performed By: Emelina Goodman, RDSHAHNAZ, RVT 09/09/17 1331 Date Sen Turcios MD CC: DIRK CASTELAN; Sen Turcios MD Date Dictated: 09/09/17 0853 Date Transcribed: 09/09/17 133 Banking Representative: Signed CHEST PA AND LATERAL Observed: 09/08/2017 Status: F Source: [facility] 12:18 PM [facility] [place] [facility] Imaging Services [address] [place] [address] Chest PA and Lateral MR#: [id number] Acct: [id number] Name: DOMINGUEZ GEIGER Rep #: [id number] : 1940 76 From: Smith Grimm MD PCP: DIRK CASTELAN Status: REG CLI Study: Chest PA and Lateral Date of Exam: 09/08/17 Exam# [id number] Ordering Dr: Sen Turcios MD STUDY: X-RAY [...] Smith Grimm MD at 16:04 EST Tel [phone], Service support , CC: DIRK CASTELAN; Sen Turcios MD Banking Representative: Signed CBC W/DIFF, AUTOMATED Collected: 09/08/2017 Status: F Source: [facility] 12:11 PM [facility] [place] TYPE CODE TESTS RESULT OUT OF [...] Performed By: #### L100.0100, L500.2500, L503.6620 #### [facility] [address] [place], [address] BASIC METABOLIC Collected: 09/08/2017 Status: F Source: [facility] PROFILE ([facility]) 12:11 PM [facility] [place] TYPE CODE TESTS RESULT OUT OF [...] Performed By: #### L100.0100, L500.2500, L503.6620 #### [facility] [address] [place], [address] BNP,B-TYPE NATRIURETIC Collected: 09/08/2017 Status: F Source: [place] PEPTIDE 12:11 PM [facility] [place] TYPE CODE TESTS RESULT OUT OF RANGE REFERENCE UNITS LAB L503.6620 0-100 pg/mL High B-TYPE 780.0 RICHA PEP Performed By: #### L100.0100, L500.2500, L503.6620 #### [facility] [address] [place], [address] PROTHROMBIN TIME W/INR Collected: 09/08/2017 Status: F Source: [place] 12:11 PM [facility] [place] TYPE CODE TESTS RESULT OUT OF RANGE REFERENCE UNITS LAB L300.4150 11.7-14.9 SECONDS High PROTIME 25.2 LAB L300.4200 Normal INR 2.4 Performed By: #### L300.3900 #### [facility] [address] [place], [address] CARDIOLOGY VISIT Observed: 09/08/2017 Status: F Source: [place] REPORT 11:34 AM [facility] [place] [facility] [address] [place] [address] OFFICE VISIT Date of Service: 09/08/17 MR#: [id number] Acct: [id number] Name: DOMINGUEZ GEIGER Rep #: [id number] : 1940 Provider: Sen Turcios MD Age/Sex: 76/M [place] [facility] Status: Signed HPI HPI Details: DOMINGUEZ GEIGER, [...] moderate MR/TR, mild aortic valve stenosis, trivial AI/[place], a calcified aortic root, and estimated RV [...] mg PO QDAY 09/08/17 [History Confirmed 09/08/17] [facility] Medical History Palpitations (Acute) Dyspnea (Acute) Abnormal EKG (Acute) Paroxysmal atrial tachycardia (Acute) Cardiomyopathy (Acute) group home current use of anticoagulant (Chronic) Paroxysmal atrial [...] evaluation and care as noted above. 5. group home current use of anticoagulant Z79.01 Plan His [...] R06.00; R06.01 Dyspnea type: shortness of breath group home current use of anticoagulant Z79.01 Coding Level of Care Code Off vis,est,level 4 Diagnoses Paroxysmal atrial fibrillation I48.0 Cardiomyopathy, unspecified type I42.9 Cardiomyopathy type: unspecified Chronic systolic CHF (congestive heart failure) I50.22 Shortness of breath R06.02; R06.00; R06.01 Dyspnea type: shortness of breath group home current use of anticoagulant Z79.01 09/08/17 1134 <Electronically signed by Sen Turcios MD> Date Sen Turcios MD Cosigner Signature: Date (if applicable) CC: DIRK CASTELAN 12 LEAD EKG PERFORMED Observed: 09/08/2017 Status: F Source: [place] BY GEOVANNI 10:37 AM [facility] [place] [address] [place] [address] 12 Lead EKG performed by GEOVANNI 09/08/17 1036 MR#: [id number] Acct: [id number] Name: DOMINGUEZ GEIGER Rep #: [id number] : 1940 76 From: Sen Turcios MD Attending Dr: Sen Turcios MD Status: DEP AMB Ordering Dr: Sen Turcios MD Date: 09/08/17 [facility] Sex: M C Admitted: BMS/12 Lead EKG performed by [facility] ECG Report Interpretation Atrial fibrillation Left axis deviationPoor R wave progression Anterior infarct -age undetermined - cannot be excluded T-abnormality - Consider anterolateral ischemia. ABNORMAL Electronically signed on 09/08/2017 at 11:49 by Sen Turcios 09/08/17 1152 Date Sen Turcios MD CC: DIRK CASTELAN Date Dictated: 09/08/17 1036 Date Transcribed: 09/08/17 1036 Banking Representative: PM Signed ALLERGIES ALLERGIES DATE TYPE / CODE NAME / CODE REACTION SEVERITY SOURCE 02/25/2018 Drug No Known Unknown [facility] Allergy/4160 Allergies/F00 [facility] [address](SNOMED 5210171(RXNOR Repository CT) M) ENCOUNTERS ENCOUNTERS ADMIT/DISCHARGE ACCOUNT ADMITTING ENCOUNTER LOCATION SOURCE NUMBER CLASS 08/24/2018 [id number] Ambulatory Goldy [facility] 8 [facility] ing:LAB Repository 08/24/2018/ [id number] Ambulatory BMSBuilding:B Goldy 9 5 [facility] Repository 06/28/2018/ [id number] Ambulatory Goldy Hugo 8 2 [facility] ing:LAB Repository 06/28/2018 [id number] Ambulatory Hugo Goldy 0 [facility] ing:PSN Repository 05/24/2018/ [id number] Ambulatory Goldy Goldy 8 5 [facility] ing:LAB Repository 03/24/2018/ [id number] Ambulatory Goldy [facility] 8 6 [facility] ing:LAB Repository 03/07/2018 [id number] Ambulatory BMSBuilding:B [place] 0 [place].[facility] Repository 02/25/2018/ [id number] Ambulatory BMSBuilding:B [place] 8 0 [place].[facility] Repository 02/25/2018/ [id number] Ambulatory Hugo Hugo 8 5 [facility] ing:LAB Repository 01/07/2018/ [id number] Ambulatory Hugo Goldy 8 8 [facility] ing:LAB Repository 12/13/2017/ [id number] Ambulatory Goldy [facility] 8 3 [facility] ing:LAB Repository 11/23/2017/ [id number] Ambulatory BMSBuilding:B [place] 8 6 [place].[facility] Repository 11/23/2017/ [id number] Ambulatory Hugo Hugo 8 7 [facility] ing:LAB Repository 11/16/2017 [id number] Ambulatory Goldy Hugo 7 [facility] ing:CLSP Repository 11/16/2017 [id number] Ambulatory BMSBuilding:B [place] 0 MS.CF.[facility] Repository 11/16/2017 [id number] Ambulatory BMSBuilding:W Goldy 5 [facility] Repository 11/16/2017 [id number] Ambulatory BMSBuilding:W Hugo 4 [facility] Repository 11/03/2017/ [id number] Ambulatory BMSBuilding:B Hugo 8 7 [place].[facility] Repository 11/03/2017 [id number] Ambulatory BMSBuilding:B Hugo 5 [place].[facility] Repository 10/28/2017/ [id number] Ambulatory Goldy [facility] 8 6 [facility] ing:LAB Repository 09/30/2017 [id number] Ambulatory BMSBuilding:B Hugo 9 [place].[facility] Repository 09/29/2017/ [id number] Ambulatory Goldy Goldy 8 8 [facility] ing:LAB Repository 09/23/2017/ [id number] Ambulatory BMSBuilding:B Goldy 8 5 [place].[facility] Repository 09/17/2017 [id number] Ambulatory BMSBuilding:B Hugo 0 [place].[facility] Repository 09/12/2017/ [id number] Sharon, Ramon Inpatient Goldy Hugo 8 9 [facility] ing:PCURoom: Repository [id number]: 1 09/12/2017 [id number] Sharon, Ramon Ambulatory BMSBuilding:B Goldy 0 MS.CF.[facility] Repository 09/12/2017 [id number] Sharon, Ramon Ambulatory BMSBuilding:B Hugo 9 [facility].CF.[facility] Repository 09/12/2017 [id number] Sharon, Ramon Ambulatory BMSBuilding:B Hugo 8 [facility] Repository 09/12/2017 [id number] Sharon, Ramon Ambulatory BMSBuilding:B Hugo 9 MS.CF.[facility] Repository 09/12/2017 [id number] Sharon, Ramon Ambulatory BMSBuilding:B Goldy 7 [facility] Repository 09/12/2017 [id number] Sharon, Ramon Ambulatory BMSBuilding:B Goldy 9 MS.CF.[facility] Repository 09/12/2017 [id number] Sharon, Ramon Ambulatory BMSBuilding:B Goldy 5 [facility] Repository 09/12/2017 [id number] Ambulatory BMSBuilding:B Hugo 3 [facility] Repository 09/10/2017 [id number] Ambulatory Hugo Hugo 2 [facility] ing:CLSP Repository 09/10/2017 [id number] Ambulatory BMSBuilding:B Goldy 6 MS.CF.[facility] Repository 09/10/2017 [id number] Ambulatory BMSBuilding:B Goldy 8 [facility] Repository 09/09/2017 [id number] Ambulatory Goldy Goldy 9 [facility] Hospital ing:CVS Repository 09/09/2017 [id number] Ambulatory BMSBuilding:W Hugo 2 [facility] Repository 09/08/2017 [id number] Ambulatory Hugo Hugo 1 [facility] ing:LAB Repository 09/08/2017/ [id number] Ambulatory BMSBuilding:B Goldy 8 3 MS.[facility] Repository 09/08/2017 [id number] Ambulatory BMSBuilding:B Hugo 0 MS.[facility] Repository PAYERS PAYERS ENCOUNTER GUARANTOR PAYER SUBSCRIBER SOURCE 08/24/2018 ANNE MARIE Corey Primary ANNE MARIE [place] [id number] Insurance:JUDAISM HOSTETLERDOB: [facility] 0512-03-05IRTNorth Memorial Health Hospitalicy Number: [facility] , [place] [address]Xaa: [id number] Date: () [address] [address]JM: 08/24/2018 Secondary NOT GIVENUNK Hugo Insurance:SELF PAY [facility] Number: Effective Repository Date:2018-07-04 08/24/2018 ANNE MARIE Corey [facility] ANNE MARIE [place] [id number] Insurance:JUDAISM HOSTETLERDOB: [facility] [id number] Number: [facility] , [place] [address]Epz: [id number] Date: ) [address] [address]UE: 08/24/2018 Secondary NOT GIVENUNK Hugo Insurance:SELF PAY [facility] Number: Effective Repository Date:2018-08-24 06/28/2018 ANNE MARIE Winslow [id number] Insurance:JUDAISM HOSTETLERDOB: [facility] [id number] Number: Repository , [place] [address]Emh: [id number] Date: () [address] [address]ZS: 06/28/2018 Secondary NOT GIVENUNK Goldy Insurance:SELF PAY [facility] Number: Effective Repository Date:2018-06-02 06/28/2018 ANNE MARIE Corey [facility] ANNE MARIE Corey Goldy [id number] Insurance:JUDAISM HOSTETLERDOB: [facility] [id number] Memorial Health Hospitalicy Number: Repository , [place] [address]Nts: [id number] Date: () TW RD [address] [place] [address] 18552IE: 06/28/2018 Secondary NOT GIVENUNK Goldy Insurance:SELF PAY [facility] Number: Effective Repository Date:2018-06-15 05/24/2018 ANNE MARIE Corey [facility] ANNE MARIE Corey Hugo [id number] Insurance:JUDAISM HOSTETLERDOB: [facility] [id number] [place] Number: Repository , [place] [address]Jiv: [id number] Date: () TW RD [address] [place] [address] 31758WF: 05/24/2018 Secondary NOT GIVENUNK Goldy Insurance:SELF PAY [facility] Number: Effective Repository Date:2018-04-05 03/24/2018 ANNE MARIE Corey [facility] ANNE MARIE [place] [id number] Insurance:JUDAISM HOSTETLERDOB: [facility] [id number] Springs Number: [place]ository , [place] [address]Ecy: [id number] Date: () TW [address] [place] [address] 68098UN: 03/24/2018 Secondary NOT GIVENUNK Hugo Insurance:SELF PAY [facility] Number: Effective Repository Date:2018-03-03 03/07/2018 DOMINGUEZ Corey Primary NOT GIVENUNK Goldy [id number] Insurance:[facility] Number: [facility] [id number] Repository , [place] [address]Dbm: Date:2017-07-20 () 03/07/2018 Secondary NOT GIVENUNK Goldy Insurance:SELF PAY [facility] Number: Effective Repository Date:2017-07-20 02/25/2018 [facility] Hugo [id number] Insurance:JUDAISM HOSTETLERDOB: [facility] [id number] Surgical Hospitaly Number: Repository , [place] [address]Caw: [id number] Date: () [facility] [address], [place] [address]YO: 02/25/2018 Secondary NOT GIVENUNK Hugo Insurance:SELF PAY [facility] Number: Effective Repository Date:2018-02-25 02/25/2018 [facility] GoldyMiriam [id number] Insurance:JUDAISM HOSTETLERDOB: [facility] 1412-31-32DDONorth Memorial Health Hospitalicy Number: Repository , [place] [address]Khd: [id number] Date: () [address] [address]LG: 02/25/2018 Secondary NOT GIVENUNK Goldy Insurance:SELF PAY [facility] Number: Effective Repository Date:2018-01-28 01/07/2018 [facility] Hugo [id number] Insurance:JUDAISM HOSTETLERDOB: [facility] [id number] Surgical Hospitaly Number: Repository , [place] [address]Trl: [id number] Date: () [facility] [address], [place] [address]WL: 01/07/2018 Secondary NOT GIVENUNK Hugo Insurance:SELF PAY [facility] Number: Effective Repository Date:2017-12-30 12/13/2017 ANNE MARIE Corey Primary ANNE MARIE Corey Goldy [id number] Insurance:JUDAISM HOSTETLERDOB: [facility] [id number] Surgical Hospitaly Number: Repository , [place] [address]His: [id number] Date: () [facility] [address] [place] [address] 47034CX: 12/13/2017 Secondary NOT GIVENUNK Hugo Insurance:SELF PAY [facility] Number: Effective Repository Date:2017-11-30 11/23/[address] [facility] Madhav Hugo [id number] Insurance:JUDAISM HOSTETLERDOB: [facility] [id number] Memorial Health Hospitalicy Number: Repository , [place] [address]Ggv: [id number] Date: () [facility] [address] [place] [address] 14453XP: 11/23/2017 Secondary NOT GIVENUNK Goldy Insurance:SELF PAY [facility] Number: Effective Repository Date:2017-11-23 11/23/2017 DOMINGUEZ Madhav [facility] DOMINGUEZ Corey Goldy [id number] Insurance:JUDAISM HOSTETLERDOB: [facility] [id number] Surgical Hospitaly Number: Repository , [place] [address]Rkh: [id number] Date: () [facility] [address] [place] [address] 72[address]IY: 11/23/2017 Secondary NOT GIVENUNK Hugo Insurance:SELF PAY [facility] Number: Effective Repository Date:2017-11-01 11/16/2017 ANNE MARIE [facility] ANNE MARIE Britooster [id number] Insurance:JUDAISM HOSTETLERDOB: [facility] 1813-29-26DLMNorth Memorial Health Hospitalicy Number: Repository , [place] [address]Tdz: [id number] Date: (HP) TW RD [address] [place] [address] 42207ZP: 11/16/2017 Secondary NOT GIVENUNK Goldy Insurance:SELF PAY [facility] Number: Effective Repository Date:2017-11-03 11/16/2017 [facility] Primary [facility] Goldy [id number] Insurance:JUDAISM HOSTETLERDOB: [facility] [id number] Springs Number: Repository , [place] [address]Yki: [id number] Date: (HP) TW RD [address] [place] [address]65[address]GY: 11/16/2017 Secondary NOT GIVENUNK Hugo Insurance:SELF PAY [facility] Number: Effective Repository Date:2017-11-16 11/16/2017 [facility] Primary [facility] Hugo [id number] Insurance:JUDAISM HOSTETLERDOB: [facility] [id number] Surgical Hospitaly Number: Repository , [place] [address]Sia: [id number] Date: () [facility] [address] [place] [address] 27446BF: 11/16/2017 Secondary NOT GIVENUNK Hugo Insurance:SELF PAY [facility] Number: Effective Repository Date:2017-11-16 11/16/2017 [facility] Primary [facility] Hugo [id number] Insurance:JUDAISM HOSTETLERDOB: [facility] [id number] Surgical Hospitaly Number: Repository , [place] [address]Ufl: [id number] Date: () [address] [place] [address] 35707FS: 11/16/2017 Secondary NOT GIVENUNK Goldy Insurance:SELF PAY [facility] Number: Effective Repository Date:2017-11-16 11/03/2017 [facility] Primary DOMINGUEZ Madhav Hugo [id number] Insurance:JUDAISM HOSTETLERDOB: [facility] [id number] Surgical Hospitaly Number: Repository , [place] [address]Iyy: [id number] Date: () TW RD [address] [place] [address] 62[address]AO: 11/03/2017 Secondary NOT GIVENUNK Goldy Insurance:SELF PAY [facility] Number: Effective Repository Date:2017-11-03 11/03/2017 [facility] Primary DOMINGUEZ Madhav Hugo [id number] Insurance:JUDAISM HOSTETLERDOB: [facility] [id number] Memorial Health Hospitalicy Number: Repository , [place] [address]Yov: [id number] Date: () TW RD [address] [place] [address] 72733SG: 11/03/2017 Secondary NOT GIVENUNK Hugo Insurance:SELF PAY [facility] Number: Effective Repository Date:2017-11-03 10/28/2017 [facility] Primary DOMINGUEZ Madhav Goldy [id number] Insurance:JUDAISM HOSTETLERDOB: [facility] [id number] Surgical Hospitaly Number: Repository , [place] [address]Ezi: [id number] Date: () TW RD [address] [place] [address] 05137UR: 10/28/2017 Secondary NOT GIVENUNK Goldy Insurance:SELF PAY [facility] Number: Effective Repository Date:2017-09-30 09/30/2017 [facility] Primary DOMINGUEZ Madhav Goldy [id number] Insurance:JUDAISM HOSTETLERDOB: [facility] [id number] Memorial Health Hospitalicy Number: Repository , [place] [address]Arr: [id number] Date: () TW RD [address] [place] [address] 847[address]ZX: 09/30/2017 Secondary NOT GIVENUNK Goldy Insurance:SELF PAY [facility] Number: Effective Repository Date:2017-09-15 09/29/2017 [facility] Primary [facility] Goldy [id number] Insurance:JUDAISM HOSTETLERDOB: [facility] [id number] Memorial Health Hospitalicy Number: Repository , [place] [address]Qem: [id number] Date: () [facility] [address] [place] [address]OJ: 09/29/2017 Secondary NOT GIVENUNK Goldy Insurance:SELF PAY [facility] Number: Effective Repository Date:2017-09-03 09/23/2017 [facility] Primary [facility] Hugo [id number] Insurance:JUDAISM HOSTETLERDOB: [facility] [id number] Memorial Health Hospitalicy Number: Repository , [place] [address]Nfu: [id number] Date: () [facility] [address] [place] [address] 86433CX: 09/23/2017 Secondary NOT GIVENUNK Hugo Insurance:SELF PAY [facility] Number: Effective Repository Date:2017-09-16 09/17/2017 [facility] Primary [facility] Hugo [id number] Insurance:JUDAISM HOSTETLERDOB: [facility] [id number] Summit State Hospital GROUPWhite Mountain Regional Medical Centericy Number: Repository , [place] [address]Cng: [id number] Date: () [facility] [address] [place] [address] 81531VF: 09/17/2017 Secondary NOT GIVENUNK Goldy Insurance:SELF PAY [facility] Number: Effective Repository Date:2017-09-08 09/12/2017 [facility] Primary DOMINGUEZ Madhav Goldy [id number] Insurance:JUDAISM HOSTETLERDOB: [facility] [id number] Memorial Health Hospitalicy Number: Repository , [place] [address]Bri: [id number] Date: () [address], [place] [address]QX: 09/12/2017 Secondary NOT GIVENUNK Goldy Insurance:SELF PAY [facility] Number: Effective Repository Date:2017-09-12 09/12/2017 [facility] Primary DOMINGUEZ Madhav Hugo [id number] Insurance:JUDAISM HOSTETLERDOB: [facility] [id number] Memorial Health Hospitalicy Number: Repository , [place] [address]Sai: [id number] Date: () TW RD [address] [place] [address] 82138OK: 09/12/2017 Secondary NOT GIVENUNK Goldy Insurance:SELF PAY [facility] Number: Effective Repository Date:2017-09-12 09/12/2017 [facility] Primary DOMINGUEZ Madhav Hugo [id number] Insurance:JUDAISM HOSTETLERDOB: [facility] [id number] Surgical Hospitaly Number: Repository , [place] [address]Vgc: [id number] Date: () [facility] [address] [place] [address] 58363OV: 09/12/2017 Secondary NOT GIVENUNK Hugo Insurance:SELF PAY [facility] Number: Effective Repository Date:2017-09-12 09/12/2017 [facility] Primary DOMINGUEZ Corey Goldy [id number] Insurance:JUDAISM HOSTETLERDOB: [facility] 1958-49-66TQXNorth Memorial Health Hospitalicy Number: Repository , [place] [address]Knx: [id number] Date: () [facility] [address] [place] [address] 77139CT: 09/12/2017 Secondary NOT GIVENUNK Hugo Insurance:SELF PAY [facility] Number: Effective Repository Date:2017-09-12 09/12/2017 [facility] Primary [facility] Goldy [id number] Insurance:JUDAISM HOSTETLERDOB: [facility] [id number] Surgical Hospitaly Number: Repository , [place] [address]Czu: [id number] Date: () [facility] [address] [place] [address] 844[address]UM: 09/12/2017 Secondary NOT GIVENUNK Hugo Insurance:SELF PAY [facility] Number: Effective Repository Date:2017-09-12 09/12/2017 [facility] Primary [facility] Hugo [id number] Insurance:JUDAISM HOSTETLERDOB: [facility] [id number] Surgical Hospitaly Number: Repository , [place] [address]Euw: [id number] Date: () [address] [address]NY: 09/12/2017 Secondary NOT GIVENUNK Goldy Insurance:SELF PAY [facility] Number: Effective Repository Date:2017-09-12 09/12/2017 [facility] Primary [facility] Goldy [id number] Insurance:JUDAISM HOSTETLERDOB: [facility] [id number] Memorial Health Hospitalicy Number: Repository , [place] [address]Jpd: [id number] Date: () [facility] [address] [place] [address] 53946KH: 09/12/2017 Secondary NOT GIVENUNK Hugo Insurance:SELF PAY [facility] Number: Effective Repository Date:2017-09-12 09/12/2017 DOMINGUEZ W Primary DOMINGUEZ W Hugo [id number] Insurance:JUDAISM HOSTETLERDOB: [facility] [id number] Memorial Health Hospitalicy Number: Repository , [place] [address]Asq: [id number] Date: () [facility] [address] [place] [address] 82345QC: 09/12/2017 Secondary NOT GIVENUNK Goldy Insurance:SELF PAY [facility] Number: Effective Repository Date:2017-09-12 09/12/2017 DOMINGUEZ W Primary DOMINGUEZ W Goldy [id number] Insurance:JUDAISM HOSTETLERDOB: [facility] [id number] Memorial Health Hospitalicy Number: Repository , [place] [address]Yjw: [id number] Date: () [address] [address]ID: 09/12/2017 Secondary NOT GIVENUNK Goldy Insurance:SELF PAY [facility] Number: Effective Repository Date:2017-09-12 09/10/2017 DOMINGUEZ W Primary DOMINGUEZ W Hugo [id number] Insurance:JUDAISM HOSTETLERDOB: [facility] [id number] Memorial Health Hospitalicy Number: Repository , [place] [address]Nel: [id number] Date: () [address] [address]FN: 09/10/2017 Secondary NOT GIVENUNK Hugo Insurance:SELF PAY [facility] Number: Effective Repository Date:2017-09-08 09/10/2017 DOMINGUEZ W Primary DOMINGUEZ W Hugo [id number] Insurance:JUDAISM HOSTETLERDOB: [facility] [id number] Memorial Health Hospitalicy Number: Repository , [place] [address]Nil: [id number] Date: () [facility] [address] [place] [address] 030[address]SS: 09/10/2017 Secondary NOT GIVENUNK Goldy Insurance:SELF PAY [facility] Number: Effective Repository Date:2017-09-10 09/10/2017 [facility] Primary DOMINGUEZ W Hugo [id number] Insurance:JUDAISM HOSTETLERDOB: [facility] [id number] Memorial Health Hospitalicy Number: Repository , [place] [address]Uiy: [id number] Date: () [facility] [address] [place] [address] 996[address]XF: 09/10/2017 Secondary NOT GIVENUNK Hugo Insurance:SELF PAY [facility] Number: Effective Repository Date:2017-09-10 09/09/2017 [facility] Primary [facility] Hugo [id number] Insurance:JUDAISM HOSTETLERDOB: [facility] [id number] Memorial Health Hospitalicy Number: Repository , [place] [address]Dsg: [id number] Date: () [address] [address]EX: 09/09/2017 Secondary NOT GIVENUNK Hugo Insurance:SELF PAY [facility] Number: Effective Repository Date:2017-09-08 09/09/2017 [facility] Primary DOMINGUEZ W Goldy [id number] Insurance:JUDAISM HOSTETLERDOB: [facility] 0928-30-96WTQClarks Summit State Hospital GROUPWhite Mountain Regional Medical Centericy Number: Repository , [place] [address]Asr: [id number] Date: () [address] [address]CS: 09/09/2017 Secondary NOT GIVENUNK Hugo Insurance:SELF PAY [facility] Number: Effective Repository Date:2017-09-09 09/08/2017 DOMINGUEZ W Primary DOMINGUEZ Corey Goldy [id number] Insurance:JUDAISM HOSTETLERDOB: [facility] [id number] Memorial Health Hospitalicy Number: Repository , [place] [address]Bgc: [id number] Date: () [address] [address]HZ: 09/08/2017 Secondary NOT GIVENUNK Hugo Insurance:SELF PAY [facility] Number: Effective Repository Date:2017-09-08 09/08/2017 DOMINGUEZ W Primary DOMINGUEZ W Hugo [id number] Insurance:JUDAISM HOSTETLERDOB: [facility] [id number] Memorial Health Hospitalicy Number: Repository , [place] [address]Bmw: [id number] Date: () [address] [address]RM: 09/08/2017 Secondary NOT GIVENUNK Hugo Insurance:SELF PAY [facility] Number: Effective Repository Date:2017-09-07 09/08/2017 DOMINGUEZ Primary DOMINGUEZ [place] [id number] Insurance:JUDAISM HOSTETLERDOB: [facility] Number: [id number] Summit State Hospital [id number] Repository , [place] [address]Gjz: Date:2017-09-08 () 09/08/2017 Secondary NOT GIVENUNK Goldy Insurance:SELF PAY [facility] Number: Effective Repository Date:2017-09-08
== END 2018-08-24 10:36 | disposition home or self-care (01) ==
LOC: LAB 09:36
PROVIDERS: Nurse Practitioner Family; Family Provider Family Medicine; PCP Family Medicine; Referring Provider Internal Medicine Cardiovascular Disease; Visit Provider Internal Medicine Cardiovascular Disease
DX: I48.0 Paroxysmal atrial fibrillation (principal); I48.91 Unspecified atrial fibrillation; Z79.01 Long term (current) use of anticoagulants
CPT/HCPCS: 36415; 80076; 84439; 84443; 85610

== ENCOUNTER 2018-09-15 09:47 | Outpatient (RCR) | payer OTHER, SELFPAY ==
[2018-09-15 10:24] LABS: International Normalized Ratio 2.3; Prothrombin Time (Protime)PT. 25.5 SECONDS (11.7-14.9)
== END 2018-09-29 13:44 | disposition home or self-care (01) ==
LOC: LAB 09:47
PROVIDERS: Family Provider Family Medicine; PCP Family Medicine; Referring Provider Internal Medicine Cardiovascular Disease; Visit Provider Internal Medicine Cardiovascular Disease
DX: I48.0 Paroxysmal atrial fibrillation (principal); I48.91 Unspecified atrial fibrillation; Z79.01 Long term (current) use of anticoagulants
CPT/HCPCS: 36415; 85610

== ENCOUNTER 2018-10-21 11:02 | Outpatient (RCR) | payer OTHER, SELFPAY ==
[2018-10-21 12:01] LABS: T4 Free Direct 0.46 ng/dL (0.76-1.46)
[2018-10-21 12:29] LABS: International Normalized Ratio 2.7; Prothrombin Time (Protime)PT. 28.7 SECONDS (11.7-14.9)
== END 2018-10-21 12:00 | disposition home or self-care (01) ==
LOC: LAB 11:02
PROVIDERS: Family Provider Family Medicine; PCP Family Medicine; Referring Provider Internal Medicine Cardiovascular Disease; Visit Provider Internal Medicine Cardiovascular Disease
DX: I48.0 Paroxysmal atrial fibrillation (principal); Z79.01 Long term (current) use of anticoagulants
CPT/HCPCS: 36415; 84439; 84443; 85610

== ENCOUNTER 2018-11-25 13:07 | Outpatient (RCR) | payer OTHER, SELFPAY ==
[2018-11-25 15:01] LABS: Prothrombin Time (Protime)PT. 31.6 SECONDS (11.7-14.9)
== END 2018-11-29 16:00 | disposition home or self-care (01) ==
LOC: LAB 13:07
PROVIDERS: Family Provider Family Medicine; PCP Family Medicine; Referring Provider Internal Medicine Cardiovascular Disease; Visit Provider Internal Medicine Cardiovascular Disease
DX: I48.0 Paroxysmal atrial fibrillation (principal); Z79.01 Long term (current) use of anticoagulants
CPT/HCPCS: 36415; 85610

== ENCOUNTER 2019-01-05 08:45 | Outpatient (RCR) | payer OTHER, SELFPAY | END 2019-01-05 09:00 | disposition home or self-care (01) | LOC: LAB 08:45 | PROVIDERS: Family Provider Family Medicine; PCP Family Medicine; Referring Provider Internal Medicine Cardiovascular Disease; Visit Provider Internal Medicine Cardiovascular Disease | DX: I48.0 Paroxysmal atrial fibrillation (principal); Z79.01 Long term (current) use of anticoagulants | CPT/HCPCS: 36415; 85610 ==

== ENCOUNTER 2019-02-13 10:29 | Outpatient (RCR) | payer OTHER, SELFPAY ==
[2019-02-13 11:38] LABS: Prothrombin Time (Protime)PT. 36.9 SECONDS (11.7-14.9)
[2019-02-13 11:43] LABS: International Normalized Ratio 3.7
== END 2019-03-01 16:00 | disposition home or self-care (01) ==
LOC: LAB 10:29
PROVIDERS: Family Provider Family Medicine; PCP Family Medicine; Referring Provider Internal Medicine Cardiovascular Disease; Visit Provider Internal Medicine Cardiovascular Disease
DX: I48.0 Paroxysmal atrial fibrillation (principal); Z79.01 Long term (current) use of anticoagulants
CPT/HCPCS: 36415; 85610

== ENCOUNTER 2019-03-07 12:11 | Outpatient (RCR) | payer OTHER, SELFPAY ==
[2019-03-07 12:59] LABS: International Normalized Ratio 2.1; Prothrombin Time (Protime)PT. 23.5 SECONDS (11.7-14.9)
[2019-03-07 13:23] LABS: Thyroid Stim Hormone (TSH) 6.08 uIU/mL (0.358-3.74)
== END 2019-03-07 13:00 | disposition home or self-care (01) ==
LOC: LAB 12:11
PROVIDERS: Family Provider Family Medicine; PCP Family Medicine; Referring Provider Internal Medicine Cardiovascular Disease; Visit Provider Internal Medicine Cardiovascular Disease
DX: E03.9 Hypothyroidism, unspecified (principal); I48.0 Paroxysmal atrial fibrillation; Z79.01 Long term (current) use of anticoagulants
CPT/HCPCS: 36415; 84443; 85610